=== PATIENT | male | born 1985 | race American Indian/Alaskan Native ===

== ENCOUNTER 2016-05-26 02:55 | Emergency (ER) | payer SELFPAY ==
--- NOTE | 2016-05-26 05:56 | Emergency Department Report ---
HPI - General Chief Complaint: Headache Time Seen by Provider: 05/26/16 05:50 - HPI HPI: The patient is a 30-year-old male who presents to ED complaining of 10/10 pain in the right side of his mouth x 3-4 weeks . Patient states that the pain has been intermittent for the past 3 weeks and has increased in severity over the last couple of days. The pain is exacerbated by eating and opening of the mouth. Patient complaints of associated right sided headache and right ear pain.Patient states he takes aspirin for the pain. Patient states that it radiates towards ear. Patient describes a as a throbbing, pressure-like sensation. Patient states otherwise well and has no other complaints. Patient has had no fevers and no chills. No chest pain, no shortness of breath. No abdominal pain. No shortness of breath or recent trauma to the face. ED Past Medical Hx - Past Medical History Previous Medical History?: No - Surgical History Past Surgical History?: No - Social History Smoking Status: Never Smoker Substance Use Type: None - Medications Home Medications: Home Medications Medication Instructions Recorded Confirmed Last Taken Type Acetaminophen/Codeine 1 tab PO Q6H #12 tablet 05/26/16 Unknown Rx [Acetaminophen-Codeine #3 TAB] Amoxicillin/K Clav Tab [Augmentin 1 each PO BID #20 tablet 05/26/16 Unknown Rx 875MG TAB] Ibuprofen [Motrin] 800 mg PO Q8HR PRN #24 tablet 05/26/16 Unknown Rx ED Review of Systems ROS: Stated complaint: HEAD/FACIAL/THROAT PAIN Other details as noted in HPI Constitutional: denies: chills, fever Eyes: denies: eye pain, eye discharge, vision change ENT: ear pain, dental pain. denies: throat pain, hearing loss, epistaxis Respiratory: denies: cough, shortness of breath, wheezing Cardiovascular: denies: chest pain, palpitations Endocrine: no symptoms reported Gastrointestinal: denies: abdominal pain, nausea, vomiting, diarrhea Genitourinary: denies: urgency, dysuria, frequency, hematuria Musculoskeletal: denies: back pain, joint swelling, arthralgia, myalgia Skin: denies: rash, lesions Neurological: denies: headache, weakness, numbness, paresthesias, confusion Psychiatric: denies: anxiety, depression Hematological/Lymphatic: denies: easy bleeding, easy bruising Physical Exam - Physical Exam Vital Signs: Vital Signs 05/26/16 05/26/16 03:04 04:25 Temperature 97.5 F L 98.0 F Pulse Rate 52 L 51 L Respiratory 18 18 Rate Blood Pressure 111/77 118/80 O2 Sat by Pulse 96 98 Oximetry Physical Exam: GENERAL: Alert and oriented x3, no apparent distress, Normal Gait, atraumatic. HEAD: Head is normocephalic and a-traumatic. EYES: Pupils are equal, round, and reactive to light and accommodation. EARS: symetrical, atraumatic, non tender, ear canal clear and moderate cerumen, tympanic membrance non inflamed. gross auditory nml bilaterally. NOSE: Nose symetrical, Nontender,Nares appeared normal. MOUTH:Mouth is well hydrated and without lesions. Tonsils nonerythematous or swollen, Uvula midline, Tongue not elevated. Mucous membranes are moist. Posterior pharynx clear, no exudate or lesions. Patent airways. No sores, no gingival enlargement. Right to him before tender to palpation. No TMJ tenderness NECK: Supple. Non edematous, No carotid bruits. No lymphadenopathy or thyromegaly. LUNGS: Symetrical with respiration, No wheezing, no rales or crackles, CTAB. HEART: S1, S2 present, regular rate and rhythm without murmur, no rubs, no gallops. ABDOMEN: No organomegaly was noted,Positive bowel sounds, soft, and non- distended. . Nontender to palpation on all Quadrants, NO CVA tenderness. EXTREMITIES/MUSCULOSKELETAL: No cyanosis, clubbing, rash, lesions or edema. Full ROM bilaterally. UE/LE Pulses 2+ bilaterally NEUROLOGIC: No focal Deficit, Cranial nerves II through XII are grossly intact. No loss of sensation, neurologically intact. Patient able to follow up in OB instructions and commands. SKIN: Warm and dry, No lesions, No ulceration or induration present. ED Course Vital Signs 05/26/16 05/26/16 03:04 04:25 Temperature 97.5 F L 98.0 F Pulse Rate 52 L 51 L Respiratory 18 18 Rate Blood Pressure 111/77 118/80 O2 Sat by Pulse 96 98 Oximetry ED Medical Decision Making - Radiology Data Radiology results: report reviewed, image reviewed FINAL REPORT PROCEDURE: CT HEAD/BRAIN WO CON TECHNIQUE: Computerized tomography of the head was performed without contrast material. HISTORY: headache/blurry vision COMPARISON: No prior studies are available for comparison. FINDINGS: Skull and scalp: Normal. Paranasal sinuses: Normal. Ventricles and subarachnoid spaces: Normal. Cerebrum: No evidence of hemorrhage, acute infarction or mass . Cerebellum and brainstem: No evidence of hemorrhage, acute infarction or mass. Vasculature: Normal. Comments: None. IMPRESSION: Normal Examination Transcribed By: CO Dictated By: MELVIN STONE MD Electronically Authenticated By: MELVIN STONE MD Signed Date/Time: 05/26/16 0616 - Medical Decision Making 30-year-old male presents with dental pain due to caries ED course. CT of the head ordered due to patient complaining severe headache. CT report almost see above. She received pain medication in ED. Discussed with patient and his uncle who is here with him dental pain to cause headaches and ear pain. Discussed normal findings in Ear exam neuro exam. Discussed follow-up with a dentist. Discussed primary care physician follow-up as well. he is in no acute or respiratory distress. His vital signs are stable. Discussed with the patient's uncle and the patient that CT findings. Critical care attestation.: If time is entered above; I have spent that time in minutes in the direct care of this critically ill patient, excluding procedure time. ED Disposition Clinical Impression: Pain, dental, Dental headache Disposition: DISCHARGED TO HOME OR SELFCARE Is pt being admited?: No Does the pt Need Aspirin: No Condition: Stable Instructions: Dental Caries (ED), Acute Headache (ED), Toothache (ED) Prescriptions: Acetaminophen/Codeine [Acetaminophen-Codeine #3 TAB] 1 tab PO Q6H #12 tablet Amoxicillin/K Clav Tab [Augmentin 875MG TAB] 1 each PO BID #20 tablet Ibuprofen [Motrin] 800 mg PO Q8HR PRN #24 tablet PRN Reason: Pain Referrals: PRIMARY CARE, [Primary Care Provider] - 3-5 Days [facility] [Outside] - 3-5 Days [facility] [Outside] - 3-5 Days [facility] [Outside] - 3-5 Days Forms: Accompanied Note, Work/School Release Form(ED) Time of Disposition: 06:47
[2016-05-26] MEDS ORDERED: AUGMENTIN 875 MG PO ONE (05:57)
[2016-05-26] MEDS ORDERED: TYLENOL #3 PO ONE (05:57)
--- NOTE | 2016-05-26 06:20 | Cat Scan Report ---
FINAL REPORT PROCEDURE: CT HEAD/BRAIN WO CON TECHNIQUE: Computerized tomography of the head was performed without contrast material. HISTORY: headache/blurry vision COMPARISON: No prior studies are available for comparison. FINDINGS: Skull and scalp: Normal. Paranasal sinuses: Normal. Ventricles and subarachnoid spaces: Normal. Cerebrum: No evidence of hemorrhage, acute infarction or mass . Cerebellum and brainstem: No evidence of hemorrhage, acute infarction or mass. Vasculature: Normal. Comments: None. IMPRESSION: Normal Examination
[2016-05-26] MEDS ORDERED: LIDOCAINE VISCOUS 2% PO ONE (06:48)
[2016-05-26 07:15] VITALS: BP 114/78
== END 2016-05-26 07:17 | disposition home or self-care (01) ==
LOC: ED 02:55
DX: K08.89 Other specified disorders of teeth and supporting structures (principal); R51 Headache
CPT/HCPCS: 70450

== ENCOUNTER 2016-11-18 20:27 | Emergency (ER) | payer SELFPAY ==
[2016-11-18] MEDS ORDERED: PEPCID IV ONE ×2 (21:39→21:50)
[2016-11-18] MEDS ORDERED: BENADRYL ONE (21:39)
[2016-11-18] MEDS ORDERED: BENADRYL IV ONE (21:50)
[2016-11-18 22:17] LABS: Basophils % (Auto) 0.7 % (0.0-1.8); Eosinophils % (Auto) 0.6 % (0.0-4.3); Hematocrit 46.3 % (35.5-45.6); Hemoglobin 14.8 gm/dl (11.8-15.2); Mean Corpuscular HGB Conc 32 % (32-34); Mean Corpuscular Volume 78 fl (84-94); Platelet Count 233 K/mm3 (140-440); Red Blood Count 5.94 M/mm3 (3.65-5.03); Red Cell Distribution Width 13.3 % (13.2-15.2); White Blood Count 6.7 K/mm3 (4.5-11.0)
[2016-11-18 22:19] LABS: Mean Corpuscular Hemoglobin 25 pg (28-32)
[2016-11-18 22:52] LABS: Alanine Aminotransferase 20 units/L (7-56); Albumin 3.8 g/dL (3.9-5); Albumin/Globulin Ratio 1.4 %; Alkaline Phosphatase 66 units/L (35-129); Anion Gap 14 mmol/L; BUN/Creatinine Ratio 16.66; Blood Urea Nitrogen 10 mg/dL (9-20); Calcium 8.6 mg/dL (8.4-10.2); Carbon Dioxide 28 mmol/L (22-30); Chloride 100.4 mmol/L (98-107); Glucose 87 mg/dL (75-100); Potassium 3.7 mmol/L (3.6-5.0); Sodium 139 mmol/L (137-145); Total Protein 6.5 g/dL (6.3-8.2)
[2016-11-18 22:54] LABS: Bilirubin,Direct < 0.2 mg/dL (0-0.2); Bilirubin,Indirect 0.4 mg/dL
--- NOTE | 2016-11-19 08:12 | Emergency Department Report ---
ED Allergic Reaction HPI - General Chief complaint: Allergic Reaction Stated complaint: HEADACHE & SOB Time Seen by Provider: 11/19/16 07:16 Source: patient Mode of arrival: Ambulatory Limitations: No Limitations - History of Present Illness Initial Comments: This is a 31-year-old male nontoxic, well nourished in appearance, no acute signs of distress presents to the ED complaining of headache, itching, hives, swelling of the lips 3 hours prior to arrival. Patient stated he has a chronic allergic reactions to many things but is not aware of which allergies are from. Patient stated that he does have a primary care doctor he sees on a continuous basis for allergies but denies having an allergy test and was referred to want but the patient did not have time for one yet. Patient denies any trauma. Denies loss of consciousness, denies fever, chills, shortness of breath, nausea, vomiting, chest pain, difficulty breathing, drooling, hoarseness , abdominal pain, numbness or tingling. Patient states that he has history of migraines. Patient denies any allergies. MD Complaint: allergic reaction, hives -: Gradual, days(s) (1) Exposure: unknown Symptoms: rash, itching, lip swelling. denies: facial swelling, difficulty swallowing, difficulty breathing, orolingual swelling, hoarseness, syncopy, dizziness, nausea, vomiting, abdominal pain Severity: moderate Treatment Prior to Arrival: none Previous Allergy History: prior ED visit(s) - Related Data Previous Rx's Medication Instructions Recorded Last Taken Type Acetaminophen/Codeine [Tylenol 1 tab PO Q6H #12 tablet 05/26/16 Unknown Rx /Codeine # 3 tab] Amoxicillin/K Clav Tab [Augmentin 1 each PO BID #20 tablet 05/26/16 Unknown Rx 875MG TAB] Ibuprofen [Motrin] 800 mg PO Q8HR PRN #24 tablet 05/26/16 Unknown Rx diphenhydrAMINE [Benadryl CAP] 25 mg PO Q6HR PRN #30 capsule 11/19/16 Unknown Rx predniSONE [Deltasone] 40 mg PO QDAY #5 tab 11/19/16 Unknown Rx Allergies Allergy/AdvReac Type Severity Reaction Status Date / Time No Known Allergies Allergy Verified 02/28/15 07:19 ED Review of Systems ROS: Stated complaint: HEADACHE & SOB Other details as noted in HPI Constitutional: denies: chills, fever Eyes: denies: eye pain, eye discharge, vision change ENT: denies: ear pain, throat pain Respiratory: denies: cough, shortness of breath, wheezing Cardiovascular: denies: chest pain, palpitations Endocrine: no symptoms reported Gastrointestinal: denies: abdominal pain, nausea, diarrhea Genitourinary: denies: urgency, dysuria Musculoskeletal: denies: back pain, joint swelling, arthralgia Skin: rash. denies: lesions Neurological: denies: headache, weakness, paresthesias Psychiatric: denies: anxiety, depression Hematological/Lymphatic: denies: easy bleeding, easy bruising ED Past Medical Hx - Past Medical History Previous Medical History?: Yes Additional medical history: Migraines - Surgical History Past Surgical History?: No - Social History Smoking Status: Never Smoker Substance Use Type: None - Medications Home Medications: Home Medications Medication Instructions Recorded Confirmed Last Taken Type Acetaminophen/Codeine [Tylenol 1 tab PO Q6H #12 tablet 05/26/16 Unknown Rx /Codeine # 3 tab] Amoxicillin/K Clav Tab [Augmentin 1 each PO BID #20 tablet 05/26/16 Unknown Rx 875MG TAB] Ibuprofen [Motrin] 800 mg PO Q8HR PRN #24 tablet 05/26/16 Unknown Rx diphenhydrAMINE [Benadryl CAP] 25 mg PO Q6HR PRN #30 capsule 11/19/16 Unknown Rx predniSONE [Deltasone] 40 mg PO QDAY #5 tab 11/19/16 Unknown Rx ED Physical Exam - General Limitations: No Limitations General appearance: alert, in no apparent distress - Head Head exam: Present: atraumatic, normocephalic, normal inspection - Eye Eye exam: Present: normal appearance, PERRL, EOMI. Absent: scleral icterus, conjunctival injection, nystagmus, periorbital swelling, periorbital tenderness Pupils: Present: normal accommodation - ENT ENT exam: Present: normal exam, normal orophraynx, mucous membranes moist, TM's normal bilaterally, normal external ear exam - Neck Neck exam: Present: normal inspection, full ROM. Absent: tenderness, meningismus, lymphadenopathy, thyromegaly - Respiratory Respiratory exam: Present: normal lung sounds bilaterally. Absent: respiratory distress, wheezes, rales, rhonchi, stridor, chest wall tenderness, accessory muscle use, decreased breath sounds, prolonged expiratory - Cardiovascular Cardiovascular Exam: Present: regular rate, normal rhythm, normal heart sounds. Absent: bradycardia, tachycardia, irregular rhythm, systolic murmur, diastolic murmur, rubs, gallop - GI/Abdominal GI/Abdominal exam: Present: soft, normal bowel sounds. Absent: distended, tenderness, guarding, rebound, rigid, diminished bowel sounds - Rectal Rectal exam: Present: deferred - Extremities Exam Extremities exam: Present: normal inspection, full ROM, normal capillary refill. Absent: tenderness, pedal edema, joint swelling, calf tenderness - Back Exam Back exam: Present: normal inspection, full ROM. Absent: tenderness, CVA tenderness (R), CVA tenderness (L), muscle spasm, paraspinal tenderness, vertebral tenderness, rash noted - Neurological Exam Neurological exam: Present: alert, oriented X3, CN II-XII intact, normal gait, reflexes normal - Expanded Neurological Exam Expanded Patient oriented to: Present: person, place, time Speech: Present: fluid speech Cranial nerves: EOM's Intact: Normal, Gag Reflex: Normal, Tongue Deviation: Normal, Nystagmus: Normal, Facial Sensation: Normal, Facial Palsy with Forehead Movement: Normal, Facial Palsy without Forehead Movement: Normal Cerebellar function: Finger to Nose: Normal, Heel to Zaidi: Normal, Romberg: Normal Upper motor neuron: Prakash Neglect: Normal, Pronator Drift: Normal, Babinski Sign : Normal, Sensory Extinction: Normal Sensory exam: Upper Extremity Light Touch: Normal, Upper Extremity Pin Prick: Normal, Upper Extremity Temperature: Normal, UE 2 Point Discrimination: Normal, Lower Extremity Light Touch: Normal, Lower Extremity Pin Prick: Normal, Lower Extremity Temperature: Normal, LE 2 Point Discrimination: Normal Motor strength exam: RUE: 5, LUE: 5, RLE: 5, LLE: 5 DTR: bicep (R): 2+, bicep (L): 2+, tricep (R): 2+, tricep (L): 2+, knee (R): 2+ , knee (L): 2+, ankle (R): 2+, ankle (L): 2+ Best Eye Response ([place]): (4) open spontaneously Best Motor Response (Ynes): (6) obeys commands Best Verbal Response (Ynes): (5) oriented Ynes Total: 15 - Psychiatric Psychiatric exam: Present: normal affect, normal mood - Skin Skin exam: Present: warm, dry, intact, normal color. Absent: rash, cyanosis, diaphoretic, erythema, urticaria, vesicles, petechiae, pallor, abrasion, ecchymosis ED Course Vital Signs 11/18/16 20:33 Temperature 98.4 F Respiratory 18 Rate Blood Pressure 104/65 - Reevaluation(s) Reevaluation #1: 11/19/16 08:13 Patient speaking in full sentences with no signs of distress. ED Medical Decision Making - Lab Data Result diagrams: 11/18/16 21:48 11/18/16 21:48 - Medical Decision Making This is a 31-year-old male that presents with allergic reaction. Patient is stable and speaking in full sentences with no signs of any distress. Upon my examination there is no hives, swelling of lips, itching or any rash formation. Patient received Benadryl, Pepcid and Solu-Medrol prior to my interview was stated patient symptoms have subsided. Patient currently ED denies any headache or any symptoms. Patient stated he wants to get referred for a allergy test. Patient be treated with prednisone and Benadryl at the time of discharge. Patient was also referred to personal care home administrator last allergy doctor. Patient's friend is currently at the bedside and stated he will try the patient home because I instructed patient that he may be too drowsy to drive due to Benadryl which causes drowsiness. Patient was instructed to follow-up with a primary care doctor in 3-5 days or if symptoms worsen and continue return to emergency room as soon as possible possible. At time time of discharge, the patient does not seem toxic or ill in appearance. No acute signs of distress noted. Patient agrees to discharge treatment plan of care. No further questions noted by the patient. Critical care attestation.: If time is entered above; I have spent that time in minutes in the direct care of this critically ill patient, excluding procedure time. ED Disposition Clinical Impression: Allergic reaction Qualifiers: Encounter type: initial encounter Qualified Code(s): T78.40XA - Allergy, unspecified, initial encounter Disposition: - TO HOME OR SELFCARE Is pt being admited?: No Does the pt Need Aspirin: No Condition: Stable Instructions: Urticaria (ED), Prednisone (By mouth), Diphenhydramine (By mouth) Additional Instructions: Follow-up with a primary care doctor in 3-5 days or if symptoms worsen and continue return to emergency room as soon as possible possible. Do not drive after discharge due to sedation/drowsiness of Benadryl that he received in the emergency room. Prescriptions: diphenhydrAMINE [Benadryl CAP] 25 mg PO Q6HR PRN #30 capsule PRN Reason: Itching predniSONE [Deltasone] 40 mg PO QDAY #5 tab Referrals: PRIMARY CARE, [Primary Care Provider] - 3-5 Days [facility] [Provider Group] - 3-5 Days [facility] [Outside] - 3-5 Days [facility] [Outside] - 3-5 Days YASMINE RAGLAND MD [Staff Physician] - 3-5 Days Forms: Work/School Release Form(ED)
[2016-11-19 09:06] VITALS: BP 107/66
== END 2016-11-19 09:07 | disposition home or self-care (01) ==
LOC: ED 20:27
DX: T78.40XA Allergy, unspecified, initial encounter (principal); G43.909 Migraine, unspecified, not intractable, without status migrainosus
CPT/HCPCS: 36415; 80048; 80074; 85025; 96374; 96375; 99283; J1200; J2930

== ENCOUNTER 2016-11-19 22:06 | Emergency (ER) | payer SELFPAY ==
[2016-11-19] MEDS ORDERED: MOTRIN PO ONE (22:32)
[2016-11-19] MEDS ORDERED: BENADRYL IM ONE (22:32)
[2016-11-19] MEDS ORDERED: DECADRON IM STA (22:32)
[2016-11-19] MEDS ORDERED: PEPCID PO ONE (22:32)
[2016-11-20] MEDS ORDERED: DELTASONE PO ONE (03:28)
--- NOTE | 2016-11-20 03:28 | Emergency Department Report ---
HPI - General Chief Complaint: Allergic Reaction Time Seen by Provider: 11/20/16 01:26 - HPI HPI: 31-year-old male presents with complaint of hives which occurred briefly this afternoon approximately 5 PM. Patient states he had an episodes of hives yesterday as well. Denies exposure to new cosmetics pets no recent travel no new foods has no history of allergies to foods or medications no recent new medications other than what he was prescribed yesterday. Patient states he did not fill his prescriptions because he did not have money to do so. Patient is awake alert and oriented 3 speaking full sentences. Received multiple medications for allergic reaction before my interview including Decadron IM and Benadryl. States he feels significantly better and hives have significantly reduced since then. Patient denies any shortness of breath chest pain palpitations fevers or chills. ED Past Medical Hx - Past Medical History Previous Medical History?: Yes Additional medical history: Migraines - Surgical History Past Surgical History?: No - Social History Smoking Status: Never Smoker Substance Use Type: None - Medications Home Medications: Home Medications Medication Instructions Recorded Confirmed Last Taken Type Acetaminophen/Codeine [Tylenol 1 tab PO Q6H #12 tablet 05/26/16 Unknown Rx /Codeine # 3 tab] Amoxicillin/K Clav Tab [Augmentin 1 each PO BID #20 tablet 05/26/16 Unknown Rx 875MG TAB] Ibuprofen [Motrin] 800 mg PO Q8HR PRN #24 tablet 05/26/16 Unknown Rx diphenhydrAMINE [Benadryl CAP] 25 mg PO Q6HR PRN #30 capsule 11/19/16 Unknown Rx EPINEPHrine (NF) [Epipen (Nf)] 0.3 mg IM ONCE PRN #1 syringekit 11/20/16 Unknown Rx predniSONE [Deltasone] 40 mg PO QDAY #5 tab 11/20/16 Unknown Rx ED Review of Systems ROS: Stated complaint: ADB PAIN, HEADACHE, RASH, SWELLING Other details as noted in HPI Constitutional: denies: chills, fever Eyes: denies: eye pain, eye discharge, vision change ENT: denies: ear pain, throat pain Respiratory: denies: cough, shortness of breath, wheezing Cardiovascular: denies: chest pain, palpitations Endocrine: no symptoms reported Gastrointestinal: denies: abdominal pain, nausea, diarrhea Genitourinary: denies: urgency, dysuria Musculoskeletal: denies: back pain, joint swelling, arthralgia Skin: pruritus. denies: rash, lesions Neurological: denies: headache, weakness, paresthesias Psychiatric: denies: anxiety, depression Hematological/Lymphatic: denies: easy bleeding, easy bruising Physical Exam - Physical Exam Vital Signs: Vital Signs 11/19/16 11/20/16 22:15 02:30 Temperature 97.3 F L 97.6 F Pulse Rate 76 54 L Respiratory 22 16 Rate Blood Pressure 118/71 Blood Pressure 99/64 [Right] O2 Sat by Pulse 99 100 Oximetry General: General: Well appearing, well nourished, in no distress. Oriented x 3, normal mood and affect . Ambulating without difficulty. No audible wheezing or stridor no respiratory distress and no respiratory retractions Skin: Some excoriations and small amount of hives on abdomen Head: Normocephalic, atraumatic, no visible or palpable masses, depressions, or scaring. Eyes: PERRLA, EOMI Mouth: No visible lip or tongue swelling . Mucous membranes moist, no mucosal lesions. Pharynx: No intraoral lesions, oropharynx patent Mucosa non-inflamed, no tonsillar hypertrophy or exudate Heart: S1-S2 no murmurs Lungs: Clear to auscultation laterally, no wheezing no stridor Abdomen: Bowel sounds normal, no tenderness, organomegaly, masses, or hernia Neurologic: CN 2-12 normal. ED Course Vital Signs 11/19/16 11/20/16 22:15 02:30 Temperature 97.3 F L 97.6 F Pulse Rate 76 54 L Respiratory 22 16 Rate Blood Pressure 118/71 Blood Pressure 99/64 [Right] O2 Sat by Pulse 99 100 Oximetry ED Medical Decision Making - Medical Decision Making A/P: Hives, urticaria 1-patient to follow up with primary care and dermatology 2-I advised patient to fill the prescription for prednisone that he was given yesterday by ED attending. I provided patient with discount cards and encouraged him to obtain his prescriptions 3-patient given Benadryl and IM Decadron here in ED, resolution of symptoms patient has no current hives and/or facial swelling or angioedema Critical care attestation.: If time is entered above; I have spent that time in minutes in the direct care of this critically ill patient, excluding procedure time. ED Disposition Clinical Impression: Hives Disposition: DC-01 TO HOME OR SELFCARE Is pt being admited?: No Does the pt Need Aspirin: No Condition: Stable Instructions: Urticaria (ED) Additional Instructions: Patient advised to fill prescriptions that were given to him on 11/19 and 11/20 and to follow up with primary care and dermatology. Prescription for EpiPen to be used only for emergent allergic reactions, anaphylaxis/angioedema. Prescriptions: EPINEPHrine (NF) [Epipen (Nf)] 0.3 mg IM ONCE PRN #1 syringekit PRN Reason: Anaphylaxis predniSONE [Deltasone] 40 mg PO QDAY #5 tab Referrals: [facility] [Outside] - 3-5 Days [facility] [Outside] - 3-5 Days YAS STEVENS MD [Staff Physician] - 3-5 Days [facility] [Provider Group] - 3-5 Days Forms: Work/School Release Form(ED) Time of Disposition: 03:25
[2016-11-20 03:59] VITALS: BP 100/62
== END 2016-11-20 03:40 | disposition home or self-care (01) ==
LOC: ED 22:06
DX: L50.9 Urticaria, unspecified (principal); G43.909 Migraine, unspecified, not intractable, without status migrainosus
CPT/HCPCS: 96372; 99282; J1100; J1200; J7512

== ENCOUNTER 2017-01-17 01:55 | Emergency (ER) | payer SELFPAY ==
[2017-01-17] MEDS ORDERED: NACL 0.9% 1000 ML 1,000 ML IV ONE (08:12)
[2017-01-17 08:30] LABS: Basophils % (Auto) 0.2 % (0.0-1.8); Eosinophils % (Auto) 1.5 % (0.0-4.3); Hemoglobin 12.6 gm/dl (11.8-15.2); Mean Corpuscular HGB Conc 33 % (32-34); Mean Corpuscular Volume 77 fl (84-94); Platelet Count 210 K/mm3 (140-440); Red Blood Count 4.94 M/mm3 (3.65-5.03); Red Cell Distribution Width 13.9 % (13.2-15.2); White Blood Count 6.1 K/mm3 (4.5-11.0)
[2017-01-17 08:32] LABS: Mean Corpuscular Hemoglobin 26 pg (28-32)
[2017-01-17 09:05] LABS: Alanine Aminotransferase 18 units/L (7-56); Albumin 3.3 g/dL (3.9-5); Albumin/Globulin Ratio 1.2 %; Alkaline Phosphatase 62 units/L (35-129); Anion Gap 13 mmol/L; BUN/Creatinine Ratio 16; Blood Urea Nitrogen 8 mg/dL (9-20); Calcium 8.2 mg/dL (8.4-10.2); Carbon Dioxide 29 mmol/L (22-30); Chloride 102.5 mmol/L (98-107); Glucose 82 mg/dL (75-100); Potassium 3.4 mmol/L (3.6-5.0); Sodium 141 mmol/L (137-145)
[2017-01-17] MEDS ORDERED: NACL ONE (09:20)
--- NOTE | 2017-01-17 09:22 | Emergency Department Report ---
ED General Adult HPI - General Chief complaint: Allergic Reaction Stated complaint: rash for months Time Seen by Provider: 01/17/17 07:18 Source: patient, family, old records reviewed Mode of arrival: Ambulatory Limitations: No Limitations - History of Present Illness MD Complaint: here w same recently; rash; but on exam pt has rle swelling; reports of sob -: Gradual Location: back Radiation: non-radiation Associated Symptoms: chest pain, malaise, shortness of breath. denies: confusion, cough, diaphoresis, fever/chills, headaches, loss of appetite, nausea /vomiting, rash, seizure, syncope, weakness Treatments Prior to Arrival: none, other (see med record) - Related Data Previous Rx's Medication Instructions Recorded Last Taken Type hydrOXYzine PAMOATE [Vistaril] 25 mg PO Q6HR PRN #12 capsule 01/17/17 Unknown Rx predniSONE [Deltasone] 20 mg PO DAILY #5 tablet 01/17/17 Unknown Rx Allergies Allergy/AdvReac Type Severity Reaction Status Date / Time No Known Allergies Allergy Verified 12/24/16 18:58 ED Review of Systems ROS: Stated complaint: URI SX Other details as noted in HPI Comment: All other systems reviewed and negative Constitutional: malaise. denies: fever Respiratory: shortness of breath Cardiovascular: chest pain Musculoskeletal: other (rle swelling) Skin: rash ED Past Medical Hx - Past Medical History Previous Medical History?: Yes Additional medical history: Migraines - Surgical History Past Surgical History?: No - Family History Family history: no significant, other (mom hx unknown; dad a/w) - Social History Smoking Status: Never Smoker Substance Use Type: None - Medications Home Medications: Home Medications Medication Instructions Recorded Confirmed Last Taken Type hydrOXYzine PAMOATE [Vistaril] 25 mg PO Q6HR PRN #12 capsule 01/17/17 Unknown Rx predniSONE [Deltasone] 20 mg PO DAILY #5 tablet 01/17/17 Unknown Rx ED Physical Exam - General Limitations: No Limitations General appearance: alert, obese - Head Head exam: Present: atraumatic - Eye Eye exam: Present: PERRL, EOMI. Absent: scleral icterus, conjunctival injection , nystagmus Pupils: Present: normal accommodation - ENT ENT exam: Present: mucous membranes moist, TM's normal bilaterally - Neck Neck exam: Present: normal inspection, full ROM. Absent: tenderness, meningismus, lymphadenopathy, thyromegaly - Respiratory Respiratory exam: Present: normal lung sounds bilaterally. Absent: respiratory distress, wheezes, rales, rhonchi, stridor - Cardiovascular Cardiovascular Exam: Present: regular rate, normal rhythm, normal heart sounds. Absent: systolic murmur, diastolic murmur, JVD, S3, S4 - GI/Abdominal GI/Abdominal exam: Present: soft, normal bowel sounds - Rectal Rectal exam: Present: deferred - Extremities Exam Extremities exam: Present: other (rle swelling; neg homans) - Back Exam Back exam: Present: normal inspection, rash noted (urticarial). Absent: CVA tenderness (R), CVA tenderness (L) - Neurological Exam Neurological exam: Present: alert, oriented X3, CN II-XII intact - Psychiatric Psychiatric exam: Present: normal affect, normal mood - Skin Skin exam: Present: warm, dry, rash ED Course Vital Signs 01/17/17 01/17/17 01/17/17 02:15 08:09 10:05 Temperature 98.1 F Pulse Rate 88 74 72 Respiratory 18 Rate Blood Pressure 109/71 Blood Pressure 99/56 [Right] O2 Sat by Pulse 97 Oximetry 01/17/17 01/17/17 01/17/17 10:10 10:45 11:00 Temperature Pulse Rate 72 80 75 Respiratory 18 12 12 Rate Blood Pressure 88/52 96/52 Blood Pressure 92/52 [Right] O2 Sat by Pulse 99 Oximetry 01/17/17 01/17/17 11:15 12:54 Temperature 98.0 F Pulse Rate 75 77 Respiratory 13 16 Rate Blood Pressure 96/52 Blood Pressure 112/56 [Right] O2 Sat by Pulse 100 Oximetry - Reevaluation(s) Reevaluation #1: 01/17/17 to er w rash on exam rle swollen calf firm good pulses rapid cap refill no open lesion/ulceration no trauma lle wnl upon probing states vague cp and sob at times obese here recent for rash no follow up per rn but pt states he did fu Reevaluation #2: 01/17/17 09:50 pt and family updated ct and us pending labs noted to monitored room Reevaluation #3: 01/17/17 11:[address] Pal BP 96/52, pt was asleep. he worked double yest; one shift at [id number] and one at [employer] Reevaluation #4: 01/17/17 12:19 bp manual by provider 100/60 pt and uncle updated pt ambulating in er voiding bp inc; it does dec when asleep discussed at length follow up and plan of care dc home w uncle vss. nad no pain and ambulatory/ neuro intact/ and taking po on dc no fever sat 100 on ra on dc bp 112 systolic on dc. ED Medical Decision Making - Lab Data Result diagrams: 01/17/17 08:17 01/17/17 08:17 - EKG Data -: EKG Interpreted by Me - EKG Data Interpretation: no acute changes - Radiology Data Radiology results: report reviewed, image reviewed - Medical Decision Making see note - Differential Diagnosis rash; ro pe/dvt Critical care attestation.: If time is entered above; I have spent that time in minutes in the direct care of this critically ill patient, excluding procedure time. ED Disposition Clinical Impression: Rash Disposition: DC-01 TO HOME OR SELFCARE Is pt being admited?: No Does the pt Need Aspirin: No Condition: Stable Instructions: Urticaria (ED) Additional Instructions: 1. meds as ordered today 2. hypoallergenic soap and detergent 3. follow up pcp. Dr Reynolds is one below Other possible sources of follow up below as well 4. follow up with derm Dr Ulises García [phone] 5. elevate leg 6. support stockings available at pharmacy may help with leg swelling given he works all day long 7. hydrate well with water 8. let follow up MD's know of pts ER visit and they can access our records Prescriptions: hydrOXYzine PAMOATE [Vistaril] 25 mg PO Q6HR PRN #12 capsule PRN Reason: Itching predniSONE [Deltasone] 20 mg PO DAILY #5 tablet Referrals: PRIMARY CAREMD [Primary Care Provider] - 3-5 Days DYLON REYNOLDS MD [Staff Physician] - 3-5 Days [facility] [Outside] - 3-5 Days [facility] [Outside] - 3-5 Days [facility] [Outside] - 3-5 Days [facility] [Outside] - 3-5 Days TOÑITO GARCIA MD [Referring] - 3-5 Days Forms: Work/School Release Form(ED) Time of Disposition: 12:14
[2017-01-17 09:40] LABS: INR 1.15 (0.87-1.13)
[2017-01-17] MEDS ORDERED: K-DUR PO ONE (09:59)
--- NOTE | 2017-01-17 09:59 | Cat Scan Report ---
CT CHEST WITH CONTRAST: 01/17/17 09:06:00 CLINICAL: Chest pain. TECHNIQUE: PE protocol with volumetric acquisition and 1.25 mm scan reconstructions after the uneventful intravenous injection of 100 cc Omnipaque 350. Consent was obtained prior to the administration of contrast. FINDINGS: Satisfactory opacification of the pulmonary arteries and no pulmonary artery thrombus identified. Normal heart and aorta. The lungs are normally expanded and clear. Several enlarged mediastinal lymph nodes aerated largest is a left paratracheal lymph node measuring 2.4 x 1.1 cm. Several smaller AP window lymph nodes. Numerous small bilateral axillary lymph nodes. Normal thyroid, trachea and esophagus. The upper abdomen is unremarkable. The bones and soft tissues are normal. IMPRESSION: No pulmonary embolus. Mediastinal and bilateral axillary lymphadenopathy. No pneumonia.
[2017-01-17 10:38] LABS: Urine Drugs of Abuse Note Disclamer
[2017-01-17 10:55] LABS: Bilirubin,Urine NEG (Negative); Blood,Urine NEG (Negative); Ketones,Urine TR mg/dL (Negative); Leukocyte Esterase,Urine NEG (Negative); Mucus,Urine FEW /HPF; Nitrite,Urine NEG (Negative); Protein,Urine <15 mg/dL mg/dL (Negative); Urobilinogen,Urine < 2.0 mg/dL (<2.0)
[2017-01-17 13:19] VITALS: BP 112/56
--- NOTE | 2017-01-19 07:29 | Vascular Lab Report ---
Right Lower Extremity Venous Duplex Study: Reason for Exam: Swelling of the right lower extremity. Comments on the Right: All veins visualized are freely compressible without evidence of internal echogenicity. Flow is spontaneous and phasic throughout. No evidence of acute or chronic thrombus is seen in any of the vessels visualized. Large multiple varicosities noted in the calf. Comments on the Left: A limited duplex study was done of the proximal veins of the left lower extremity. All veins visualized are freely compressible without evidence of internal echogenicity. Flow is spontaneous and phasic throughout. No evidence of acute or chronic thrombus is seen in any of the vessels visualized. Impression: No evidence of acute or chronic deep venous thrombosis in the right lower extremity. Consider workup for venous insufficiency.
== END 2017-01-17 13:16 | disposition home or self-care (01) ==
LOC: ED 01:55
DX: R21 Rash and other nonspecific skin eruption (principal); G43.909 Migraine, unspecified, not intractable, without status migrainosus
CPT/HCPCS: 36415; 71275; 80053; 80307; 81001; 83735; 84484; 85025; 85379; 85610; 85730; 93005; 93010; 93971; 96361; 96374; 99284; J2930; J7030; Q9967

== ENCOUNTER 2017-10-31 05:19 | Emergency (ER) | payer SELFPAY ==
[2017-10-31] MEDS ORDERED: BENADRYL PO ONE ×2 (05:59→06:00)
[2017-10-31] MEDS ORDERED: DECADRON ONE (05:59)
[2017-10-31] MEDS ORDERED: DECADRON IM ONE (06:00)
[2017-10-31] MEDS ORDERED: PEPCID ONE (06:00)
[2017-10-31] MEDS ORDERED: NACL 0.9% 1000 ML 1,000 ML ONE (06:31)
[2017-10-31] MEDS ORDERED: BENADRYL ONE ×2 (06:31→06:37)
[2017-10-31] MEDS ORDERED: PEPCID PO ONE (06:49)
[2017-10-31] MEDS ORDERED: NACL 0.9% 1000 ML 1,000 ML IV ONE (07:02)
--- NOTE | 2017-10-31 07:59 | Emergency Department Report ---
HPI - General Chief Complaint: Allergic Reaction Time Seen by Provider: 10/31/17 07:54 - HPI HPI: Room 30 The patient is a 32-year-old male presenting with a chief complaint of allergic reaction. The patient states yesterday at approximately 20:00 he developed hives extremities and in his face with intense pruritus. The patient states over the past 6-8 months he's had intermittent episodes of same. Patient is not aware of any new exposures. Patient was administered dexamethasone, Benadryl and famotidine prior to my evaluation and now states he feels improved Location: [See above] Duration: [See above] Quality: Pruritic Severity: Moderate Modifying factors: [see above] Context: [see above] Mode of transportation: [not driving] ED Past Medical Hx - Past Medical History Hx Headaches / Migraines: Yes Additional medical history: Migraines - Surgical History Past Surgical History?: No - Family History Family history: no significant - Social History Smoking Status: Never Smoker Substance Use Type: None - Medications Home Medications: Home Medications Medication Instructions Recorded Confirmed Last Taken Type hydrOXYzine PAMOATE [Vistaril] 25 mg PO Q6HR PRN #12 capsule 01/17/17 Unknown Rx predniSONE [Deltasone] 20 mg PO DAILY #5 tablet 01/17/17 Unknown Rx EPINEPHrine [Epipen] 0.3 mg IJ ONCE PRN #1 auto.injct 10/30/17 Unknown Rx Famotidine [Pepcid] 20 mg PO BID 6 Days #12 tablet 10/30/17 Unknown Rx hydrOXYzine HCL [Atarax] 25 mg PO Q6HR PRN #24 tablet 10/30/17 Unknown Rx predniSONE [Prednisone] 10 mg PO QAM 6 Days #1 tab.ds.pk 10/30/17 Unknown Rx EPINEPHrine [Epipen 2-Luther] 0.3 mg IM ONCE PRN #0.6 ml 10/31/17 Unknown Rx Famotidine [Pepcid] 20 mg PO BID #6 tablet 10/31/17 Unknown Rx Prednisone [predniSONE 10 mg 10 mg PO .TAPER #1 tab.ds.pk 10/31/17 Unknown Rx (6-Day Pack, 21 Tabs)] diphenhydrAMINE [Benadryl CAP] 50 mg PO Q6HR #24 capsule 10/31/17 Unknown Rx ED Review of Systems ROS: Stated complaint: RASH Other details as noted in HPI Constitutional: no symptoms reported Eyes: denies: eye pain ENT: denies: throat pain Respiratory: no symptoms reported Cardiovascular: denies: chest pain Endocrine: no symptoms reported Gastrointestinal: denies: abdominal pain Genitourinary: denies: dysuria Musculoskeletal: denies: back pain Skin: rash, pruritus Neurological: denies: headache Physical Exam - Physical Exam Vital Signs: Vital Signs 10/31/17 06:06 Temperature 97.5 F L Pulse Rate 74 Respiratory 18 Rate Blood Pressure 106/64 O2 Sat by Pulse 10 L Oximetry Physical Exam: GENERAL: The patient is well-developed well-nourished male lying on stretcher not appearing to be in acute distress. [] HEENT: Normocephalic. Atraumatic. Extraocular motions are intact. Patient has moist mucous membranes. NECK: Supple. Trachea midline. No stridor CHEST/LUNGS: Clear to auscultation. There is no respiratory distress noted. HEART/CARDIOVASCULAR: Regular. There is no tachycardia. There is no gallop rub or murmur. ABDOMEN: Abdomen is soft, nontender. Patient has normal bowel sounds. There is no abdominal distention. SKIN: There is an urticarial rash present on the face and upper extremities which the patient states is improving. There is no edema. There is no diaphoresis. NEURO: The patient is awake, alert, and oriented. The patient is cooperative. The patient has normal speech MUSCULOSKELETAL: There is no evidence of acute injury. ED Course Vital Signs 10/31/17 06:06 Temperature 97.5 F L Pulse Rate 74 Respiratory 18 Rate Blood Pressure 106/64 O2 Sat by Pulse 10 L Oximetry ED Medical Decision Making - Differential Diagnosis allergic reaction Critical care attestation.: If time is entered above; I have spent that time in minutes in the direct care of this critically ill patient, excluding procedure time. ED Disposition Clinical Impression: Acute allergic reaction Disposition: DC-01 TO HOME OR SELFCARE Is pt being admited?: No Does the pt Need Aspirin: No Condition: Stable Instructions: Urticaria (ED), Food Allergy (ED), Anaphylaxis (ED) Additional Instructions: Return to the emergency department immediately should you develop worsening symptoms, fever, inability to tolerate food or liquid or any other concerns. Prescriptions: diphenhydrAMINE [Benadryl CAP] 50 mg PO Q6HR #24 capsule EPINEPHrine [Epipen 2-Luther] 0.3 mg IM ONCE PRN #0.6 ml PRN Reason: Anaphylaxis Famotidine [Pepcid] 20 mg PO BID #6 tablet Prednisone [predniSONE 10 mg (6-Day Pack, 21 Tabs)] 10 mg PO .TAPER #1 tab.ds.pk Referrals: DOREEN LONGORIA MD [Staff Physician] - [facility] (Dr. Longoria is an aids social worker. Please follow with her for further evaluation) Time of Disposition: 08:00
[2017-10-31 08:18] VITALS: BP 99/59
== END 2017-10-31 08:16 | disposition home or self-care (01) ==
LOC: ED 05:19
DX: T78.40XA Allergy, unspecified, initial encounter (principal); X58.XXXA Exposure to other specified factors, initial encounter; G43.909 Migraine, unspecified, not intractable, without status migrainosus
CPT/HCPCS: 96372; 99282; J1100; J7030; 96361; J1200

== ENCOUNTER 2017-11-21 00:42 | Emergency (ER) | payer SELFPAY ==
[2017-11-21] MEDS ORDERED: DECADRON IV ONE (04:03)
[2017-11-21] MEDS ORDERED: BENADRYL IM ONE (04:05)
--- NOTE | 2017-11-21 04:05 | Emergency Department Report ---
ED Rash HPI - HPI Chief Complaint: Skin Rash Stated Complaint: ALLERGIC REACTION Time Seen by Provider: 11/21/17 04:00 Duration: 3 months Rash Symptoms: Yes Itching, No Facial Swelling, No Tongue/Oral Swelling, No Breathing Difficulties, No Choking Sensation, No Wheezing/Dyspnea, No Peeling, No Blistering, No Fever Other History: 32-year-old -[place] male that has been here 3 times this month comes in for hives 3 months and right foot swelling 7 months. Patient was last seen here on 10/31, 10/30-01/17/17. Patient was referred to an plaster tender as well as [facility] which he has not followed up. Patient reportedly been taking Benadryl and Atarax still has allergic reaction. ED Review of Systems ROS: Stated complaint: ALLERGIC REACTION Other details as noted in HPI Comment: All other systems reviewed and negative Skin: rash ED Past Medical Hx - Past Medical History Previous Medical History?: Yes Hx Headaches / Migraines: Yes Additional medical history: Migraines - Surgical History Past Surgical History?: No - Social History Smoking Status: Never Smoker Substance Use Type: None - Medications Home Medications: Home Medications Medication Instructions Recorded Confirmed Last Taken Type hydrOXYzine PAMOATE [Vistaril] 25 mg PO Q6HR PRN #12 capsule 01/17/17 Unknown Rx predniSONE [Deltasone] 20 mg PO DAILY #5 tablet 01/17/17 Unknown Rx EPINEPHrine [Epipen] 0.3 mg IJ ONCE PRN #1 auto.injct 10/30/17 Unknown Rx hydrOXYzine HCL [Atarax] 25 mg PO Q6HR PRN #24 tablet 10/30/17 Unknown Rx predniSONE [Prednisone] 10 mg PO QAM 6 Days #1 tab.ds.pk 10/30/17 Unknown Rx EPINEPHrine [Epipen 2-Luther] 0.3 mg IM ONCE PRN #0.6 ml 10/31/17 Unknown Rx Famotidine [Pepcid] 20 mg PO BID #6 tablet 10/31/17 Unknown Rx diphenhydrAMINE [Benadryl CAP] 50 mg PO Q6HR #24 capsule 10/31/17 Unknown Rx Famotidine [Pepcid] 20 mg PO BID 6 Days #12 tablet 11/21/17 Unknown Rx Prednisone [predniSONE 10 mg 10 mg PO .TAPER #1 tab.ds.pk 11/21/17 Unknown Rx (6-Day Pack, 21 Tabs)] diphenhydrAMINE [Benadryl CAP] 25 mg PO Q6HR PRN #20 capsule 11/21/17 Unknown Rx Rash Exam - Exam General: Vital signs noted. No distress. Alert and acting appropriately. HEENT: No Periorbital Edema, No Conjuctival Injection, No Chemosis, No Perioral Edema, No Tongue Edema, No Uvular Edema, No Compromised Airway, No Drooling Lungs: Yes Good Air Exchange (Normal Breath Sounds), No Wheezes, No Ronchi, No Stridor, No Cough, No Labored Respirations, No Retractions, No Use of Accessory Muscles, No Other Abnormal Lung Sounds Heart: Yes Regular, No Murmur Skin: Yes Urticarial Rash Other: Positive: Musculoskeletal Normal (bilateral lower leg edema nonpitting no hair on the legs skin is shiny) ED Course Vital Signs 11/21/17 02:23 Temperature 97.9 F Pulse Rate 75 Respiratory 16 Rate Blood Pressure 115/64 O2 Sat by Pulse 96 Oximetry ED Medical Decision Making - Medical Decision Making Patient has been evaluated by this provider fast track. Dexamethasone 10 mg IM, Benadryl 25 mg IM and Pepcid 20 mg by mouth. Discussed the patient that he must follow up with an plaster tender or primary care provider to see why he keeps having these hives. This is patient's fourth time in the last year that he's been seen here for the same complaint. Patient has not been following up as instructed by prior providers and per his discharge summary. Critical care attestation.: If time is entered above; I have spent that time in minutes in the direct care of this critically ill patient, excluding procedure time. ED Disposition Clinical Impression: Urticaria Disposition: DC-01 TO HOME OR SELFCARE Is pt being admited?: No Does the pt Need Aspirin: No Condition: Stable Instructions: Urticaria (ED) Additional Instructions: Take medication as prescribed please do not drive or operate heavy machinery while taking Benadryl as this medication can cause drowsiness. It is imperative that she follow-up with her primary care provider in plaster tender. Use her EpiPen for recurrent hives that involves symptoms of difficulty swallowing, swollen tongue, face and neck swelling, wheezing cough or stridor. Otherwise use Benadryl. Prescriptions: diphenhydrAMINE [Benadryl CAP] 25 mg PO Q6HR PRN #20 capsule PRN Reason: Itching Famotidine [Pepcid] 20 mg PO BID 6 Days #12 tablet Prednisone [predniSONE 10 mg (6-Day Pack, 21 Tabs)] 10 mg PO .TAPER #1 tab.ds.pk Referrals: PRIMARY CARE, [Primary Care Provider] - 3-5 Days [facility] [Provider Group] - 3-5 Days DOREEN POWELL MD [Staff Physician] - 3-5 Days JAKE VALENZUELA MD [Staff Physician] - 3-5 Days Forms: Work/School Release Form(ED)
[2017-11-21] MEDS ORDERED: PEPCID PO ONE (04:06)
[2017-11-21] MEDS ORDERED: DECADRON IM ONE (04:29)
[2017-11-21 04:46] VITALS: BP 116/60
== END 2017-11-21 04:46 | disposition home or self-care (01) ==
LOC: ED 00:42
DX: L50.9 Urticaria, unspecified (principal); G43.909 Migraine, unspecified, not intractable, without status migrainosus; Z79.899 Other long term (current) drug therapy
CPT/HCPCS: 96372; 99282; J1100; J1200

== ENCOUNTER 2018-05-28 17:33 | Emergency (ER) | payer BC ==
[2018-05-28 17:38] VITALS: BP 110/67
[2018-05-28] MEDS ORDERED: DELTASONE PO ONE (17:45)
[2018-05-28] MEDS ORDERED: PEPCID PO ONE (17:45)
[2018-05-28] MEDS ORDERED: BENADRYL PO ONE (17:46)
--- NOTE | 2018-05-28 17:49 | Emergency Department Report ---
ED Rash HPI - HPI Chief Complaint: Skin/Abscess/Foreign Body Stated Complaint: RASH/ITCHING Time Seen by Provider: 05/28/18 17:44 Location: Other (GEN) Suspected Cause: Unknown Rash Symptoms: Yes Itching, No Facial Swelling, No Tongue/Oral Swelling, No Breathing Difficulties, No Choking Sensation, No Wheezing/Dyspnea, No Peeling, No Blistering, No Fever, No Lightheaded, No Malaise, No Myalgias Severity: mild Other History: GEN MACULAR RASH FOR YEARS. NO OTHER S/S. DOES NOT FOLLOW UP. AMBULATORY AND NONTOXIC. ED Review of Systems ROS: Stated complaint: RASH/ITCHING Other details as noted in HPI Comment: All other systems reviewed and negative Constitutional: denies: chills Eyes: denies: as per HPI ENT: denies: ear pain Respiratory: denies: see HPI, orthopnea Cardiovascular: denies: dyspnea on exertion Endocrine: denies: excessive sweating, intolerance to heat Gastrointestinal: denies: vomiting Genitourinary: denies: urgency Skin: as per HPI, rash Neurological: denies: headache Psychiatric: denies: depression Hematological/Lymphatic: denies: easy bleeding ED Past Medical Hx - Past Medical History Previous Medical History?: Yes Hx Headaches / Migraines: Yes Additional medical history: Migraines - Surgical History Past Surgical History?: No - Family History Family history: no significant - Social History Smoking Status: Never Smoker Substance Use Type: None - Medications Home Medications: Home Medications Medication Instructions Recorded Confirmed Last Taken Type Cetirizine HCl [ZyrTEC] 10 mg PO DAILY #30 capsule 05/28/18 Unknown Rx Famotidine [Pepcid] 40 mg PO DAILY #30 tablet 05/28/18 Unknown Rx Fluticasone [Flonase] 1 spray NS QDAY #1 bottle 05/28/18 Unknown Rx diphenhydrAMINE [Benadryl CAP] 25 mg PO Q8HR PRN #30 capsule 05/28/18 Unknown Rx predniSONE [Deltasone] 20 mg PO DAILY #5 tablet 05/28/18 Unknown Rx Rash Exam - Exam General: Vital signs noted. No distress. Alert and acting appropriately. HEENT: No Periorbital Edema, No Conjuctival Injection, No Chemosis, No Perioral Edema, No Tongue Edema, No Uvular Edema, No Compromised Airway, No Drooling Lungs: Yes Good Air Exchange, No Wheezes, No Ronchi, No Stridor, No Cough, No Labored Respirations, No Retractions, No Use of Accessory Muscles, No Other Abnormal Lung Sounds Heart: Yes Regular, No Murmur Skin: Yes Other, No Urticarial Rash, No Maculopapular Rash, No Morbilliform rash, No Bulla(e), No Excoriations, No Weeping, No Tenderness, No Erythema, No Edema, No Encrustations Other: Positive: Abdomen Normal, Neurologic Normal, Musculoskeletal Normal ED Course Vital Signs 05/28/18 05/28/18 17:37 17:43 Temperature 98.5 F 98.5 F Pulse Rate 67 67 Respiratory 16 16 Rate Blood Pressure 110/67 Blood Pressure 110/67 [Left] O2 Sat by Pulse 100 100 Oximetry ED Medical Decision Making - Medical Decision Making SIMPLE RASH FOR 2 YEARS VSS NO FEVER NO KNOWN ALLERGEN TAKES OTC MEDS WITHOUT RELIEF ABC INTACT MEDICATED IN ER AND DC HOME WITH FOLLOW UP WITH DERM. Critical care attestation.: If time is entered above; I have spent that time in minutes in the direct care of this critically ill patient, excluding procedure time. ED Disposition Clinical Impression: Rash Disposition: DC-01 TO HOME OR SELFCARE Is pt being admited?: No Does the pt Need Aspirin: No Condition: Stable Instructions: Acute Rash (ED) Additional Instructions: DIET TOLERATED HYDRATE WELL WITH WATER ACTIVITY TOLERATED FOLLOW UP PCP IF PERSISTS MOTRIN OR TYLENOL FOR PAIN OR FEVER MED GIVEN TODAY Prescriptions: diphenhydrAMINE [Benadryl CAP] 25 mg PO Q8HR PRN #30 capsule PRN Reason: Itching predniSONE [Deltasone] 20 mg PO DAILY #5 tablet Fluticasone [Flonase] 1 spray NS QDAY #1 bottle Famotidine [Pepcid] 40 mg PO DAILY #30 tablet Cetirizine HCl [ZyrTEC] 10 mg PO DAILY #30 capsule Referrals: TOÑITO GARCIA MD [Referring] - 3-5 Days Time of Disposition: 17:46
== END 2018-05-28 18:00 | disposition home or self-care (01) ==
LOC: ED 17:33
DX: R21 Rash and other nonspecific skin eruption (principal); G43.909 Migraine, unspecified, not intractable, without status migrainosus
CPT/HCPCS: 99282; J7512

== ENCOUNTER 2018-06-17 00:47 | Emergency (ER) | payer BC ==
[2018-06-17] MEDS ORDERED: DECADRON IM ONE (07:44)
--- NOTE | 2018-06-17 08:02 | Emergency Department Report ---
ED Rash HPI - HPI Chief Complaint: Skin Rash Stated Complaint: HIVES RT HEEL PAIN Time Seen by Provider: 06/17/18 07:21 Duration: 5 Days Location: Chest, Abdomen Suspected Cause: Unknown Rash Symptoms: Yes Itching, No Facial Swelling, No Tongue/Oral Swelling, No Breathing Difficulties, No Choking Sensation, No Wheezing/Dyspnea, No Peeling, No Blistering, No Fever, No Lightheaded, No Malaise, No Myalgias Severity: mild Other History: 32-year-old male presents to ED complaining of generalized rash of unknown contact. Patient is complains of right heel pain has been intermittent for about a year now. Patient's distress is nondistended and walk- in. 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 ED Review of Systems ROS: Stated complaint: HIVES RT HEEL PAIN Other details as noted in HPI Comment: All other systems reviewed and negative ED Past Medical Hx - Past Medical History Previous Medical History?: Yes Hx Headaches / Migraines: Yes Additional medical history: Migraines - Surgical History Past Surgical History?: No - Social History Smoking Status: Never Smoker Substance Use Type: None - Medications Home Medications: Home Medications Medication Instructions Recorded Confirmed Last Taken Type Cetirizine HCl [ZyrTEC] 10 mg PO DAILY #30 capsule 05/28/18 Unknown Rx Famotidine [Pepcid] 40 mg PO DAILY #30 tablet 05/28/18 Unknown Rx Fluticasone [Flonase] 1 spray NS QDAY #1 bottle 05/28/18 Unknown Rx predniSONE [Deltasone] 20 mg PO DAILY #5 tablet 05/28/18 Unknown Rx Ibuprofen [Motrin] 600 mg PO Q8H #12 tablet 06/17/18 Unknown Rx Triamcinolone Acetonide 1 applic TP BID #1 lotion 06/17/18 Unknown Rx [Triamcinolone 0.1% LOTION] diphenhydrAMINE [Benadryl CAP] 25 mg PO Q8HR PRN #20 capsule 06/17/18 Unknown Rx Rash Exam - Exam General: Vital signs noted. No distress. Alert and acting appropriately. Extremities: No swelling, no laceration or any injuries or deformity noted to bilateral foot and ankle HEENT: No Periorbital Edema, No Conjuctival Injection, No Chemosis, No Perioral Edema, No Tongue Edema, No Uvular Edema, No Compromised Airway, No Drooling Lungs: Yes Good Air Exchange (Normal Breath Sounds), No Wheezes, No Ronchi, No Stridor, No Cough, No Labored Respirations, No Retractions, No Use of Accessory Muscles, No Other Abnormal Lung Sounds Heart: Yes Regular, No Murmur Skin: Yes Urticarial Rash, Yes Maculopapular Rash, No Morbilliform rash, No Bulla(e), No Excoriations, No Weeping, No Tenderness, No Erythema, No Edema, No Encrustations, No Other Other: Positive: Abdomen Normal, Neurologic Normal, Musculoskeletal Normal ED Course Vital Signs 06/17/18 01:14 Temperature 97.7 F Pulse Rate 61 Respiratory 16 Rate Blood Pressure 94/63 O2 Sat by Pulse 99 Oximetry ED Medical Decision Making - Medical Decision Making 32-year-old male presents with rash/urticaria Patient received Decadron IM and ED. Patient central months of topical corticosteroids corticosteroid and Motrin for his heel pain. Vital signs are normal patient is in no acute distress He ambulates without any problem. Patient had no neurological deficit. He was discharged with instructions to follow up. Critical care attestation.: If time is entered above; I have spent that time in minutes in the direct care of this critically ill patient, excluding procedure time. ED Disposition Clinical Impression: Rash and nonspecific skin eruption, Urticaria Disposition: - TO HOME OR SELFCARE Is pt being admited?: No Does the pt Need Aspirin: No Condition: Stable Instructions: Urticaria (ED), Acute Rash (ED) Additional Instructions: Make sure to follow up with the primary care physician as discussed. Take all your medications as you've been prescribed. If you have any worsening symptoms or develop new symptoms please return to ED immediately. Prescriptions: diphenhydrAMINE [Benadryl CAP] 25 mg PO Q8HR PRN #20 capsule PRN Reason: Itching Ibuprofen [Motrin] 600 mg PO Q8H #12 tablet Triamcinolone Acetonide [Triamcinolone 0.1% LOTION] 1 applic TP BID #1 lotion [facility] - 3-5 Days Forms: Work/School Release Form(ED) Time of Disposition: 08:04
[2018-06-17 08:13] VITALS: BP 108/62
== END 2018-06-17 08:11 | disposition home or self-care (01) ==
LOC: ED 00:47
DX: L50.9 Urticaria, unspecified (principal); G43.909 Migraine, unspecified, not intractable, without status migrainosus
CPT/HCPCS: 96372; 99282; J1100

== ENCOUNTER 2018-07-13 11:14 | Emergency (ER) | payer BC ==
[2018-07-13 11:30] VITALS: BP 104/71
--- NOTE | 2018-07-13 11:32 | Emergency Department Report ---
Blank Doc - Documentation Documentation: 32 y o male presents with no hx of allergies cc of 6 am this morning with swell ing to hands, feet and face sx initially started 1 year ago No rash no throat swelling ACC eval
--- NOTE | 2018-07-13 12:35 | Emergency Department Report ---
ED General Adult HPI - General Chief complaint: Medical Clearance Stated complaint: HIVES/SWELLING IN FACE/LEGS/HANDS/ARMS Time Seen by Provider: 07/13/18 11:29 Source: patient Mode of arrival: Ambulatory Limitations: No Limitations - History of Present Illness Initial comments: intermittent hives/edema x years, started again this AM no difficulty breathing or swallowing has not followed up but has been seen here numerous times for same -: Gradual, hour(s) (8) Location: face, upper extremity, lower extremity Radiation: non-radiation Severity scale (0 -10): 10 Consistency: constant Improves with: none Worsens with: none Associated Symptoms: denies other symptoms Treatments Prior to Arrival: none - Related Data Previous Rx's Medication Instructions Recorded Last Taken Type Cetirizine HCl [ZyrTEC] 10 mg PO DAILY #30 capsule 05/28/18 Unknown Rx Famotidine [Pepcid] 40 mg PO DAILY #30 tablet 05/28/18 Unknown Rx Fluticasone [Flonase] 1 spray NS QDAY #1 bottle 05/28/18 Unknown Rx predniSONE [Deltasone] 20 mg PO DAILY #5 tablet 05/28/18 Unknown Rx Ibuprofen [Motrin] 600 mg PO Q8H #12 tablet 06/17/18 Unknown Rx Triamcinolone Acetonide 1 applic TP BID #1 lotion 06/17/18 Unknown Rx [Triamcinolone 0.1% LOTION] diphenhydrAMINE [Benadryl CAP] 25 mg PO Q8HR PRN #20 capsule 06/17/18 Unknown Rx Famotidine [Pepcid] 20 mg PO BID #20 tablet 06/28/18 Unknown Rx diphenhydrAMINE [Benadryl CAP] 25 mg PO Q6HR PRN #10 capsule 06/28/18 Unknown Rx predniSONE [Deltasone] 10 mg PO .TAPER #21 tab 06/28/18 Unknown Rx Prednisone [predniSONE 10 mg 10 mg PO .TAPER #1 tab.ds.pk 06/30/18 Unknown Rx (6-Day Pack, 21 Tabs)] diphenhydrAMINE [Benadryl CAP] 25 mg PO Q6HR PRN #20 capsule 06/30/18 Unknown Rx hydrOXYzine HCL [Atarax] 25 mg PO Q6HR PRN #20 tablet 07/13/18 Unknown Rx predniSONE [Deltasone] 50 mg PO QDAY #5 tab 07/13/18 Unknown Rx Allergies Allergy/AdvReac Type Severity Reaction Status Date / Time No Known Allergies Allergy Verified 07/13/18 11:15 ED Review of Systems ROS: Stated complaint: HIVES/SWELLING IN FACE/LEGS/HANDS/ARMS Other details as noted in HPI Comment: All other systems reviewed and negative Musculoskeletal: as per HPI Skin: as per HPI ED Past Medical Hx - Past Medical History Hx Headaches / Migraines: Yes Additional medical history: Migraines - Surgical History Past Surgical History?: No - Social History Smoking Status: Never Smoker Substance Use Type: None - Medications Home Medications: Home Medications Medication Instructions Recorded Confirmed Last Taken Type Cetirizine HCl [ZyrTEC] 10 mg PO DAILY #30 capsule 05/28/18 Unknown Rx Famotidine [Pepcid] 40 mg PO DAILY #30 tablet 05/28/18 Unknown Rx Fluticasone [Flonase] 1 spray NS QDAY #1 bottle 05/28/18 Unknown Rx predniSONE [Deltasone] 20 mg PO DAILY #5 tablet 05/28/18 Unknown Rx Ibuprofen [Motrin] 600 mg PO Q8H #12 tablet 06/17/18 Unknown Rx Triamcinolone Acetonide 1 applic TP BID #1 lotion 06/17/18 Unknown Rx [Triamcinolone 0.1% LOTION] diphenhydrAMINE [Benadryl CAP] 25 mg PO Q8HR PRN #20 capsule 06/17/18 Unknown Rx Famotidine [Pepcid] 20 mg PO BID #20 tablet 06/28/18 Unknown Rx diphenhydrAMINE [Benadryl CAP] 25 mg PO Q6HR PRN #10 capsule 06/28/18 Unknown Rx predniSONE [Deltasone] 10 mg PO .TAPER #21 tab 06/28/18 Unknown Rx Prednisone [predniSONE 10 mg 10 mg PO .TAPER #1 tab.ds.pk 06/30/18 Unknown Rx (6-Day Pack, 21 Tabs)] diphenhydrAMINE [Benadryl CAP] 25 mg PO Q6HR PRN #20 capsule 06/30/18 Unknown Rx hydrOXYzine HCL [Atarax] 25 mg PO Q6HR PRN #20 tablet 07/13/18 Unknown Rx predniSONE [Deltasone] 50 mg PO QDAY #5 tab 07/13/18 Unknown Rx ED Physical Exam - General Limitations: No Limitations General appearance: alert, in no apparent distress - Head Head exam: Present: atraumatic, normocephalic - Eye Eye exam: Present: normal appearance, PERRL Pupils: Present: normal accommodation - ENT ENT exam: Present: normal exam, normal orophraynx, mucous membranes moist, other ( very mild nonspecific facial edema ) - Neck Neck exam: Present: normal inspection - Respiratory Respiratory exam: Present: normal lung sounds bilaterally. Absent: respiratory distress, wheezes - Cardiovascular Cardiovascular Exam: Present: regular rate, normal rhythm. Absent: systolic murmur, diastolic murmur, rubs, gallop - GI/Abdominal GI/Abdominal exam: Present: soft, normal bowel sounds - Rectal Rectal exam: Present: deferred - Extremities Exam Extremities exam: Present: normal inspection - Back Exam Back exam: Present: normal inspection - Neurological Exam Neurological exam: Present: alert, oriented X3 - Psychiatric Psychiatric exam: Present: normal affect, normal mood - Skin Skin exam: Present: warm, dry, intact, normal color. Absent: rash ED Course Vital Signs 07/13/18 11:29 Temperature 97.8 F Pulse Rate 68 Respiratory 18 Rate Blood Pressure 104/71 [Right] O2 Sat by Pulse 100 Oximetry ED Medical Decision Making - Medical Decision Making idiopathic urticaria/allergic rxn needs to see dry cleaning supervisor or at least pcp for further workup steroids given no airway compromise - Differential Diagnosis idiopathic urticaria, angioedema Critical care attestation.: If time is entered above; I have spent that time in minutes in the direct care of this critically ill patient, excluding procedure time. ED Disposition Clinical Impression: Allergic reaction Qualifiers: Encounter type: initial encounter Qualified Code(s): T78.40XA - Allergy, unspecified, initial encounter Disposition: DC-01 TO HOME OR SELFCARE Is pt being admited?: No Condition: Good Instructions: Urticaria (ED) Prescriptions: hydrOXYzine HCL [Atarax] 25 mg PO Q6HR PRN #20 tablet PRN Reason: Itching predniSONE [Deltasone] 50 mg PO QDAY #5 tab Referrals: RORY NOVA MD [Staff Physician] - 3-5 Days Time of Disposition: 12:32
== END 2018-07-13 13:03 | disposition home or self-care (01) ==
LOC: ED 11:14
DX: T78.40XA Allergy, unspecified, initial encounter (principal); G43.909 Migraine, unspecified, not intractable, without status migrainosus; Y92.89 Other specified places as the place of occurrence of the external cause
CPT/HCPCS: 99282

== ENCOUNTER 2018-08-10 00:17 | Emergency (ER) | payer BC ==
[2018-08-10 00:24] VITALS: BP 107/67
[2018-08-10] MEDS ORDERED: IBUPROFEN PO ONE (07:10)
--- NOTE | 2018-08-10 07:10 | Emergency Department Report ---
HPI - General Chief Complaint: Allergic Reaction Time Seen by Provider: 08/10/18 07:08 - HPI HPI: Pt is a 33-year-old male and he comes to the ER today with acute on chronic hives. He states that he gets often. He took Benadryl at home and provided only partial relief. Patient has had numerous visits for the same. He does not have a primary care that he follows with. Patient does not know why he gets the hives. Patient denies any medical history and is on no routine medications. ABCs intact and vital signs are stable. ED Past Medical Hx - Past Medical History Previous Medical History?: Yes Hx Headaches / Migraines: Yes Additional medical history: Migraines - Surgical History Past Surgical History?: No - Social History Smoking Status: Never Smoker Substance Use Type: None - Medications Home Medications: Home Medications Medication Instructions Recorded Confirmed Last Taken Type Fluticasone [Flonase] 1 spray NS QDAY #1 bottle 05/28/18 Unknown Rx Cetirizine HCl [ZyrTEC] 10 mg PO DAILY #30 capsule 08/10/18 Unknown Rx Famotidine [Pepcid] 40 mg PO DAILY #30 tablet 08/10/18 Unknown Rx diphenhydrAMINE [Benadryl CAP] 25 mg PO Q6HR PRN #10 capsule 08/10/18 Unknown Rx predniSONE [Deltasone] 20 mg PO DAILY #5 tablet 08/10/18 Unknown Rx ED Review of Systems ROS: Stated complaint: HIVES AND MIGRAINE Other details as noted in HPI Comment: All other systems reviewed and negative Physical Exam - Physical Exam Vital Signs: Vital Signs 08/10/18 08/10/18 00:20 00:21 Temperature 95.0 F L 98 F Pulse Rate 85 84 Respiratory 18 18 Rate Blood Pressure 107/67 107/67 O2 Sat by Pulse 97 98 Oximetry Physical Exam: WDWN patient in NAD VS per RN flow sheet Alert and oriented to person, place and time. S1-S2. No S3 or S4. No systolic or diastolic murmur. No JVD. No pitting edema. Lungs clear to auscultation bilaterally anteriorly and posteriorly. Abdomen soft nontender bowel sounds x4 Moves all extremities well. Mood and affect appropriate. generalized urticarial rash- no open lesions. no oral lesions. ED Course Vital Signs 08/10/18 08/10/18 00:20 00:21 Temperature 95.0 F L 98 F Pulse Rate 85 84 Respiratory 18 18 Rate Blood Pressure 107/67 107/67 O2 Sat by Pulse 97 98 Oximetry ED Medical Decision Making - Medical Decision Making a/c hives benadryl otc not working pt does not know trigger rash consistent with hives. abc intact vss requesting shot decadron IM dc home with follow up with derm/pcp Vital Signs 08/10/18 08/10/18 00:20 00:21 Temperature 95.0 F L 98 F Pulse Rate 85 84 Respiratory 18 18 Rate Blood Pressure 107/67 107/67 O2 Sat by Pulse 97 98 Oximetry - Differential Diagnosis a/c hives Critical care attestation.: If time is entered above; I have spent that time in minutes in the direct care of this critically ill patient, excluding procedure time. ED Disposition Clinical Impression: Rash, Urticaria Disposition: DC-01 TO HOME OR SELFCARE Is pt being admited?: No Does the pt Need Aspirin: No Condition: Stable Instructions: Urticaria (ED) Additional Instructions: DIET TOLERATED MEDS ORDERED TODAY IN ER FOLLOW INSTRUCTIONS ON THE BOTTLE FOLLOW UP PCP WITHIN 48 HOURS TO ENSURE YOU ARE GETTING BETTER ACTIVITY TOLERATED MOTRIN OR TYLENOL FOR PAIN OR FEVER RETURN TO THE ER FOR WORSENING SYMPTOMS NOT RELIEVED BY YOUR MEDICATIONS. FOLLOW UP WITH DERM REFERRAL BELOW Referrals: ROYER ARAUJO MD [Primary Care Provider] - 3-5 Days [facility] [Outside] - 3-5 Days TOÑITO GARCIA MD [Referring] - 3-5 Days Time of Disposition: 07:49
[2018-08-10] MEDS ORDERED: DECADRON IM ONE (07:43)
[2018-08-10] MEDS ORDERED: CLARITIN PO ONE (07:44)
== END 2018-08-10 08:11 | disposition home or self-care (01) ==
LOC: ED 00:17
DX: L50.9 Urticaria, unspecified (principal); G43.909 Migraine, unspecified, not intractable, without status migrainosus; Z79.899 Other long term (current) drug therapy
CPT/HCPCS: 96372; 99282; J1100

== ENCOUNTER 2018-08-23 00:17 | Emergency (ER) | payer BC ==
[2018-08-23] MEDS ORDERED: PEPCID PO ONE (02:16)
[2018-08-23] MEDS ORDERED: BENADRYL PO ONE (02:16)
[2018-08-23] MEDS ORDERED: DECADRON IM ONE (02:16)
--- NOTE | 2018-08-23 03:04 | Emergency Department Report ---
HPI - General Chief Complaint: Allergic Reaction Time Seen by Provider: 08/23/18 02:16 - HPI HPI: pt is a 33 y/o aam who presents for allergic reaction with hives yesterday states symptoms resolved at this time. similar symptoms last week thre is no fever no chills no n/v no sob no wheezing or stridor , no denies know irritant, is able to complete work duties, is ambulatory in ed without sob no dizziness no cp ED Past Medical Hx - Past Medical History Previous Medical History?: Yes Hx Headaches / Migraines: Yes Additional medical history: Migraines - Surgical History Past Surgical History?: No - Social History Smoking Status: Never Smoker Substance Use Type: None - Medications Home Medications: Home Medications Medication Instructions Recorded Confirmed Last Taken Type Fluticasone [Flonase] 1 spray NS QDAY #1 bottle 05/28/18 Unknown Rx Cetirizine HCl [ZyrTEC] 10 mg PO DAILY #30 capsule 08/10/18 Unknown Rx Famotidine [Pepcid] 40 mg PO DAILY #30 tablet 08/10/18 Unknown Rx diphenhydrAMINE [Benadryl CAP] 25 mg PO Q6HR PRN #10 capsule 08/10/18 Unknown Rx predniSONE [Deltasone] 20 mg PO DAILY #5 tablet 08/10/18 Unknown Rx EPINEPHrine [Epipen 2-Luther] 0.3 mg IJ PRN PRN #1 each 08/23/18 Unknown Rx Famotidine [Pepcid] 20 mg PO BID 7 Days #30 tablet 08/23/18 Unknown Rx Triamcinolone Aceton 0.1% (Nf) 1 applic TP BID 14 Days #1 tube 08/23/18 Unknown Rx [Kenalog (NF)] diphenhydrAMINE [Benadryl CAP] 25 mg PO Q6HR PRN 7 Days #30 08/23/18 Unknown Rx capsule predniSONE [Deltasone] 40 mg PO QDAY 5 Days #10 tab 08/23/18 Unknown Rx ED Review of Systems ROS: Stated complaint: ITCHY/HIVES ON ARM,BACK AND LEGS Other details as noted in HPI Constitutional: denies: chills, fever Eyes: denies: eye pain, eye discharge, vision change ENT: denies: ear pain, throat pain Respiratory: denies: cough, shortness of breath, wheezing Cardiovascular: denies: chest pain, palpitations Endocrine: no symptoms reported Gastrointestinal: denies: abdominal pain, nausea, vomiting, diarrhea Genitourinary: denies: urgency, dysuria Musculoskeletal: denies: back pain, joint swelling, arthralgia Skin: rash (hives bilat arms legs trunk ) Neurological: denies: headache, weakness, paresthesias Psychiatric: denies: anxiety, depression Hematological/Lymphatic: denies: easy bleeding, easy bruising Physical Exam - Physical Exam Vital Signs: Vital Signs 08/23/18 00:50 Temperature 97.9 F Pulse Rate 72 Respiratory 18 Rate Blood Pressure 102/57 O2 Sat by Pulse 98 Oximetry General: Patient is alert and oriented 3 in no respiratory distress Physical Exam: There is no has no shortness of breath no wheezing no rash is mild bilateral lower extremity swelling distal pulses intact range of motion intact there is no calf pain patient is ambulatory with steady gait. ED Course Vital Signs 08/23/18 00:50 Temperature 97.9 F Pulse Rate 72 Respiratory 18 Rate Blood Pressure 102/57 O2 Sat by Pulse 98 Oximetry ED Medical Decision Making - Medical Decision Making symptoms relieved by prednisone , benadryl pepcid , plan dc to home with same, pt given epipen teaching will followup with pcp in 2-3 days return to ed symptoms worsen. Critical care attestation.: If time is entered above; I have spent that time in minutes in the direct care of this critically ill patient, excluding procedure time. ED Disposition Clinical Impression: Allergic reaction Qualifiers: Encounter type: initial encounter Qualified Code(s): T78.40XA - Allergy, unspecified, initial encounter Contact dermatitis Qualifiers: Contact dermatitis type: allergic Contact dermatitis trigger: unspecified trigger Qualified Code(s): L23.9 - Allergic contact dermatitis, unspecified cause Disposition: DC-01 TO HOME OR SELFCARE Is pt being admited?: No Does the pt Need Aspirin: No Condition: Stable Instructions: Contact Dermatitis (ED), Allergies (ED), Urticaria (ED) Prescriptions: diphenhydrAMINE [Benadryl CAP] 25 mg PO Q6HR PRN 7 Days #30 capsule PRN Reason: allergies predniSONE [Deltasone] 40 mg PO QDAY 5 Days #10 tab EPINEPHrine [Epipen 2-Luther] 0.3 mg IJ PRN PRN #1 each PRN Reason: severe allergic reaction Triamcinolone Aceton 0.1% (Nf) [Kenalog (NF)] 1 applic TP BID 14 Days #1 tube Famotidine [Pepcid] 20 mg PO BID 7 Days #30 tablet Referrals: PRIMARY CARE, [Primary Care Provider] - 3-5 Days Forms: Work/School Release Form(ED) Time of Disposition: 03:10
[2018-08-23 03:26] VITALS: BP 111/64
== END 2018-08-23 03:25 | disposition home or self-care (01) ==
LOC: ED 00:17
DX: L23.9 Allergic contact dermatitis, unspecified cause (principal); G43.909 Migraine, unspecified, not intractable, without status migrainosus; Z79.899 Other long term (current) drug therapy; X58.XXXA Exposure to other specified factors, initial encounter; Y93.89 Activity, other specified; Y92.89 Other specified places as the place of occurrence of the external cause; Y99.8 Other external cause status
CPT/HCPCS: 96372; 99282; J1100

== ENCOUNTER 2018-10-14 03:00 | Emergency (ER) | payer BC ==
[2018-10-14 03:16] VITALS: BP 101/60
[2018-10-14] MEDS ORDERED: DECADRON IV ONE (03:38)
[2018-10-14] MEDS ORDERED: BENADRYL IV ONE (03:38)
[2018-10-14] MEDS ORDERED: NACL 0.9% 1000 ML 1,000 ML IV ONE (03:38)
[2018-10-14] MEDS ORDERED: PEPCID IV ONE (03:38)
--- NOTE | 2018-10-14 04:01 | Emergency Department Report ---
ED Allergic Reaction HPI - General Chief complaint: Allergic Reaction Stated complaint: BREAKING OUT Time Seen by Provider: 10/14/18 03:35 Source: patient Mode of arrival: Ambulatory Limitations: No Limitations - History of Present Illness Initial Comments: This is a 33-year-old male nontoxic, well nourished in appearance, no acute signs of distress presents to the ED with c/o of rash and itching to unknown source that started this morning. Patient states it is itching and redness. Patient denies any drooling, hoarseness or facial swelling. he denies any fever, chills, nausea, vomiting, chest pain, shortness of breath, headache, stiff neck, numbness or tingling. Patient denies any drug allergies significant past medical history. MD Complaint: allergic reaction, hives -: This morning Exposure: unknown Symptoms: rash, itching. denies: facial swelling, lip swelling, difficulty swallowing, difficulty breathing, orolingual swelling, hoarseness, syncopy, dizziness, nausea, vomiting, abdominal pain Severity: mild Treatment Prior to Arrival: none Previous Allergy History: none - Related Data Previous Rx's Medication Instructions Recorded Last Taken Type Fluticasone [Flonase] 1 spray NS QDAY #1 bottle 05/28/18 Unknown Rx Cetirizine HCl [ZyrTEC] 10 mg PO DAILY #30 capsule 08/10/18 Unknown Rx Famotidine [Pepcid] 40 mg PO DAILY #30 tablet 08/10/18 Unknown Rx predniSONE [Deltasone] 20 mg PO DAILY #5 tablet 08/10/18 Unknown Rx Triamcinolone Aceton 0.1% (Nf) 1 applic TP BID 14 Days #1 tube 08/23/18 Unknown Rx [Kenalog (NF)] diphenhydrAMINE [Benadryl CAP] 25 mg PO Q6HR PRN 7 Days #30 08/23/18 Unknown Rx capsule EPINEPHrine [Epipen 2-Luther] 0.3 mg IJ PRN PRN #1 each 09/22/18 Unknown Rx Famotidine [Pepcid] 20 mg PO BID #6 tablet 09/22/18 Unknown Rx diphenhydrAMINE [Benadryl CAP] 25 mg PO Q8H PRN #9 capsule 09/22/18 Unknown Rx predniSONE [Deltasone] 40 mg PO QDAY 3 Days #10 tab 09/22/18 Unknown Rx Prednisone [predniSONE 10 mg 10 mg PO .TAPER #1 tab.ds.pk 10/14/18 Unknown Rx (6-Day Pack, 21 Tabs)] diphenhydrAMINE [Benadryl CAP] 25 mg PO QHS PRN #12 capsule 10/14/18 Unknown Rx Allergies Allergy/AdvReac Type Severity Reaction Status Date / Time No Known Allergies Allergy Verified 09/22/18 12:32 ED Review of Systems ROS: Stated complaint: BREAKING OUT Other details as noted in HPI Constitutional: denies: chills, fever Eyes: denies: eye pain, eye discharge, vision change ENT: denies: ear pain, throat pain Respiratory: denies: cough, shortness of breath, wheezing Cardiovascular: denies: chest pain, palpitations Endocrine: no symptoms reported Gastrointestinal: denies: abdominal pain, nausea, diarrhea Genitourinary: denies: urgency, dysuria Musculoskeletal: denies: back pain, joint swelling, arthralgia Skin: rash. denies: lesions Neurological: denies: headache, weakness, paresthesias Psychiatric: denies: anxiety, depression Hematological/Lymphatic: denies: easy bleeding, easy bruising ED Past Medical Hx - Past Medical History Previous Medical History?: Yes Hx Headaches / Migraines: Yes Additional medical history: Migraines - Surgical History Past Surgical History?: No - Social History Smoking Status: Never Smoker Substance Use Type: None - Medications Home Medications: Home Medications Medication Instructions Recorded Confirmed Last Taken Type Fluticasone [Flonase] 1 spray NS QDAY #1 bottle 05/28/18 Unknown Rx Cetirizine HCl [ZyrTEC] 10 mg PO DAILY #30 capsule 08/10/18 Unknown Rx Famotidine [Pepcid] 40 mg PO DAILY #30 tablet 08/10/18 Unknown Rx predniSONE [Deltasone] 20 mg PO DAILY #5 tablet 08/10/18 Unknown Rx Triamcinolone Aceton 0.1% (Nf) 1 applic TP BID 14 Days #1 tube 08/23/18 Unknown Rx [Kenalog (NF)] diphenhydrAMINE [Benadryl CAP] 25 mg PO Q6HR PRN 7 Days #30 08/23/18 Unknown Rx capsule EPINEPHrine [Epipen 2-Luther] 0.3 mg IJ PRN PRN #1 each 09/22/18 Unknown Rx Famotidine [Pepcid] 20 mg PO BID #6 tablet 09/22/18 Unknown Rx diphenhydrAMINE [Benadryl CAP] 25 mg PO Q8H PRN #9 capsule 09/22/18 Unknown Rx predniSONE [Deltasone] 40 mg PO QDAY 3 Days #10 tab 09/22/18 Unknown Rx Prednisone [predniSONE 10 mg 10 mg PO .TAPER #1 tab.ds.pk 10/14/18 Unknown Rx (6-Day Pack, 21 Tabs)] diphenhydrAMINE [Benadryl CAP] 25 mg PO QHS PRN #12 capsule 10/14/18 Unknown Rx ED Physical Exam - General Limitations: No Limitations General appearance: alert, in no apparent distress - Head Head exam: Present: atraumatic, normocephalic - Expanded ENT Exam Expanded Ear exam: Present: normal external inspection Mouth exam: Present: normal external inspection. Absent: drooling, trismus, muffled voice Teeth exam: Present: normal inspection Throat exam: Positive: normal inspection, other (uvula midline. No angioedema.). Negative: tonsillar erythema, tonsillomegaly, tonsillar exudate, R peritonsillar mass, L peritonsillar mass - Neck Neck exam: Present: normal inspection, full ROM. Absent: tenderness, meningismus, lymphadenopathy - Respiratory Respiratory exam: Present: normal lung sounds bilaterally. Absent: respiratory distress, wheezes, rales, rhonchi, stridor, chest wall tenderness, accessory muscle use, decreased breath sounds, prolonged expiratory - Cardiovascular Cardiovascular Exam: Present: regular rate, normal rhythm, normal heart sounds. Absent: bradycardia, tachycardia, irregular rhythm, systolic murmur, diastolic murmur, rubs, gallop - Extremities Exam Extremities exam: Present: normal inspection, full ROM - Back Exam Back exam: Present: normal inspection, full ROM - Neurological Exam Neurological exam: Present: alert, oriented X3, normal gait - Psychiatric Psychiatric exam: Present: normal affect, normal mood - Skin Skin exam: Present: warm, dry, intact, normal color. Absent: rash ED Course Vital Signs 10/14/18 03:11 Temperature 97.7 F Pulse Rate 67 Respiratory 18 Rate Blood Pressure 101/60 O2 Sat by Pulse 99 Oximetry - Reevaluation(s) Reevaluation #1: 10/14/18 04:06 Patient is speaking in full sentences with no signs of distress noted. ED Medical Decision Making - Medical Decision Making This is a 33-year-old male that presents with allergic reaction. Patient is stable was examined by me. There is no facial swelling. No angioedema. There is no cellulitis. No hoarseness. Patient received 1 L normal saline, Benadryl, Decadron, and Pepcid in the ED IV. Patient was instructed not to operate any machinery after discharge due to possible drowsiness of Benadryl. Patient stated that a family member will drive patient home after discharge. Patient is discharged with prednisone and Benadryl. Patient was referred to Follow-up with a primary care doctor in 3-5 days or if symptoms worsen and continue return to emergency room as soon as possible. At time of discharge, the patient does not seem toxic or ill in appearance. No acute signs of distress noted. Patient agrees to discharge treatment plan of care. No further questions noted by the patient. Critical care attestation.: If time is entered above; I have spent that time in minutes in the direct care of this critically ill patient, excluding procedure time. ED Disposition Clinical Impression: Allergic reaction Qualifiers: Encounter type: initial encounter Qualified Code(s): T78.40XA - Allergy, unspecified, initial encounter Disposition: - TO HOME OR SELFCARE Is pt being admited?: No Does the pt Need Aspirin: No Condition: Stable Instructions: Allergies (ED) Additional Instructions: Follow-up with a primary care doctor in 3-5 days or if symptoms worsen and continue return to emergency room as soon as possible. Prescriptions: diphenhydrAMINE [Benadryl CAP] 25 mg PO QHS PRN #12 capsule PRN Reason: Itching Prednisone [predniSONE 10 mg (6-Day Pack, 21 Tabs)] 10 mg PO .TAPER #1 tab.ds.pk Referrals: FRANDY BEGUM MD [Primary Care Provider] - 3-5 Days PRIMARY CAREMD [Referring] - 3-5 Days YAS LIMA MD [Staff Physician] - 3-5 Days [facility] [Outside] - 3-5 Days [facility] [Outside] - 3-5 Days Forms: Work/School Release Form(ED)
== END 2018-10-14 05:30 | disposition home or self-care (01) ==
LOC: ED 03:00
DX: T78.40XA Allergy, unspecified, initial encounter (principal); G43.909 Migraine, unspecified, not intractable, without status migrainosus; Y92.89 Other specified places as the place of occurrence of the external cause
CPT/HCPCS: 96374; 96375; 99282; J1100; J1200; J7030

== ENCOUNTER 2018-11-03 01:42 | Emergency (ER) | payer BC ==
[2018-11-03] MEDS ORDERED: BENADRYL PO ONE (04:08)
[2018-11-03] MEDS ORDERED: PEPCID PO ONE (04:08)
[2018-11-03] MEDS ORDERED: SOLU-Medrol IM ONE (04:08)
--- NOTE | 2018-11-03 05:23 | Emergency Department Report ---
ED General Adult HPI - General Chief complaint: Skin Rash Stated complaint: BODY RASH Source: patient Mode of arrival: Ambulatory Limitations: No Limitations - History of Present Illness Initial comments: Patient is a 33-year-old -[place] male with no past medical history presents to the ED with complaint of acute onset persistent itchy erythematous maculopapular urticarial rashes for the last 12 hours. The patient denies fever, chills, nausea, vomiting, headache, chest pain, shortness of breath, swollen lips or tongue, swollen throat, dysphagia, dysphonia, wheezing, cough, dizziness, abdominal pain or diarrhea. The patient states that he is unsure of etiology of the rashes but suspect that he may have been bitten by an unknown insect or maybe a food allergy. MD Complaint: Itching; Diffuse itchy erythematous rash -: Sudden, hour(s) (12) Location: head, chest, back, abdomen Radiation: non-radiation Severity scale (0 -10): 5 Quality: burning, aching, crushing Consistency: constant Improves with: none Worsens with: none Associated Symptoms: denies other symptoms, rash. denies: confusion, chest pain, cough, diaphoresis, fever/chills, headaches, loss of appetite, malaise, seizure, shortness of breath, syncope, weakness (diffuse erythematous macular papular urticarial rash) - Related Data Previous Rx's Medication Instructions Recorded Last Taken Type Fluticasone [Flonase] 1 spray NS QDAY #1 bottle 05/28/18 Unknown Rx Cetirizine HCl [ZyrTEC] 10 mg PO DAILY #30 capsule 08/10/18 Unknown Rx Famotidine [Pepcid] 40 mg PO DAILY #30 tablet 08/10/18 Unknown Rx predniSONE [Deltasone] 20 mg PO DAILY #5 tablet 08/10/18 Unknown Rx Triamcinolone Aceton 0.1% (Nf) 1 applic TP BID 14 Days #1 tube 08/23/18 Unknown Rx [Kenalog (NF)] diphenhydrAMINE [Benadryl CAP] 25 mg PO Q6HR PRN 7 Days #30 08/23/18 Unknown Rx capsule EPINEPHrine [Epipen 2-Luther] 0.3 mg IJ PRN PRN #1 each 09/22/18 Unknown Rx Famotidine [Pepcid] 20 mg PO BID #6 tablet 09/22/18 Unknown Rx diphenhydrAMINE [Benadryl CAP] 25 mg PO Q8H PRN #9 capsule 09/22/18 Unknown Rx predniSONE [Deltasone] 40 mg PO QDAY 3 Days #10 tab 09/22/18 Unknown Rx Prednisone [predniSONE 10 mg 10 mg PO .TAPER #1 tab.ds.pk 10/14/18 Unknown Rx (6-Day Pack, 21 Tabs)] diphenhydrAMINE [Benadryl CAP] 25 mg PO QHS PRN #12 capsule 10/14/18 Unknown Rx Prednisone [predniSONE 10 mg 10 mg PO .TAPER #21 tab.ds.pk 11/03/18 Unknown Rx (6-Day Pack, 21 Tabs)] diphenhydrAMINE [Benadryl CAP] 25 mg PO Q6HR PRN #30 capsule 11/03/18 Unknown Rx raNITIdine HCl [Zantac] 150 mg PO Q12H #30 tablet 11/03/18 Unknown Rx Allergies Allergy/AdvReac Type Severity Reaction Status Date / Time No Known Allergies Allergy Verified 09/22/18 12:32 ED Review of Systems ROS: Stated complaint: BODY RASH Other details as noted in HPI Constitutional: denies: chills, fever Eyes: denies: eye pain, eye discharge, vision change ENT: denies: ear pain, throat pain Respiratory: denies: cough, shortness of breath, wheezing Cardiovascular: denies: chest pain, palpitations Endocrine: no symptoms reported Gastrointestinal: denies: abdominal pain, nausea, diarrhea Genitourinary: denies: urgency, dysuria Musculoskeletal: denies: back pain, joint swelling, arthralgia Skin: rash (diffuse erythematous itchy maculopapular urticarial rashes), change in color, pruritus. denies: lesions Neurological: denies: headache, weakness, paresthesias Psychiatric: denies: anxiety, depression Hematological/Lymphatic: denies: easy bleeding, easy bruising ED Past Medical Hx - Past Medical History Previous Medical History?: Yes Hx Headaches / Migraines: Yes Additional medical history: Migraines - Surgical History Past Surgical History?: No - Social History Smoking Status: Never Smoker Substance Use Type: None - Medications Home Medications: Home Medications Medication Instructions Recorded Confirmed Last Taken Type Fluticasone [Flonase] 1 spray NS QDAY #1 bottle 05/28/18 Unknown Rx Cetirizine HCl [ZyrTEC] 10 mg PO DAILY #30 capsule 08/10/18 Unknown Rx Famotidine [Pepcid] 40 mg PO DAILY #30 tablet 08/10/18 Unknown Rx predniSONE [Deltasone] 20 mg PO DAILY #5 tablet 08/10/18 Unknown Rx Triamcinolone Aceton 0.1% (Nf) 1 applic TP BID 14 Days #1 tube 08/23/18 Unknown Rx [Kenalog (NF)] diphenhydrAMINE [Benadryl CAP] 25 mg PO Q6HR PRN 7 Days #30 08/23/18 Unknown Rx capsule EPINEPHrine [Epipen 2-Luther] 0.3 mg IJ PRN PRN #1 each 09/22/18 Unknown Rx Famotidine [Pepcid] 20 mg PO BID #6 tablet 09/22/18 Unknown Rx diphenhydrAMINE [Benadryl CAP] 25 mg PO Q8H PRN #9 capsule 09/22/18 Unknown Rx predniSONE [Deltasone] 40 mg PO QDAY 3 Days #10 tab 09/22/18 Unknown Rx Prednisone [predniSONE 10 mg 10 mg PO .TAPER #1 tab.ds.pk 10/14/18 Unknown Rx (6-Day Pack, 21 Tabs)] diphenhydrAMINE [Benadryl CAP] 25 mg PO QHS PRN #12 capsule 10/14/18 Unknown Rx Prednisone [predniSONE 10 mg 10 mg PO .TAPER #21 tab.ds.pk 11/03/18 Unknown Rx (6-Day Pack, 21 Tabs)] diphenhydrAMINE [Benadryl CAP] 25 mg PO Q6HR PRN #30 capsule 11/03/18 Unknown Rx raNITIdine HCl [Zantac] 150 mg PO Q12H #30 tablet 11/03/18 Unknown Rx ED Physical Exam - General Limitations: No Limitations General appearance: alert, in no apparent distress - Head Head exam: Present: atraumatic, normocephalic, normal inspection - Eye Eye exam: Present: normal appearance, PERRL, EOMI Pupils: Present: normal accommodation - ENT ENT exam: Present: normal exam, normal orophraynx, mucous membranes moist, TM's normal bilaterally, normal external ear exam - Neck Neck exam: Present: normal inspection, full ROM - Respiratory Respiratory exam: Present: normal lung sounds bilaterally. Absent: respiratory distress, wheezes, rales, rhonchi - Cardiovascular Cardiovascular Exam: Present: regular rate, normal rhythm, normal heart sounds. Absent: systolic murmur, diastolic murmur, rubs, gallop - GI/Abdominal GI/Abdominal exam: Present: soft, normal bowel sounds. Absent: tenderness, guarding, rebound, hyperactive bowel sounds, hypoactive bowel sounds - Rectal Rectal exam: Present: deferred - Extremities Exam Extremities exam: Present: normal inspection, full ROM, normal capillary refill - Back Exam Back exam: Present: normal inspection, full ROM. Absent: CVA tenderness (L), muscle spasm, paraspinal tenderness - Neurological Exam Neurological exam: Present: alert, oriented X3, CN II-XII intact, normal gait, reflexes normal - Psychiatric Psychiatric exam: Present: normal affect, normal mood - Skin Skin exam: Present: warm, dry, intact, rash (diffuse erythematous maculopapular urticarial rashes), erythema, urticaria ED Course Vital Signs 11/03/18 01:49 Temperature 97.9 F Pulse Rate 77 Respiratory 18 Rate Blood Pressure 106/71 O2 Sat by Pulse 97 Oximetry - Reevaluation(s) Reevaluation #1: 11/03/18 05:24 This is a 33-year-old male who presented to the ED with acute onset persistent itchy erythematous rashes diffusely. In the ED, patient is alert and oriented 3 and is not in distress but appears to be uncomfortable. Patient was treated in the ED for acute allergic reaction with steroids, Benadryl and Pepcid, and patient was discharged home on most steroids and Benadryl prescriptions. On reevaluation, patient itching resolved with medication and patient was discha rged home on medications, and advised to follow-up with his primary care physician in 7-10 days for reevaluation. Patient is advised to return to the ED immediately if symptoms get worse. ED Medical Decision Making - Medical Decision Making This is a 33-year-old male who presented to the ED with acute onset persistent itchy erythematous rashes diffusely. In the ED, patient is alert and oriented 3 and is not in distress but appears to be uncomfortable. Patient was treated in the ED for acute allergic reaction with steroids, Benadryl and Pepcid, and patient was discharged home on most steroids and Benadryl prescriptions. On reevaluation, patient itching resolved with medication and patient was discharged home on medications, and advised to follow-up with his primary care physician in 7-10 days for reevaluation. Patient is advised to return to the ED immediately if symptoms get worse. - Differential Diagnosis Acute allergic reaction; Itching with irritation; Urticaria Critical care attestation.: If time is entered above; I have spent that time in minutes in the direct care o f this critically ill patient, excluding procedure time. ED Disposition Clinical Impression: Itching with irritation, Acute urticaria Acute allergic reaction Qualifiers: Encounter type: initial encounter Qualified Code(s): T78.40XA - Allergy, unspecified, initial encounter Disposition: TO HOME OR SELFCARE Is pt being admited?: No Does the pt Need Aspirin: No Condition: Stable Instructions: Urticaria (ED), Itchy Skin (ED), Allergies (ED) Additional Instructions: Take medications with food, drink plenty of fluids and follow-up with your primary care physician in 7-10 days for reevaluation. Return to the ED immediately if symptoms get worse. Prescriptions: diphenhydrAMINE [Benadryl CAP] 25 mg PO Q6HR PRN #30 capsule PRN Reason: Itching Prednisone [predniSONE 10 mg (6-Day Pack, 21 Tabs)] 10 mg PO .TAPER #21 tab.ds.pk raNITIdine HCl [Zantac] 150 mg PO Q12H #30 tablet Referrals: [facility] [Outside] - 3-5 Days Time of Disposition: 05:27 Print Language: SLOVENIAN
[2018-11-03 06:04] VITALS: BP 110/75
== END 2018-11-03 06:02 | disposition home or self-care (01) ==
LOC: ED 01:42
DX: T78.40XA Allergy, unspecified, initial encounter (principal); G43.909 Migraine, unspecified, not intractable, without status migrainosus; Z79.899 Other long term (current) drug therapy; X58.XXXA Exposure to other specified factors, initial encounter
CPT/HCPCS: 96372; 99282; J2930

== ENCOUNTER 2018-11-18 04:40 | Emergency (ER) | payer BC ==
[2018-11-18 05:02] VITALS: BP 103/62
[2018-11-18] MEDS ORDERED: dexAMETHasone 20 MG/5 ML VIAL IM ONE (06:03)
[2018-11-18] MEDS ORDERED: diphenhydrAMINE 25 MG CAP PO ONE (06:03)
[2018-11-18] MEDS ORDERED: FAMOTIDINE 20 MG TAB PO ONE (06:03)
--- NOTE | 2018-11-18 06:09 | Emergency Department Report ---
ED Allergic Reaction HPI - General Chief complaint: Allergic Reaction Stated complaint: HIVES ON LEGS/BACK Time Seen by Provider: 11/18/18 05:57 Source: patient Mode of arrival: Ambulatory Limitations: No Limitations - History of Present Illness Initial Comments: Patient is a 33-year-old male who presents to the emergency room with complaints of hives to his legs, lower back, arms, began couple days ago. He states that it was worse yesterday but improved today because he took Benadryl around 12 AM. He states that it is itching. he has been evaluated in the emergency department on multiple occasions for the urticaria. Patient has not seen an parking manager. He does not have a primary care doctor. He denies any throat swelling, difficulty breathing, facial swelling, any other symptoms. He denies any new soaps, detergents, lotions, medicines, fluids. He denies any past medical history. Denies any known allergies at all. - Related Data Previous Rx's Medication Instructions Recorded Last Taken Type Fluticasone [Flonase] 1 spray NS QDAY #1 bottle 05/28/18 Unknown Rx Cetirizine HCl [ZyrTEC] 10 mg PO DAILY #30 capsule 08/10/18 Unknown Rx predniSONE [Deltasone] 20 mg PO DAILY #5 tablet 08/10/18 Unknown Rx Triamcinolone Aceton 0.1% (Nf) 1 applic TP BID 14 Days #1 tube 08/23/18 Unknown Rx [Kenalog (NF)] diphenhydrAMINE [Benadryl CAP] 25 mg PO Q6HR PRN 7 Days #30 08/23/18 Unknown Rx capsule EPINEPHrine [Epipen 2-Luther] 0.3 mg IJ PRN PRN #1 each 09/22/18 Unknown Rx Famotidine [Pepcid] 20 mg PO BID #6 tablet 09/22/18 Unknown Rx diphenhydrAMINE [Benadryl CAP] 25 mg PO Q8H PRN #9 capsule 09/22/18 Unknown Rx predniSONE [Deltasone] 40 mg PO QDAY 3 Days #10 tab 09/22/18 Unknown Rx Prednisone [predniSONE 10 mg 10 mg PO .TAPER #1 tab.ds.pk 10/14/18 Unknown Rx (6-Day Pack, 21 Tabs)] diphenhydrAMINE [Benadryl CAP] 25 mg PO QHS PRN #12 capsule 10/14/18 Unknown Rx Prednisone [predniSONE 10 mg 10 mg PO .TAPER #21 tab.ds.pk 11/03/18 Unknown Rx (6-Day Pack, 21 Tabs)] diphenhydrAMINE [Benadryl CAP] 25 mg PO Q6HR PRN #30 capsule 11/03/18 Unknown Rx raNITIdine HCl [Zantac] 150 mg PO Q12H #30 tablet 11/03/18 Unknown Rx Famotidine [Pepcid] 40 mg PO DAILY #14 tablet 11/18/18 Unknown Rx diphenhydrAMINE [Benadryl CAP] 25 mg PO Q6HR PRN #14 capsule 11/18/18 Unknown Rx Allergies Allergy/AdvReac Type Severity Reaction Status Date / Time No Known Allergies Allergy Verified 09/22/18 12:32 ED Review of Systems ROS: Stated complaint: HIVES ON LEGS/BACK Other details as noted in HPI Comment: All other systems reviewed and negative ED Past Medical Hx - Past Medical History Previous Medical History?: Yes Hx Headaches / Migraines: Yes Additional medical history: Migraines - Surgical History Past Surgical History?: No - Social History Smoking Status: Never Smoker Substance Use Type: None - Medications Home Medications: Home Medications Medication Instructions Recorded Confirmed Last Taken Type Fluticasone [Flonase] 1 spray NS QDAY #1 bottle 05/28/18 Unknown Rx Cetirizine HCl [ZyrTEC] 10 mg PO DAILY #30 capsule 08/10/18 Unknown Rx predniSONE [Deltasone] 20 mg PO DAILY #5 tablet 08/10/18 Unknown Rx Triamcinolone Aceton 0.1% (Nf) 1 applic TP BID 14 Days #1 tube 08/23/18 Unknown Rx [Kenalog (NF)] diphenhydrAMINE [Benadryl CAP] 25 mg PO Q6HR PRN 7 Days #30 08/23/18 Unknown Rx capsule EPINEPHrine [Epipen 2-Luther] 0.3 mg IJ PRN PRN #1 each 09/22/18 Unknown Rx Famotidine [Pepcid] 20 mg PO BID #6 tablet 09/22/18 Unknown Rx diphenhydrAMINE [Benadryl CAP] 25 mg PO Q8H PRN #9 capsule 09/22/18 Unknown Rx predniSONE [Deltasone] 40 mg PO QDAY 3 Days #10 tab 09/22/18 Unknown Rx Prednisone [predniSONE 10 mg 10 mg PO .TAPER #1 tab.ds.pk 10/14/18 Unknown Rx (6-Day Pack, 21 Tabs)] diphenhydrAMINE [Benadryl CAP] 25 mg PO QHS PRN #12 capsule 10/14/18 Unknown Rx Prednisone [predniSONE 10 mg 10 mg PO .TAPER #21 tab.ds.pk 11/03/18 Unknown Rx (6-Day Pack, 21 Tabs)] diphenhydrAMINE [Benadryl CAP] 25 mg PO Q6HR PRN #30 capsule 11/03/18 Unknown Rx raNITIdine HCl [Zantac] 150 mg PO Q12H #30 tablet 11/03/18 Unknown Rx Famotidine [Pepcid] 40 mg PO DAILY #14 tablet 11/18/18 Unknown Rx diphenhydrAMINE [Benadryl CAP] 25 mg PO Q6HR PRN #14 capsule 11/18/18 Unknown Rx ED Physical Exam - General Limitations: No Limitations General appearance: alert, in no apparent distress - Head Head exam: Present: atraumatic, normocephalic - Eye Eye exam: Present: normal appearance - ENT ENT exam: Present: normal orophraynx, mucous membranes moist - Respiratory Respiratory exam: Present: normal lung sounds bilaterally. Absent: respiratory distress, wheezes, rales, rhonchi, stridor, chest wall tenderness, accessory muscle use, decreased breath sounds, prolonged expiratory - Cardiovascular Cardiovascular Exam: Present: regular rate, normal rhythm, normal heart sounds. Absent: systolic murmur, diastolic murmur, rubs, gallop - Neurological Exam Neurological exam: Present: alert, oriented X3 - Psychiatric Psychiatric exam: Present: normal affect, normal mood - Skin Skin exam: Present: warm, dry, urticaria (only one area of urticaria on the lower back, a couple urticaria on the legs, and one urticaria on the right arm, no blistering, no scaling, no skin denuding, no drainage) ED Course Vital Signs 11/18/18 04:57 Temperature 98 F Pulse Rate 77 Respiratory 16 Rate Blood Pressure 103/62 O2 Sat by Pulse 98 Oximetry ED Medical Decision Making - Medical Decision Making Patient is a 33-year-old male who presents to the emergency room with complaints of hives to his legs, lower back, arms, began couple days ago. He states that it was worse yesterday but improved today because he took Benadryl around 12 AM. He states that it is itching. he has been evaluated in the emergency department on multiple occasions for the urticaria. Patient has not seen an parking manager. He does not have a primary care doctor. He denies any throat swelling, difficulty breathing, facial swelling, any other symptoms. He denies any new soaps, detergents, lotions, medicines, fluids. He denies any past medical history. Denies any known allergies at all. vitals are normal. on exam: only one area of urticaria on the lower back, a couple urticaria on the legs, and one urticaria on the right arm, no blistering, no scaling, no skin denuding, no drainage. pt given benadryl, pepcid, and dexamethasone. pt states his symptoms improved, urticaria improved. pt given prescription for benadryl and pepcid. advised pt to please take medication as prescribed. follow up with a primary care doctor in the next 2-3 days. return to the emergency room for any new or worsening symptoms. advised pt to discuss with a PCP about referral to an parking manager to see what is causing his urticaria. Critical care attestation.: If time is entered above; I have spent that time in minutes in the direct care of this critically ill patient, excluding procedure time. ED Disposition Clinical Impression: Urticaria Disposition: DC-01 TO HOME OR SELFCARE Is pt being admited?: No Does the pt Need Aspirin: No Condition: Stable Instructions: Urticaria (ED) Additional Instructions: please take medication as prescribed. follow up with a primary care doctor in the next 2-3 days. return to the emergency room for any new or worsening symptoms. Prescriptions: diphenhydrAMINE [Benadryl CAP] 25 mg PO Q6HR PRN #14 capsule PRN Reason: itching Famotidine [Pepcid] 40 mg PO DAILY #14 tablet Referrals: ALANA PERRY MD [Primary Care Provider] - 3-5 Days Forms: Work/School Release Form(ED) Time of Disposition: 07:06 Print Language: INDONESIAN
== END 2018-11-18 07:19 | disposition home or self-care (01) ==
LOC: ED 04:40
DX: L50.9 Urticaria, unspecified (principal); G43.909 Migraine, unspecified, not intractable, without status migrainosus; Z79.899 Other long term (current) drug therapy
CPT/HCPCS: 96372; 99282; J1100

== ENCOUNTER 2018-11-25 03:52 | Emergency (ER) | payer BC ==
[2018-11-25 04:02] VITALS: BP 119/75
[2018-11-25] MEDS ORDERED: diphenhydrAMINE 25 MG CAP PO ONE (04:41)
[2018-11-25] MEDS ORDERED: FAMOTIDINE 20 MG TAB PO ONE (04:41)
[2018-11-25] MEDS ORDERED: methylPREDNISolone Sod Succinate 125 MG/2 ML INJ IM ONE (04:41)
--- NOTE | 2018-11-25 05:14 | Emergency Department Report ---
ED Allergic Reaction HPI - General Chief complaint: Allergic Reaction Stated complaint: ITCHING, SWELLING, HIVES ON LEGS AND ARMS Source: patient Mode of arrival: Ambulatory Limitations: No Limitations - History of Present Illness Initial Comments: Patient is a 33-year-old Afro-[place] male who presents to the ED with complaint of acute onset persistent itchy erythematous maculopapular urticarial rashes for the last 8 hours with no known etiology. Patient denies chest pain, shortness of breath, cough, nausea, vomiting, diarrhea or abdominal pain, fever, chills, sore throat, dysphagia, dysphonia, swollen lips or tongue, swollen face or dizziness. Patient states that he last took Benadryl over 8 hours ago with no relief. MD Complaint: allergic reaction, hives, other (diffuse itchy erythematous maculopapular urticarial rashes) -: Sudden, hour(s) (8) Exposure: unknown Symptoms: rash, itching. denies: facial swelling, lip swelling, difficulty swallowing, orolingual swelling, hoarseness, syncopy, dizziness, nausea, vomiting, other, abdominal pain Severity: moderate Treatment Prior to Arrival: benadryl Previous Allergy History: prior ED visit(s) - Related Data Previous Rx's Medication Instructions Recorded Last Taken Type Fluticasone [Flonase] 1 spray NS QDAY #1 bottle 05/28/18 Unknown Rx Cetirizine HCl [ZyrTEC] 10 mg PO DAILY #30 capsule 08/10/18 Unknown Rx predniSONE [Deltasone] 20 mg PO DAILY #5 tablet 08/10/18 Unknown Rx Triamcinolone Aceton 0.1% (Nf) 1 applic TP BID 14 Days #1 tube 08/23/18 Unknown Rx [Kenalog (NF)] diphenhydrAMINE [Benadryl CAP] 25 mg PO Q6HR PRN 7 Days #30 08/23/18 Unknown Rx capsule EPINEPHrine [Epipen 2-Luther] 0.3 mg IJ PRN PRN #1 each 09/22/18 Unknown Rx Famotidine [Pepcid] 20 mg PO BID #6 tablet 09/22/18 Unknown Rx diphenhydrAMINE [Benadryl CAP] 25 mg PO Q8H PRN #9 capsule 09/22/18 Unknown Rx predniSONE [Deltasone] 40 mg PO QDAY 3 Days #10 tab 09/22/18 Unknown Rx Prednisone [predniSONE 10 mg 10 mg PO .TAPER #1 tab.ds.pk 10/14/18 Unknown Rx (6-Day Pack, 21 Tabs)] diphenhydrAMINE [Benadryl CAP] 25 mg PO QHS PRN #12 capsule 10/14/18 Unknown Rx Prednisone [predniSONE 10 mg 10 mg PO .TAPER #21 tab.ds.pk 11/03/18 Unknown Rx (6-Day Pack, 21 Tabs)] diphenhydrAMINE [Benadryl CAP] 25 mg PO Q6HR PRN #30 capsule 11/03/18 Unknown Rx Famotidine [Pepcid] 40 mg PO DAILY #14 tablet 11/18/18 Unknown Rx Prednisone [predniSONE 10 mg 10 mg PO .TAPER #21 tab.ds.pk 11/25/18 Unknown Rx (6-Day Pack, 21 Tabs)] diphenhydrAMINE [Benadryl CAP] 25 mg PO Q6HR PRN #30 capsule 11/25/18 Unknown Rx raNITIdine HCl [Zantac] 150 mg PO Q12H #30 tablet 11/25/18 Unknown Rx Allergies Allergy/AdvReac Type Severity Reaction Status Date / Time No Known Allergies Allergy Verified 09/22/18 12:32 ED Review of Systems ROS: Stated complaint: ITCHING, SWELLING, HIVES ON LEGS AND ARMS Other details as noted in HPI Constitutional: denies: chills, fever Eyes: denies: eye pain, eye discharge, vision change ENT: denies: ear pain, throat pain Respiratory: denies: cough, shortness of breath, wheezing Cardiovascular: denies: chest pain, palpitations Endocrine: no symptoms reported Gastrointestinal: denies: abdominal pain, nausea, diarrhea Genitourinary: denies: urgency, dysuria Musculoskeletal: denies: back pain, joint swelling, arthralgia Skin: rash, change in color, pruritus, other (diffuse erythematous itchy maculopapular urticarial rashes). denies: lesions Neurological: denies: headache, weakness, paresthesias Psychiatric: denies: anxiety, depression Hematological/Lymphatic: denies: easy bleeding, easy bruising ED Past Medical Hx - Past Medical History Previous Medical History?: Yes Hx Headaches / Migraines: Yes Additional medical history: Migraines, Chronic itching - Surgical History Past Surgical History?: No - Social History Smoking Status: Never Smoker Substance Use Type: None - Medications Home Medications: Home Medications Medication Instructions Recorded Confirmed Last Taken Type Fluticasone [Flonase] 1 spray NS QDAY #1 bottle 05/28/18 Unknown Rx Cetirizine HCl [ZyrTEC] 10 mg PO DAILY #30 capsule 08/10/18 Unknown Rx predniSONE [Deltasone] 20 mg PO DAILY #5 tablet 08/10/18 Unknown Rx Triamcinolone Aceton 0.1% (Nf) 1 applic TP BID 14 Days #1 tube 08/23/18 Unknown Rx [Kenalog (NF)] diphenhydrAMINE [Benadryl CAP] 25 mg PO Q6HR PRN 7 Days #30 08/23/18 Unknown Rx capsule EPINEPHrine [Epipen 2-Luther] 0.3 mg IJ PRN PRN #1 each 09/22/18 Unknown Rx Famotidine [Pepcid] 20 mg PO BID #6 tablet 09/22/18 Unknown Rx diphenhydrAMINE [Benadryl CAP] 25 mg PO Q8H PRN #9 capsule 09/22/18 Unknown Rx predniSONE [Deltasone] 40 mg PO QDAY 3 Days #10 tab 09/22/18 Unknown Rx Prednisone [predniSONE 10 mg 10 mg PO .TAPER #1 tab.ds.pk 10/14/18 Unknown Rx (6-Day Pack, 21 Tabs)] diphenhydrAMINE [Benadryl CAP] 25 mg PO QHS PRN #12 capsule 10/14/18 Unknown Rx Prednisone [predniSONE 10 mg 10 mg PO .TAPER #21 tab.ds.pk 11/03/18 Unknown Rx (6-Day Pack, 21 Tabs)] diphenhydrAMINE [Benadryl CAP] 25 mg PO Q6HR PRN #30 capsule 11/03/18 Unknown Rx Famotidine [Pepcid] 40 mg PO DAILY #14 tablet 11/18/18 Unknown Rx Prednisone [predniSONE 10 mg 10 mg PO .TAPER #21 tab.ds.pk 11/25/18 Unknown Rx (6-Day Pack, 21 Tabs)] diphenhydrAMINE [Benadryl CAP] 25 mg PO Q6HR PRN #30 capsule 11/25/18 Unknown Rx raNITIdine HCl [Zantac] 150 mg PO Q12H #30 tablet 11/25/18 Unknown Rx ED Physical Exam - General Limitations: No Limitations General appearance: alert, in no apparent distress - Head Head exam: Present: atraumatic, normocephalic, normal inspection - Eye Eye exam: Present: normal appearance, PERRL, EOMI Pupils: Present: normal accommodation - ENT ENT exam: Present: normal exam, normal orophraynx, mucous membranes moist, TM's normal bilaterally, normal external ear exam - Neck Neck exam: Present: normal inspection, full ROM - Respiratory Respiratory exam: Present: normal lung sounds bilaterally. Absent: respiratory distress, wheezes, rales, rhonchi, chest wall tenderness, accessory muscle use - Cardiovascular Cardiovascular Exam: Present: regular rate, normal rhythm. Absent: systolic murmur, diastolic murmur, rubs, gallop - GI/Abdominal GI/Abdominal exam: Present: soft, normal bowel sounds - Rectal Rectal exam: Present: deferred - Extremities Exam Extremities exam: Present: normal inspection - Back Exam Back exam: Present: normal inspection - Neurological Exam Neurological exam: Present: alert, oriented X3 - Psychiatric Psychiatric exam: Present: normal affect, normal mood - Skin Skin exam: Present: warm, dry, intact, normal color. Absent: rash ED Course Vital Signs 11/25/18 03:57 Temperature 98.3 F Pulse Rate 91 H Respiratory 16 Rate Blood Pressure 119/75 O2 Sat by Pulse 99 Oximetry - Reevaluation(s) Reevaluation #1: 11/25/18 05:16 This is a 33-year-old male who presented to the ED with acute onset persistent itchy erythematous maculopapular urticarial rashes for the last 8 hours. In the ED, patient is alert and oriented 3 and is not in distress. Patient was treated for acute allergic reaction with Solu-Medrol 125 mg intramuscular injection, Benadryl and Pepcid. On reevaluation, patient's itching has been well controlled with medications, patient was discharged home on antihistamine prescriptions, prednisone Dosepak and Zantac prescription. Patient is advised to follow-up with his primary care physician in 7-10 days for reevaluation or return to the ED immediately if symptoms get worse. ED Medical Decision Making - Medical Decision Making This is a 33-year-old male who presented to the ED with acute onset persistent itchy erythematous maculopapular urticarial rashes for the last 8 hours. In the ED, patient is alert and oriented 3 and is not in distress. Patient was treated for acute allergic reaction with Solu-Medrol 125 mg intramuscular injection, Benadryl and Pepcid. On reevaluation, patient's itching has been well controlled with medications, patient was discharged home on antihistamine prescriptions, prednisone Dosepak and Zantac prescription. Patient is advised to follow-up with his primary care physician in 7-10 days for reevaluation or return to the ED immediately if symptoms get worse. - Differential Diagnosis acute allergic reaction; acute urticaria; itching with irritation Critical care attestation.: If time is entered above; I have spent that time in minutes in the direct care of this critically ill patient, excluding procedure time. ED Disposition Clinical Impression: Acute urticaria, Itching with irritation Acute allergic reaction Qualifiers: Encounter type: initial encounter Qualified Code(s): T78.40XA - Allergy, unspecified, initial encounter Disposition: TO HOME OR SELFCARE Is pt being admited?: No Does the pt Need Aspirin: No Condition: Stable Instructions: Urticaria (ED), Allergies (ED), Itchy Skin (ED) Additional Instructions: Take medications with food, drink plenty fluids and follow-up with your primary care physician in 7-10 days for reevaluation. Return to the ED immediately if symptoms get worse. Prescriptions: diphenhydrAMINE [Benadryl CAP] 25 mg PO Q6HR PRN #30 capsule PRN Reason: itching Prednisone [predniSONE 10 mg (6-Day Pack, 21 Tabs)] 10 mg PO .TAPER #21 tab.ds.pk raNITIdine HCl [Zantac] 150 mg PO Q12H #30 tablet Referrals: PRIMARY CARE, [Primary Care Provider] - 3-5 Days Time of Disposition: 05:10 Print Language: ROMANIAN
== END 2018-11-25 05:18 | disposition home or self-care (01) ==
LOC: ED 03:52
DX: T78.40XA Allergy, unspecified, initial encounter (principal); L50.9 Urticaria, unspecified; X58.XXXA Exposure to other specified factors, initial encounter
CPT/HCPCS: 96372; 99282; J2930

== ENCOUNTER 2018-12-23 01:32 | Emergency (ER) | payer BC ==
[2018-12-23 01:39] VITALS: BP 116/72
[2018-12-23] MEDS ORDERED: diphenhydrAMINE 25 MG CAP PO ONE (02:42)
[2018-12-23] MEDS ORDERED: predniSONE 20 MG TAB PO ONE (02:42)
--- NOTE | 2018-12-23 02:42 | Emergency Department Report ---
ED Rash HPI - HPI Chief Complaint: Skin Rash Stated Complaint: HIVES ON BACK,LEGS,ARMS AND FEET Time Seen by Provider: 12/23/18 02:31 Duration: 2 Days Location: Back Suspected Cause: Unknown Rash Symptoms: Yes Itching, No Facial Swelling, No Tongue/Oral Swelling, No Breathing Difficulties, No Choking Sensation, No Wheezing/Dyspnea, No Peeling, No Blistering, No Fever, No Lightheaded, No Malaise, No Myalgias Severity: mild Other History: This is a 33-year-old male who presents to ED complaining of generalized hives to is lower back, arms and left foot. Patient states that he is unaware of any allergens he came into contact with. He denies throat HTN, redness or swelling or difficulty swallowing. ED Review of Systems ROS: Stated complaint: HIVES ON BACK,LEGS,ARMS AND FEET Other details as noted in HPI Comment: All other systems reviewed and negative ED Past Medical Hx - Past Medical History Previous Medical History?: Yes Hx Headaches / Migraines: Yes Additional medical history: Migraines, Chronic itching - Surgical History Past Surgical History?: No - Social History Smoking Status: Never Smoker Substance Use Type: None - Medications Home Medications: Home Medications Medication Instructions Recorded Confirmed Last Taken Type Fluticasone [Flonase] 1 spray NS QDAY #1 bottle 05/28/18 Unknown Rx diphenhydrAMINE [Benadryl CAP] 25 mg PO Q6HR PRN 7 Days #30 08/23/18 Unknown Rx capsule EPINEPHrine [Epipen 2-Luther] 0.3 mg IJ PRN PRN #1 each 09/22/18 Unknown Rx Famotidine [Pepcid] 20 mg PO BID #6 tablet 09/22/18 Unknown Rx diphenhydrAMINE [Benadryl CAP] 25 mg PO Q8H PRN #9 capsule 09/22/18 Unknown Rx predniSONE [Deltasone] 40 mg PO QDAY 3 Days #10 tab 09/22/18 Unknown Rx Prednisone [predniSONE 10 mg 10 mg PO .TAPER #1 tab.ds.pk 10/14/18 Unknown Rx (6-Day Pack, 21 Tabs)] diphenhydrAMINE [Benadryl CAP] 25 mg PO QHS PRN #12 capsule 10/14/18 Unknown Rx Prednisone [predniSONE 10 mg 10 mg PO .TAPER #21 tab.ds.pk 11/03/18 Unknown Rx (6-Day Pack, 21 Tabs)] diphenhydrAMINE [Benadryl CAP] 25 mg PO Q6HR PRN #30 capsule 11/03/18 Unknown Rx Famotidine [Pepcid] 40 mg PO DAILY #14 tablet 11/18/18 Unknown Rx Prednisone [predniSONE 10 mg 10 mg PO .TAPER #21 tab.ds.pk 11/25/18 Unknown Rx (6-Day Pack, 21 Tabs)] diphenhydrAMINE [Benadryl CAP] 25 mg PO Q6HR PRN #30 capsule 11/25/18 Unknown Rx raNITIdine HCl [Zantac] 150 mg PO Q12H #30 tablet 11/25/18 Unknown Rx Cetirizine HCl [ZyrTEC 10mg cap] 10 mg PO DAILY #30 capsule 12/23/18 Unknown Rx Triamcinolone Aceton 0.1% (Nf) 1 applic TP BID 14 Days #1 tube 12/23/18 Unknown Rx [Kenalog (NF)] predniSONE [Deltasone] 20 mg PO DAILY #5 tablet 12/23/18 Unknown Rx Rash Exam - Exam General: Vital signs noted. No distress. Alert and acting appropriately. HEENT: No Periorbital Edema, No Conjuctival Injection, No Chemosis, No Perioral Edema, No Tongue Edema, No Uvular Edema, No Compromised Airway, No Drooling Lungs: Yes Good Air Exchange (Normal Breath Sounds), No Wheezes, No Ronchi, No Stridor, No Cough, No Labored Respirations, No Retractions, No Use of Accessory Muscles, No Other Abnormal Lung Sounds Heart: Yes Regular, No Murmur Skin: Yes Maculopapular Rash, Yes Erythema, No Urticarial Rash, No Morbilliform rash, No Bulla(e), No Excoriations, No Weeping, No Tenderness, No Edema, No Encrustations, No Other Other: Positive: Abdomen Normal, Neurologic Normal, Musculoskeletal Normal ED Course Vital Signs 12/23/18 01:38 Temperature 98.3 F Pulse Rate 82 Respiratory 18 Rate Blood Pressure 116/72 O2 Sat by Pulse 93 Oximetry ED Medical Decision Making - Medical Decision Making This 33-year-old male presents with hives from a contact or irritant dermatitis of unknown allergen. She received Benadryl and steroid in the ED. Discussed follow-up with primary care physician, [facility] given to patient. Patient is in no acute or respiratory distress. Critical care attestation.: If time is entered above; I have spent that time in minutes in the direct care of this critically ill patient, excluding procedure time. ED Disposition Clinical Impression: Hives of unknown origin Disposition: DC-01 TO HOME OR SELFCARE Is pt being admited?: No Does the pt Need Aspirin: No Condition: Stable Instructions: Urticaria (ED) Additional Instructions: Make sure to follow up with the primary care physician as discussed. Take all your medications as you've been prescribed. If you have any worsening symptoms or develop new symptoms please return to ED immediately. Prescriptions: predniSONE [Deltasone] 20 mg PO DAILY #5 tablet Triamcinolone Aceton 0.1% (Nf) [Kenalog (NF)] 1 applic TP BID 14 Days #1 tube Cetirizine HCl [ZyrTEC 10mg cap] 10 mg PO DAILY #30 capsule Referrals: [facility] [Outside] - 3-5 Days [facility] [Outside] - 3-5 Days [facility] [Outside] - 3-5 Days Forms: Work/School Release Form(ED) Time of Disposition: 03:23
== END 2018-12-23 03:35 | disposition home or self-care (01) ==
LOC: ED 01:32
DX: L50.9 Urticaria, unspecified (principal); G43.909 Migraine, unspecified, not intractable, without status migrainosus
CPT/HCPCS: 99282; J7512

== ENCOUNTER 2019-01-11 21:15 | Emergency (ER) | payer BC ==
--- NOTE | 2019-01-11 22:50 | Event Note ---
ED Screening Note Date of service: 01/11/19 Time: 22:48 ED Screening Note: 33 male comes in for rash that itches. Has had this for several months that intermittent. Denies any SOB. This initial assessment/diagnostic orders/clinical plan/treatment(s) is/are subject to change based on patients health status, clinical progression and re- assessment by fellow clinical providers in the ED. Further treatment and workup at subsequent clinical providers discretion. Patient/guardian urged not to elope from the ED as their condition may be serious if not clinically assessed and managed. Initial orders include:
[2019-01-11 22:51] VITALS: BP 109/64
--- NOTE | 2019-01-11 22:59 | Emergency Department Report ---
Chief Complaint: Skin Rash Stated Complaint: ITCHING ALL OVER Time Seen by Provider: 01/11/19 22:48 - HPI History of Present Illness: 33 male comes in for rash that itches. Has had this for several months that intermittent. Denies any SOB. He reports that Benadryl helps but did not take because it will make him sleepy. Patient requesting a Benadryl injection. - Exam Vital Signs: Vital Signs 01/11/19 22:50 Temperature 98.2 F Pulse Rate 85 Respiratory 19 Rate Blood Pressure 109/64 O2 Sat by Pulse 100 Oximetry Physical Exam: rash and itching in the exam room. MSE screening note: Focused history and physical exam performed. Due to findings the following was ordered: 33 male comes in for rash that itches. Has had this for several months that intermittent. Denies any SOB. Recommend to take OTC Benadryl and follow up with a PCP to have allergy testing. ED Disposition for MSE Clinical Impression: Rash Disposition: DC-01 TO HOME OR SELFCARE Is pt being admited?: No Does the pt Need Aspirin: No Condition: Stable Instructions: Acute Rash (ED) Referrals: [facility] [Outside] - 3-5 Days [facility] [Provider Group] - 3-5 Days Forms: Work/School Release Form(ED)
== END 2019-01-11 23:21 | disposition home or self-care (01) ==
LOC: ED 21:15
DX: R21 Rash and other nonspecific skin eruption (principal); L29.9 Pruritus, unspecified

== ENCOUNTER 2019-03-27 23:56 | Emergency (ER) | payer BC ==
[2019-03-28 06:08] VITALS: BP 107/65
[2019-03-28] MEDS ORDERED: diphenhydrAMINE 25 MG CAP PO ONE (07:37)
[2019-03-28] MEDS ORDERED: predniSONE 20 MG TAB PO ONE (07:37)
[2019-03-28] MEDS ORDERED: FAMOTIDINE 20 MG TAB PO ONE (07:37)
--- NOTE | 2019-03-28 08:58 | Emergency Department Report ---
ED Rash HPI - HPI Chief Complaint: Skin Rash Stated Complaint: BODY RASH Time Seen by Provider: 03/28/19 07:24 Duration: 1 Day Location: Upper Extremities, Lower Extremities Suspected Cause: Unknown Rash Symptoms: Yes Itching, No Facial Swelling, No Tongue/Oral Swelling, No Breathing Difficulties, No Choking Sensation, No Wheezing/Dyspnea, No Peeling, No Blistering, No Fever, No Lightheaded, No Malaise, No Myalgias Severity: mild Other History: This is a 33-year-old male nontoxic, well nourished in appearance, no acute signs of distress presents to the ED with c/o of generalized itching and rash times one day. Patient stated he has history of this. Patient denies any difficulty breathing, facial swelling, angioedema, shortness of breath, fever, chills, nausea, vomiting, headache or stiff neck. Denies any respiratory syndromes. Patient denies any other complaints. Denies any allergies or significant past medical history. ED Review of Systems ROS: Stated complaint: BODY RASH Other details as noted in HPI Constitutional: denies: chills, fever Eyes: denies: eye pain, eye discharge, vision change ENT: denies: ear pain, throat pain Respiratory: denies: cough, shortness of breath, wheezing Cardiovascular: denies: chest pain, palpitations Endocrine: no symptoms reported Gastrointestinal: denies: abdominal pain, nausea, diarrhea Genitourinary: denies: urgency, dysuria Musculoskeletal: denies: back pain, joint swelling, arthralgia Skin: rash. denies: lesions Neurological: denies: headache, weakness, paresthesias Psychiatric: denies: anxiety, depression Hematological/Lymphatic: denies: easy bleeding, easy bruising ED Past Medical Hx - Past Medical History Previous Medical History?: Yes Hx Headaches / Migraines: Yes Additional medical history: Migraines, Chronic itching - Surgical History Past Surgical History?: No - Social History Smoking Status: Never Smoker Substance Use Type: None - Medications Home Medications: Home Medications Medication Instructions Recorded Confirmed Last Taken Type Fluticasone [Flonase] 1 spray NS QDAY #1 bottle 05/28/18 Unknown Rx diphenhydrAMINE [Benadryl CAP] 25 mg PO Q6HR PRN 7 Days #30 08/23/18 Unknown Rx capsule EPINEPHrine [Epipen 2-Luther] 0.3 mg IJ PRN PRN #1 each 09/22/18 Unknown Rx Famotidine [Pepcid] 20 mg PO BID #6 tablet 09/22/18 Unknown Rx diphenhydrAMINE [Benadryl CAP] 25 mg PO Q8H PRN #9 capsule 09/22/18 Unknown Rx predniSONE [Deltasone] 40 mg PO QDAY 3 Days #10 tab 09/22/18 Unknown Rx Prednisone [predniSONE 10 mg 10 mg PO .TAPER #1 tab.ds.pk 10/14/18 Unknown Rx (6-Day Pack, 21 Tabs)] diphenhydrAMINE [Benadryl CAP] 25 mg PO QHS PRN #12 capsule 10/14/18 Unknown Rx Prednisone [predniSONE 10 mg 10 mg PO .TAPER #21 tab.ds.pk 11/03/18 Unknown Rx (6-Day Pack, 21 Tabs)] diphenhydrAMINE [Benadryl CAP] 25 mg PO Q6HR PRN #30 capsule 11/03/18 Unknown Rx Famotidine [Pepcid] 40 mg PO DAILY #14 tablet 11/18/18 Unknown Rx Prednisone [predniSONE 10 mg 10 mg PO .TAPER #21 tab.ds.pk 11/25/18 Unknown Rx (6-Day Pack, 21 Tabs)] diphenhydrAMINE [Benadryl CAP] 25 mg PO Q6HR PRN #30 capsule 11/25/18 Unknown Rx raNITIdine HCl [Zantac] 150 mg PO Q12H #30 tablet 11/25/18 Unknown Rx Cetirizine HCl [ZyrTEC 10mg cap] 10 mg PO DAILY #30 capsule 12/23/18 Unknown Rx Triamcinolone Aceton 0.1% (Nf) 1 applic TP BID 14 Days #1 tube 12/23/18 Unknown Rx [Kenalog (NF)] predniSONE [Deltasone] 20 mg PO DAILY #5 tablet 12/23/18 Unknown Rx Prednisone [predniSONE 10 mg 10 mg PO .TAPER #1 tab.ds.pk 03/28/19 Unknown Rx (6-Day Pack, 21 Tabs)] diphenhydrAMINE [Benadryl CAP] 25 mg PO QHS PRN #20 capsule 03/28/19 Unknown Rx Rash Exam - Exam General: Vital signs noted. No distress. Alert and acting appropriately. Uvula midline. No angioedema. No facial swelling. No drooling or hoarseness noted. HEENT: No Periorbital Edema, No Conjuctival Injection, No Chemosis, No Perioral Edema, No Tongue Edema, No Uvular Edema, No Compromised Airway, No Drooling Lungs: Yes Good Air Exchange (Normal Breath Sounds), No Wheezes, No Ronchi, No Stridor, No Cough, No Labored Respirations, No Retractions, No Use of Accessory Muscles, No Other Abnormal Lung Sounds Heart: Yes Regular, No Murmur Skin: Yes Maculopapular Rash (diffuse), No Urticarial Rash, No Morbilliform rash, No Bulla(e), No Excoriations, No Weeping, No Tenderness, No Erythema, No Edema, No Encrustations, No Other Other: Positive: Abdomen Normal, Neurologic Normal, Musculoskeletal Normal ED Course Vital Signs 03/28/19 03/28/19 00:55 06:04 Temperature 98.0 F 97.4 F L Pulse Rate 84 63 Respiratory 18 16 Rate Blood Pressure 114/70 107/65 O2 Sat by Pulse 97 98 Oximetry - Reevaluation(s) Reevaluation #1: 03/28/19 08:55 Patient is speaking in full sentences with no signs of distress noted. ED Medical Decision Making - Medical Decision Making This is a 33-year-old male that presents with allergic reaction. Patient is stable was examined by me. There is no facial swelling. No angioedema. There is no cellulitis. No hoarseness. Patient received Benadryl, Decadron, and Pepcid in the ED. Patient was instructed not to operate any machinery after discharge due to possible drowsiness of Benadryl. Patient stated that a family member will drive patient home after discharge. Patient is discharged with prednisone and Benadryl. Patient was referred to Follow-up with a primary care doctor in 3-5 days or if symptoms worsen and continue return to emergency room as soon as possible. At time of discharge, the patient does not seem toxic or ill in appearance. No acute signs of distress noted. Patient agrees to discharge treatment plan of care. No further questions noted by the patient. Critical care attestation.: If time is entered above; I have spent that time in minutes in the direct care of this critically ill patient, excluding procedure time. ED Disposition Clinical Impression: Allergic reaction Qualifiers: Encounter type: initial encounter Qualified Code(s): T78.40XA - Allergy, unspec ified, initial encounter Disposition: TO HOME OR SELFCARE Is pt being admited?: No Does the pt Need Aspirin: No Condition: Stable Additional Instructions: Follow-up with a primary care doctor in 3-5 days or if symptoms worsen and continue return to emergency room as soon as possible. Prescriptions: diphenhydrAMINE [Benadryl CAP] 25 mg PO QHS PRN #20 capsule PRN Reason: Itching Prednisone [predniSONE 10 mg (6-Day Pack, 21 Tabs)] 10 mg PO .TAPER #1 tab.ds.pk Referrals: PRIMARY CAREMD [Primary Care Provider] - 3-5 Days FRANDY BEGUM MD [Staff Physician] - 3-5 Days [facility] [Outside] - 3-5 Days Forms: Work/School Release Form(ED)
== END 2019-03-28 09:08 | disposition home or self-care (01) ==
LOC: ED 23:56
DX: T78.40XA Allergy, unspecified, initial encounter (principal); G43.909 Migraine, unspecified, not intractable, without status migrainosus; Z79.899 Other long term (current) drug therapy; X58.XXXA Exposure to other specified factors, initial encounter
CPT/HCPCS: 99282; J7512

== ENCOUNTER 2019-04-15 17:27 | Emergency (ER) | payer BC ==
[2019-04-15 17:33] VITALS: BP 114/64
--- NOTE | 2019-04-15 19:24 | Emergency Department Report ---
Chief Complaint: Upper Respiratory Infection Stated Complaint: FLU SYM/LEGS WEAK Time Seen by Provider: 04/15/19 19:18 - HPI History of Present Illness: This is a 33 y.o. M. that presents to the ER with chills, myalgia, weakness, and cough since last night. Patient states he is taking cough drops. Nonsmoker Denies chest pain, shortness of breath, wheezing, nausea, vomiting, or diarrhea. - Exam Vital Signs: Vital Signs 04/15/19 17:32 Temperature 99.7 F H Pulse Rate 90 Respiratory 18 Rate Blood Pressure 114/64 O2 Sat by Pulse 100 Oximetry MSE screening note: Focused history and physical exam performed. Due to findings the following was ordered: ED Disposition for MSE Condition: Stable
--- NOTE | 2019-04-15 20:56 | XRay Report ---
CHEST 2 VIEWS 2016 INDICATION / CLINICAL INFORMATION: cough COMPARISON: 02/28/2015 FINDINGS: SUPPORT DEVICES: None. HEART / MEDIASTINUM: No significant abnormality. LUNGS / PLEURA: No significant pulmonary or pleural abnormality. No pneumothorax. ADDITIONAL FINDINGS: No significant additional findings. IMPRESSION: No significant acute abnormality Signer Name: Miguelito Adhikari MD Signed: 04/15/2019 8:52 PM Workstation Name: [id number]
--- NOTE | 2019-04-15 22:18 | Emergency Department Report ---
- General Chief Complaint: Upper Respiratory Infection Stated Complaint: FLU SYM/LEGS WEAK Time Seen by Provider: 04/15/19 19:18 Source: patient Mode of arrival: Ambulatory Limitations: No Limitations - Related Data Previous Rx's Medication Instructions Recorded Last Taken Type Fluticasone [Flonase] 1 spray NS QDAY #1 bottle 05/28/18 Unknown Rx diphenhydrAMINE [Benadryl CAP] 25 mg PO Q6HR PRN 7 Days #30 08/23/18 Unknown Rx capsule EPINEPHrine [Epipen 2-Luther] 0.3 mg IJ PRN PRN #1 each 09/22/18 Unknown Rx Famotidine [Pepcid] 20 mg PO BID #6 tablet 09/22/18 Unknown Rx diphenhydrAMINE [Benadryl CAP] 25 mg PO Q8H PRN #9 capsule 09/22/18 Unknown Rx predniSONE [Deltasone] 40 mg PO QDAY 3 Days #10 tab 09/22/18 Unknown Rx Prednisone [predniSONE 10 mg 10 mg PO .TAPER #1 tab.ds.pk 10/14/18 Unknown Rx (6-Day Pack, 21 Tabs)] diphenhydrAMINE [Benadryl CAP] 25 mg PO QHS PRN #12 capsule 10/14/18 Unknown Rx Prednisone [predniSONE 10 mg 10 mg PO .TAPER #21 tab.ds.pk 11/03/18 Unknown Rx (6-Day Pack, 21 Tabs)] diphenhydrAMINE [Benadryl CAP] 25 mg PO Q6HR PRN #30 capsule 11/03/18 Unknown Rx Famotidine [Pepcid] 40 mg PO DAILY #14 tablet 11/18/18 Unknown Rx Prednisone [predniSONE 10 mg 10 mg PO .TAPER #21 tab.ds.pk 11/25/18 Unknown Rx (6-Day Pack, 21 Tabs)] diphenhydrAMINE [Benadryl CAP] 25 mg PO Q6HR PRN #30 capsule 11/25/18 Unknown Rx raNITIdine HCl [Zantac] 150 mg PO Q12H #30 tablet 11/25/18 Unknown Rx Cetirizine HCl [ZyrTEC 10mg cap] 10 mg PO DAILY #30 capsule 12/23/18 Unknown Rx Triamcinolone Aceton 0.1% (Nf) 1 applic TP BID 14 Days #1 tube 12/23/18 Unknown Rx [Kenalog (NF)] predniSONE [Deltasone] 20 mg PO DAILY #5 tablet 12/23/18 Unknown Rx Prednisone [predniSONE 10 mg 10 mg PO .TAPER #1 tab.ds.pk 03/28/19 Unknown Rx (6-Day Pack, 21 Tabs)] diphenhydrAMINE [Benadryl CAP] 25 mg PO QHS PRN #20 capsule 03/28/19 Unknown Rx Ibuprofen [Motrin 800 MG tab] 800 mg PO Q8HR PRN #15 tablet 04/15/19 Unknown Rx Allergies Allergy/AdvReac Type Severity Reaction Status Date / Time No Known Allergies Allergy Verified 04/15/19 17:28 ED Review of Systems ROS: Stated complaint: FLU SYM/LEGS WEAK Other details as noted in HPI ED Past Medical Hx - Past Medical History Hx Headaches / Migraines: Yes Additional medical history: Migraines, Chronic itching - Social History Smoking Status: Never Smoker Substance Use Type: None - Medications Home Medications: Home Medications Medication Instructions Recorded Confirmed Last Taken Type Fluticasone [Flonase] 1 spray NS QDAY #1 bottle 05/28/18 Unknown Rx diphenhydrAMINE [Benadryl CAP] 25 mg PO Q6HR PRN 7 Days #30 08/23/18 Unknown Rx capsule EPINEPHrine [Epipen 2-Luther] 0.3 mg IJ PRN PRN #1 each 09/22/18 Unknown Rx Famotidine [Pepcid] 20 mg PO BID #6 tablet 09/22/18 Unknown Rx diphenhydrAMINE [Benadryl CAP] 25 mg PO Q8H PRN #9 capsule 09/22/18 Unknown Rx predniSONE [Deltasone] 40 mg PO QDAY 3 Days #10 tab 09/22/18 Unknown Rx Prednisone [predniSONE 10 mg 10 mg PO .TAPER #1 tab.ds.pk 10/14/18 Unknown Rx (6-Day Pack, 21 Tabs)] diphenhydrAMINE [Benadryl CAP] 25 mg PO QHS PRN #12 capsule 10/14/18 Unknown Rx Prednisone [predniSONE 10 mg 10 mg PO .TAPER #21 tab.ds.pk 11/03/18 Unknown Rx (6-Day Pack, 21 Tabs)] diphenhydrAMINE [Benadryl CAP] 25 mg PO Q6HR PRN #30 capsule 11/03/18 Unknown Rx Famotidine [Pepcid] 40 mg PO DAILY #14 tablet 11/18/18 Unknown Rx Prednisone [predniSONE 10 mg 10 mg PO .TAPER #21 tab.ds.pk 11/25/18 Unknown Rx (6-Day Pack, 21 Tabs)] diphenhydrAMINE [Benadryl CAP] 25 mg PO Q6HR PRN #30 capsule 11/25/18 Unknown Rx raNITIdine HCl [Zantac] 150 mg PO Q12H #30 tablet 11/25/18 Unknown Rx Cetirizine HCl [ZyrTEC 10mg cap] 10 mg PO DAILY #30 capsule 12/23/18 Unknown Rx Triamcinolone Aceton 0.1% (Nf) 1 applic TP BID 14 Days #1 tube 12/23/18 Unknown Rx [Kenalog (NF)] predniSONE [Deltasone] 20 mg PO DAILY #5 tablet 12/23/18 Unknown Rx Prednisone [predniSONE 10 mg 10 mg PO .TAPER #1 tab.ds.pk 03/28/19 Unknown Rx (6-Day Pack, 21 Tabs)] diphenhydrAMINE [Benadryl CAP] 25 mg PO QHS PRN #20 capsule 03/28/19 Unknown Rx Ibuprofen [Motrin 800 MG tab] 800 mg PO Q8HR PRN #15 tablet 04/15/19 Unknown Rx ED Physical Exam - General Limitations: No Limitations ED Course Vital Signs 04/15/19 17:32 Temperature 99.7 F H Pulse Rate 90 Respiratory 18 Rate Blood Pressure 114/64 O2 Sat by Pulse 100 Oximetry Critical care attestation.: If time is entered above; I have spent that time in minutes in the direct care of this critically ill patient, excluding procedure time. ED Disposition Clinical Impression: Upper respiratory infection Qualifiers: URI type: unspecified viral URI Qualified Code(s): J06.9 - Acute upper respiratory infection, unspecified Is pt being admited?: No Does the pt Need Aspirin: No Condition: Stable Prescriptions: Ibuprofen [Motrin 800 MG tab] 800 mg PO Q8HR PRN #15 tablet PRN Reason: Pain , Severe (7-10) Referrals: PRIMARY CARE,MD [Primary Care Provider] - 3-5 Days
== END 2019-04-15 22:34 | disposition home health service (06) ==
LOC: ED 17:27
DX: J06.9 Acute upper respiratory infection, unspecified (principal); G43.909 Migraine, unspecified, not intractable, without status migrainosus; Z79.899 Other long term (current) drug therapy; Z79.1 Long term (current) use of non-steroidal anti-inflammatories (NSAID)
CPT/HCPCS: 71046; 87116; 87400; 87430

== ENCOUNTER 2019-06-01 14:13 | Emergency (ER) | payer BC ==
[2019-06-01 14:21] VITALS: BP 102/59
--- NOTE | 2019-06-01 15:37 | Emergency Department Report ---
ED General Adult HPI - General Chief complaint: Headache Stated complaint: HEADACHE/HIVES/(L) ARM PAIN Time Seen by Provider: 06/01/19 14:47 Source: patient Mode of arrival: Ambulatory Limitations: No Limitations - History of Present Illness Initial comments: 29-year-old -[place] male presents emergency department complaining 2- week history pruritus and likely hives off and on for an unknown etiology states has had this a few times in the past which usually is resolved with exam Zyrtec and Benadryl which he has not yet attempted. Reports no wheezing no shortness of breath no odynophagia or dysphagia. He also has been having a mild headache to the frontal region for about the last 2 days off and on but not yet tried any analgesic medication reports no photo photophobia or phonophobia. No ear pain no presyncope Radiation: non-radiation Improves with: none Worsens with: none Associated Symptoms: denies: confusion, chest pain, diaphoresis, loss of appetite, malaise, syncope, weakness - Related Data Previous Rx's Medication Instructions Recorded Last Taken Type Fluticasone [Flonase] 1 spray NS QDAY #1 bottle 05/28/18 Unknown Rx diphenhydrAMINE [Benadryl CAP] 25 mg PO Q6HR PRN 7 Days #30 08/23/18 Unknown Rx capsule EPINEPHrine [Epipen 2-Luther] 0.3 mg IJ PRN PRN #1 each 09/22/18 Unknown Rx Famotidine [Pepcid] 20 mg PO BID #6 tablet 09/22/18 Unknown Rx diphenhydrAMINE [Benadryl CAP] 25 mg PO Q8H PRN #9 capsule 09/22/18 Unknown Rx predniSONE [Deltasone] 40 mg PO QDAY 3 Days #10 tab 09/22/18 Unknown Rx Prednisone [predniSONE 10 mg 10 mg PO .TAPER #1 tab.ds.pk 10/14/18 Unknown Rx (6-Day Pack, 21 Tabs)] diphenhydrAMINE [Benadryl CAP] 25 mg PO QHS PRN #12 capsule 10/14/18 Unknown Rx Prednisone [predniSONE 10 mg 10 mg PO .TAPER #21 tab.ds.pk 11/03/18 Unknown Rx (6-Day Pack, 21 Tabs)] diphenhydrAMINE [Benadryl CAP] 25 mg PO Q6HR PRN #30 capsule 11/03/18 Unknown Rx Famotidine [Pepcid] 40 mg PO DAILY #14 tablet 11/18/18 Unknown Rx Prednisone [predniSONE 10 mg 10 mg PO .TAPER #21 tab.ds.pk 11/25/18 Unknown Rx (6-Day Pack, 21 Tabs)] diphenhydrAMINE [Benadryl CAP] 25 mg PO Q6HR PRN #30 capsule 11/25/18 Unknown Rx raNITIdine HCl [Zantac] 150 mg PO Q12H #30 tablet 11/25/18 Unknown Rx Cetirizine HCl [ZyrTEC 10mg cap] 10 mg PO DAILY #30 capsule 12/23/18 Unknown Rx Triamcinolone Aceton 0.1% (Nf) 1 applic TP BID 14 Days #1 tube 12/23/18 Unknown Rx [Kenalog (NF)] predniSONE [Deltasone] 20 mg PO DAILY #5 tablet 12/23/18 Unknown Rx Prednisone [predniSONE 10 mg 10 mg PO .TAPER #1 tab.ds.pk 03/28/19 Unknown Rx (6-Day Pack, 21 Tabs)] diphenhydrAMINE [Benadryl CAP] 25 mg PO QHS PRN #20 capsule 03/28/19 Unknown Rx Ibuprofen [Motrin 800 MG tab] 800 mg PO Q8HR PRN #15 tablet 04/15/19 Unknown Rx Allergies Allergy/AdvReac Type Severity Reaction Status Date / Time No Known Allergies Allergy Verified 04/15/19 17:28 ED Review of Systems ROS: Stated complaint: HEADACHE/HIVES/(L) ARM PAIN Other details as noted in HPI Comment: All other systems reviewed and negative ED Past Medical Hx - Past Medical History Previous Medical History?: Yes Hx Headaches / Migraines: Yes Additional medical history: Migraines, Chronic itching - Surgical History Past Surgical History?: No - Social History Smoking Status: Never Smoker Substance Use Type: None - Medications Home Medications: Home Medications Medication Instructions Recorded Confirmed Last Taken Type Fluticasone [Flonase] 1 spray NS QDAY #1 bottle 05/28/18 Unknown Rx diphenhydrAMINE [Benadryl CAP] 25 mg PO Q6HR PRN 7 Days #30 08/23/18 Unknown Rx capsule EPINEPHrine [Epipen 2-Luther] 0.3 mg IJ PRN PRN #1 each 09/22/18 Unknown Rx Famotidine [Pepcid] 20 mg PO BID #6 tablet 09/22/18 Unknown Rx diphenhydrAMINE [Benadryl CAP] 25 mg PO Q8H PRN #9 capsule 09/22/18 Unknown Rx predniSONE [Deltasone] 40 mg PO QDAY 3 Days #10 tab 09/22/18 Unknown Rx Prednisone [predniSONE 10 mg 10 mg PO .TAPER #1 tab.ds.pk 10/14/18 Unknown Rx (6-Day Pack, 21 Tabs)] diphenhydrAMINE [Benadryl CAP] 25 mg PO QHS PRN #12 capsule 10/14/18 Unknown Rx Prednisone [predniSONE 10 mg 10 mg PO .TAPER #21 tab.ds.pk 11/03/18 Unknown Rx (6-Day Pack, 21 Tabs)] diphenhydrAMINE [Benadryl CAP] 25 mg PO Q6HR PRN #30 capsule 11/03/18 Unknown Rx Famotidine [Pepcid] 40 mg PO DAILY #14 tablet 11/18/18 Unknown Rx Prednisone [predniSONE 10 mg 10 mg PO .TAPER #21 tab.ds.pk 11/25/18 Unknown Rx (6-Day Pack, 21 Tabs)] diphenhydrAMINE [Benadryl CAP] 25 mg PO Q6HR PRN #30 capsule 11/25/18 Unknown Rx raNITIdine HCl [Zantac] 150 mg PO Q12H #30 tablet 11/25/18 Unknown Rx Cetirizine HCl [ZyrTEC 10mg cap] 10 mg PO DAILY #30 capsule 12/23/18 Unknown Rx Triamcinolone Aceton 0.1% (Nf) 1 applic TP BID 14 Days #1 tube 12/23/18 Unknown Rx [Kenalog (NF)] predniSONE [Deltasone] 20 mg PO DAILY #5 tablet 12/23/18 Unknown Rx Prednisone [predniSONE 10 mg 10 mg PO .TAPER #1 tab.ds.pk 03/28/19 Unknown Rx (6-Day Pack, 21 Tabs)] diphenhydrAMINE [Benadryl CAP] 25 mg PO QHS PRN #20 capsule 03/28/19 Unknown Rx Ibuprofen [Motrin 800 MG tab] 800 mg PO Q8HR PRN #15 tablet 04/15/19 Unknown Rx ED Physical Exam - General Limitations: No Limitations General appearance: alert, in no apparent distress - Head Head exam: Present: atraumatic, normocephalic - Eye Eye exam: Present: normal appearance, PERRL, EOMI. Absent: nystagmus (Negative funduscopic examination) Pupils: Present: normal accommodation - ENT ENT exam: Present: normal exam, normal orophraynx, mucous membranes moist - Neck Neck exam: Present: normal inspection, full ROM. Absent: tenderness, lymphadenopathy - Respiratory Respiratory exam: Present: normal lung sounds bilaterally. Absent: respiratory distress, wheezes, rhonchi, chest wall tenderness, accessory muscle use - Cardiovascular Cardiovascular Exam: Present: regular rate, normal rhythm. Absent: systolic murmur, diastolic murmur, rubs, gallop - GI/Abdominal GI/Abdominal exam: Present: soft, normal bowel sounds. Absent: guarding, rebo und, hyperactive bowel sounds, hypoactive bowel sounds - Rectal Rectal exam: Present: deferred - Extremities Exam Extremities exam: Present: normal inspection, normal capillary refill - Back Exam Back exam: Present: normal inspection, full ROM. Absent: CVA tenderness (R), CVA tenderness (L) - Neurological Exam Neurological exam: Present: alert, oriented X3, CN II-XII intact - Psychiatric Psychiatric exam: Present: normal affect, normal mood. Absent: anxious, flat affect, manic - Skin Skin exam: Present: warm, dry, intact, normal color. Absent: rash ED Course Vital Signs 06/01/19 14:19 Temperature 98.7 F Pulse Rate 87 Respiratory 16 Rate Blood Pressure 102/59 O2 Sat by Pulse 98 Oximetry Critical care attestation.: If time is entered above; I have spent that time in minutes in the direct care of this critically ill patient, excluding procedure time. ED Disposition Clinical Impression: Cephalgia, Allergies Disposition: MED SCREENING EXAM-LEFT Is pt being admited?: No Does the pt Need Aspirin: No Condition: Stable Instructions: Acute Headache (ED), Allergies (ED) Referrals: PRIMARY CARE,MD [Primary Care Provider] - 3-5 Days
== END 2019-06-01 16:19 | disposition left against medical advice (07) ==
LOC: ED 14:13
DX: G43.909 Migraine, unspecified, not intractable, without status migrainosus (principal); T78.40XA Allergy, unspecified, initial encounter; X58.XXXA Exposure to other specified factors, initial encounter
CPT/HCPCS: 99281

== ENCOUNTER 2019-08-21 19:50 | Emergency (ER) | payer BC ==
[2019-08-21 20:01] VITALS: BP 103/69
--- NOTE | 2019-08-21 20:16 | Emergency Department Report ---
ED General Adult HPI - General Chief complaint: Neuro Symptoms/Deficit Stated complaint: NUMBNESS BELOW KNEES, RASH Time Seen by Provider: 08/21/19 20:09 Source: patient Mode of arrival: Ambulatory Limitations: No Limitations - History of Present Illness Initial comments: This is a 34-year-old male nontoxic well in appearance with no signs of distress presents to the ED with complaint of 2 complaints: 1) intermittent eczema flare-up a. Stated has been going on for several years and denies any flare up now. Denies any rash or itching. Patient denies any swelling, pus, or drainage. 2) acute on chronic intermittent tinglking sensation to bilateral lower legs x6 months. Denies any symptoms nows. Stated he wants to get check up and see why he gets this intermittent. Denies any facial drooping or one sided weakness. Denies any fever, chills, headache, nausea, vomiting, chest pain or SOB. Denies any back pains. Denies any urinary symptoms. Denies any complaints. -: month(s) Consistency: now resolved Improves with: none Worsens with: none Associated Symptoms: denies other symptoms. denies: confusion, chest pain, cough, diaphoresis, fever/chills, headaches, loss of appetite, malaise, nausea/vomiting, rash, seizure, shortness of breath, syncope, weakness Treatments Prior to Arrival: none - Related Data Previous Rx's Medication Instructions Recorded Last Taken Type Fluticasone [Flonase] 1 spray NS QDAY #1 bottle 05/28/18 Unknown Rx diphenhydrAMINE [Benadryl CAP] 25 mg PO Q6HR PRN 7 Days #30 08/23/18 Unknown Rx capsule EPINEPHrine [Epipen 2-Luther] 0.3 mg IJ PRN PRN #1 each 09/22/18 Unknown Rx Famotidine [Pepcid] 20 mg PO BID #6 tablet 09/22/18 Unknown Rx diphenhydrAMINE [Benadryl CAP] 25 mg PO Q8H PRN #9 capsule 09/22/18 Unknown Rx predniSONE [Deltasone] 40 mg PO QDAY 3 Days #10 tab 09/22/18 Unknown Rx Prednisone [predniSONE 10 mg 10 mg PO .TAPER #1 tab.ds.pk 10/14/18 Unknown Rx (6-Day Pack, 21 Tabs)] diphenhydrAMINE [Benadryl CAP] 25 mg PO QHS PRN #12 capsule 10/14/18 Unknown Rx Prednisone [predniSONE 10 mg 10 mg PO .TAPER #21 tab.ds.pk 11/03/18 Unknown Rx (6-Day Pack, 21 Tabs)] diphenhydrAMINE [Benadryl CAP] 25 mg PO Q6HR PRN #30 capsule 11/03/18 Unknown Rx Famotidine [Pepcid] 40 mg PO DAILY #14 tablet 11/18/18 Unknown Rx Prednisone [predniSONE 10 mg 10 mg PO .TAPER #21 tab.ds.pk 11/25/18 Unknown Rx (6-Day Pack, 21 Tabs)] diphenhydrAMINE [Benadryl CAP] 25 mg PO Q6HR PRN #30 capsule 11/25/18 Unknown Rx raNITIdine HCL [Zantac] 150 mg PO Q12H #30 tablet 11/25/18 Unknown Rx Cetirizine HCl [ZyrTEC 10mg cap] 10 mg PO DAILY #30 capsule 12/23/18 Unknown Rx Triamcinolone Aceton 0.1% (Nf) 1 applic TP BID 14 Days #1 tube 12/23/18 Unknown Rx [Kenalog (NF)] predniSONE [Deltasone] 20 mg PO DAILY #5 tablet 12/23/18 Unknown Rx Prednisone [predniSONE 10 mg 10 mg PO .TAPER #1 tab.ds.pk 03/28/19 Unknown Rx (6-Day Pack, 21 Tabs)] diphenhydrAMINE [Benadryl CAP] 25 mg PO QHS PRN #20 capsule 03/28/19 Unknown Rx Ibuprofen [Motrin 800 MG tab] 800 mg PO Q8HR PRN #15 tablet 04/15/19 Unknown Rx Allergies Allergy/AdvReac Type Severity Reaction Status Date / Time No Known Allergies Allergy Verified 04/15/19 17:28 ED Review of Systems ROS: Stated complaint: NUMBNESS BELOW KNEES, RASH Other details as noted in HPI Constitutional: denies: chills, fever Eyes: denies: eye pain, eye discharge, vision change ENT: denies: ear pain, throat pain Respiratory: denies: cough, shortness of breath, wheezing Cardiovascular: denies: chest pain, palpitations Endocrine: no symptoms reported Gastrointestinal: denies: abdominal pain, nausea, diarrhea Genitourinary: denies: urgency, dysuria Musculoskeletal: denies: back pain, joint swelling, arthralgia Skin: denies: rash, lesions Neurological: denies: headache, weakness, paresthesias Psychiatric: denies: anxiety, depression Hematological/Lymphatic: denies: easy bleeding, easy bruising ED Past Medical Hx - Past Medical History Previous Medical History?: Yes Hx Headaches / Migraines: Yes Additional medical history: Migraines, Chronic itching - Surgical History Past Surgical History?: No - Social History Smoking Status: Unknown if ever smoked Substance Use Type: None - Medications Home Medications: Home Medications Medication Instructions Recorded Confirmed Last Taken Type Fluticasone [Flonase] 1 spray NS QDAY #1 bottle 05/28/18 Unknown Rx diphenhydrAMINE [Benadryl CAP] 25 mg PO Q6HR PRN 7 Days #30 08/23/18 Unknown Rx capsule EPINEPHrine [Epipen 2-Luther] 0.3 mg IJ PRN PRN #1 each 09/22/18 Unknown Rx Famotidine [Pepcid] 20 mg PO BID #6 tablet 09/22/18 Unknown Rx diphenhydrAMINE [Benadryl CAP] 25 mg PO Q8H PRN #9 capsule 09/22/18 Unknown Rx predniSONE [Deltasone] 40 mg PO QDAY 3 Days #10 tab 09/22/18 Unknown Rx Prednisone [predniSONE 10 mg 10 mg PO .TAPER #1 tab.ds.pk 10/14/18 Unknown Rx (6-Day Pack, 21 Tabs)] diphenhydrAMINE [Benadryl CAP] 25 mg PO QHS PRN #12 capsule 10/14/18 Unknown Rx Prednisone [predniSONE 10 mg 10 mg PO .TAPER #21 tab.ds.pk 11/03/18 Unknown Rx (6-Day Pack, 21 Tabs)] diphenhydrAMINE [Benadryl CAP] 25 mg PO Q6HR PRN #30 capsule 11/03/18 Unknown Rx Famotidine [Pepcid] 40 mg PO DAILY #14 tablet 11/18/18 Unknown Rx Prednisone [predniSONE 10 mg 10 mg PO .TAPER #21 tab.ds.pk 11/25/18 Unknown Rx (6-Day Pack, 21 Tabs)] diphenhydrAMINE [Benadryl CAP] 25 mg PO Q6HR PRN #30 capsule 11/25/18 Unknown Rx raNITIdine HCL [Zantac] 150 mg PO Q12H #30 tablet 11/25/18 Unknown Rx Cetirizine HCl [ZyrTEC 10mg cap] 10 mg PO DAILY #30 capsule 12/23/18 Unknown Rx Triamcinolone Aceton 0.1% (Nf) 1 applic TP BID 14 Days #1 tube 12/23/18 Unknown Rx [Kenalog (NF)] predniSONE [Deltasone] 20 mg PO DAILY #5 tablet 12/23/18 Unknown Rx Prednisone [predniSONE 10 mg 10 mg PO .TAPER #1 tab.ds.pk 03/28/19 Unknown Rx (6-Day Pack, 21 Tabs)] diphenhydrAMINE [Benadryl CAP] 25 mg PO QHS PRN #20 capsule 03/28/19 Unknown Rx Ibuprofen [Motrin 800 MG tab] 800 mg PO Q8HR PRN #15 tablet 04/15/19 Unknown Rx ED Physical Exam - General Limitations: No Limitations General appearance: alert, in no apparent distress - Head Head exam: Present: atraumatic, normocephalic - Eye Eye exam: Present: normal appearance, PERRL, EOMI - Neck Neck exam: Present: normal inspection, full ROM. Absent: tenderness, meningismus, lymphadenopathy - Respiratory Respiratory exam: Present: normal lung sounds bilaterally. Absent: respiratory distress, wheezes, rales, rhonchi, stridor, chest wall tenderness, accessory muscle use, decreased breath sounds, prolonged expiratory - Cardiovascular Cardiovascular Exam: Present: regular rate, normal rhythm, normal heart sounds. Absent: tachycardia, irregular rhythm, systolic murmur, diastolic murmur, rubs, gallop - GI/Abdominal GI/Abdominal exam: Present: soft, normal bowel sounds. Absent: distended, tenderness, guarding, rebound, rigid, diminished bowel sounds - Extremities Exam Extremities exam: Present: normal inspection, full ROM, normal capillary refill. Absent: tenderness, joint swelling - Back Exam Back exam: Present: normal inspection, full ROM. Absent: tenderness, CVA tenderness (R), CVA tenderness (L), muscle spasm, paraspinal tenderness, vertebral tenderness, rash noted - Neurological Exam Neurological exam: Present: alert, oriented X3, normal gait - Psychiatric Psychiatric exam: Present: normal affect, normal mood - Skin Skin exam: Present: warm, dry, intact, normal color. Absent: rash ED Course Vital Signs 08/21/19 19:58 Temperature 98.0 F Pulse Rate 65 Respiratory 18 Rate Blood Pressure 103/69 O2 Sat by Pulse 97 Oximetry - Reevaluation(s) Reevaluation #1: 08/21/19 20:16 Patient is speaking in full sentences with no signs of distress noted. ED Medical Decision Making - Medical Decision Making Patient was instructed to Follow-up with a primary care doctor in 3-5 days or if symptoms worsen and continue return to emergency room as soon as possible. At time of discharge, the patient does not seem toxic or ill in appearance. No acute signs of distress noted. Patient agrees to discharge treatment plan of care. No further questions noted by the patient. Critical care attestation.: If time is entered above; I have spent that time in minutes in the direct care of this critically ill patient, excluding procedure time. ED Disposition Clinical Impression: Arthralgia Qualifiers: Joint pain location: unspecified Qualified Code(s): M25.50 - Pain in unspecifie d joint Disposition: MED SCREENING EXAM-LEFT Is pt being admited?: No Does the pt Need Aspirin: No Condition: Stable Additional Instructions: Follow-up with a primary care doctor in 3-5 days or if symptoms worsen and continue return to emergency room as soon as possible. Referrals: PRIMARY MD GAYLE [Referring] - 3-5 Days FRANDY BEGUM MD [Staff Physician] - 3-5 Days
== END 2019-08-21 20:32 | disposition left against medical advice (07) ==
LOC: ED 19:50
DX: M25.50 Pain in unspecified joint (principal); L30.9 Dermatitis, unspecified; R20.2 Paresthesia of skin; Z53.21 Procedure and treatment not carried out due to patient leaving prior to being seen by health care provider

== ENCOUNTER 2019-09-30 19:30 | Emergency (ER) | payer BC ==
[2019-09-30 19:41] VITALS: BP 111/70
[2019-09-30] MEDS ORDERED: predniSONE 20 MG TAB PO ONE (20:13)
[2019-09-30] MEDS ORDERED: diphenhydrAMINE 25 MG CAP PO ONE (20:13)
[2019-09-30] MEDS ORDERED: FAMOTIDINE 20 MG TAB PO ONE (20:13)
--- NOTE | 2019-09-30 20:29 | Emergency Department Report ---
ED General Adult HPI - General Chief complaint: Skin Rash Stated complaint: ITCHING Source: patient Mode of arrival: Ambulatory Limitations: No Limitations - History of Present Illness Initial comments: Patient is a 34-year-old -[place] male with a history of migraine headaches who presents to the ED with complaint of acute onset persistent severe diffuse erythematous maculopapular itchy rashes for the last 1 week, worse in the last 2 days. Patient states that he has been taking [id number] Benadryl with no relief. Patient denies being exposed to new detergents, new lotions, new foods or medications. Patient denies swollen lips or tongue, dysphagia, dysphonia, facial swelling, dizziness, syncope, nasal and sinus congestion, chest pain, cough, wheezing, shortness of breath, nausea, vomiting, diarrhea, abdominal pain, fever or chills. MD Complaint: diffuse itchy erythematous rashes -: Gradual, week(s) (1) Location: upper extremity (bilaterally), lower extremity (bilaterally) Radiation: back, extremity (bilateral upper and lower extremities), proximal Quality: burning, aching, sharp Consistency: constant Improves with: none (1) Worsens with: none Associated Symptoms: denies other symptoms, malaise, rash (Diffuse itchy erythematous maculopapular rashes). denies: confusion, chest pain, cough, diaphoresis, fever/chills, headaches, loss of appetite Treatments Prior to Arrival: none - Related Data Previous Rx's Medication Instructions Recorded Last Taken Type Fluticasone [Flonase] 1 spray NS QDAY #1 bottle 05/28/18 Unknown Rx diphenhydrAMINE [Benadryl CAP] 25 mg PO Q6HR PRN 7 Days #30 08/23/18 Unknown Rx capsule EPINEPHrine [Epipen 2-Luther] 0.3 mg IJ PRN PRN #1 each 09/22/18 Unknown Rx Famotidine [Pepcid] 20 mg PO BID #6 tablet 09/22/18 Unknown Rx diphenhydrAMINE [Benadryl CAP] 25 mg PO Q8H PRN #9 capsule 09/22/18 Unknown Rx predniSONE [Deltasone] 40 mg PO QDAY 3 Days #10 tab 09/22/18 Unknown Rx Prednisone [predniSONE 10 mg 10 mg PO .TAPER #1 tab.ds.pk 10/14/18 Unknown Rx (6-Day Pack, 21 Tabs)] diphenhydrAMINE [Benadryl CAP] 25 mg PO QHS PRN #12 capsule 10/14/18 Unknown Rx Prednisone [predniSONE 10 mg 10 mg PO .TAPER #21 tab.ds.pk 11/03/18 Unknown Rx (6-Day Pack, 21 Tabs)] diphenhydrAMINE [Benadryl CAP] 25 mg PO Q6HR PRN #30 capsule 11/03/18 Unknown Rx Prednisone [predniSONE 10 mg 10 mg PO .TAPER #21 tab.ds.pk 11/25/18 Unknown Rx (6-Day Pack, 21 Tabs)] raNITIdine HCL [Zantac] 150 mg PO Q12H #30 tablet 11/25/18 Unknown Rx Triamcinolone Aceton 0.1% (Nf) 1 applic TP BID 14 Days #1 tube 12/23/18 Unknown Rx [Kenalog (NF)] predniSONE [Deltasone] 20 mg PO DAILY #5 tablet 12/23/18 Unknown Rx Prednisone [predniSONE 10 mg 10 mg PO .TAPER #1 tab.ds.pk 03/28/19 Unknown Rx (6-Day Pack, 21 Tabs)] diphenhydrAMINE [Benadryl CAP] 25 mg PO QHS PRN #20 capsule 03/28/19 Unknown Rx Ibuprofen [Motrin 800 MG tab] 800 mg PO Q8HR PRN #15 tablet 04/15/19 Unknown Rx Cetirizine HCl [ZyrTEC 10mg cap] 10 mg PO DAILY #30 capsule 09/30/19 Unknown Rx Famotidine [Pepcid] 40 mg PO DAILY #30 tablet 09/30/19 Unknown Rx Prednisone [predniSONE 10 mg 10 mg PO .TAPER #21 tab.ds.pk 09/30/19 Unknown Rx (6-Day Pack, 21 Tabs)] diphenhydrAMINE [Benadryl CAP] 25 mg PO Q6HR PRN #30 capsule 09/30/19 Unknown Rx Allergies Allergy/AdvReac Type Severity Reaction Status Date / Time No Known Allergies Allergy Verified 04/15/19 17:28 ED Review of Systems ROS: Stated complaint: ITCHING Other details as noted in HPI Constitutional: denies: chills, fever Eyes: denies: eye pain, eye discharge, vision change ENT: denies: ear pain, throat pain Respiratory: denies: cough, shortness of breath, wheezing Cardiovascular: denies: chest pain, palpitations Endocrine: no symptoms reported Gastrointestinal: denies: abdominal pain, nausea, diarrhea Genitourinary: denies: urgency, dysuria Musculoskeletal: denies: back pain, joint swelling, arthralgia Skin: rash (Diffuse erythematous maculopapular urticarial rashes on upper and lower extremities bilaterally), change in color, pruritus. denies: lesions Neurological: denies: headache, weakness, paresthesias Psychiatric: denies: anxiety, depression Hematological/Lymphatic: denies: easy bleeding, easy bruising ED Past Medical Hx - Past Medical History Previous Medical History?: Yes Hx Headaches / Migraines: Yes Additional medical history: Migraines, Chronic itching - Surgical History Past Surgical History?: Yes - Social History Smoking Status: Never Smoker Substance Use Type: None - Medications Home Medications: Home Medications Medication Instructions Recorded Confirmed Last Taken Type Fluticasone [Flonase] 1 spray NS QDAY #1 bottle 05/28/18 Unknown Rx diphenhydrAMINE [Benadryl CAP] 25 mg PO Q6HR PRN 7 Days #30 08/23/18 Unknown Rx capsule EPINEPHrine [Epipen 2-Luther] 0.3 mg IJ PRN PRN #1 each 09/22/18 Unknown Rx Famotidine [Pepcid] 20 mg PO BID #6 tablet 09/22/18 Unknown Rx diphenhydrAMINE [Benadryl CAP] 25 mg PO Q8H PRN #9 capsule 09/22/18 Unknown Rx predniSONE [Deltasone] 40 mg PO QDAY 3 Days #10 tab 09/22/18 Unknown Rx Prednisone [predniSONE 10 mg 10 mg PO .TAPER #1 tab.ds.pk 10/14/18 Unknown Rx (6-Day Pack, 21 Tabs)] diphenhydrAMINE [Benadryl CAP] 25 mg PO QHS PRN #12 capsule 10/14/18 Unknown Rx Prednisone [predniSONE 10 mg 10 mg PO .TAPER #21 tab.ds.pk 11/03/18 Unknown Rx (6-Day Pack, 21 Tabs)] diphenhydrAMINE [Benadryl CAP] 25 mg PO Q6HR PRN #30 capsule 11/03/18 Unknown Rx Prednisone [predniSONE 10 mg 10 mg PO .TAPER #21 tab.ds.pk 11/25/18 Unknown Rx (6-Day Pack, 21 Tabs)] raNITIdine HCL [Zantac] 150 mg PO Q12H #30 tablet 11/25/18 Unknown Rx Triamcinolone Aceton 0.1% (Nf) 1 applic TP BID 14 Days #1 tube 12/23/18 Unknown Rx [Kenalog (NF)] predniSONE [Deltasone] 20 mg PO DAILY #5 tablet 12/23/18 Unknown Rx Prednisone [predniSONE 10 mg 10 mg PO .TAPER #1 tab.ds.pk 03/28/19 Unknown Rx (6-Day Pack, 21 Tabs)] diphenhydrAMINE [Benadryl CAP] 25 mg PO QHS PRN #20 capsule 03/28/19 Unknown Rx Ibuprofen [Motrin 800 MG tab] 800 mg PO Q8HR PRN #15 tablet 04/15/19 Unknown Rx Cetirizine HCl [ZyrTEC 10mg cap] 10 mg PO DAILY #30 capsule 09/30/19 Unknown Rx Famotidine [Pepcid] 40 mg PO DAILY #30 tablet 09/30/19 Unknown Rx Prednisone [predniSONE 10 mg 10 mg PO .TAPER #21 tab.ds.pk 09/30/19 Unknown Rx (6-Day Pack, 21 Tabs)] diphenhydrAMINE [Benadryl CAP] 25 mg PO Q6HR PRN #30 capsule 09/30/19 Unknown Rx ED Physical Exam - General Limitations: No Limitations General appearance: alert, in no apparent distress - Head Head exam: Present: atraumatic, normocephalic, normal inspection - Eye Eye exam: Present: normal appearance, PERRL, EOMI Pupils: Present: normal accommodation - ENT ENT exam: Present: normal exam, normal orophraynx, mucous membranes moist, TM's normal bilaterally, normal external ear exam - Neck Neck exam: Present: normal inspection, full ROM - Respiratory Respiratory exam: Present: normal lung sounds bilaterally. Absent: respiratory distress, wheezes, rales, chest wall tenderness, decreased breath sounds, prolonged expiratory - Cardiovascular Cardiovascular Exam: Present: regular rate, normal rhythm, normal heart sounds. Absent: bradycardia, tachycardia, systolic murmur, diastolic murmur, rubs, gallop - GI/Abdominal GI/Abdominal exam: Present: soft, normal bowel sounds. Absent: tenderness, guarding, rebound, hyperactive bowel sounds, hypoactive bowel sounds, organomegaly, mass - Extremities Exam Extremities exam: Present: normal inspection, full ROM, normal capillary refill - Back Exam Back exam: Present: normal inspection, full ROM. Absent: tenderness, CVA tenderness (R), CVA tenderness (L), muscle spasm, vertebral tenderness - Neurological Exam Neurological exam: Present: alert, oriented X3, CN II-XII intact, normal gait, reflexes normal - Psychiatric Psychiatric exam: Present: normal affect, normal mood - Skin Skin exam: Present: warm, dry, intact, normal color, rash (Diffuse erythematous maculopapular urticarial rashes worse in the upper and lower extremities bilaterally), erythema, urticaria ED Course Vital Signs 09/30/19 19:35 Temperature 98.1 F Pulse Rate 77 Respiratory 18 Rate Blood Pressure 111/70 O2 Sat by Pulse 100 Oximetry ED Medical Decision Making - Medical Decision Making This is a 34-year-old -[place] male with a history of migraine headaches who presents to the ED with complaint of acute onset persistent severe diffuse erythematous maculopapular itchy rashes for the last 1 week, worse in the last 2 days. Patient states that he has been taking [id number] Benadryl with no relief. Patient denies being exposed to new detergents, new lotions, new foods or medications. In the ED, patient is alert and oriented x3 and is not in distress. Patient was treated for acute allergic reaction with steroids, Benadryl as well as Pepcid. On reevaluation, patient's itching resolved on medications. Patient was discharged home on medications and advised to follow- up with his primary care physician in 5 to 7 days for reevaluation or return to the ED immediately if symptoms get worse. - Differential Diagnosis Urticaria; Allergic reaction; Irritant dermatitis Critical care attestation.: If time is entered above; I have spent that time in minutes in the direct care of this critically ill patient, excluding procedure time. ED Disposition Clinical Impression: Itching with irritation, Acute urticaria Acute allergic reaction Qualifiers: Encounter type: initial encounter Qualified Code(s): T78.40XA - Allergy, unspecified, initial encounter Disposition: - TO HOME OR SELFCARE Is pt being admited?: No Does the pt Need Aspirin: No Condition: Stable Instructions: Urticaria (ED), Allergies (ED), Itchy Skin (ED) Additional Instructions: Take medication with food, drink plenty of fluids and follow-up with your primary care physician in 5 to 7 days for reevaluation. Return to the ED immediately if symptoms get worse. Prescriptions: diphenhydrAMINE [Benadryl CAP] 25 mg PO Q6HR PRN #30 capsule PRN Reason: itching Famotidine [Pepcid] 40 mg PO DAILY #30 tablet Prednisone [predniSONE 10 mg (6-Day Pack, 21 Tabs)] 10 mg PO .TAPER #21 tab.ds.pk Cetirizine HCl [ZyrTEC 10mg cap] 10 mg PO DAILY #30 capsule Referrals: [facility] [Provider Group] - 3-5 Days Time of Disposition: 20:26 Print Language: RUSSIAN
== END 2019-09-30 20:55 | disposition home or self-care (01) ==
LOC: ED 19:30
DX: T78.40XA Allergy, unspecified, initial encounter (principal); L50.9 Urticaria, unspecified; G43.909 Migraine, unspecified, not intractable, without status migrainosus; Z79.1 Long term (current) use of non-steroidal anti-inflammatories (NSAID); Z79.899 Other long term (current) drug therapy
CPT/HCPCS: 99282; J7512

== ENCOUNTER 2019-10-03 16:51 | Emergency (ER) | payer BC ==
[2019-10-03 17:50] VITALS: BP 104/66
--- NOTE | 2019-10-03 21:49 | Vascular Lab Report ---
DUPLEX DOPPLER LOWER EXTREMITY VEINS, BILATERAL INDICATION / CLINICAL INFORMATION: Bilateral calf pain. TECHNIQUE: Duplex doppler imaging was performed through the veins of both lower extremities using venous valeriy trae and other maneuvers. COMPARISON: None available. FINDINGS: RIGHT COMMON FEMORAL VEIN: Negative. RIGHT FEMORAL VEIN: Negative. RIGHT POPLITEAL VEIN: Negative. RIGHT CALF VEINS: Negative. LEFT COMMON FEMORAL VEIN: Negative. LEFT FEMORAL VEIN: Negative. LEFT POPLITEAL VEIN: Negative. LEFT CALF VEINS: Negative. ADDITIONAL FINDINGS: None. IMPRESSION: 1. No sonographic evidence for DVT in either lower extremity. Signer Name: Niall Pérez MD Signed: 10/03/2019 9:44 PM Workstation Name: [id number]
--- NOTE | 2019-10-03 21:55 | Emergency Department Report ---
ED Extremity Problem HPI - General Chief complaint: Extremity Problem,Nontraumatic Stated complaint: LEFT LEG PAIN Source: patient Mode of arrival: Ambulatory Limitations: No Limitations - History of Present Illness Initial comments: Patient is a 34-year-old -Citizen Of [place] male with a history of chronic migraine headaches who presents to the ED with complaint of acute onset p ersistent nontraumatic bilateral lower extremity pain worse on the left calf for the last 12 hours. Patient states that the pain intensity has since decreased to minimal on the left lower leg but the swelling is still persistent. Patient denies dizziness, syncope, traumatic injury, nausea, vomiting, chest pain, shortness of breath, fever, chills, heavy lifting or low back pain, numbness and tingling or weakness of lower extremities bilaterally. MD Complaint: extremity pain (left lower leg pain), joint paint (bilateral knee pain) -: Sudden, hour(s) (12) Location: bilateral lower extremity History of Same: Yes -: Yes arthralgia, No fever, No associated dyspnea, No associated chest pain Radiation: distal Severity scale (0 -10): 6 Quality: aching, sharp Consistency: constant Improves with: nothing Worsens with: weight bearing, walking, palpation Associated Symptoms: denies other symptoms, arthralgias. denies: chest pain, shortness of breath, fever, myalgias, rash - Related Data Previous Rx's Medication Instructions Recorded Last Taken Type Fluticasone [Flonase] 1 spray NS QDAY #1 bottle 05/28/18 Unknown Rx diphenhydrAMINE [Benadryl CAP] 25 mg PO Q6HR PRN 7 Days #30 08/23/18 Unknown Rx capsule EPINEPHrine [Epipen 2-Luther] 0.3 mg IJ PRN PRN #1 each 09/22/18 Unknown Rx Famotidine [Pepcid] 20 mg PO BID #6 tablet 09/22/18 Unknown Rx diphenhydrAMINE [Benadryl CAP] 25 mg PO Q8H PRN #9 capsule 09/22/18 Unknown Rx predniSONE [Deltasone] 40 mg PO QDAY 3 Days #10 tab 09/22/18 Unknown Rx Prednisone [predniSONE 10 mg 10 mg PO .TAPER #1 tab.ds.pk 10/14/18 Unknown Rx (6-Day Pack, 21 Tabs)] diphenhydrAMINE [Benadryl CAP] 25 mg PO QHS PRN #12 capsule 10/14/18 Unknown Rx Prednisone [predniSONE 10 mg 10 mg PO .TAPER #21 tab.ds.pk 11/03/18 Unknown Rx (6-Day Pack, 21 Tabs)] diphenhydrAMINE [Benadryl CAP] 25 mg PO Q6HR PRN #30 capsule 11/03/18 Unknown Rx Prednisone [predniSONE 10 mg 10 mg PO .TAPER #21 tab.ds.pk 11/25/18 Unknown Rx (6-Day Pack, 21 Tabs)] raNITIdine HCL [Zantac] 150 mg PO Q12H #30 tablet 11/25/18 Unknown Rx Triamcinolone Aceton 0.1% (Nf) 1 applic TP BID 14 Days #1 tube 12/23/18 Unknown Rx [Kenalog (NF)] predniSONE [Deltasone] 20 mg PO DAILY #5 tablet 12/23/18 Unknown Rx Prednisone [predniSONE 10 mg 10 mg PO .TAPER #1 tab.ds.pk 03/28/19 Unknown Rx (6-Day Pack, 21 Tabs)] diphenhydrAMINE [Benadryl CAP] 25 mg PO QHS PRN #20 capsule 03/28/19 Unknown Rx Cetirizine HCl [ZyrTEC 10mg cap] 10 mg PO DAILY #30 capsule 09/30/19 Unknown Rx Famotidine [Pepcid] 40 mg PO DAILY #30 tablet 09/30/19 Unknown Rx Prednisone [predniSONE 10 mg 10 mg PO .TAPER #21 tab.ds.pk 09/30/19 Unknown Rx (6-Day Pack, 21 Tabs)] diphenhydrAMINE [Benadryl CAP] 25 mg PO Q6HR PRN #30 capsule 09/30/19 Unknown Rx Ibuprofen [Motrin 800 MG tab] 800 mg PO Q8HR PRN #30 tablet 10/03/19 Unknown Rx Allergies Allergy/AdvReac Type Severity Reaction Status Date / Time No Known Allergies Allergy Verified 04/15/19 17:28 ED Review of Systems ROS: Stated complaint: LEFT LEG PAIN Other details as noted in HPI Constitutional: denies: chills, fever Eyes: denies: eye pain, eye discharge, vision change ENT: denies: ear pain, throat pain Respiratory: denies: cough, shortness of breath, wheezing Cardiovascular: denies: chest pain, palpitations Endocrine: no symptoms reported Gastrointestinal: denies: abdominal pain, nausea, diarrhea Genitourinary: denies: urgency, dysuria Musculoskeletal: arthralgia (Bilateral lower extremity pain), myalgia. denies: back pain, joint swelling Skin: denies: rash, lesions Neurological: denies: headache, weakness, paresthesias Psychiatric: denies: anxiety, depression Hematological/Lymphatic: denies: easy bleeding, easy bruising ED Past Medical Hx - Past Medical History Previous Medical History?: Yes Hx Headaches / Migraines: Yes Additional medical history: Migraines, Chronic itching - Social History Smoking Status: Never Smoker Substance Use Type: None - Medications Home Medications: Home Medications Medication Instructions Recorded Confirmed Last Taken Type Fluticasone [Flonase] 1 spray NS QDAY #1 bottle 05/28/18 Unknown Rx diphenhydrAMINE [Benadryl CAP] 25 mg PO Q6HR PRN 7 Days #30 08/23/18 Unknown Rx capsule EPINEPHrine [Epipen 2-Luther] 0.3 mg IJ PRN PRN #1 each 09/22/18 Unknown Rx Famotidine [Pepcid] 20 mg PO BID #6 tablet 09/22/18 Unknown Rx diphenhydrAMINE [Benadryl CAP] 25 mg PO Q8H PRN #9 capsule 09/22/18 Unknown Rx predniSONE [Deltasone] 40 mg PO QDAY 3 Days #10 tab 09/22/18 Unknown Rx Prednisone [predniSONE 10 mg 10 mg PO .TAPER #1 tab.ds.pk 10/14/18 Unknown Rx (6-Day Pack, 21 Tabs)] diphenhydrAMINE [Benadryl CAP] 25 mg PO QHS PRN #12 capsule 10/14/18 Unknown Rx Prednisone [predniSONE 10 mg 10 mg PO .TAPER #21 tab.ds.pk 11/03/18 Unknown Rx (6-Day Pack, 21 Tabs)] diphenhydrAMINE [Benadryl CAP] 25 mg PO Q6HR PRN #30 capsule 11/03/18 Unknown Rx Prednisone [predniSONE 10 mg 10 mg PO .TAPER #21 tab.ds.pk 11/25/18 Unknown Rx (6-Day Pack, 21 Tabs)] raNITIdine HCL [Zantac] 150 mg PO Q12H #30 tablet 11/25/18 Unknown Rx Triamcinolone Aceton 0.1% (Nf) 1 applic TP BID 14 Days #1 tube 12/23/18 Unknown Rx [Kenalog (NF)] predniSONE [Deltasone] 20 mg PO DAILY #5 tablet 12/23/18 Unknown Rx Prednisone [predniSONE 10 mg 10 mg PO .TAPER #1 tab.ds.pk 03/28/19 Unknown Rx (6-Day Pack, 21 Tabs)] diphenhydrAMINE [Benadryl CAP] 25 mg PO QHS PRN #20 capsule 03/28/19 Unknown Rx Cetirizine HCl [ZyrTEC 10mg cap] 10 mg PO DAILY #30 capsule 09/30/19 Unknown Rx Famotidine [Pepcid] 40 mg PO DAILY #30 tablet 09/30/19 Unknown Rx Prednisone [predniSONE 10 mg 10 mg PO .TAPER #21 tab.ds.pk 09/30/19 Unknown Rx (6-Day Pack, 21 Tabs)] diphenhydrAMINE [Benadryl CAP] 25 mg PO Q6HR PRN #30 capsule 09/30/19 Unknown Rx Ibuprofen [Motrin 800 MG tab] 800 mg PO Q8HR PRN #30 tablet 10/03/19 Unknown Rx ED Physical Exam - General Limitations: No Limitations General appearance: alert, in no apparent distress - Head Head exam: Present: atraumatic, normocephalic, normal inspection - Eye Eye exam: Present: normal appearance, PERRL, EOMI Pupils: Present: normal accommodation - ENT ENT exam: Present: normal exam, normal orophraynx, mucous membranes moist, TM's normal bilaterally, normal external ear exam - Neck Neck exam: Present: normal inspection, full ROM - Respiratory Respiratory exam: Present: normal lung sounds bilaterally. Absent: respiratory distress, wheezes, rhonchi, stridor, chest wall tenderness, accessory muscle use, prolonged expiratory - Cardiovascular Cardiovascular Exam: Present: regular rate, normal rhythm, normal heart sounds. Absent: systolic murmur, diastolic murmur, rubs, gallop - GI/Abdominal GI/Abdominal exam: Present: soft, normal bowel sounds. Absent: tenderness, guarding, rebound, hyperactive bowel sounds - Extremities Exam Extremities exam: Present: normal inspection, full ROM, tenderness (Bilateral knee tenderness; mild palpable bilateral calf tenderness), normal capillary refill. Absent: pedal edema, joint swelling, calf tenderness - Back Exam Back exam: Present: normal inspection, full ROM. Absent: tenderness, CVA tenderness (R), CVA tenderness (L), muscle spasm, paraspinal tenderness, vertebral tenderness - Neurological Exam Neurological exam: Present: alert, oriented X3, CN II-XII intact, normal gait, reflexes normal - Psychiatric Psychiatric exam: Present: normal affect, normal mood - Skin Skin exam: Present: warm, dry, intact, normal color. Absent: rash ED Course Vital Signs 10/03/19 17:44 Temperature 98.6 F Pulse Rate 61 Respiratory 18 Rate Blood Pressure 104/66 O2 Sat by Pulse 98 Oximetry ED Medical Decision Making - Radiology Data Radiology results: report reviewed, image reviewed Findings [facility] [address] [id number] Vascular Lab Report Signed Patient: RIYA VALLADARES III MR #: [id number] : 1985 Acct:[id number] Age/Sex: 34 / M ADM Date: 10/03/19 Loc: ED Attending Dr: Ordering Physician: JLUIS CERON Date of Service: 10/03/19 Procedure(s): VL venous duplex LE BILAT Accession Number(s): [id number] cc: JLUIS CERON DUPLEX DOPPLER LOWER EXTREMITY VEINS, BILATERAL INDICATION / CLINICAL INFORMATION: Bilateral calf pain. TECHNIQUE: Duplex doppler imaging was performed through the veins of both lower extremities using venous compression and other maneuvers. COMPARISON: None available. FINDINGS: RIGHT COMMON FEMORAL VEIN: Negative. RIGHT FEMORAL VEIN: Negative. RIGHT POPLITEAL VEIN: Negative. RIGHT CALF VEINS: Negative. LEFT COMMON FEMORAL VEIN: Negative. LEFT FEMORAL VEIN: Negative. LEFT POPLITEAL VEIN: Negative. LEFT CALF VEINS: Negative. ADDITIONAL FINDINGS: None. IMPRESSION: 1. No sonographic evidence for DVT in either lower extremity. Signer Name: Niall Pérez MD Signed: 10/03/2019 9:44 PM Workstation Name: [id number] Transcribed By: TL Dictated By: Niall Pérez MD Electronically Authenticated By: Niall Pérez MD Signed Date/Time: 10/03/192143 DD/ 43 TD/TT: - Medical Decision Making This is a 34-year-old -Citizen Of [place] male with a history of chronic migraine headaches who presents to the ED with complaint of acute onset persistent nontraumatic bilateral lower extremity pain worse on the left calf for the last 12 hours. Patient states that the pain intensity has since decreased to minimal on the left lower leg but the swelling is still persistent. In the ED, patient is alert and oriented x3 and is not in distress. Bilateral lower extremity Doppler ultrasound showed no evidence of DVT. Patient was discharged home on pain medication and advised to follow-up with his primary care physician in 5 to 7 days for reevaluation or return to the ED immediately if symptoms get worse. - Differential Diagnosis DVT; Muscle strain; Muscle spasm; Osteoarthritis; Varicose veins Critical care attestation.: If time is entered above; I have spent that time in minutes in the direct care of this critically ill patient, excluding procedure time. ED Disposition Clinical Impression: Muscle spasm of both lower legs, Strain of muscle of posterior lower leg Disposition: DC-01 TO HOME OR SELFCARE Is pt being admited?: No Does the pt Need Aspirin: No Condition: Stable Instructions: Muscle Strain (ED), Muscle Spasm (ED) Additional Instructions: Take medication with food, drink plenty of fluids and follow-up with your primary care physician in 5 to 7 days for reevaluation. Return to the ED immediately if symptoms get worse. Prescriptions: Ibuprofen [Motrin 800 MG tab] 800 mg PO Q8HR PRN #30 tablet PRN Reason: Pain , Severe (7-10) Referrals: [facility] [Provider Group] - 3-5 Days Time of Disposition: 21:56 Print Language: LIBYAN
== END 2019-10-03 22:08 | disposition home or self-care (01) ==
LOC: ED 16:51
DX: S86.912A Strain of unspecified muscle(s) and tendon(s) at lower leg level, left leg, initial encounter (principal); S86.911A Strain of unspecified muscle(s) and tendon(s) at lower leg level, right leg, initial encounter; M62.838 Other muscle spasm; G43.909 Migraine, unspecified, not intractable, without status migrainosus; Z79.1 Long term (current) use of non-steroidal anti-inflammatories (NSAID); Z79.899 Other long term (current) drug therapy; X58.XXXA Exposure to other specified factors, initial encounter; Y93.89 Activity, other specified; Y92.89 Other specified places as the place of occurrence of the external cause; Y99.8 Other external cause status
CPT/HCPCS: 93970

== ENCOUNTER 2019-11-22 01:14 | Emergency (ER) | payer BC ==
[2019-11-22 01:21] VITALS: BP 108/60
--- NOTE | 2019-11-22 06:45 | Emergency Department Report ---
ED General Adult HPI - General Chief complaint: Skin Rash Stated complaint: BREAKING OUT IN HIVES, ITCHING Time Seen by Provider: 11/22/19 06:44 Source: patient Mode of arrival: Ambulatory Limitations: No Limitations - History of Present Illness Initial comments: 34-year-old -[place] male patient presents with complaints of diffuse itchy rash x3 days. Patient has been seen here in the ED with this complaint multiple times in the past. He denies following up with a facialist or primary care provider. He denies any new foods, change in his products, throat pain/difficulty swallowing, shortness of breath, or chest pain. He states Benadryl is not helping with his symptoms. -: Sudden - Related Data Previous Rx's Medication Instructions Recorded Last Taken Type Fluticasone [Flonase] 1 spray NS QDAY #1 bottle 05/28/18 Unknown Rx diphenhydrAMINE [Benadryl CAP] 25 mg PO Q6HR PRN 7 Days #30 08/23/18 Unknown Rx capsule EPINEPHrine [Epipen 2-Luther] 0.3 mg IJ PRN PRN #1 each 09/22/18 Unknown Rx Famotidine [Pepcid] 20 mg PO BID #6 tablet 09/22/18 Unknown Rx diphenhydrAMINE [Benadryl CAP] 25 mg PO Q8H PRN #9 capsule 09/22/18 Unknown Rx predniSONE [Deltasone] 40 mg PO QDAY 3 Days #10 tab 09/22/18 Unknown Rx diphenhydrAMINE [Benadryl CAP] 25 mg PO QHS PRN #12 capsule 10/14/18 Unknown Rx Prednisone [predniSONE 10 mg 10 mg PO .TAPER #21 tab.ds.pk 11/03/18 Unknown Rx (6-Day Pack, 21 Tabs)] diphenhydrAMINE [Benadryl CAP] 25 mg PO Q6HR PRN #30 capsule 11/03/18 Unknown Rx Prednisone [predniSONE 10 mg 10 mg PO .TAPER #21 tab.ds.pk 11/25/18 Unknown Rx (6-Day Pack, 21 Tabs)] raNITIdine HCL [Zantac] 150 mg PO Q12H #30 tablet 11/25/18 Unknown Rx Triamcinolone Aceton 0.1% (Nf) 1 applic TP BID 14 Days #1 tube 12/23/18 Unknown Rx [Kenalog (NF)] predniSONE [Deltasone] 20 mg PO DAILY #5 tablet 12/23/18 Unknown Rx Prednisone [predniSONE 10 mg 10 mg PO .TAPER #1 tab.ds.pk 03/28/19 Unknown Rx (6-Day Pack, 21 Tabs)] diphenhydrAMINE [Benadryl CAP] 25 mg PO QHS PRN #20 capsule 03/28/19 Unknown Rx Cetirizine HCl [ZyrTEC 10mg cap] 10 mg PO DAILY #30 capsule 09/30/19 Unknown Rx Famotidine [Pepcid] 40 mg PO DAILY #30 tablet 09/30/19 Unknown Rx Prednisone [predniSONE 10 mg 10 mg PO .TAPER #21 tab.ds.pk 09/30/19 Unknown Rx (6-Day Pack, 21 Tabs)] diphenhydrAMINE [Benadryl CAP] 25 mg PO Q6HR PRN #30 capsule 09/30/19 Unknown Rx Ibuprofen [Motrin 800 MG tab] 800 mg PO Q8HR PRN #30 tablet 10/03/19 Unknown Rx Butalb/Acetamin/Caff 50-325-40 1 - 2 tab PO Q6HR PRN #12 tab 10/05/19 Unknown Rx [Fioricet 50-325-40] Ondansetron [Zofran Odt] 4 mg PO Q6HR PRN #15 tab.rapdis 10/05/19 Unknown Rx Famotidine [Pepcid] 20 mg PO BID 10 Days #20 tablet 11/22/19 Unknown Rx Prednisone [predniSONE 10 mg 10 mg PO .TAPER #1 tab.ds.pk 11/22/19 Unknown Rx (6-Day Pack, 21 Tabs)] hydrOXYzine PAMOATE [Vistaril] 25 mg PO Q6HR PRN #40 capsule 11/22/19 Unknown Rx Allergies Allergy/AdvReac Type Severity Reaction Status Date / Time No Known Allergies Allergy Verified 04/15/19 17:28 ED Review of Systems ROS: Stated complaint: BREAKING OUT IN HIVES, ITCHING Other details as noted in HPI Constitutional: denies: chills, diaphoresis, fever, malaise ENT: denies: throat pain Respiratory: denies: cough, shortness of breath Cardiovascular: denies: chest pain Gastrointestinal: denies: abdominal pain, nausea, vomiting Skin: rash Neurological: denies: headache Hematological/Lymphatic: denies: swollen glands ED Past Medical Hx - Past Medical History Previous Medical History?: Yes Hx Headaches / Migraines: Yes Additional medical history: Migraines, Chronic itching - Surgical History Past Surgical History?: No - Social History Smoking Status: Never Smoker Substance Use Type: None - Medications Home Medications: Home Medications Medication Instructions Recorded Confirmed Last Taken Type Fluticasone [Flonase] 1 spray NS QDAY #1 bottle 05/28/18 Unknown Rx diphenhydrAMINE [Benadryl CAP] 25 mg PO Q6HR PRN 7 Days #30 08/23/18 Unknown Rx capsule EPINEPHrine [Epipen 2-Luther] 0.3 mg IJ PRN PRN #1 each 09/22/18 Unknown Rx Famotidine [Pepcid] 20 mg PO BID #6 tablet 09/22/18 Unknown Rx diphenhydrAMINE [Benadryl CAP] 25 mg PO Q8H PRN #9 capsule 09/22/18 Unknown Rx predniSONE [Deltasone] 40 mg PO QDAY 3 Days #10 tab 09/22/18 Unknown Rx diphenhydrAMINE [Benadryl CAP] 25 mg PO QHS PRN #12 capsule 10/14/18 Unknown Rx Prednisone [predniSONE 10 mg 10 mg PO .TAPER #21 tab.ds.pk 11/03/18 Unknown Rx (6-Day Pack, 21 Tabs)] diphenhydrAMINE [Benadryl CAP] 25 mg PO Q6HR PRN #30 capsule 11/03/18 Unknown Rx Prednisone [predniSONE 10 mg 10 mg PO .TAPER #21 tab.ds.pk 11/25/18 Unknown Rx (6-Day Pack, 21 Tabs)] raNITIdine HCL [Zantac] 150 mg PO Q12H #30 tablet 11/25/18 Unknown Rx Triamcinolone Aceton 0.1% (Nf) 1 applic TP BID 14 Days #1 tube 12/23/18 Unknown Rx [Kenalog (NF)] predniSONE [Deltasone] 20 mg PO DAILY #5 tablet 12/23/18 Unknown Rx Prednisone [predniSONE 10 mg 10 mg PO .TAPER #1 tab.ds.pk 03/28/19 Unknown Rx (6-Day Pack, 21 Tabs)] diphenhydrAMINE [Benadryl CAP] 25 mg PO QHS PRN #20 capsule 03/28/19 Unknown Rx Cetirizine HCl [ZyrTEC 10mg cap] 10 mg PO DAILY #30 capsule 09/30/19 Unknown Rx Famotidine [Pepcid] 40 mg PO DAILY #30 tablet 09/30/19 Unknown Rx Prednisone [predniSONE 10 mg 10 mg PO .TAPER #21 tab.ds.pk 09/30/19 Unknown Rx (6-Day Pack, 21 Tabs)] diphenhydrAMINE [Benadryl CAP] 25 mg PO Q6HR PRN #30 capsule 09/30/19 Unknown Rx Ibuprofen [Motrin 800 MG tab] 800 mg PO Q8HR PRN #30 tablet 10/03/19 Unknown Rx Butalb/Acetamin/Caff 50-325-40 1 - 2 tab PO Q6HR PRN #12 tab 10/05/19 Unknown Rx [Fioricet 50-325-40] Ondansetron [Zofran Odt] 4 mg PO Q6HR PRN #15 tab.rapdis 10/05/19 Unknown Rx Famotidine [Pepcid] 20 mg PO BID 10 Days #20 tablet 11/22/19 Unknown Rx Prednisone [predniSONE 10 mg 10 mg PO .TAPER #1 tab.ds.pk 11/22/19 Unknown Rx (6-Day Pack, 21 Tabs)] hydrOXYzine PAMOATE [Vistaril] 25 mg PO Q6HR PRN #40 capsule 11/22/19 Unknown Rx ED Physical Exam - General Limitations: No Limitations General appearance: alert, in no apparent distress - Head Head exam: Present: atraumatic, normocephalic - Eye Eye exam: Present: normal appearance - ENT ENT exam: Present: normal orophraynx, mucous membranes moist - Expanded ENT Exam Expanded Mouth exam: Present: tongue normal. Absent: drooling, trismus, muffled voice - Neck Neck exam: Present: normal inspection - Respiratory Respiratory exam: Present: normal lung sounds bilaterally. Absent: respiratory distress - Cardiovascular Cardiovascular Exam: Present: regular rate, normal rhythm. Absent: systolic murmur, diastolic murmur, rubs, gallop - GI/Abdominal GI/Abdominal exam: Present: soft. Absent: tenderness - Extremities Exam Extremities exam: Present: normal inspection, full ROM - Back Exam Back exam: Present: normal inspection - Neurological Exam Neurological exam: Present: alert, oriented X3, normal gait - Psychiatric Psychiatric exam: Present: normal affect, normal mood - Skin Skin exam: Present: warm, dry, intact, normal color, rash (Diffuse urticarial rash noted to torso, bilateral arms, and legs. There are some excoriation paulino noted without any cellulitic changes or purulent drainage. Rash is nontender) ED Course Vital Signs 11/22/19 01:18 Temperature 98.9 F Pulse Rate 91 H Respiratory 16 Rate Blood Pressure 108/60 O2 Sat by Pulse 98 Oximetry ED Medical Decision Making - Radiology Data 34-year-old -[place] male patient presents with complaints of diffuse itchy rash x3 days. Patient has been seen here in the ED with this complaint multiple times in the past. He denies following up with a facialist or primary care provider. He denies any new foods, change in his products, throat pain/difficulty swallowing, shortness of breath, or chest pain. He states Benadryl is not helping with his symptoms. Diffuse urticarial rash noted on exam with excoriation paulino. Lungs are clear to auscultation bilaterally. Patient denies any dysphasia. Patient received Decadron, Benadryl, and Pepcid here in ED. Rash and itching has improved. Prednisone, Pepcid, and Vistaril given for home. Patient informed to follow-up with a facialist and primary care provider for further evaluation of recurrent urticaria. Vitals are normal. He is well-appearing. Patient is stable for discharge home. Strict return precautions were discussed in detail with patient who verbalized understanding. Critical care attestation.: If time is entered above; I have spent that time in minutes in the direct care of this critically ill patient, excluding procedure time. ED Disposition Clinical Impression: Hives of unknown origin Disposition: DC-01 TO HOME OR SELFCARE Is pt being admited?: No Condition: Stable Instructions: Urticaria (ED) Prescriptions: Famotidine [Pepcid] 20 mg PO BID 10 Days #20 tablet Prednisone [predniSONE 10 mg (6-Day Pack, 21 Tabs)] 10 mg PO .TAPER #1 tab.ds.pk hydrOXYzine PAMOATE [Vistaril] 25 mg PO Q6HR PRN #40 capsule PRN Reason: itching Referrals: ALVA LEWIS MD [Staff Physician] - 3-5 Days Forms: Work/School Release Form(ED)
[2019-11-22] MEDS ORDERED: dexAMETHasone 20 MG/5 ML VIAL IV ONE (06:48)
[2019-11-22] MEDS ORDERED: FAMOTIDINE 20 MG/2 ML INJ IV ONE (06:48)
[2019-11-22] MEDS ORDERED: diphenhydrAMINE 50 MG/ML VIAL IV ONE (06:48)
== END 2019-11-22 07:21 | disposition home or self-care (01) ==
LOC: ED 01:14
DX: L50.9 Urticaria, unspecified (principal); G43.909 Migraine, unspecified, not intractable, without status migrainosus; Z79.899 Other long term (current) drug therapy
CPT/HCPCS: 96374; 96375; 99282; J1100; J1200

== ENCOUNTER 2019-11-23 15:34 | Emergency (ER) | payer BC ==
[2019-11-23] MEDS ORDERED: methylPREDNISolone Sod Succinate 125 MG/2 ML INJ IV ONE (16:58)
[2019-11-23] MEDS ORDERED: diphenhydrAMINE 50 MG/ML VIAL IV ONE (16:58)
[2019-11-23] MEDS ORDERED: FAMOTIDINE 20 MG/2 ML INJ IV ONE (16:58)
--- NOTE | 2019-11-23 17:02 | Emergency Department Report ---
HPI - General Chief Complaint: Allergic Reaction Time Seen by Provider: 11/23/19 16:50 - HPI HPI: Room 24 The patient is a 34-year-old male present with a chief complaint of hives and itching. The patient states that 02: 00 this morning he developed hives diffusely and itching. The patient states he took a Benadryl at that time but has not helped. Patient states he also noticed swelling of his lower lip. Patient states he has had similar episodes in the past and has never been given a diagnosis. Patient denies any new exposures including foods or detergents. Patient denies shortness of breath ED Past Medical Hx - Past Medical History Previous Medical History?: Yes Hx Headaches / Migraines: Yes Additional medical history: Migraines, Chronic itching - Surgical History Past Surgical History?: No - Family History Family history: no significant - Social History Smoking Status: Never Smoker Substance Use Type: None (Denies illicit drug use) - Medications Home Medications: Home Medications Medication Instructions Recorded Confirmed Last Taken Type Fluticasone [Flonase] 1 spray NS QDAY #1 bottle 05/28/18 Unknown Rx diphenhydrAMINE [Benadryl CAP] 25 mg PO Q6HR PRN 7 Days #30 08/23/18 Unknown Rx capsule EPINEPHrine [Epipen 2-Luther] 0.3 mg IJ PRN PRN #1 each 09/22/18 Unknown Rx Famotidine [Pepcid] 20 mg PO BID #6 tablet 09/22/18 Unknown Rx diphenhydrAMINE [Benadryl CAP] 25 mg PO Q8H PRN #9 capsule 09/22/18 Unknown Rx predniSONE [Deltasone] 40 mg PO QDAY 3 Days #10 tab 09/22/18 Unknown Rx diphenhydrAMINE [Benadryl CAP] 25 mg PO QHS PRN #12 capsule 10/14/18 Unknown Rx Prednisone [predniSONE 10 mg 10 mg PO .TAPER #21 tab.ds.pk 11/03/18 Unknown Rx (6-Day Pack, 21 Tabs)] diphenhydrAMINE [Benadryl CAP] 25 mg PO Q6HR PRN #30 capsule 11/03/18 Unknown Rx Prednisone [predniSONE 10 mg 10 mg PO .TAPER #21 tab.ds.pk 11/25/18 Unknown Rx (6-Day Pack, 21 Tabs)] raNITIdine HCL [Zantac] 150 mg PO Q12H #30 tablet 11/25/18 Unknown Rx Triamcinolone Aceton 0.1% (Nf) 1 applic TP BID 14 Days #1 tube 12/23/18 Unknown Rx [Kenalog (NF)] predniSONE [Deltasone] 20 mg PO DAILY #5 tablet 12/23/18 Unknown Rx Prednisone [predniSONE 10 mg 10 mg PO .TAPER #1 tab.ds.pk 03/28/19 Unknown Rx (6-Day Pack, 21 Tabs)] diphenhydrAMINE [Benadryl CAP] 25 mg PO QHS PRN #20 capsule 03/28/19 Unknown Rx Cetirizine HCl [ZyrTEC 10mg cap] 10 mg PO DAILY #30 capsule 09/30/19 Unknown Rx Famotidine [Pepcid] 40 mg PO DAILY #30 tablet 09/30/19 Unknown Rx Prednisone [predniSONE 10 mg 10 mg PO .TAPER #21 tab.ds.pk 09/30/19 Unknown Rx (6-Day Pack, 21 Tabs)] diphenhydrAMINE [Benadryl CAP] 25 mg PO Q6HR PRN #30 capsule 09/30/19 Unknown Rx Ibuprofen [Motrin 800 MG tab] 800 mg PO Q8HR PRN #30 tablet 10/03/19 Unknown Rx Butalb/Acetamin/Caff 50-325-40 1 - 2 tab PO Q6HR PRN #12 tab 10/05/19 Unknown Rx [Fioricet 50-325-40] Ondansetron [Zofran Odt] 4 mg PO Q6HR PRN #15 tab.rapdis 10/05/19 Unknown Rx Famotidine [Pepcid] 20 mg PO BID 10 Days #20 tablet 11/22/19 Unknown Rx Prednisone [predniSONE 10 mg 10 mg PO .TAPER #1 tab.ds.pk 11/22/19 Unknown Rx (6-Day Pack, 21 Tabs)] hydrOXYzine PAMOATE [Vistaril] 25 mg PO Q6HR PRN #40 capsule 11/22/19 Unknown Rx EPINEPHrine [Epipen 2-Luther] 0.3 mg IM ONCE #0.6 ml 11/23/19 Unknown Rx Famotidine [Pepcid] 20 mg PO BID #6 tablet 11/23/19 Unknown Rx Prednisone [predniSONE 10 mg 10 mg PO .TAPER #1 tab.ds.pk 11/23/19 Unknown Rx (6-Day Pack, 21 Tabs)] diphenhydrAMINE [Benadryl] 50 mg IV Q6HR #24 vial 11/23/19 Unknown Rx ED Review of Systems ROS: Stated complaint: ALLERGIC REACTION Other details as noted in HPI Constitutional: no symptoms reported Respiratory: denies: shortness of breath Endocrine: no symptoms reported Skin: rash, pruritus Physical Exam - Physical Exam Vital Signs: Vital Signs 11/23/19 15:36 Temperature 98.2 F Pulse Rate 73 Respiratory 16 Rate Blood Pressure 101/60 [Right] O2 Sat by Pulse 98 Oximetry Physical Exam: GENERAL: The patient is well-developed well-nourished male lying on stretcher not appearing to be in acute distress. [] HEENT: Normocephalic. Atraumatic. Extraocular motions are intact. Swelling to the lower lip. Oropharynx clear. NECK: Supple. There is no stridor CHEST/LUNGS: Clear to auscultation. There is no respiratory distress noted. HEART/CARDIOVASCULAR: Regular. There is no tachycardia. There is no gallop rub or murmur. ABDOMEN: Abdomen is soft, nontender. Patient has normal bowel sounds. There is no abdominal distention. SKIN: There is no rash. There is no edema. There is no diaphoresis. NEURO: The patient is awake, alert, and oriented. The patient is cooperative. The patient has normal speech MUSCULOSKELETAL: There is no evidence of acute injury. ED Course Vital Signs 11/23/19 15:36 Temperature 98.2 F Pulse Rate 73 Respiratory 16 Rate Blood Pressure 101/60 [Right] O2 Sat by Pulse 98 Oximetry - Reevaluation(s) Reevaluation #1: 11/23/19 18:25 Patient states he feels improved ED Medical Decision Making - Differential Diagnosis Allergic reaction Critical care attestation.: If time is entered above; I have spent that time in minutes in the direct care of this critically ill patient, excluding procedure time. ED Disposition Clinical Impression: Allergic reaction Disposition: DC-01 TO HOME OR SELFCARE Is pt being admited?: No Does the pt Need Aspirin: No Condition: Stable Instructions: Urticaria (ED) Additional Instructions: Return to the emergency department should you develop worsening symptoms, inability to tolerate food or liquids, high fever or any other concerns Prescriptions: diphenhydrAMINE [Benadryl] 50 mg IV Q6HR #24 vial EPINEPHrine [Epipen 2-Luther] 0.3 mg IM ONCE #0.6 ml Famotidine [Pepcid] 20 mg PO BID #6 tablet Prednisone [predniSONE 10 mg (6-Day Pack, 21 Tabs)] 10 mg PO .TAPER #1 tab.ds.pk Referrals: DOREEN LONGORIA MD [Staff Physician] - 3-5 Days (Dr. Longoria is an rendering equipment tender. Please follow-up with her for further evaluation) Time of Disposition: 18:27
[2019-11-23 18:32] VITALS: BP 107/70
== END 2019-11-23 18:55 | disposition home or self-care (01) ==
LOC: ED 15:34
DX: T78.40XA Allergy, unspecified, initial encounter (principal); G43.909 Migraine, unspecified, not intractable, without status migrainosus; Z79.899 Other long term (current) drug therapy; X58.XXXA Exposure to other specified factors, initial encounter
CPT/HCPCS: 96374; 96375; 99283; J1200; J2930

== ENCOUNTER 2019-11-25 12:57 | Emergency (ER) | payer BC ==
[2019-11-25] MEDS ORDERED: dexAMETHasone 20 MG/5 ML VIAL IM ONE (13:24)
[2019-11-25] MEDS ORDERED: diphenhydrAMINE 25 MG CAP PO ONE (13:24)
[2019-11-25] MEDS ORDERED: FAMOTIDINE 20 MG TAB PO ONE (13:24)
--- NOTE | 2019-11-25 13:33 | Emergency Department Report ---
ED Rash HPI - HPI Stated Complaint: EXTREMELY ITCHY/HIVES Time Seen by Provider: 11/25/19 13:24 Duration: 1 week Location: Neck, Back, Abdomen, Upper Extremities, Lower Extremities Rash Symptoms: Yes Itching, No Facial Swelling, No Tongue/Oral Swelling, No Breathing Difficulties, No Choking Sensation, No Wheezing/Dyspnea, No Peeling, No Blistering, No Fever, No Lightheaded, No Malaise, No Myalgias Severity: moderate Other History: 34 y/o male comes in for rash that is everywhere and that itches. Not aware of any offending agents. No trouble swallow , no tongue swelling or SOB. Denies any fever or chills and no nasuea or vomiting. ED Review of Systems ROS: Stated complaint: EXTREMELY ITCHY/HIVES Other details as noted in HPI Comment: All other systems reviewed and negative ED Past Medical Hx - Past Medical History Previous Medical History?: Yes Hx Headaches / Migraines: Yes Additional medical history: Migraines, Chronic itching - Surgical History Past Surgical History?: No - Social History Smoking Status: Never Smoker Substance Use Type: None (Denies illicit drug use) - Medications Home Medications: Home Medications Medication Instructions Recorded Confirmed Last Taken Type Fluticasone [Flonase] 1 spray NS QDAY #1 bottle 05/28/18 Unknown Rx diphenhydrAMINE [Benadryl CAP] 25 mg PO Q6HR PRN 7 Days #30 08/23/18 Unknown Rx capsule EPINEPHrine [Epipen 2-Luther] 0.3 mg IJ PRN PRN #1 each 09/22/18 Unknown Rx Famotidine [Pepcid] 20 mg PO BID #6 tablet 09/22/18 Unknown Rx diphenhydrAMINE [Benadryl CAP] 25 mg PO Q8H PRN #9 capsule 09/22/18 Unknown Rx predniSONE [Deltasone] 40 mg PO QDAY 3 Days #10 tab 09/22/18 Unknown Rx diphenhydrAMINE [Benadryl CAP] 25 mg PO QHS PRN #12 capsule 10/14/18 Unknown Rx Prednisone [predniSONE 10 mg 10 mg PO .TAPER #21 tab.ds.pk 11/03/18 Unknown Rx (6-Day Pack, 21 Tabs)] diphenhydrAMINE [Benadryl CAP] 25 mg PO Q6HR PRN #30 capsule 11/03/18 Unknown Rx Prednisone [predniSONE 10 mg 10 mg PO .TAPER #21 tab.ds.pk 11/25/18 Unknown Rx (6-Day Pack, 21 Tabs)] raNITIdine HCL [Zantac] 150 mg PO Q12H #30 tablet 11/25/18 Unknown Rx Triamcinolone Aceton 0.1% (Nf) 1 applic TP BID 14 Days #1 tube 12/23/18 Unknown Rx [Kenalog (NF)] predniSONE [Deltasone] 20 mg PO DAILY #5 tablet 12/23/18 Unknown Rx Prednisone [predniSONE 10 mg 10 mg PO .TAPER #1 tab.ds.pk 03/28/19 Unknown Rx (6-Day Pack, 21 Tabs)] diphenhydrAMINE [Benadryl CAP] 25 mg PO QHS PRN #20 capsule 03/28/19 Unknown Rx Cetirizine HCl [ZyrTEC 10mg cap] 10 mg PO DAILY #30 capsule 09/30/19 Unknown Rx Famotidine [Pepcid] 40 mg PO DAILY #30 tablet 09/30/19 Unknown Rx Prednisone [predniSONE 10 mg 10 mg PO .TAPER #21 tab.ds.pk 09/30/19 Unknown Rx (6-Day Pack, 21 Tabs)] diphenhydrAMINE [Benadryl CAP] 25 mg PO Q6HR PRN #30 capsule 09/30/19 Unknown Rx Ibuprofen [Motrin 800 MG tab] 800 mg PO Q8HR PRN #30 tablet 10/03/19 Unknown Rx Butalb/Acetamin/Caff 50-325-40 1 - 2 tab PO Q6HR PRN #12 tab 10/05/19 Unknown Rx [Fioricet 50-325-40] Ondansetron [Zofran Odt] 4 mg PO Q6HR PRN #15 tab.rapdis 10/05/19 Unknown Rx Famotidine [Pepcid] 20 mg PO BID 10 Days #20 tablet 11/22/19 Unknown Rx Prednisone [predniSONE 10 mg 10 mg PO .TAPER #1 tab.ds.pk 11/22/19 Unknown Rx (6-Day Pack, 21 Tabs)] hydrOXYzine PAMOATE [Vistaril] 25 mg PO Q6HR PRN #40 capsule 11/22/19 Unknown Rx EPINEPHrine [Epipen 2-Luther] 0.3 mg IM ONCE #0.6 ml 11/23/19 Unknown Rx Famotidine [Pepcid] 20 mg PO BID #6 tablet 11/23/19 Unknown Rx Prednisone [predniSONE 10 mg 10 mg PO .TAPER #1 tab.ds.pk 11/23/19 Unknown Rx (6-Day Pack, 21 Tabs)] diphenhydrAMINE [Benadryl] 50 mg IV Q6HR #24 vial 11/23/19 Unknown Rx Cetirizine HCl [ZyrTEC 10mg cap] 10 mg PO QDAY #30 capsule 11/25/19 Unknown Rx EPINEPHrine [Epipen 2-Luther] 0.3 mg IM ONCE PRN #6 ml 11/25/19 Unknown Rx Famotidine [Pepcid] 20 mg PO BID 5 Days #10 tablet 11/25/19 Unknown Rx predniSONE [Deltasone] 40 mg PO QDAY #10 tablet 11/25/19 Unknown Rx Rash Exam - Exam General: Vital signs noted. No distress. Alert and acting appropriately. ED Medical Decision Making - Medical Decision Making 34 y/o male comes in for rash that is everywhere and that itches. Not aware of any offending agents. No trouble swallow , no tongue swelling or SOB. Denies a [place] fever or chills and no nasuea or vomiting. Patient order dexamethazone, benedryl and pepcid. Patient will be discharged or a predisone , pepcid and instructed to take OTC zyrtec. Follow up with any biometric fingerprinting technician. Critical care attestation.: If time is entered above; I have spent that time in minutes in the direct care of this critically ill patient, excluding procedure time. ED Disposition Clinical Impression: Urticaria, Allergic reaction, Hives of unknown origin Disposition: DC-01 TO HOME OR SELFCARE Is pt being admited?: No Does the pt Need Aspirin: No Condition: Stable Instructions: Urticaria (ED) Additional Instructions: Take medications as prescribed. Follow up with an Earth Moving Machine Operator. Prescriptions: predniSONE [Deltasone] 40 mg PO QDAY #10 tablet EPINEPHrine [Epipen 2-Luther] 0.3 mg IM ONCE PRN #6 ml PRN Reason: Anaphylaxis Famotidine [Pepcid] 20 mg PO BID 5 Days #10 tablet Cetirizine HCl [ZyrTEC 10mg cap] 10 mg PO QDAY #30 capsule Referrals: [facility] [Provider Group] - 3-5 Days Forms: Work/School Release Form(ED)
== END 2019-11-25 15:34 | disposition home or self-care (01) ==
LOC: ED 12:57
DX: L50.0 Allergic urticaria (principal); G43.909 Migraine, unspecified, not intractable, without status migrainosus; Z79.1 Long term (current) use of non-steroidal anti-inflammatories (NSAID); Z79.899 Other long term (current) drug therapy
CPT/HCPCS: 96372; 99282; J1100

== ENCOUNTER 2019-12-05 10:50 | Emergency (ER) | payer BC ==
[2019-12-05] MEDS ORDERED: diphenhydrAMINE 50 MG/ML VIAL IV ONE (14:10)
[2019-12-05] MEDS ORDERED: dexAMETHasone 20 MG/5 ML VIAL IV ONE (14:10)
[2019-12-05] MEDS ORDERED: FAMOTIDINE 20 MG/2 ML INJ IV ONE (14:10)
[2019-12-05 14:39] VITALS: BP 106/64
--- NOTE | 2019-12-05 14:45 | Emergency Department Report ---
ED Allergic Reaction HPI - General Chief complaint: Skin Rash Stated complaint: POSS HIVES/ITCHING Time Seen by Provider: 12/05/19 13:53 Source: patient Mode of arrival: Ambulatory Limitations: No Limitations - History of Present Illness Initial Comments: Patient is a 34-year-old male presents emergency room complaints of allergic reaction that began this morning. He has associated diffuse hives. He states that he did notice some swelling around his eyes and to his upper lip but he reports it has significantly improved. He denies any tongue swelling. He denies any shortness of breath, sensation of throat closing, difficulty swallowing. He denies any known allergies. He states that he has had this multiple times in the past. No past medical history. No allergies to medications. He did not take any medications for his symptoms. - Related Data Previous Rx's Medication Instructions Recorded Last Taken Type Fluticasone [Flonase] 1 spray NS QDAY #1 bottle 05/28/18 Unknown Rx diphenhydrAMINE [Benadryl CAP] 25 mg PO Q6HR PRN 7 Days #30 08/23/18 Unknown Rx capsule EPINEPHrine [Epipen 2-Luther] 0.3 mg IJ PRN PRN #1 each 09/22/18 Unknown Rx Famotidine [Pepcid] 20 mg PO BID #6 tablet 09/22/18 Unknown Rx predniSONE [Deltasone] 40 mg PO QDAY 3 Days #10 tab 09/22/18 Unknown Rx diphenhydrAMINE [Benadryl CAP] 25 mg PO QHS PRN #12 capsule 10/14/18 Unknown Rx diphenhydrAMINE [Benadryl CAP] 25 mg PO Q6HR PRN #30 capsule 11/03/18 Unknown Rx Prednisone [predniSONE 10 mg 10 mg PO .TAPER #21 tab.ds.pk 11/25/18 Unknown Rx (6-Day Pack, 21 Tabs)] raNITIdine HCL [Zantac] 150 mg PO Q12H #30 tablet 11/25/18 Unknown Rx Triamcinolone Aceton 0.1% (Nf) 1 applic TP BID 14 Days #1 tube 12/23/18 Unknown Rx [Kenalog (NF)] predniSONE [Deltasone] 20 mg PO DAILY #5 tablet 12/23/18 Unknown Rx Prednisone [predniSONE 10 mg 10 mg PO .TAPER #1 tab.ds.pk 03/28/19 Unknown Rx (6-Day Pack, 21 Tabs)] diphenhydrAMINE [Benadryl CAP] 25 mg PO QHS PRN #20 capsule 03/28/19 Unknown Rx Cetirizine HCl [ZyrTEC 10mg cap] 10 mg PO DAILY #30 capsule 09/30/19 Unknown Rx Prednisone [predniSONE 10 mg 10 mg PO .TAPER #21 tab.ds.pk 09/30/19 Unknown Rx (6-Day Pack, 21 Tabs)] diphenhydrAMINE [Benadryl CAP] 25 mg PO Q6HR PRN #30 capsule 09/30/19 Unknown Rx Ibuprofen [Motrin 800 MG tab] 800 mg PO Q8HR PRN #30 tablet 10/03/19 Unknown Rx Butalb/Acetamin/Caff 50-325-40 1 - 2 tab PO Q6HR PRN #12 tab 10/05/19 Unknown Rx [Fioricet 50-325-40] Ondansetron [Zofran Odt] 4 mg PO Q6HR PRN #15 tab.rapdis 10/05/19 Unknown Rx Famotidine [Pepcid] 20 mg PO BID 10 Days #20 tablet 11/22/19 Unknown Rx Prednisone [predniSONE 10 mg 10 mg PO .TAPER #1 tab.ds.pk 11/22/19 Unknown Rx (6-Day Pack, 21 Tabs)] hydrOXYzine PAMOATE [Vistaril] 25 mg PO Q6HR PRN #40 capsule 11/22/19 Unknown Rx EPINEPHrine [Epipen 2-Luther] 0.3 mg IM ONCE #0.6 ml 11/23/19 Unknown Rx Famotidine [Pepcid] 20 mg PO BID #6 tablet 11/23/19 Unknown Rx Prednisone [predniSONE 10 mg 10 mg PO .TAPER #1 tab.ds.pk 11/23/19 Unknown Rx (6-Day Pack, 21 Tabs)] diphenhydrAMINE [Benadryl] 50 mg IV Q6HR #24 vial 11/23/19 Unknown Rx Cetirizine HCl [ZyrTEC 10mg cap] 10 mg PO QDAY #30 capsule 11/25/19 Unknown Rx EPINEPHrine [Epipen 2-Luther] 0.3 mg IM ONCE PRN #6 ml 11/25/19 Unknown Rx Famotidine [Pepcid] 20 mg PO BID 5 Days #10 tablet 11/25/19 Unknown Rx predniSONE [Deltasone] 40 mg PO QDAY #10 tablet 11/25/19 Unknown Rx Famotidine [Pepcid] 40 mg PO DAILY #30 tablet 12/05/19 Unknown Rx Prednisone [predniSONE 10 mg 10 mg PO .TAPER #21 tab.ds.pk 12/05/19 Unknown Rx (6-Day Pack, 21 Tabs)] diphenhydrAMINE [Benadryl CAP] 25 mg PO Q8H PRN #9 capsule 12/05/19 Unknown Rx Allergies Allergy/AdvReac Type Severity Reaction Status Date / Time No Known Allergies Allergy Verified 04/15/19 17:28 ED Review of Systems ROS: Stated complaint: POSS HIVES/ITCHING Other details as noted in HPI Comment: All other systems reviewed and negative ED Past Medical Hx - Past Medical History Previous Medical History?: Yes Hx Headaches / Migraines: Yes Additional medical history: Migraines, Chronic itching - Surgical History Past Surgical History?: No - Social History Smoking Status: Never Smoker Substance Use Type: Alcohol - Medications Home Medications: Home Medications Medication Instructions Recorded Confirmed Last Taken Type Fluticasone [Flonase] 1 spray NS QDAY #1 bottle 05/28/18 Unknown Rx diphenhydrAMINE [Benadryl CAP] 25 mg PO Q6HR PRN 7 Days #30 08/23/18 Unknown Rx capsule EPINEPHrine [Epipen 2-Luther] 0.3 mg IJ PRN PRN #1 each 09/22/18 Unknown Rx Famotidine [Pepcid] 20 mg PO BID #6 tablet 09/22/18 Unknown Rx predniSONE [Deltasone] 40 mg PO QDAY 3 Days #10 tab 09/22/18 Unknown Rx diphenhydrAMINE [Benadryl CAP] 25 mg PO QHS PRN #12 capsule 10/14/18 Unknown Rx diphenhydrAMINE [Benadryl CAP] 25 mg PO Q6HR PRN #30 capsule 11/03/18 Unknown Rx Prednisone [predniSONE 10 mg 10 mg PO .TAPER #21 tab.ds.pk 11/25/18 Unknown Rx (6-Day Pack, 21 Tabs)] raNITIdine HCL [Zantac] 150 mg PO Q12H #30 tablet 11/25/18 Unknown Rx Triamcinolone Aceton 0.1% (Nf) 1 applic TP BID 14 Days #1 tube 12/23/18 Unknown Rx [Kenalog (NF)] predniSONE [Deltasone] 20 mg PO DAILY #5 tablet 12/23/18 Unknown Rx Prednisone [predniSONE 10 mg 10 mg PO .TAPER #1 tab.ds.pk 03/28/19 Unknown Rx (6-Day Pack, 21 Tabs)] diphenhydrAMINE [Benadryl CAP] 25 mg PO QHS PRN #20 capsule 03/28/19 Unknown Rx Cetirizine HCl [ZyrTEC 10mg cap] 10 mg PO DAILY #30 capsule 09/30/19 Unknown Rx Prednisone [predniSONE 10 mg 10 mg PO .TAPER #21 tab.ds.pk 09/30/19 Unknown Rx (6-Day Pack, 21 Tabs)] diphenhydrAMINE [Benadryl CAP] 25 mg PO Q6HR PRN #30 capsule 09/30/19 Unknown Rx Ibuprofen [Motrin 800 MG tab] 800 mg PO Q8HR PRN #30 tablet 10/03/19 Unknown Rx Butalb/Acetamin/Caff 50-325-40 1 - 2 tab PO Q6HR PRN #12 tab 10/05/19 Unknown Rx [Fioricet 50-325-40] Ondansetron [Zofran Odt] 4 mg PO Q6HR PRN #15 tab.rapdis 10/05/19 Unknown Rx Famotidine [Pepcid] 20 mg PO BID 10 Days #20 tablet 11/22/19 Unknown Rx Prednisone [predniSONE 10 mg 10 mg PO .TAPER #1 tab.ds.pk 11/22/19 Unknown Rx (6-Day Pack, 21 Tabs)] hydrOXYzine PAMOATE [Vistaril] 25 mg PO Q6HR PRN #40 capsule 11/22/19 Unknown Rx EPINEPHrine [Epipen 2-Luther] 0.3 mg IM ONCE #0.6 ml 11/23/19 Unknown Rx Famotidine [Pepcid] 20 mg PO BID #6 tablet 11/23/19 Unknown Rx Prednisone [predniSONE 10 mg 10 mg PO .TAPER #1 tab.ds.pk 11/23/19 Unknown Rx (6-Day Pack, 21 Tabs)] diphenhydrAMINE [Benadryl] 50 mg IV Q6HR #24 vial 11/23/19 Unknown Rx Cetirizine HCl [ZyrTEC 10mg cap] 10 mg PO QDAY #30 capsule 11/25/19 Unknown Rx EPINEPHrine [Epipen 2-Luther] 0.3 mg IM ONCE PRN #6 ml 11/25/19 Unknown Rx Famotidine [Pepcid] 20 mg PO BID 5 Days #10 tablet 11/25/19 Unknown Rx predniSONE [Deltasone] 40 mg PO QDAY #10 tablet 11/25/19 Unknown Rx Famotidine [Pepcid] 40 mg PO DAILY #30 tablet 12/05/19 Unknown Rx Prednisone [predniSONE 10 mg 10 mg PO .TAPER #21 tab.ds.pk 12/05/19 Unknown Rx (6-Day Pack, 21 Tabs)] diphenhydrAMINE [Benadryl CAP] 25 mg PO Q8H PRN #9 capsule 12/05/19 Unknown Rx ED Physical Exam - General Limitations: No Limitations General appearance: alert, in no apparent distress - Head Head exam: Present: atraumatic, normocephalic - Eye Eye exam: Present: normal appearance. Absent: periorbital swelling, periorbital tenderness - ENT ENT exam: Present: normal orophraynx, mucous membranes moist, other (uvula is midline, no uvular edema or deviation, trace amount of edema to the upper lip, no tongue edema, no other facial edema) - Respiratory Respiratory exam: Present: normal lung sounds bilaterally. Absent: respiratory distress, wheezes, rales, rhonchi, stridor, chest wall tenderness, accessory muscle use, decreased breath sounds, prolonged expiratory - Cardiovascular Cardiovascular Exam: Present: regular rate, normal rhythm, normal heart sounds. Absent: systolic murmur, diastolic murmur, rubs, gallop - Neurological Exam Neurological exam: Present: alert, oriented X3 - Psychiatric Psychiatric exam: Present: normal affect, normal mood - Skin Skin exam: Present: warm, dry, urticaria (mild amount diffusely) ED Course Vital Signs 12/05/19 12/05/19 12/05/19 11:08 14:33 14:39 Temperature 99.6 F 98.0 F 98 F Pulse Rate 90 75 83 Respiratory 20 14 16 Rate Blood Pressure 106/64 Blood Pressure 111/60 106/64 [Right] O2 Sat by Pulse 99 100 100 Oximetry ED Medical Decision Making - Medical Decision Making Patient is a 34-year-old male presents emergency room complaints of allergic reaction that began this morning. He has associated diffuse hives. He states that he did notice some swelling around his eyes and to his upper lip but he reports it has significantly improved. He denies any tongue swelling. He denies any shortness of breath, sensation of throat closing, difficulty swallowing. He denies any known allergies. He states that he has had this multiple times in the past. No past medical history. No allergies to medications. He did not take any medications for his symptoms. vitals are normal. on exam: uvula is midline, no uvular edema or deviation, trace amount of edema to the upper lip, no tongue edema, no other facial edema, urticaria mild amount diffusely. Examination appears consistent with allergic reaction, he has urticaria and very mild angioedema which he reports is improving spontaneously. Patient given IV Benadryl, dexamethasone, Pepcid. His symptoms have significantly improved. He is feeling much better and ready to go home. Patient was observed in the emergency department had no further worsening of his symptoms. Patient given prescription for Benadryl, Pepcid, prednisone taper. Advised patient please take medication as prescribed. follow up with a primary care doctor. please discuss allergy testing with your primary care doctor. return to the emergency room for any new or worsening symptoms. Critical care attestation.: If time is entered above; I have spent that time in minutes in the direct care of this critically ill patient, excluding procedure time. ED Disposition Clinical Impression: Urticaria Allergic reaction Qualifiers: Encounter type: initial encounter Qualified Code(s): T78.40XA - Allergy, unspecified, initial encounter Disposition: DC- TO HOME OR SELFCARE Is pt being admited?: No Does the pt Need Aspirin: No Condition: Stable Instructions: Urticaria (ED), Angioedema (ED) Additional Instructions: please take medication as prescribed. follow up with a primary care doctor. please discuss allergy testing with your primary care doctor. return to the emergency room for any new or worsening symptoms. Prescriptions: diphenhydrAMINE [Benadryl CAP] 25 mg PO Q8H PRN #9 capsule PRN Reason: Itching Famotidine [Pepcid] 40 mg PO DAILY #30 tablet Prednisone [predniSONE 10 mg (6-Day Pack, 21 Tabs)] 10 mg PO .TAPER #21 tab.ds.pk Referrals: PRIMARY CAREMD [Primary Care Provider] - 2-3 Days FRANDY BEGUM MD [Staff Physician] - 2-3 Days [facility] [Provider Group] - 2-3 Days Forms: Work/School Release Form(ED) Time of Disposition: 15:15 Print Language: LIBERIAN
== END 2019-12-05 16:31 | disposition home or self-care (01) ==
LOC: ED 10:50
DX: T78.40XA Allergy, unspecified, initial encounter (principal); L50.9 Urticaria, unspecified; G43.909 Migraine, unspecified, not intractable, without status migrainosus; Z79.899 Other long term (current) drug therapy; Y93.89 Activity, other specified
CPT/HCPCS: 96374; 96375; 99282; J1100; J1200

== ENCOUNTER 2019-12-10 21:09 | Emergency (ER) | payer BC ==
[2019-12-10] MEDS ORDERED: FAMOTIDINE 20 MG TAB PO ONE (21:16)
[2019-12-10] MEDS ORDERED: predniSONE 50 MG TAB PO ONE (21:16)
[2019-12-10] MEDS ORDERED: diphenhydrAMINE 25 MG CAP PO ONE (21:16)
--- NOTE | 2019-12-11 02:30 | Emergency Department Report ---
ED Rash HPI - HPI Chief Complaint: Allergic Reaction Stated Complaint: BREAKING OUT IN HIVES Time Seen by Provider: 12/11/19 02:25 Duration: Today Suspected Cause: Unknown Rash Symptoms: Yes Itching, No Facial Swelling, No Tongue/Oral Swelling, No Breathing Difficulties, No Choking Sensation, No Wheezing/Dyspnea, No Peeling, No Blistering, No Fever, No Lightheaded, No Malaise, No Myalgias Severity: moderate Other History: The patient was evaluated in the emergency department for symptoms described in the history of present illness. He/she was evaluated in the context of the global COVID-19 pandemic, which necessitated consideration that the patient might be at risk for infection with the virus that causes COVID-19. Institutional protocols and algorithms that pertain to the evaluation of patients at risk for COVID-19 are in a state of rapid change based on information released by regulatory bodies including the CDC and federal and state organizations. These policies and algorithms were followed during the patient's care in the emergency department. Please note that these policies, procedures and recommendations changed on a rapid basis. 34-year-old - Guyanese male presents to the emergency room complaining of allergic reaction with generalized hives approximate 45 minutes prior to arrival. Patient has been having these episodes of hives for over a year. Patient states that we have referred him to several natural science manager but he has not followed up for various reasons. Patient states that he feels much better since he was given medication in triage. Patient denies any shortness of breath no wheezing no difficulty swallowing no swelling of this tongue no chest pain. Patient states that he was recently here on the and was prescribed a prednisone taper Benadryl and famotidine. Patient states he is completed his medications. Patient reports no known drug allergies. ED Review of Systems ROS: Stated complaint: BREAKING OUT IN HIVES Other details as noted in HPI Comment: All other systems reviewed and negative ED Past Medical Hx - Past Medical History Previous Medical History?: Yes Hx Headaches / Migraines: Yes Additional medical history: Migraines, Chronic itching - Surgical History Past Surgical History?: No - Social History Smoking Status: Never Smoker Substance Use Type: None - Medications Home Medications: Home Medications Medication Instructions Recorded Confirmed Last Taken Type Fluticasone [Flonase] 1 spray NS QDAY #1 bottle 05/28/18 Unknown Rx diphenhydrAMINE [Benadryl CAP] 25 mg PO Q6HR PRN 7 Days #30 08/23/18 Unknown Rx capsule EPINEPHrine [Epipen 2-Luther] 0.3 mg IJ PRN PRN #1 each 09/22/18 Unknown Rx Famotidine [Pepcid] 20 mg PO BID #6 tablet 09/22/18 Unknown Rx diphenhydrAMINE [Benadryl CAP] 25 mg PO QHS PRN #12 capsule 10/14/18 Unknown Rx diphenhydrAMINE [Benadryl CAP] 25 mg PO Q6HR PRN #30 capsule 11/03/18 Unknown Rx Prednisone [predniSONE 10 mg 10 mg PO .TAPER #21 tab.ds.pk 11/25/18 Unknown Rx (6-Day Pack, 21 Tabs)] raNITIdine HCL [Zantac] 150 mg PO Q12H #30 tablet 11/25/18 Unknown Rx Triamcinolone Aceton 0.1% (Nf) 1 applic TP BID 14 Days #1 tube 12/23/18 Unknown Rx [Kenalog (NF)] predniSONE [Deltasone] 20 mg PO DAILY #5 tablet 12/23/18 Unknown Rx Prednisone [predniSONE 10 mg 10 mg PO .TAPER #1 tab.ds.pk 03/28/19 Unknown Rx (6-Day Pack, 21 Tabs)] diphenhydrAMINE [Benadryl CAP] 25 mg PO QHS PRN #20 capsule 03/28/19 Unknown Rx Cetirizine HCl [ZyrTEC 10mg cap] 10 mg PO DAILY #30 capsule 09/30/19 Unknown Rx Prednisone [predniSONE 10 mg 10 mg PO .TAPER #21 tab.ds.pk 09/30/19 Unknown Rx (6-Day Pack, 21 Tabs)] diphenhydrAMINE [Benadryl CAP] 25 mg PO Q6HR PRN #30 capsule 09/30/19 Unknown Rx Ibuprofen [Motrin 800 MG tab] 800 mg PO Q8HR PRN #30 tablet 10/03/19 Unknown Rx Butalb/Acetamin/Caff 50-325-40 1 - 2 tab PO Q6HR PRN #12 tab 10/05/19 Unknown Rx [Fioricet 50-325-40] Ondansetron [Zofran Odt] 4 mg PO Q6HR PRN #15 tab.rapdis 10/05/19 Unknown Rx Prednisone [predniSONE 10 mg 10 mg PO .TAPER #1 tab.ds.pk 11/22/19 Unknown Rx (6-Day Pack, 21 Tabs)] EPINEPHrine [Epipen 2-Luther] 0.3 mg IM ONCE #0.6 ml 11/23/19 Unknown Rx Famotidine [Pepcid] 20 mg PO BID #6 tablet 11/23/19 Unknown Rx Prednisone [predniSONE 10 mg 10 mg PO .TAPER #1 tab.ds.pk 11/23/19 Unknown Rx (6-Day Pack, 21 Tabs)] diphenhydrAMINE [Benadryl] 50 mg IV Q6HR #24 vial 11/23/19 Unknown Rx EPINEPHrine [Epipen 2-Luther] 0.3 mg IM ONCE PRN #6 ml 11/25/19 Unknown Rx Famotidine [Pepcid] 20 mg PO BID 5 Days #10 tablet 11/25/19 Unknown Rx predniSONE [Deltasone] 40 mg PO QDAY #10 tablet 11/25/19 Unknown Rx Famotidine [Pepcid] 40 mg PO DAILY #30 tablet 12/05/19 Unknown Rx Prednisone [predniSONE 10 mg 10 mg PO .TAPER #21 tab.ds.pk 12/05/19 Unknown Rx (6-Day Pack, 21 Tabs)] diphenhydrAMINE [Benadryl CAP] 25 mg PO Q8H PRN #9 capsule 12/05/19 Unknown Rx Cetirizine HCl [ZyrTEC 10mg cap] 10 mg PO QDAY #30 capsule 12/11/19 Unknown Rx Famotidine [Pepcid] 20 mg PO BID 10 Days #20 tablet 12/11/19 Unknown Rx hydrOXYzine PAMOATE [Vistaril] 25 mg PO Q6HR PRN #40 capsule 12/11/19 Unknown Rx predniSONE [Deltasone] 40 mg PO QDAY 5 Days #10 tab 12/11/19 Unknown Rx Rash Exam - Exam General: Vital signs noted. No distress. Alert and acting appropriately. HEENT: No Periorbital Edema, No Conjuctival Injection, No Chemosis, No Perioral Edema, No Tongue Edema, No Uvular Edema, No Compromised Airway, No Drooling Lungs: Yes Good Air Exchange (Normal Breath Sounds), No Wheezes, No Ronchi, No Stridor, No Cough, No Labored Respirations, No Retractions, No Use of Accessory Muscles, No Other Abnormal Lung Sounds Skin: No Urticarial Rash, No Maculopapular Rash, No Morbilliform rash, No Bulla(e), No Excoriations, No Weeping, No Tenderness, No Erythema, No Edema, No Encrustations, No Other Other: Positive: Abdomen Normal, Neurologic Normal, Musculoskeletal Normal ED Medical Decision Making - Medical Decision Making 34-year-old -Guyanese male presents to the emergency room complaining of allergic reaction with generalized hives approximate 45 minutes prior to arrival. Patient has been having these episodes of hives for over a year. Patient states that we have referred him to several natural science manager but he has not followed up for various reasons. Patient states that he feels much better since he was given medication in triage. Patient denies any shortness of breath no wheezing no difficulty swallowing no swelling of this tongue no chest pain. Patient states that he was recently here on the and was prescribed a prednisone taper Benadryl and famotidine. Patient states he is completed his medications. Patient reports no known drug allergies. Patient was given Pepcid 20, prednisone 50 mg and Benadryl 50 mg in triage. On physical examination I am not able to appreciate any hives at this time. Patient has clear lungs and no acute distress. Patient be discharged home on Pepcid Benadryl and prednisone and a referral to the natural science manager again. Critical care attestation.: If time is entered above; I have spent that time in minutes in the direct care of this critically ill patient, excluding procedure time. ED Disposition Clinical Impression: Allergic reaction Disposition: DC-01 TO HOME OR SELFCARE Is pt being admited?: No Does the pt Need Aspirin: No Condition: Stable Instructions: Urticaria (ED) Additional Instructions: Please take medications as prescribed. Is very important for you to follow-up with an natural science manager. I have listed several below for your convenience. Prescriptions: predniSONE [Deltasone] 40 mg PO QDAY 5 Days #10 tab Famotidine [Pepcid] 20 mg PO BID 10 Days #20 tablet hydrOXYzine PAMOATE [Vistaril] 25 mg PO Q6HR PRN #40 capsule PRN Reason: itching Cetirizine HCl [ZyrTEC 10mg cap] 10 mg PO QDAY #30 capsule Referrals: PRIMARY CARE, [Primary Care Provider] - 3-5 Days [facility] [Provider Group] - 3-5 Days [facility] [Provider Group] - 3-5 Days Forms: Work/School Release Form(ED)
[2019-12-11 02:43] VITALS: BP 110/78
== END 2019-12-11 02:46 | disposition home or self-care (01) ==
LOC: ED 21:09
DX: T78.40XA Allergy, unspecified, initial encounter (principal); L50.9 Urticaria, unspecified; G43.909 Migraine, unspecified, not intractable, without status migrainosus; Z79.1 Long term (current) use of non-steroidal anti-inflammatories (NSAID); Z79.899 Other long term (current) drug therapy; X58.XXXA Exposure to other specified factors, initial encounter
CPT/HCPCS: 99282; J7512

== ENCOUNTER 2019-12-22 01:02 | Emergency (ER) | payer BC ==
[2019-12-22 01:32] VITALS: BP 109/68
--- NOTE | 2019-12-22 05:27 | Emergency Department Report ---
ED Allergic Reaction HPI - General Chief complaint: Allergic Reaction Stated complaint: ITCHY HIVES ON BODY/HEAD/GROIN PAIN Time Seen by Provider: 12/22/19 04:42 Source: patient Mode of arrival: Ambulatory Limitations: No Limitations - History of Present Illness Complaint: allergic reaction, hives -: Gradual, days(s) (3) Symptoms: itching Severity: mild, moderate Treatment Prior to Arrival: none Previous Allergy History: none - Related Data Previous Rx's Medication Instructions Recorded Last Taken Type Fluticasone [Flonase] 1 spray NS QDAY #1 bottle 05/28/18 Unknown Rx diphenhydrAMINE [Benadryl CAP] 25 mg PO Q6HR PRN 7 Days #30 08/23/18 Unknown Rx capsule EPINEPHrine [Epipen 2-Luther] 0.3 mg IJ PRN PRN #1 each 09/22/18 Unknown Rx Famotidine [Pepcid] 20 mg PO BID #6 tablet 09/22/18 Unknown Rx diphenhydrAMINE [Benadryl CAP] 25 mg PO QHS PRN #12 capsule 10/14/18 Unknown Rx diphenhydrAMINE [Benadryl CAP] 25 mg PO Q6HR PRN #30 capsule 11/03/18 Unknown Rx Prednisone [predniSONE 10 mg 10 mg PO .TAPER #21 tab.ds.pk 11/25/18 Unknown Rx (6-Day Pack, 21 Tabs)] raNITIdine HCL [Zantac] 150 mg PO Q12H #30 tablet 11/25/18 Unknown Rx Triamcinolone Aceton 0.1% (Nf) 1 applic TP BID 14 Days #1 tube 12/23/18 Unknown Rx [Kenalog (NF)] predniSONE [Deltasone] 20 mg PO DAILY #5 tablet 12/23/18 Unknown Rx Prednisone [predniSONE 10 mg 10 mg PO .TAPER #1 tab.ds.pk 03/28/19 Unknown Rx (6-Day Pack, 21 Tabs)] diphenhydrAMINE [Benadryl CAP] 25 mg PO QHS PRN #20 capsule 03/28/19 Unknown Rx Cetirizine HCl [ZyrTEC 10mg cap] 10 mg PO DAILY #30 capsule 09/30/19 Unknown Rx Prednisone [predniSONE 10 mg 10 mg PO .TAPER #21 tab.ds.pk 09/30/19 Unknown Rx (6-Day Pack, 21 Tabs)] diphenhydrAMINE [Benadryl CAP] 25 mg PO Q6HR PRN #30 capsule 09/30/19 Unknown Rx Ibuprofen [Motrin 800 MG tab] 800 mg PO Q8HR PRN #30 tablet 10/03/19 Unknown Rx Butalb/Acetamin/Caff 50-325-40 1 - 2 tab PO Q6HR PRN #12 tab 10/05/19 Unknown Rx [Fioricet 50-325-40] Ondansetron [Zofran Odt] 4 mg PO Q6HR PRN #15 tab.rapdis 10/05/19 Unknown Rx Prednisone [predniSONE 10 mg 10 mg PO .TAPER #1 tab.ds.pk 11/22/19 Unknown Rx (6-Day Pack, 21 Tabs)] EPINEPHrine [Epipen 2-Luther] 0.3 mg IM ONCE #0.6 ml 11/23/19 Unknown Rx Famotidine [Pepcid] 20 mg PO BID #6 tablet 11/23/19 Unknown Rx Prednisone [predniSONE 10 mg 10 mg PO .TAPER #1 tab.ds.pk 11/23/19 Unknown Rx (6-Day Pack, 21 Tabs)] diphenhydrAMINE [Benadryl] 50 mg IV Q6HR #24 vial 11/23/19 Unknown Rx EPINEPHrine [Epipen 2-Luther] 0.3 mg IM ONCE PRN #6 ml 11/25/19 Unknown Rx Famotidine [Pepcid] 20 mg PO BID 5 Days #10 tablet 11/25/19 Unknown Rx predniSONE [Deltasone] 40 mg PO QDAY #10 tablet 11/25/19 Unknown Rx Famotidine [Pepcid] 40 mg PO DAILY #30 tablet 12/05/19 Unknown Rx Prednisone [predniSONE 10 mg 10 mg PO .TAPER #21 tab.ds.pk 12/05/19 Unknown Rx (6-Day Pack, 21 Tabs)] diphenhydrAMINE [Benadryl CAP] 25 mg PO Q8H PRN #9 capsule 12/05/19 Unknown Rx Cetirizine HCl [ZyrTEC 10mg cap] 10 mg PO QDAY #30 capsule 12/11/19 Unknown Rx Famotidine [Pepcid] 20 mg PO BID 10 Days #20 tablet 10/18/20 Unknown Rx hydrOXYzine PAMOATE [Vistaril] 25 mg PO Q6HR PRN #40 capsule 12/11/19 Unknown Rx predniSONE [Deltasone] 40 mg PO QDAY 5 Days #10 tab 12/11/19 Unknown Rx hydrOXYzine HCL [Atarax] 25 mg PO Q6HR PRN #20 tablet 12/22/19 Unknown Rx predniSONE [Deltasone] 50 mg PO QDAY #5 tab 12/22/19 Unknown Rx Allergies Allergy/AdvReac Type Severity Reaction Status Date / Time No Known Allergies Allergy Verified 04/15/19 17:28 ED Review of Systems ROS: Stated complaint: ITCHY HIVES ON BODY/HEAD/GROIN PAIN Other details as noted in HPI Comment: All other systems reviewed and negative ED Past Medical Hx - Past Medical History Previous Medical History?: Yes Hx Headaches / Migraines: Yes Additional medical history: Migraines, Chronic itching - Surgical History Past Surgical History?: No - Social History Smoking Status: Current Some Day Smoker - Medications Home Medications: Home Medications Medication Instructions Recorded Confirmed Last Taken Type Fluticasone [Flonase] 1 spray NS QDAY #1 bottle 05/28/18 Unknown Rx diphenhydrAMINE [Benadryl CAP] 25 mg PO Q6HR PRN 7 Days #30 08/23/18 Unknown Rx capsule EPINEPHrine [Epipen 2-Luther] 0.3 mg IJ PRN PRN #1 each 09/22/18 Unknown Rx Famotidine [Pepcid] 20 mg PO BID #6 tablet 09/22/18 Unknown Rx diphenhydrAMINE [Benadryl CAP] 25 mg PO QHS PRN #12 capsule 10/14/18 Unknown Rx diphenhydrAMINE [Benadryl CAP] 25 mg PO Q6HR PRN #30 capsule 11/03/18 Unknown Rx Prednisone [predniSONE 10 mg 10 mg PO .TAPER #21 tab.ds.pk 11/25/18 Unknown Rx (6-Day Pack, 21 Tabs)] raNITIdine HCL [Zantac] 150 mg PO Q12H #30 tablet 11/25/18 Unknown Rx Triamcinolone Aceton 0.1% (Nf) 1 applic TP BID 14 Days #1 tube 12/23/18 Unknown Rx [Kenalog (NF)] predniSONE [Deltasone] 20 mg PO DAILY #5 tablet 12/23/18 Unknown Rx Prednisone [predniSONE 10 mg 10 mg PO .TAPER #1 tab.ds.pk 03/28/19 Unknown Rx (6-Day Pack, 21 Tabs)] diphenhydrAMINE [Benadryl CAP] 25 mg PO QHS PRN #20 capsule 03/28/19 Unknown Rx Cetirizine HCl [ZyrTEC 10mg cap] 10 mg PO DAILY #30 capsule 09/30/19 Unknown Rx Prednisone [predniSONE 10 mg 10 mg PO .TAPER #21 tab.ds.pk 09/30/19 Unknown Rx (6-Day Pack, 21 Tabs)] diphenhydrAMINE [Benadryl CAP] 25 mg PO Q6HR PRN #30 capsule 09/30/19 Unknown Rx Ibuprofen [Motrin 800 MG tab] 800 mg PO Q8HR PRN #30 tablet 10/03/19 Unknown Rx Butalb/Acetamin/Caff 50-325-40 1 - 2 tab PO Q6HR PRN #12 tab 10/05/19 Unknown Rx [Fioricet 50-325-40] Ondansetron [Zofran Odt] 4 mg PO Q6HR PRN #15 tab.rapdis 10/05/19 Unknown Rx Prednisone [predniSONE 10 mg 10 mg PO .TAPER #1 tab.ds.pk 11/22/19 Unknown Rx (6-Day Pack, 21 Tabs)] EPINEPHrine [Epipen 2-Luther] 0.3 mg IM ONCE #0.6 ml 11/23/19 Unknown Rx Famotidine [Pepcid] 20 mg PO BID #6 tablet 11/23/19 Unknown Rx Prednisone [predniSONE 10 mg 10 mg PO .TAPER #1 tab.ds.pk 11/23/19 Unknown Rx (6-Day Pack, 21 Tabs)] diphenhydrAMINE [Benadryl] 50 mg IV Q6HR #24 vial 11/23/19 Unknown Rx EPINEPHrine [Epipen 2-Luther] 0.3 mg IM ONCE PRN #6 ml 11/25/19 Unknown Rx Famotidine [Pepcid] 20 mg PO BID 5 Days #10 tablet 11/25/19 Unknown Rx predniSONE [Deltasone] 40 mg PO QDAY #10 tablet 11/25/19 Unknown Rx Famotidine [Pepcid] 40 mg PO DAILY #30 tablet 12/05/19 Unknown Rx Prednisone [predniSONE 10 mg 10 mg PO .TAPER #21 tab.ds.pk 12/05/19 Unknown Rx (6-Day Pack, 21 Tabs)] diphenhydrAMINE [Benadryl CAP] 25 mg PO Q8H PRN #9 capsule 12/05/19 Unknown Rx Cetirizine HCl [ZyrTEC 10mg cap] 10 mg PO QDAY #30 capsule 12/11/19 Unknown Rx Famotidine [Pepcid] 20 mg PO BID 10 Days #20 tablet 12/11/19 Unknown Rx hydrOXYzine PAMOATE [Vistaril] 25 mg PO Q6HR PRN #40 capsule 12/11/19 Unknown Rx predniSONE [Deltasone] 40 mg PO QDAY 5 Days #10 tab 12/11/19 Unknown Rx hydrOXYzine HCL [Atarax] 25 mg PO Q6HR PRN #20 tablet 12/22/19 Unknown Rx predniSONE [Deltasone] 50 mg PO QDAY #5 tab 12/22/19 Unknown Rx ED Physical Exam - General Limitations: No Limitations General appearance: alert, in no apparent distress - Head Head exam: Present: atraumatic, normocephalic - Eye Eye exam: Present: normal appearance - ENT ENT exam: Present: mucous membranes moist - Neck Neck exam: Present: normal inspection - Respiratory Respiratory exam: Present: normal lung sounds bilaterally. Absent: respiratory distress - Cardiovascular Cardiovascular Exam: Present: regular rate, normal rhythm. Absent: systolic murmur, diastolic murmur, rubs, gallop - GI/Abdominal GI/Abdominal exam: Present: soft, normal bowel sounds - Rectal Rectal exam: Present: deferred - Extremities Exam Extremities exam: Present: normal inspection - Back Exam Back exam: Present: normal inspection - Neurological Exam Neurological exam: Present: alert, oriented X3 - Psychiatric Psychiatric exam: Present: normal affect, normal mood - Skin Skin exam: Present: warm, dry, urticaria. Absent: rash ED Course Vital Signs 12/22/19 01:31 Temperature 97.7 F Pulse Rate 82 Respiratory 17 Rate Blood Pressure 109/68 O2 Sat by Pulse 97 Oximetry ED Medical Decision Making - Medical Decision Making Has diffuse no wheezing no signs of any anaphylaxis on examination. Discharge was delayed due to repetitive power going out Critical care attestation.: If time is entered above; I have spent that time in minutes in the direct care of this critically ill patient, excluding procedure time. ED Disposition Clinical Impression: Urticaria Disposition: TO HOME OR SELFCARE Is pt being admited?: No Does the pt Need Aspirin: No Condition: Stable Instructions: Urticaria (ED), Allergies (ED) Prescriptions: hydrOXYzine HCL [Atarax] 25 mg PO Q6HR PRN #20 tablet PRN Reason: Itching predniSONE [Deltasone] 50 mg PO QDAY #5 tab Referrals: PRIMARY CARE, [Primary Care Provider] - 3-5 Days [facility] [Provider Group] - 3-5 Days
== END 2019-12-22 05:55 | disposition home or self-care (01) ==
LOC: ED 01:02
DX: L50.9 Urticaria, unspecified (principal); G43.909 Migraine, unspecified, not intractable, without status migrainosus; F17.200 Nicotine dependence, unspecified, uncomplicated; Z79.1 Long term (current) use of non-steroidal anti-inflammatories (NSAID); Z79.2 Long term (current) use of antibiotics; Z79.899 Other long term (current) drug therapy
CPT/HCPCS: 99282

== ENCOUNTER 2020-01-08 21:19 | Emergency (ER) | payer BC ==
[2020-01-09 02:12] VITALS: BP 112/68
[2020-01-09] MEDS ORDERED: diphenhydrAMINE 25 MG CAP PO ONE (02:55)
[2020-01-09] MEDS ORDERED: predniSONE 20 MG TAB PO ONE (02:55)
[2020-01-09] MEDS ORDERED: FAMOTIDINE 20 MG TAB PO ONE (02:55)
--- NOTE | 2020-01-09 03:54 | Emergency Department Report ---
ED Allergic Reaction HPI - General Chief complaint: Skin Rash Stated complaint: RASH Source: patient Mode of arrival: Ambulatory Limitations: No Limitations - History of Present Illness Initial Comments: Patient is a 34-year-old -[place] male with a history of migraine headaches who presents to the ED with complaint of acute onset persistent diffuse itchy erythematous maculopapular urticarial rashes for the last 2 days. Patient states that he is unsure as to the etiology of the rashes. Patient states that he has not taken any medication for the itching but states in the last 12 hours the itching is worsened such that he is unable to sleep. Patient denies swollen lips or tongue, dysphagia, dysphonia, swollen throat, cough, shortness of breath, chest pain, wheezing, nausea, vomiting, diarrhea, abdominal pain, fever, chills, headache, change in vision or nasal and sinus congestion. MD Complaint: allergic reaction, hives, other (diffuse itching) -: Sudden, days(s) (2) Exposure: unknown Symptoms: rash, itching. denies: facial swelling, lip swelling, difficulty swallowing, difficulty breathing, orolingual swelling, hoarseness, syncopy, dizziness, nausea, vomiting, other, abdominal pain Severity: moderate Treatment Prior to Arrival: none Previous Allergy History: none - Related Data Previous Rx's Medication Instructions Recorded Last Taken Type Fluticasone [Flonase] 1 spray NS QDAY #1 bottle 05/28/18 Unknown Rx diphenhydrAMINE [Benadryl CAP] 25 mg PO Q6HR PRN 7 Days #30 08/23/18 Unknown Rx capsule EPINEPHrine [Epipen 2-Luther] 0.3 mg IJ PRN PRN #1 each 09/22/18 Unknown Rx Famotidine [Pepcid] 20 mg PO BID #6 tablet 09/22/18 Unknown Rx diphenhydrAMINE [Benadryl CAP] 25 mg PO QHS PRN #12 capsule 10/14/18 Unknown Rx diphenhydrAMINE [Benadryl CAP] 25 mg PO Q6HR PRN #30 capsule 11/03/18 Unknown Rx Prednisone [predniSONE 10 mg 10 mg PO .TAPER #21 tab.ds.pk 11/25/18 Unknown Rx (6-Day Pack, 21 Tabs)] raNITIdine HCL [Zantac] 150 mg PO Q12H #30 tablet 11/25/18 Unknown Rx Triamcinolone Aceton 0.1% (Nf) 1 applic TP BID 14 Days #1 tube 12/23/18 Unknown Rx [Kenalog (NF)] predniSONE [Deltasone] 20 mg PO DAILY #5 tablet 12/23/18 Unknown Rx Prednisone [predniSONE 10 mg 10 mg PO .TAPER #1 tab.ds.pk 03/28/19 Unknown Rx (6-Day Pack, 21 Tabs)] diphenhydrAMINE [Benadryl CAP] 25 mg PO QHS PRN #20 capsule 03/28/19 Unknown Rx Prednisone [predniSONE 10 mg 10 mg PO .TAPER #21 tab.ds.pk 09/30/19 Unknown Rx (6-Day Pack, 21 Tabs)] diphenhydrAMINE [Benadryl CAP] 25 mg PO Q6HR PRN #30 capsule 09/30/19 Unknown Rx Ibuprofen [Motrin 800 MG tab] 800 mg PO Q8HR PRN #30 tablet 10/03/19 Unknown Rx Butalb/Acetamin/Caff 50-325-40 1 - 2 tab PO Q6HR PRN #12 tab 10/05/19 Unknown Rx [Fioricet 50-325-40] Ondansetron [Zofran Odt] 4 mg PO Q6HR PRN #15 tab.rapdis 10/05/19 Unknown Rx Prednisone [predniSONE 10 mg 10 mg PO .TAPER #1 tab.ds.pk 11/22/19 Unknown Rx (6-Day Pack, 21 Tabs)] EPINEPHrine [Epipen 2-Luther] 0.3 mg IM ONCE #0.6 ml 11/23/19 Unknown Rx Prednisone [predniSONE 10 mg 10 mg PO .TAPER #1 tab.ds.pk 11/23/19 Unknown Rx (6-Day Pack, 21 Tabs)] diphenhydrAMINE [Benadryl] 50 mg IV Q6HR #24 vial 11/23/19 Unknown Rx EPINEPHrine [Epipen 2-Luther] 0.3 mg IM ONCE PRN #6 ml 11/25/19 Unknown Rx Famotidine [Pepcid] 20 mg PO BID 5 Days #10 tablet 11/25/19 Unknown Rx Famotidine [Pepcid] 40 mg PO DAILY #30 tablet 12/05/19 Unknown Rx Prednisone [predniSONE 10 mg 10 mg PO .TAPER #21 tab.ds.pk 12/05/19 Unknown Rx (6-Day Pack, 21 Tabs)] Cetirizine HCl [ZyrTEC 10mg cap] 10 mg PO QDAY #30 capsule 12/11/19 Unknown Rx Famotidine [Pepcid] 20 mg PO BID 10 Days #20 tablet 12/11/19 Unknown Rx hydrOXYzine PAMOATE [Vistaril] 25 mg PO Q6HR PRN #40 capsule 12/11/19 Unknown Rx predniSONE [Deltasone] 40 mg PO QDAY 5 Days #10 tab 12/11/19 Unknown Rx hydrOXYzine HCL [Atarax] 25 mg PO Q6HR PRN #20 tablet 12/22/19 Unknown Rx predniSONE [Deltasone] 50 mg PO QDAY #5 tab 12/22/19 Unknown Rx Cetirizine HCl [ZyrTEC 10mg cap] 10 mg PO DAILY #30 capsule 01/09/20 Unknown Rx Famotidine [Pepcid] 20 mg PO BID #30 tablet 01/09/20 Unknown Rx diphenhydrAMINE [Benadryl CAP] 25 mg PO Q8H PRN #30 capsule 01/09/20 Unknown Rx predniSONE [Deltasone] 40 mg PO QDAY #12 tablet 01/09/20 Unknown Rx Allergies Allergy/AdvReac Type Severity Reaction Status Date / Time No Known Allergies Allergy Verified 04/15/19 17:28 ED Review of Systems ROS: Stated complaint: RASH Other details as noted in HPI Constitutional: denies: chills, fever Eyes: denies: eye pain, eye discharge, vision change ENT: denies: ear pain, throat pain Respiratory: denies: cough, shortness of breath, wheezing Cardiovascular: denies: chest pain, palpitations Endocrine: no symptoms reported Gastrointestinal: denies: abdominal pain, nausea, diarrhea Genitourinary: denies: urgency, dysuria Musculoskeletal: denies: back pain, joint swelling, arthralgia Skin: rash (diffuse itchy erythematous urticarial rashes), change in color, pruritus. denies: lesions Neurological: denies: headache, weakness, paresthesias Psychiatric: denies: anxiety, depression Hematological/Lymphatic: denies: easy bleeding, easy bruising ED Past Medical Hx - Past Medical History Previous Medical History?: Yes Hx Headaches / Migraines: Yes Additional medical history: Migraines, Chronic itching - Surgical History Past Surgical History?: No - Social History Smoking Status: Never Smoker Substance Use Type: None - Medications Home Medications: Home Medications Medication Instructions Recorded Confirmed Last Taken Type Fluticasone [Flonase] 1 spray NS QDAY #1 bottle 05/28/18 Unknown Rx diphenhydrAMINE [Benadryl CAP] 25 mg PO Q6HR PRN 7 Days #30 08/23/18 Unknown Rx capsule EPINEPHrine [Epipen 2-Luther] 0.3 mg IJ PRN PRN #1 each 09/22/18 Unknown Rx Famotidine [Pepcid] 20 mg PO BID #6 tablet 09/22/18 Unknown Rx diphenhydrAMINE [Benadryl CAP] 25 mg PO QHS PRN #12 capsule 10/14/18 Unknown Rx diphenhydrAMINE [Benadryl CAP] 25 mg PO Q6HR PRN #30 capsule 11/03/18 Unknown Rx Prednisone [predniSONE 10 mg 10 mg PO .TAPER #21 tab.ds.pk 11/25/18 Unknown Rx (6-Day Pack, 21 Tabs)] raNITIdine HCL [Zantac] 150 mg PO Q12H #30 tablet 11/25/18 Unknown Rx Triamcinolone Aceton 0.1% (Nf) 1 applic TP BID 14 Days #1 tube 12/23/18 Unknown Rx [Kenalog (NF)] predniSONE [Deltasone] 20 mg PO DAILY #5 tablet 12/23/18 Unknown Rx Prednisone [predniSONE 10 mg 10 mg PO .TAPER #1 tab.ds.pk 03/28/19 Unknown Rx (6-Day Pack, 21 Tabs)] diphenhydrAMINE [Benadryl CAP] 25 mg PO QHS PRN #20 capsule 03/28/19 Unknown Rx Prednisone [predniSONE 10 mg 10 mg PO .TAPER #21 tab.ds.pk 09/30/19 Unknown Rx (6-Day Pack, 21 Tabs)] diphenhydrAMINE [Benadryl CAP] 25 mg PO Q6HR PRN #30 capsule 09/30/19 Unknown Rx Ibuprofen [Motrin 800 MG tab] 800 mg PO Q8HR PRN #30 tablet 10/03/19 Unknown Rx Butalb/Acetamin/Caff 50-325-40 1 - 2 tab PO Q6HR PRN #12 tab 10/05/19 Unknown Rx [Fioricet 50-325-40] Ondansetron [Zofran Odt] 4 mg PO Q6HR PRN #15 tab.rapdis 10/05/19 Unknown Rx Prednisone [predniSONE 10 mg 10 mg PO .TAPER #1 tab.ds.pk 11/22/19 Unknown Rx (6-Day Pack, 21 Tabs)] EPINEPHrine [Epipen 2-Luther] 0.3 mg IM ONCE #0.6 ml 11/23/19 Unknown Rx Prednisone [predniSONE 10 mg 10 mg PO .TAPER #1 tab.ds.pk 11/23/19 Unknown Rx (6-Day Pack, 21 Tabs)] diphenhydrAMINE [Benadryl] 50 mg IV Q6HR #24 vial 11/23/19 Unknown Rx EPINEPHrine [Epipen 2-Luther] 0.3 mg IM ONCE PRN #6 ml 11/25/19 Unknown Rx Famotidine [Pepcid] 20 mg PO BID 5 Days #10 tablet 11/25/19 Unknown Rx Famotidine [Pepcid] 40 mg PO DAILY #30 tablet 12/05/19 Unknown Rx Prednisone [predniSONE 10 mg 10 mg PO .TAPER #21 tab.ds.pk 12/05/19 Unknown Rx (6-Day Pack, 21 Tabs)] Cetirizine HCl [ZyrTEC 10mg cap] 10 mg PO QDAY #30 capsule 12/11/19 Unknown Rx Famotidine [Pepcid] 20 mg PO BID 10 Days #20 tablet 12/11/19 Unknown Rx hydrOXYzine PAMOATE [Vistaril] 25 mg PO Q6HR PRN #40 capsule 12/11/19 Unknown Rx predniSONE [Deltasone] 40 mg PO QDAY 5 Days #10 tab 12/11/19 Unknown Rx hydrOXYzine HCL [Atarax] 25 mg PO Q6HR PRN #20 tablet 12/22/19 Unknown Rx predniSONE [Deltasone] 50 mg PO QDAY #5 tab 12/22/19 Unknown Rx Cetirizine HCl [ZyrTEC 10mg cap] 10 mg PO DAILY #30 capsule 01/09/20 Unknown Rx Famotidine [Pepcid] 20 mg PO BID #30 tablet 01/09/20 Unknown Rx diphenhydrAMINE [Benadryl CAP] 25 mg PO Q8H PRN #30 capsule 01/09/20 Unknown Rx predniSONE [Deltasone] 40 mg PO QDAY #12 tablet 01/09/20 Unknown Rx ED Physical Exam - General Limitations: No Limitations General appearance: alert, in no apparent distress - Head Head exam: Present: atraumatic, normocephalic, normal inspection - Eye Eye exam: Present: normal appearance, PERRL, EOMI Pupils: Present: normal accommodation - ENT ENT exam: Present: normal exam, normal orophraynx, mucous membranes moist, TM's normal bilaterally, normal external ear exam - Neck Neck exam: Present: normal inspection, full ROM. Absent: tenderness, meningismus, lymphadenopathy, thyromegaly - Respiratory Respiratory exam: Present: normal lung sounds bilaterally. Absent: respiratory distress, wheezes, rales, rhonchi, stridor, chest wall tenderness, accessory muscle use, decreased breath sounds, prolonged expiratory - Cardiovascular Cardiovascular Exam: Present: regular rate, normal rhythm, normal heart sounds. Absent: systolic murmur, diastolic murmur, rubs, gallop - GI/Abdominal GI/Abdominal exam: Present: soft, normal bowel sounds. Absent: tenderness, guarding, rebound, hyperactive bowel sounds, hypoactive bowel sounds, organomegaly - Extremities Exam Extremities exam: Present: normal inspection, full ROM, normal capillary refill. Absent: tenderness, pedal edema, joint swelling - Back Exam Back exam: Present: normal inspection, full ROM. Absent: tenderness, CVA tenderness (R), CVA tenderness (L), muscle spasm, paraspinal tenderness, vertebral tenderness - Neurological Exam Neurological exam: Present: alert, oriented X3, CN II-XII intact, normal gait, reflexes normal - Psychiatric Psychiatric exam: Present: normal affect, normal mood - Skin Skin exam: Present: warm, dry, intact, rash (Diffuse erythematous maculopapular urticarial rashes), erythema, urticaria ED Course Vital Signs 01/09/20 02:10 Temperature 97.9 F Pulse Rate 69 Respiratory 18 Rate Blood Pressure 112/68 O2 Sat by Pulse 97 Oximetry ED Medical Decision Making - Medical Decision Making This is a 34-year-old -[place] male with a history of migraine headaches who presents to the ED with complaint of acute onset persistent diffuse itchy erythematous maculopapular urticarial rashes for the last 2 days. Patient states that he is unsure as to the etiology of the rashes. Patient states that he has not taken any medication for the itching but states in the last 12 hours the itching is worsened such that he is unable to sleep. In the ED, patient is alert and oriented x3 and is not in distress. Patient was treated for acute allergic reaction with oral steroids, Benadryl and Pepcid. On reevaluation, patient's itching resolved with medications. Patient was discharged home on steroids and Benadryl and was advised to follow-up with his primary care physician in 5 to 7 days for reevaluation or return to the ED immediately if symptoms get worse. - Differential Diagnosis Urticaria; Allergic reaction; Itching with irritation; irritant dermatitis Critical care attestation.: If time is entered above; I have spent that time in minutes in the direct care of this critically ill patient, excluding procedure time. ED Disposition Clinical Impression: Itching with irritation, Acute urticaria Acute allergic reaction Qualifiers: Encounter type: initial encounter Qualified Code(s): T78.40XA - Allergy, unspecified, initial encounter Disposition: DC-01 TO HOME OR SELFCARE Is pt being admited?: No Does the pt Need Aspirin: No Condition: Stable Instructions: Allergies, Adult, [id number], Rash, Adult, [id number], Hives, [id number] Additional Instructions: Take medications with food, drink plenty of fluids and follow-up with your primary care physician in 5 to 7 days for reevaluation. Return to the ED immediately if symptoms get worse. Prescriptions: diphenhydrAMINE [Benadryl CAP] 25 mg PO Q8H PRN #30 capsule PRN Reason: Itching predniSONE [Deltasone] 40 mg PO QDAY #12 tablet Famotidine [Pepcid] 20 mg PO BID #30 tablet Cetirizine HCl [ZyrTEC 10mg cap] 10 mg PO DAILY #30 capsule Referrals: [facility] [Provider Group] - 3-5 Days Time of Disposition: 03:53 Print Language: TAJIK
== END 2020-01-09 04:16 | disposition home or self-care (01) ==
LOC: ED 21:19
DX: T78.40XA Allergy, unspecified, initial encounter (principal); L29.9 Pruritus, unspecified; L50.9 Urticaria, unspecified; G43.909 Migraine, unspecified, not intractable, without status migrainosus; Z79.899 Other long term (current) drug therapy; X58.XXXA Exposure to other specified factors, initial encounter
CPT/HCPCS: 99282; J7512

== ENCOUNTER 2020-02-23 20:45 | Emergency (ER) | payer BC ==
[2020-02-23 21:02] VITALS: BP 118/70
--- NOTE | 2020-02-23 21:06 | Emergency Department Report ---
Stated Complaint: RASH/GROIN PAIN Time Seen by Provider: 02/23/20 20:58 - HPI History of Present Illness: Patient has a rash on his groin which he thinks is jock itch. It is itching on the shaft of his penis. He denies any penile discharge. He denies any hematuria. Patient seen numerous times in the ER for the same. States that he lives with his uncle. Vital signs stable. - ROS Review of Systems: rash only vss abc intact - Exam Vital Signs: noted Physical Exam: a/o s1s2 abd snt no cva tenderness tinea on groin MSE screening note: Focused history and physical exam performed. Due to findings the following was ordered: no life threat Patient discussed with doctor:: TRACEE COTE ED Disposition for MSE Clinical Impression: Rash Disposition: Z-07 MED SCREENING EXAM-LEFT Is pt being admited?: No Does the pt Need Aspirin: No Condition: Stable Instructions: Jock Itch Additional Instructions: follow up with pcp referral below continue benadryl med as ordered tonight Prescriptions: Tolnaftate [Tinactin] 108 gm TP BID #1 powder Referrals: FRANDY BEGUM MD [Staff Physician] - 3-5 Days Time of Disposition: 21:00
== END 2020-02-23 21:10 | disposition left against medical advice (07) ==
LOC: ED 20:45
DX: R21 Rash and other nonspecific skin eruption (principal); Z53.21 Procedure and treatment not carried out due to patient leaving prior to being seen by health care provider

== ENCOUNTER 2020-06-14 01:27 | Emergency (ER) | payer BC ==
[2020-06-14 02:42] VITALS: BP 119/78
[2020-06-14] MEDS ORDERED: diphenhydrAMINE 25 MG/10 ML ORAL LIQUID PO ONE (03:28)
[2020-06-14] MEDS ORDERED: LIDOCAINE VISCOUS 2% 15 ML ORAL LIQD PO ONE (03:28)
[2020-06-14] MEDS ORDERED: ALUM-MAG HYDROXIDE-SIMETHICONE 200-200-20MG/5ML ORAL LIQD 30 ML PO STA (03:28)
--- NOTE | 2020-06-14 04:59 | Emergency Department Report ---
ED General Adult HPI - General Chief complaint: Sore Throat Stated complaint: HEADACHE/THROAT PAIN/CHEST PAIN Time Seen by Provider: 06/14/20 03:18 Source: patient Mode of arrival: Ambulatory Limitations: No Limitations - History of Present Illness Initial comments: 34-year-old F [place] male [facility] is having suspicious of a esophageal tear due to him eating fried rice which she thinks may have gotten stuck in his throat when was cleared by drinking liquids to help with past. Reports no hemoptysis, hematemesis hematochezia no voice change, no excessive coughing and tolerates oral liquids and food with no complications. -: Gradual Radiation: non-radiation Consistency: constant Improves with: none Worsens with: eating Associated Symptoms: denies: diaphoresis Treatments Prior to Arrival: none - Related Data Previous Rx's Medication Instructions Recorded Last Taken Type diphenhydrAMINE [Benadryl CAP] 25 mg PO QHS PRN #20 capsule 03/28/19 Unknown Rx Tolnaftate [Tinactin] 108 gm TP BID #1 powder 02/23/20 Unknown Rx Omeprazole 40 mg PO DAILY #30 capsule. 06/14/20 Unknown Rx Allergies Allergy/AdvReac Type Severity Reaction Status Date / Time No Known Allergies Allergy Verified 04/15/19 17:28 ED Review of Systems ROS: Stated complaint: HEADACHE/THROAT PAIN/CHEST PAIN Other details as noted in HPI Comment: All other systems reviewed and negative ED Past Medical Hx - Past Medical History Previous Medical History?: Yes Hx Headaches / Migraines: Yes Additional medical history: Migraines, Chronic itching. Torn esophagus - Surgical History Past Surgical History?: No - Social History Smoking Status: Never Smoker Substance Use Type: None - Medications Home Medications: Home Medications Medication Instructions Recorded Confirmed Last Taken Type diphenhydrAMINE [Benadryl CAP] 25 mg PO QHS PRN #20 capsule 03/28/19 Unknown Rx Tolnaftate [Tinactin] 108 gm TP BID #1 powder 02/23/20 Unknown Rx Omeprazole 40 mg PO DAILY #30 capsule. 06/14/20 Unknown Rx ED Physical Exam - General Limitations: No Limitations General appearance: alert, in no apparent distress - Head Head exam: Present: atraumatic, normocephalic - Eye Eye exam: Present: normal appearance, PERRL, EOMI Pupils: Present: normal accommodation - ENT ENT exam: Present: normal exam, normal orophraynx, mucous membranes moist, TM's normal bilaterally, other (Airway patent tongue uvula midline. No exudate. No drooling. Normal voice. No lymphadenopathy. No bleeding) - Neck Neck exam: Present: normal inspection, full ROM, other (No subcutaneous emphysema to the neck or chest). Absent: tenderness, lymphadenopathy - Respiratory Respiratory exam: Present: normal lung sounds bilaterally. Absent: respiratory distress, rales, rhonchi - Cardiovascular Cardiovascular Exam: Present: regular rate, normal rhythm. Absent: systolic murmur, diastolic murmur, rubs, gallop - GI/Abdominal GI/Abdominal exam: Present: soft, normal bowel sounds - Rectal Rectal exam: Present: deferred - Extremities Exam Extremities exam: Present: normal inspection, normal capillary refill, other - Back Exam Back exam: Present: normal inspection. Absent: CVA tenderness (R), CVA tenderness (L) - Neurological Exam Neurological exam: Present: alert, oriented X3, CN II-XII intact, normal gait - Psychiatric Psychiatric exam: Present: normal affect, normal mood - Skin Skin exam: Present: warm, dry, intact, normal color. Absent: rash ED Course Vital Signs 06/14/20 02:33 Temperature 98.1 F Pulse Rate 75 Respiratory 18 Rate Blood Pressure 119/78 O2 Sat by Pulse 99 Oximetry - Consultations Consultation #1: 06/14/20 05:02 Case discussed with attending Dr. Flowers stable follow-up with GI imaging not necessary at this present time as the patient does tolerate oral with no complication and resting comfortably no limitations Critical care attestation.: If time is entered above; I have spent that time in minutes in the direct care of this critically ill patient, excluding procedure time. ED Disposition Clinical Impression: Dyspepsia Disposition: DC-01 TO HOME OR SELFCARE Is pt being admited?: No Does the pt Need Aspirin: No Condition: Stable Instructions: Abdominal Pain, Adult, [id number], Preventing Gastrointestinal Problems During Exercise Prescriptions: Omeprazole 40 mg PO DAILY #30 capsule. Referrals: [facility] [Provider Group] - 3-5 Days
== END 2020-06-14 05:12 | disposition home or self-care (01) ==
LOC: ED 01:27
DX: R10.13 Epigastric pain (principal); G43.909 Migraine, unspecified, not intractable, without status migrainosus; Z79.899 Other long term (current) drug therapy
CPT/HCPCS: 99282; Q0163

== ENCOUNTER 2020-07-29 23:47 | Emergency (ER) | payer BC ==
[2020-07-30 01:42] LABS: Bilirubin,Urine NEG (Negative); Blood,Urine NEG (Negative); Color,Urine Yellow (Yellow); Protein,Urine <15 mg/dL mg/dL (Negative); Urobilinogen,Urine < 2.0 mg/dL (<2.0)
[2020-07-30 01:51] LABS: Amphetamine Screen,Urine PRESUMPTIVE NEGATIVE; Benzodiazepines Screen,Urine PRESUMPTIVE NEGATIVE; Cannabinoid Screen,Urine PRESUMPTIVE NEGATIVE; Cocaine Screen,Urine PRESUMPTIVE NEGATIVE; Methadone Screen,Urine PRESUMPTIVE NEGATIVE; Opiate Screen,Urine PRESUMPTIVE NEGATIVE
[2020-07-30 01:53] LABS: Basophils % (Auto) 0.4 % (0.0-1.8); Eosinophils # (Auto) 0.5 K/mm3 (0.0-0.4); Hematocrit 42.3 % (35.5-45.6); Hemoglobin 14.3 gm/dl (11.8-15.2); Mean Corpuscular HGB Conc 34 % (32-34); Mean Corpuscular Volume 80 fl (84-94); Monocytes # (Auto) 0.5 K/mm3 (0.0-0.8); Monocytes % (Auto) 7.1 % (0.0-7.3); Platelet Count 140 K/mm3 (140-440); Red Cell Distribution Width 13.7 % (13.2-15.2)
--- NOTE | 2020-07-30 02:10 | Cat Scan Report ---
CT head/brain wo con INDICATION / CLINICAL INFORMATION: acute headache/dizziness. TECHNIQUE: Axial CT imaging of the brain was obtained without contrast. Coronal and sagittal reformatted imaging obtained and reviewed. All CT scans at this location are performed using CT dose reduction for ALAR A by means of automated exposure control. COMPARISON: Prior head CT 12/24/2016 FINDINGS: No intracranial hemorrhage, mass, or midline shift. No extra-axial fluid collection or suggestion of acute territorial infarction. Ventricular system and basilar cisterns are unremarkable. There is a small mucous retention cyst in the right maxillary sinus. The remainder of the paranasal s inuses, as well as the mastoid air cells, are well aerated and clear. I see no calvarial osseous abno rmality. IMPRESSION: 1. No acute intracranial abnormality. 2. Incidental finding of small right maxillary mucous retention cyst, unchanged from 2017. Signer Name: Radha Buenrostro MD Signed: 07/30/2020 2:05 AM Workstation Name: [id number]
[2020-07-30 02:17] LABS: Alanine Aminotransferase 28 units/L (7-56); Albumin 4.3 g/dL (3.9-5); Blood Urea Nitrogen 8 mg/dL (9-20); Calcium 8.9 mg/dL (8.4-10.2); Hemolysis Index 10
[2020-07-30 02:26] LABS: BUN/Creatinine Ratio 11
[2020-07-30] MEDS ORDERED: SODIUM CHLORIDE 0.9% 1000 ML 1,000 ML IV ONE (03:02)
--- NOTE | 2020-07-30 03:08 | Emergency Department Report ---
ED General Adult HPI - General Chief complaint: Headache Stated complaint: BOTH LEGS NUMB,HEAD PRESSURE,BLURRED VISION Time Seen by Provider: 07/30/20 01:03 Source: patient Mode of arrival: Ambulatory Limitations: No Limitations - History of Present Illness Initial comments: This is a 35-year-old male nontoxic, well nourished in appearance, no acute sig ns of distress presents to the ED with c/o of acute headache, dizziness and generalized numbness/tingling sensation that occurred today. Patient stated he was at work and after that he bent down and stood up he became sudden onset of dizziness with headache and bilateral upper lower extremities numbness and tingling sensation with left blurry vision in the eye. Patient did have symptoms all of them has resolved and subsided but was instructed to come to the ED for further evaluation. Currently patient denies any symptoms or concerns. Patient denies thunderclap headache. Patient denies any radiation of pain. Patient denies any head trauma. Patient denies any visual changes. Patient de nies worse headache. Patient denies any numbness, tingling, fever, chills, nausea, vomiting, chest pain, shortness of breath, stiff neck. Patient denies facial drooping or one sided weakness. Patient denies any radiation of pain. Patient denies any allergies or significant past medical history. -: This evening Severity scale (0 -10): 0 Consistency: now resolved Improves with: none Worsens with: none Associated Symptoms: headaches. denies: confusion, chest pain, cough, diaphoresis, fever/chills, loss of appetite, malaise, nausea/vomiting, rash, seizure, shortness of breath, syncope, weakness Treatments Prior to Arrival: none - Related Data Previous Rx's Medication Instructions Recorded Last Taken Type diphenhydrAMINE [Benadryl CAP] 25 mg PO QHS PRN #20 capsule 03/28/19 Unknown Rx Tolnaftate [Tinactin] 108 gm TP BID #1 powder 02/23/20 Unknown Rx Omeprazole 40 mg PO DAILY #30 capsule. 06/14/20 Unknown Rx Allergies Allergy/AdvReac Type Severity Reaction Status Date / Time No Known Allergies Allergy Verified 04/15/19 17:28 ED Review of Systems ROS: Stated complaint: BOTH LEGS NUMB,HEAD PRESSURE,BLURRED VISION Other details as noted in HPI Comment: All other systems reviewed and negative Constitutional: denies: chills, fever Eyes: denies: eye pain, eye discharge, vision change ENT: denies: ear pain, throat pain Respiratory: denies: cough, shortness of breath, wheezing Cardiovascular: denies: chest pain, palpitations Endocrine: no symptoms reported Gastrointestinal: denies: abdominal pain, nausea, vomiting, diarrhea Genitourinary: denies: urgency, dysuria Musculoskeletal: denies: back pain, joint swelling, arthralgia Skin: denies: rash, lesions Neurological: headache, numbness, vertigo. denies: weakness, paresthesias, confusion, abnormal gait Psychiatric: denies: anxiety, depression Hematological/Lymphatic: denies: easy bleeding, easy bruising ED Past Medical Hx - Past Medical History Previous Medical History?: Yes Hx Headaches / Migraines: Yes Additional medical history: Migraines, Chronic itching. Torn esophagus - Surgical History Past Surgical History?: No - Social History Smoking Status: Never Smoker Substance Use Type: None - Medications Home Medications: Home Medications Medication Instructions Recorded Confirmed Last Taken Type diphenhydrAMINE [Benadryl CAP] 25 mg PO QHS PRN #20 capsule 03/28/19 Unknown Rx Tolnaftate [Tinactin] 108 gm TP BID #1 powder 02/23/20 Unknown Rx Omeprazole 40 mg PO DAILY #30 capsule. 06/14/20 Unknown Rx ED Physical Exam - General Limitations: No Limitations General appearance: alert, in no apparent distress - Head Head exam: Present: atraumatic, normocephalic - Eye Eye exam: Present: normal appearance, PERRL, EOMI - ENT ENT exam: Present: normal exam, normal orophraynx - Neck Neck exam: Present: normal inspection, full ROM. Absent: tenderness, meningismus, lymphadenopathy - Respiratory Respiratory exam: Present: normal lung sounds bilaterally. Absent: respiratory distress, wheezes, rales, rhonchi, stridor, chest wall tenderness, accessory muscle use, decreased breath sounds, prolonged expiratory - Cardiovascular Cardiovascular Exam: Present: regular rate, normal rhythm, normal heart sounds. Absent: bradycardia, tachycardia, irregular rhythm, systolic murmur, diastolic murmur, rubs, gallop - GI/Abdominal GI/Abdominal exam: Present: soft, normal bowel sounds. Absent: distended, tenderness, guarding, rebound, rigid, diminished bowel sounds - Extremities Exam Extremities exam: Present: normal inspection - Back Exam Back exam: Present: normal inspection, full ROM. Absent: tenderness, CVA tenderness (R), CVA tenderness (L), muscle spasm, paraspinal tenderness, vertebral tenderness, rash noted - Neurological Exam Neurological exam: Present: alert, oriented X3, normal gait - Expanded Neurological Exam Expanded Patient oriented to: Present: person, place, time Cranial nerves: EOM's Intact: Normal, Facial Sensation: Normal Cerebellar function: Finger to Nose: Normal Upper motor neuron: Pronator Drift: Normal, Sensory Extinction: Normal Motor strength exam: RUE: 5, LUE: 5, RLE: 5, LLE: 5 Best Eye Response ([place]): (4) open spontaneously Best Motor Response ([place]): (6) obeys commands Best Verbal Response ([place]): (5) oriented Ynes Total: 15 - Psychiatric Psychiatric exam: Present: normal affect, normal mood - Skin Skin exam: Present: warm, dry, intact, normal color. Absent: rash ED Course Vital Signs 07/30/20 00:25 Temperature 97.8 F Pulse Rate 66 Respiratory 16 Rate Blood Pressure 110/67 O2 Sat by Pulse 98 Oximetry - Reevaluation(s) Reevaluation #1: 07/30/20 03:07 Patient is speaking in full sentences with no signs of distress noted. ED Medical Decision Making - Lab Data Result diagrams: 07/30/20 01:15 07/30/20 01:15 Lab Results 07/30/20 07/30/20 07/30/20 Range/Units 01:15 01:15 01:15 WBC 6.9 (4.5-11.0) K/mm3 RBC 5.30 H (3.65-5.03) M/mm3 Hgb 14.3 (11.8-15.2) gm/dl Hct 42.3 (35.5-45.6) % MCV 80 L (84-94) fl MCH 27 L (28-32) pg MCHC 34 (32-34) % RDW 13.7 (13.2-15.2) % Plt Count 140 (140-440) K/mm3 Lymph % (Auto) 29.0 (13.4-35.0) % [place] % (Auto) 7.1 (0.0-7.3) % Eos % (Auto) 7.0 H (0.0-4.3) % Baso % (Auto) 0.4 (0.0-1.8) % Lymph # (Auto) 2.0 (1.2-5.4) K/mm3 [place] # (Auto) 0.5 (0.0-0.8) K/mm3 Eos # (Auto) 0.5 H (0.0-0.4) K/mm3 Baso # (Auto) 0.0 (0.0-0.1) K/mm3 Seg Neutrophils % 56.5 (40.0-70.0) % Seg Neutrophils # 3.9 (1.8-7.7) K/mm3 Sodium (137-145) mmol/L Potassium (3.6-5.0) mmol/L Chloride (98-107) mmol/L Carbon Dioxide (22-30) mmol/L Anion Gap mmol/L BUN (9-20) mg/dL Creatinine (0.8-1.3) mg/dL Estimated GFR ml/min BUN/Creatinine Ratio % Glucose (75-100) mg/dL Calcium (8.4-10.2) mg/dL Total Bilirubin (0.1-1.2) mg/dL AST (5-40) units/L ALT (7-56) units/L Alkaline Phosphatase (35-129) units/L Total Protein (6.3-8.2) g/dL Albumin (3.9-5) g/dL Albumin/Globulin Ratio % Urine Color Yellow (Yellow) Urine Turbidity Clear (Clear) Urine pH 8.0 H (5.0-7.0) Ur Specific [place] 1.015 (1.003-1.030) Urine Protein <15 mg/dl (Negative) mg/dL Urine Glucose (UA) Neg (Negative) mg/dL Urine Ketones Neg (Negative) mg/dL Urine Blood Neg (Negative) Urine Nitrite Neg (Negative) Urine Bilirubin Neg (Negative) Urine Urobilinogen < 2.0 (<2.0) mg/dL Ur Leukocyte Esterase Neg (Negative) Urine WBC (Auto) 0.0 (0.0-6.0) /HPF Urine RBC (Auto) 0.0 (0.0-6.0) /HPF Salicylates (2.8-20.0) mg/dL Urine Opiates Screen Presumptive negative Urine Methadone Screen Presumptive negative Acetaminophen (10.0-30.0) ug/mL Ur Barbiturates Screen Presumptive negative Ur Phencyclidine Scrn Presumptive negative Ur Amphetamines Screen Presumptive negative U Benzodiazepines Scrn Presumptive negative Urine Cocaine Screen Presumptive negative U Marijuana (THC) Screen Presumptive negative Drugs of Abuse Note Disclamer Plasma/Serum Alcohol (0-0.07) % 07/30/20 07/30/20 07/30/20 Range/Units 01:15 01:15 01:15 WBC (4.5-11.0) K/mm3 RBC (3.65-5.03) M/mm3 Hgb (11.8-15.2) gm/dl Hct (35.5-45.6) % MCV (84-94) fl MCH (28-32) pg MCHC (32-34) % RDW (13.2-15.2) % Plt Count (140-440) K/mm3 Lymph % (Auto) (13.4-35.0) % [place] % (Auto) (0.0-7.3) % Eos % (Auto) (0.0-4.3) % Baso % (Auto) (0.0-1.8) % Lymph # (Auto) (1.2-5.4) K/mm3 [place] # (Auto) (0.0-0.8) K/mm3 Eos # (Auto) (0.0-0.4) K/mm3 Baso # (Auto) (0.0-0.1) K/mm3 Seg Neutrophils % (40.0-70.0) % Seg Neutrophils # (1.8-7.7) K/mm3 Sodium 139 (137-145) mmol/L Potassium 4.1 (3.6-5.0) mmol/L Chloride 100.9 (98-107) mmol/L Carbon Dioxide 33 H (22-30) mmol/L Anion Gap 9 mmol/L BUN 8 L (9-20) mg/dL Creatinine 0.7 L (0.8-1.3) mg/dL Estimated GFR > 60 ml/min BUN/Creatinine Ratio 11 % Glucose 68 L (75-100) mg/dL Calcium 8.9 (8.4-10.2) mg/dL Total Bilirubin 0.50 (0.1-1.2) mg/dL AST 23 (5-40) units/L ALT 28 (7-56) units/L Alkaline Phosphatase 72 (35-129) units/L Total Protein 6.1 L (6.3-8.2) g/dL Albumin 4.3 (3.9-5) g/dL Albumin/Globulin Ratio 2.4 % Urine Color (Yellow) Urine Turbidity (Clear) Urine pH (5.0-7.0) Ur Specific [place] (1.003-1.030) Urine Protein (Negative) mg/dL Urine Glucose (UA) (Negative) mg/dL Urine Ketones (Negative) mg/dL Urine Blood (Negative) Urine Nitrite (Negative) Urine Bilirubin (Negative) Urine Urobilinogen (<2.0) mg/dL Ur Leukocyte Esterase (Negative) Urine WBC (Auto) (0.0-6.0) /HPF Urine RBC (Auto) (0.0-6.0) /HPF Salicylates 0.9 L (2.8-20.0) mg/dL Urine Opiates Screen Urine Methadone Screen Acetaminophen 5.0 L (10.0-30.0) ug/mL Ur Barbiturates Screen Ur Phencyclidine Scrn Ur Amphetamines Screen U Benzodiazepines Scrn Urine Cocaine Screen U Marijuana (THC) Screen Drugs of Abuse Note Plasma/Serum Alcohol (0-0.07) % 07/30/20 Range/Units 01:15 WBC (4.5-11.0) K/mm3 RBC (3.65-5.03) M/mm3 Hgb (11.8-15.2) gm/dl Hct (35.5-45.6) % MCV (84-94) fl MCH (28-32) pg MCHC (32-34) % RDW (13.2-15.2) % Plt Count (140-440) K/mm3 Lymph % (Auto) (13.4-35.0) % [place] % (Auto) (0.0-7.3) % Eos % (Auto) (0.0-4.3) % Baso % (Auto) (0.0-1.8) % Lymph # (Auto) (1.2-5.4) K/mm3 [place] # (Auto) (0.0-0.8) K/mm3 Eos # (Auto) (0.0-0.4) K/mm3 Baso # (Auto) (0.0-0.1) K/mm3 Seg Neutrophils % (40.0-70.0) % Seg Neutrophils # (1.8-7.7) K/mm3 Sodium (137-145) mmol/L Potassium (3.6-5.0) mmol/L Chloride (98-107) mmol/L Carbon Dioxide (22-30) mmol/L Anion Gap mmol/L BUN (9-20) mg/dL Creatinine (0.8-1.3) mg/dL Estimated GFR ml/min BUN/Creatinine Ratio % Glucose (75-100) mg/dL Calcium (8.4-10.2) mg/dL Total Bilirubin (0.1-1.2) mg/dL AST (5-40) units/L ALT (7-56) units/L Alkaline Phosphatase (35-129) units/L Total Protein (6.3-8.2) g/dL Albumin (3.9-5) g/dL Albumin/Globulin Ratio % Urine Color (Yellow) Urine Turbidity (Clear) Urine pH (5.0-7.0) Ur Specific [place] (1.003-1.030) Urine Protein (Negative) mg/dL Urine Glucose (UA) (Negative) mg/dL Urine Ketones (Negative) mg/dL Urine Blood (Negative) Urine Nitrite (Negative) Urine Bilirubin (Negative) Urine Urobilinogen (<2.0) mg/dL Ur Leukocyte Esterase (Negative) Urine WBC (Auto) (0.0-6.0) /HPF Urine RBC (Auto) (0.0-6.0) /HPF Salicylates (2.8-20.0) mg/dL Urine Opiates Screen Urine Methadone Screen Acetaminophen (10.0-30.0) ug/mL Ur Barbiturates Screen Ur Phencyclidine Scrn Ur Amphetamines Screen U Benzodiazepines Scrn Urine Cocaine Screen U Marijuana (THC) Screen Drugs of Abuse Note Plasma/Serum Alcohol < 0.01 (0-0.07) % - Radiology Data [facility] [address] [place] [address] Cat Scan Report Signed Patient: RIYA VALLADARES III MR #: [id number] : 1985 Acct:[id number] Age/Sex: 35 / M ADM Date: 07/29/20 Loc: ED Attending Dr: Ordering Physician: PREETI AGEE NP Date of Service: 07/30/20 Procedure(s): CT head/brain wo con Accession Number(s): [id number] cc: PREETI AGEE NP CT head/brain wo con INDICATION / CLINICAL INFORMATION: acute headache/dizziness. TECHNIQUE: Axial CT imaging of the brain was obtained without contrast. Coronal and sagittal reformatted imaging obtained and reviewed. All CT scans at this location are performed using CT dose reduction for [place] by means of automated exposure control. COMPARISON: Prior head CT 12/24/2016 FINDINGS: No intracranial hemorrhage, mass, or midline shift. No extra-axial fluid collection or suggestion of acute territorial infarction. Ventricular system and basilar cisterns are unremarkable. There is a small mucous retention cyst in the right maxillary sinus. The remainder of the paranasal sinuses, as well as the mastoid air cells, are well aerated and clear. I see no calvarial osseous abnormality. IMPRESSION: 1. No acute intracranial abnormality. 2. Incidental finding of small right maxillary mucous retention cyst, unchanged from 2017. Signer Name: Radha Buenrostro MD Signed: 07/30/2020 2:05 AM Workstation Name: [id number] Transcribed By: JR Dictated By: Radha Buenrostro MD Electronically Authenticated By: Radha Buenrostro MD Signed Date/Time: 07/30/20204 DD/ 1 TD/TT: - Medical Decision Making 35-year-old male that presents with dizziness, vertigo and numbness and tingling sensation. Physical exam is unremarkable. Patient stable and was examined by me. Patient is notified of the labs and CT results with no questions noted by the patient. I believe patient glucose has decreased which caused patient symptoms. Patient did receive 2 apple juices and normal saline IV and blood glucose increased prior to discharge. Patient was instructed to increase hydration. Patient was instructed to follow-up with a primary care doctor in 3- 5 days or if symptoms worsen and continue return to emergency room as soon as possible. At time of discharge, the patient does not seem toxic or ill in appearance. No acute signs of distress noted. Patient agrees to discharge treatment plan of care. No further questions noted by the patient. Critical care attestation.: If time is entered above; I have spent that time in minutes in the direct care of this critically ill patient, excluding procedure time. ED Disposition Clinical Impression: Dehydration, Hypoglycemia, Dizziness, Numbness and tingling of both lower extremities, Numbness and tingling in both hands Headache Qualifiers: Headache type: unspecified Headache chronicity pattern: acute headache Intractability: not intractable Qualified Code(s): R51.9 - Headache, unspecified Disposition: DC- TO HOME OR SELFCARE Is pt being admited?: No Does the pt Need Aspirin: No Condition: Stable Instructions: Hypoglycemia, [id number] Additional Instructions: Follow-up with a primary care doctor in 3-5 days or if symptoms worsen and continue return to emergency room as soon as possible. Referrals: PRIMARY CARE, [Primary Care Provider] - 3-5 Days FRANDY BEGUM MD [Staff Physician] - 3-5 Days Forms: Work/School Release Form(ED) Time of Disposition: 03:10
[2020-07-30 04:52] VITALS: BP 122/72
== END 2020-07-30 04:53 | disposition home or self-care (01) ==
LOC: ED 23:47
DX: E86.0 Dehydration (principal); R51.9 Headache, unspecified; R42 Dizziness and giddiness; R20.0 Anesthesia of skin; Z79.899 Other long term (current) drug therapy
CPT/HCPCS: 36415; 70450; 80053; 80307; 81001; 82962; 85025; 96360; 99284; J7030; 80320; G0480

== ENCOUNTER 2020-09-06 01:39 | Emergency (ER) | payer BC ==
[2020-09-06 02:16] VITALS: BP 104/63
--- NOTE | 2020-09-06 03:27 | Emergency Department Report ---
- General Chief Complaint: Fever Stated Complaint: COLD SX/HEADACHE/BODY NUMBNESS Time Seen by Provider: 09/06/20 02:34 Source: patient Mode of arrival: Ambulatory Limitations: No Limitations - History of Present Illness Initial Comments: 35-year-old -[place] male presents to the emergency room complaining of cold-like symptoms for the last 2 to 3 days. Patient states he has had a temperature and has been taking Goody powders which she reports does not help. Patient denies any loss of taste or smell no diarrhea. Has not got his Covid vaccine. Did not get Covid testing. Has a history of migraine headaches. MD Complaint: fever, cough, sore throat, nasal congestion Onset/Timin -: days(s) Severity: mild Severity scale (0 -10): 3 Consistency: intermittent Improves With: nothing Worsens With: nothing Associated Symptoms: fever, chills, headache, sore throat, cough. denies: rhinorrhea, nausea, vomiting, diarrhea, right sweats, weight loss, hoarseness Treatments Prior to Arrival: other (Goody powders) - Related Data Previous Rx's Medication Instructions Recorded Last Taken Type diphenhydrAMINE [Benadryl CAP] 25 mg PO QHS PRN #20 capsule 03/28/19 Unknown Rx Tolnaftate [Tinactin] 108 gm TP BID #1 powder 02/23/20 Unknown Rx Omeprazole 40 mg PO DAILY #30 capsule. 06/14/20 Unknown Rx Allergies Allergy/AdvReac Type Severity Reaction Status Date / Time No Known Allergies Allergy Verified 04/15/19 17:28 ED Review of Systems ROS: Stated complaint: COLD SX/HEADACHE/BODY NUMBNESS Other details as noted in HPI Comment: All other systems reviewed and negative ED Past Medical Hx - Past Medical History Previous Medical History?: Yes Hx Headaches / Migraines: Yes Additional medical history: Migraines, Chronic itching. Torn esophagus - Surgical History Past Surgical History?: No - Social History Smoking Status: Never Smoker Substance Use Type: None - Medications Home Medications: Home Medications Medication Instructions Recorded Confirmed Last Taken Type diphenhydrAMINE [Benadryl CAP] 25 mg PO QHS PRN #20 capsule 03/28/19 Unknown Rx Tolnaftate [Tinactin] 108 gm TP BID #1 powder 02/23/20 Unknown Rx Omeprazole 40 mg PO DAILY #30 capsule. 06/14/20 Unknown Rx ED Physical Exam - General Limitations: No Limitations General appearance: alert, in no apparent distress - Head Head exam: Present: atraumatic, normocephalic - Eye Eye exam: Present: normal appearance - ENT ENT exam: Present: mucous membranes moist - Neck Neck exam: Present: normal inspection, full ROM - Respiratory Respiratory exam: Present: normal lung sounds bilaterally. Absent: respiratory distress - Cardiovascular Cardiovascular Exam: Present: regular rate, normal rhythm. Absent: systolic murmur, diastolic murmur, rubs, gallop - GI/Abdominal GI/Abdominal exam: Present: soft, normal bowel sounds. Absent: distended, tenderness - Rectal Rectal exam: Present: deferred - Extremities Exam Extremities exam: Present: normal inspection - Back Exam Back exam: Present: normal inspection, full ROM - Neurological Exam Neurological exam: Present: alert, oriented X3 - Psychiatric Psychiatric exam: Present: normal affect, normal mood - Skin Skin exam: Present: warm, dry, intact, normal color. Absent: rash ED Course Vital Signs 09/06/20 01:51 Temperature 100.7 F H Pulse Rate 91 H Respiratory 18 Rate Blood Pressure 104/63 O2 Sat by Pulse 99 Oximetry ED Medical Decision Making - Radiology Data Radiology results: report reviewed [facility] [address] [place] [address] XRay Report Signed Patient: RIYA VALLADARES III MR #: [id number] : 1985 Acct:[id number] Age/Sex: 35 / M ADM Date: 09/06/20 Loc: ED Attending Dr: Ordering Physician: JLUIS KIM Date of Service: 09/06/20 Procedure(s): XR chest routine 2V Accession Number(s): [id number] cc: JLUIS KIM Fluoro Time In Minutes: XR chest routine 2V INDICATION / CLINICAL INFORMATION: fever and cough. COMPARISON: 04/15/2019. FINDINGS: SUPPORT DEVICES: None. HEART /PULMONARY VASCULATURE: No significant abnormality. LUNGS / PLEURA: No significant pulmonary or pleural abnormality. No pneumothorax. ADDITIONAL FINDINGS: No significant additional findings. IMPRESSION: 1. No acute findings. Signer Name: Raymon Alvarado MD Signed: 09/06/2020 3:43 AM Workstation Name: [id number] Transcribed By: ROBBIE Dictated By: RAYMON ALVAARDO MD Electronically Authenticated By: RAYMON ALVARADO MD Signed Date/Time: 09/06/20342 DD/ 1 TD/TT: Print Cancel - Medical Decision Making 35-year-old -[place] male presents to the emergency room complaining of cold-like symptoms for the last 2 to 3 days. Patient states he has had a temperature and has been taking Goody powders which she reports does not help. Patient denies any loss of taste or smell no diarrhea. Has not got his Covid vaccine. Did not get Covid testing. Has a history of migraine headaches. Chest x-ray shows no acute findings. Patient's been ordered ibuprofen for fever control Patient is to follow-up with her primary care provider. Discussed with patient to try [id number] Claritin or Zyrtec for allergies Critical care attestation.: If time is entered above; I have spent that time in minutes in the direct care of this critically ill patient, excluding procedure time. ED Disposition Clinical Impression: Acute viral syndrome Disposition: DC-01 TO HOME OR SELFCARE Is pt being admited?: No Does the pt Need Aspirin: No Condition: Stable Instructions: Viral Respiratory Infection, [id number] Additional Instructions: Chest x-ray is negative for any acute finding. Your symptoms appear most consistent with a nonspecific viral syndrome. However, given this current pandemic, COVID-19 is in the differential of possibilities. Despite your previous negative COVID-19 test, I do recommend repeat outpatient Covid 19 testing. In the meantime, isolate/quarantine yourself and stay away from anyone who is elderly, immunocompromised or chronically ill. You can use ibuprofen every 6-8 hours and Tylenol every 4-8 hours, using the dosing on the back of the bottle, as needed for any fever or body aches. Return to the emergency department with any worsening of your symptoms, development of chest pain or shortness of breath, or with any acute distress. Referrals: [facility] [Provider Group] - 3-5 Days
[2020-09-06] MEDS ORDERED: IBUPROFEN 600 MG TAB PO ONE (03:31)
--- NOTE | 2020-09-06 03:47 | XRay Report ---
XR chest routine 2V INDICATION / CLINICAL INFORMATION: fever and cough. COMPARISON: 04/15/2019. FINDINGS: SUPPORT DEVICES: None. HEART /PULMONARY VASCULATURE: No significant abnormality. LUNGS / PLEURA: No significant pulmonary or pleural abnormality. No pneumothorax. ADDITIONAL FINDINGS: No significant additional findings. IMPRESSION: 1. No acute findings. Signer Name: Reece Alvarez MD Signed: 09/06/2020 3:43 AM Workstation Name: [id number]
== END 2020-09-06 06:00 | disposition home or self-care (01) ==
LOC: ED 01:39
DX: B34.9 Viral infection, unspecified (principal); G43.909 Migraine, unspecified, not intractable, without status migrainosus; Z79.899 Other long term (current) drug therapy
CPT/HCPCS: 71046

== ENCOUNTER 2020-09-10 17:40 | Emergency (ER) | payer BC ==
[2020-09-10 19:50] LABS: Hematocrit 43.3 % (35.5-45.6); Hemoglobin 14.2 gm/dl (11.8-15.2); Mean Corpuscular HGB Conc 33 % (32-34); Mean Corpuscular Volume 80 fl (84-94); Red Blood Count 5.41 M/mm3 (3.65-5.03); Red Cell Distribution Width 13.5 % (13.2-15.2)
[2020-09-10 20:09] LABS: Platelet Count 97 K/mm3 (140-440)
[2020-09-10 20:11] LABS: BUN/Creatinine Ratio 14; Blood Urea Nitrogen 11 mg/dL (9-20); Calcium 8.6 mg/dL (8.4-10.2); Hemolysis Index 5
[2020-09-10 23:03] VITALS: BP 107/68
--- NOTE | 2020-09-10 23:21 | Emergency Department Report ---
ED General Adult HPI - General Chief complaint: Extremity Problem,Nontraumatic Stated complaint: ARM NUMBNESS/LEG/CHEST PAIN Time Seen by Provider: 09/10/20 22:57 Source: patient Mode of arrival: Ambulatory Limitations: No Limitations - History of Present Illness Initial comments: 35 yo M presents to ED with complaint of extremity numbnes x 1 month. Patient states he has been having numbness to both arms and legs, intermittenty, for 1 month. Patient states both legs go numb when he sits on the toilet, even if for only 5 minutes. Sensation returns when he stands up. He also reports he sometimes wakes up with numbness to both arms and legs. Once awake, when he begins moving his arms and legs, the sensation returns. Patient denies any weakness in his arms or legs. He denies any injury. Denies neck or back pain. Patient denies any numbness at this time. Patient also reports history of migraine headaches. States he has headaches, usually right-sided, 3 times a week. Patient states he has been having headaches this often for several years now. Usually relieved with Goody powder. He denies any change in the character or intensity of his headaches. Patient has multiple ER visits (15 ER visits in 2019), usually for headache, rash and/or numbness. Patient had CT Head last month that was only remarkable for small right maxillary mucous retention cyst. -: month(s) (1) Location: head, left, right, upper extremity, lower extremity Quality: aching Consistency: intermittent Improves with: movement Worsens with: other (position) Associated Symptoms: denies: fever/chills, nausea/vomiting, syncope, weakness - Related Data Previous Rx's Medication Instructions Recorded Last Taken Type diphenhydrAMINE [Benadryl CAP] 25 mg PO QHS PRN #20 capsule 03/28/19 Unknown Rx Tolnaftate [Tinactin] 108 gm TP BID #1 powder 02/23/20 Unknown Rx Omeprazole 40 mg PO DAILY #30 capsule. 06/14/20 Unknown Rx Butalb/Acetamin/Caff 50-325-40 1 tab PO Q6HR PRN #10 tab 09/10/20 Unknown Rx [Fioricet] Allergies Allergy/AdvReac Type Severity Reaction Status Date / Time No Known Allergies Allergy Verified 04/15/19 17:28 ED Review of Systems ROS: Stated complaint: ARM NUMBNESS/LEG/CHEST PAIN Other details as noted in HPI Comment: All other systems reviewed and negative Constitutional: denies: fever Musculoskeletal: denies: back pain Neurological: headache, paresthesias. denies: weakness ED Past Medical Hx - Past Medical History Previous Medical History?: Yes Hx Headaches / Migraines: Yes Additional medical history: Migraines, Chronic itching. Torn esophagus - Surgical History Past Surgical History?: No - Social History Smoking Status: Never Smoker Substance Use Type: None - Medications Home Medications: Home Medications Medication Instructions Recorded Confirmed Last Taken Type diphenhydrAMINE [Benadryl CAP] 25 mg PO QHS PRN #20 capsule 03/28/19 Unknown Rx Tolnaftate [Tinactin] 108 gm TP BID #1 powder 02/23/20 Unknown Rx Omeprazole 40 mg PO DAILY #30 capsule. 06/14/20 Unknown Rx Butalb/Acetamin/Caff 50-325-40 1 tab PO Q6HR PRN #10 tab 09/10/20 Unknown Rx [Fioricet] ED Physical Exam - General Limitations: No Limitations General appearance: alert, in no apparent distress, other - Head Head exam: Present: atraumatic, normocephalic - Eye Eye exam: Present: normal appearance, EOMI - ENT ENT exam: Present: mucous membranes moist - Neck Neck exam: Present: normal inspection - Respiratory Respiratory exam: Present: normal lung sounds bilaterally. Absent: respiratory distress - Cardiovascular Cardiovascular Exam: Present: regular rate, normal rhythm - GI/Abdominal GI/Abdominal exam: Absent: distended - Extremities Exam Extremities exam: Present: normal inspection - Neurological Exam Neurological exam: Present: alert, oriented X3, CN II-XII intact. Absent: motor sensory deficit - Psychiatric Psychiatric exam: Present: normal affect, normal mood - Skin Skin exam: Present: warm, dry, intact, normal color ED Course Vital Signs 09/10/20 09/10/20 09/10/20 19:18 23:00 23:15 Temperature 98.4 F 98.2 F Pulse Rate 75 77 84 Respiratory 16 18 18 Rate Blood Pressure 105/58 107/68 107/68 Blood Pressure 107/68 [Left] O2 Sat by Pulse 98 100 99 Oximetry 09/10/20 23:31 Temperature Pulse Rate 78 Respiratory 24 Rate Blood Pressure 107/68 Blood Pressure [Left] O2 Sat by Pulse 100 Oximetry ED Medical Decision Making - Lab Data Result diagrams: 09/10/20 19:21 09/10/20 19:21 - Medical Decision Making 35-year-old male presents to ED with paresthesias and chronic headache. Neuro exam is normal. Vital signs are stable. Labs are unremarkable except for a slightly low WBC and platelet count of unclear etiology. Outpatient follow-up is advised, return precautions given. - Differential Diagnosis Paresthesias, chronic headache Critical care attestation.: If time is entered above; I have spent that time in minutes in the direct care of this critically ill patient, excluding procedure time. ED Disposition Clinical Impression: Paresthesias, Chronic headache Disposition: TO HOME OR SELFCARE Is pt being admited?: No Condition: Stable Instructions: Paresthesia, [id number] Prescriptions: Butalb/Acetamin/Caff 50-325-40 [Fioricet] 1 tab PO Q6HR PRN #10 tab PRN Reason: Headache Referrals: PRIMARY CARE, [Primary Care Provider] - 3-5 Days CANDI KRUEGER MD [Referring] - 3-5 Days Forms: AMA Form, Work/School Release Form(ED) Time of Disposition: 23:27
== END 2020-09-10 23:40 | disposition home or self-care (01) ==
LOC: ED 17:40
DX: R20.2 Paresthesia of skin (principal); R51.9 Headache, unspecified; G89.29 Other chronic pain; Z79.899 Other long term (current) drug therapy
CPT/HCPCS: 36415; 80048; 85027

== ENCOUNTER 2020-10-10 01:33 | Emergency (ER) | payer BC | END 2020-10-10 02:48 | disposition left against medical advice (07) | LOC: ED 01:33 | DX: M54.5 Low back pain (principal); Z53.21 Procedure and treatment not carried out due to patient leaving prior to being seen by health care provider ==

== ENCOUNTER 2020-10-10 05:29 | Emergency (ER) | payer BC ==
[2020-10-10 05:52] VITALS: BP 107/65
[2020-10-10] MEDS ORDERED: ACETAMINOPHEN 500 MG TAB PO STA (10:45)
[2020-10-10] MEDS ORDERED: IBUPROFEN 800 MG TAB PO STA (10:45)
--- NOTE | 2020-10-10 10:49 | Emergency Department Report ---
ED General Adult HPI - General Chief complaint: Pain General Stated complaint: EXTREME PAIN IN BOTH LEGS Time Seen by Provider: 10/10/20 10:13 Source: patient Mode of arrival: Ambulatory Limitations: No Limitations - History of Present Illness Initial comments: 35-year-old -[place] male patient with history of migraines presents with complaints of bilateral leg pain x2 weeks. Patient reports he has had swelling in his right lower leg for few months, however the area of swelling recently became painful. He reports the pain in his left leg starts at his left buttocks and radiates down to his knee. He describes the pain as a burning and tightness. No prior history of sciatica per patient. Patient has been seen here in the ED many times for this pain over the past 1 to 2 years (last visit 09/10/2020). He denies any new injuries, history of DVT/PE/cancer, cough, shortness of breath, hemoptysis, chest pain, or recent long travel/surgeries. Patient states aspirin is not helping with his pain. - Related Data Previous Rx's Medication Instructions Recorded Last Taken Type diphenhydrAMINE [Benadryl CAP] 25 mg PO QHS PRN #20 capsule 03/28/19 Unknown Rx Tolnaftate [Tinactin] 108 gm TP BID #1 powder 02/23/20 Unknown Rx Omeprazole 40 mg PO DAILY #30 capsule. 06/14/20 Unknown Rx Butalb/Acetamin/Caff 50-325-40 1 tab PO Q6HR PRN #10 tab 09/10/20 Unknown Rx [Fioricet] Acetaminophen/Codeine [Tylenol 1 tab PO Q8H PRN #10 tab 10/10/20 Unknown Rx /Codeine # 3 tab] Prednisone [predniSONE 5 mg (6-Day 5 mg PO .TAPER #1 tab.ds.pk 10/10/20 Unknown Rx Pack, 21 Tabs)] Rivaroxaban [Xarelto Starter Pack] 1 each PO BID 30 Days #1 tab.ds.pk 10/10/20 Unknown Rx methocarbamoL [Methocarbamol] 750 mg PO TID PRN #20 tablet 10/10/20 Unknown Rx Allergies Allergy/AdvReac Type Severity Reaction Status Date / Time No Known Allergies Allergy Verified 10/10/20 05:53 ED Review of Systems ROS: Stated complaint: EXTREME PAIN IN BOTH LEGS Other details as noted in HPI Constitutional: denies: diaphoresis, fever, malaise Respiratory: denies: cough, shortness of breath Cardiovascular: denies: chest pain Gastrointestinal: denies: hematochezia Genitourinary: denies: hematuria Musculoskeletal: denies: joint swelling, arthralgia Skin: denies: change in color Neurological: denies: headache, weakness, numbness, paresthesias, abnormal gait ED Past Medical Hx - Past Medical History Previous Medical History?: Yes Hx Headaches / Migraines: Yes Additional medical history: Migraines, Chronic itching. Torn esophagus - Surgical History Past Surgical History?: No - Social History Smoking Status: Never Smoker Substance Use Type: None - Medications Home Medications: Home Medications Medication Instructions Recorded Confirmed Last Taken Type diphenhydrAMINE [Benadryl CAP] 25 mg PO QHS PRN #20 capsule 03/28/19 Unknown Rx Tolnaftate [Tinactin] 108 gm TP BID #1 powder 02/23/20 Unknown Rx Omeprazole 40 mg PO DAILY #30 capsule. 06/14/20 Unknown Rx Butalb/Acetamin/Caff 50-325-40 1 tab PO Q6HR PRN #10 tab 09/10/20 Unknown Rx [Fioricet] Acetaminophen/Codeine [Tylenol 1 tab PO Q8H PRN #10 tab 10/10/20 Unknown Rx /Codeine # 3 tab] Prednisone [predniSONE 5 mg (6-Day 5 mg PO .TAPER #1 tab.ds.pk 10/10/20 Unknown Rx Pack, 21 Tabs)] Rivaroxaban [Xarelto Starter Pack] 1 each PO BID 30 Days #1 tab.ds.pk 10/10/20 Unknown Rx methocarbamoL [Methocarbamol] 750 mg PO TID PRN #20 tablet 10/10/20 Unknown Rx ED Physical Exam - General Limitations: No Limitations General appearance: alert, in no apparent distress - Head Head exam: Present: atraumatic, normocephalic - Eye Eye exam: Present: normal appearance. Absent: scleral icterus - Respiratory Respiratory exam: Absent: respiratory distress - Cardiovascular Cardiovascular Exam: Present: regular rate, normal rhythm - Extremities Exam Extremities exam: Present: full ROM, calf tenderness (right; distended upper calf varicose veins noted with tenderness to palpation; no overlying skin changes noted) - Back Exam Back exam: Present: full ROM. Absent: paraspinal tenderness, vertebral tenderness - Expanded Back Exam Expanded Back exam: Absent: saddle anesthesia Back exam: Sciatic Notch Tenderness: Left, Positive Straight Leg Raise: Left - Neurological Exam Neurological exam: Present: alert, oriented X3, normal gait - Psychiatric Psychiatric exam: Present: normal affect, normal mood - Skin Skin exam: Present: warm, dry, intact, normal color. Absent: rash, cyanosis, diaphoretic, erythema, pallor, ecchymosis ED Course Vital Signs 10/10/20 10/10/20 10/10/20 05:43 10:51 16:16 Temperature 97.6 F Pulse Rate 62 72 Respiratory 18 16 16 Rate Blood Pressure 107/65 [Left] O2 Sat by Pulse 100 98 Oximetry ED Medical Decision Making - Lab Data Result diagrams: 10/10/20 13:56 10/10/20 13:56 - Radiology Data Radiology results: report reviewed DUPLEX DOPPLER LOWER EXTREMITY VEINS, BILATERAL INDICATION: pain, swelling in right leg. TECHNIQUE: Duplex doppler imaging was performed through the veins of both lower extremities using venous compression and other maneuvers. COMPARISON: No relevant prior imaging study available. FINDINGS: Right Common femoral vein: Negative. Right Superficial femoral vein: Negative. Right Popliteal vein: Positive for acute appearing occlusive thrombus.. Right Calf veins: Negative. Left Common femoral vein: Negative. Left Superficial femoral vein: Negative. Left Popliteal vein: Negative. Left Calf veins: Negative. Additional findings: Superficial venous thrombosis is identified in the right lesser saphenous vein.. IMPRESSION: Positive for acute appearing occlusive DVT in the right popliteal vein. The technologist informed Leonides/JLUIS at 1147 hours EST. Signer Name: Michael Wolff Jr, MD Signed: 10/10/2020 11:56 AM Workstation Name: [id number] - Medical Decision Making 35-year-old -[place] male patient with history of migraines presents with complaints of bilateral leg pain x2 weeks. Patient reports he has had swelling in his right lower leg for few months, however the area of swelling recently became painful. He reports the pain in his left leg starts at his left buttocks and radiates down to his knee. He describes the pain as a burning and tightness. No prior history of sciatica per patient. Patient has been seen here in the ED many times for this pain over the past 1 to 2 years (last visit 09/10/2020). He denies any new injuries, history of DVT/PE/cancer, cough, shortness of breath, hemoptysis, chest pain, or recent long travel/surgeries. Patient states aspirin is not helping with his pain. Left leg exam is consistent with sciatica. Distended varicose veins noted to the right calf. Doppler ultrasound performed and shows DVT to right popliteal vein and superficial thrombosis to the right saphenous vein. Discussed patient with Dr. Leblanc, vascular surgery-recommends giving first dose of Eliquis or Xarelto here in the ED and discharged home with starter pack of anticoagulation. Patient is to follow-up with [facility] vascular [place] within 14 days. Patient continues to deny cough, shortness of breath, or chest pain, therefore PE is not suspected at this time. Discussed diagnosis, importance of follow-up, cautions with anticoagulation therapy, and signs and symptoms that should prompt immediate return to the emergency department with patient who verbalized understanding. He is otherwise well-appearing and his vitals are within normal limits. Patient is stable for discharge home. Critical care attestation.: If time is entered above; I have spent that time in minutes in the direct care of this critically ill patient, excluding procedure time. ED Disposition Clinical Impression: Deep venous thrombosis of right popliteal vein, Left sided sciatica Disposition: 01 HOME / SELF CARE / HOMELESS Is pt being admited?: No Condition: Stable Instructions: How to Use Compression Stockings, Rivaroxaban oral tablets, Bleeding Precautions When on Anticoagulant Therapy, Pediatric, Sciatica, Deep Vein Thrombosis Additional Instructions: Is follow-up with the following clinic in 14 days: [facility] Address: [address] [place] [id number] Leblanc Prescriptions: methocarbamoL [Methocarbamol] 750 mg PO TID PRN #20 tablet PRN Reason: muscle spasm/tightness Prednisone [predniSONE 5 mg (6-Day Pack, 21 Tabs)] 5 mg PO .TAPER #1 tab.ds.pk Acetaminophen/Codeine [Tylenol /Codeine # 3 tab] 1 tab PO Q8H PRN #10 tab PRN Reason: Pain , Severe (7-10) Rivaroxaban [Xarelto Starter Pack] 1 each PO BID 30 Days #1 tab.ds.pk Referrals: PRIMARY CARE, [Primary Care Provider] - 3-5 Days Forms: Work/School Release Form(ED)
--- NOTE | 2020-10-10 12:02 | Vascular Lab Report ---
DUPLEX DOPPLER LOWER EXTREMITY VEINS, BILATERAL INDICATION: pain, swelling in right leg. TECHNIQUE: Duplex doppler imaging was performed through the veins of both lower extremities using ve nous compression and other maneuvers. COMPARISON: No relevant prior imaging study available. FINDINGS: Right Common femoral vein: Negative. Right Superficial femoral vein: Negative. Right Popliteal vein: Positive for acute appearing occlusive thrombus.. Right Calf veins: Negative. Left Common femoral vein: Negative. Left Superficial femoral vein: Negative. Left Popliteal vein: Negative. Left Calf veins: Negative. Additional findings: Superficial venous thrombosis is identified in the right lesser saphenous vein.. IMPRESSION: Positive for acute appearing occlusive DVT in the right popliteal vein. The technologist informed An gel/PA at 1147 hours EST. Signer Name: Michael Wolff Jr, MD Signed: 10/10/2020 11:56 AM Workstation Name: [id number]
--- NOTE | 2020-10-10 13:21 | Consultation ---
History of Present Illness - Reason for Consult Consult date: 10/10/20 DVT - History of Present Illness Patient with a history of right popliteal and small saphenous vein thrombus. Additionally, the patient presented complaining of some initial pain to his leg on the left which is now resolved. Patient does not have significant swelling distal to his thrombus. Medications and Allergies Allergies Allergy/AdvReac Type Severity Reaction Status Date / Time No Known Allergies Allergy Verified 10/10/20 05:53 Home Medications Medication Instructions Recorded Confirmed Last Taken Type diphenhydrAMINE [Benadryl CAP] 25 mg PO QHS PRN #20 capsule 03/28/19 Unknown Rx Tolnaftate [Tinactin] 108 gm TP BID #1 powder 02/23/20 Unknown Rx Omeprazole 40 mg PO DAILY #30 capsule. 06/14/20 Unknown Rx Butalb/Acetamin/Caff 50-325-40 1 tab PO Q6HR PRN #10 tab 09/10/20 Unknown Rx [Fioricet] Review of Systems All systems: negative Exam - Constitutional Vitals: Temp Pulse Resp BP Pulse Ox 97.6 F 62 16 107/65 100 10/10/20 05:43 10/10/20 05:43 10/10/20 10:51 10/10/20 05:43 10/10/20 05:43 General appearance: Present: no acute distress - EENT ENT: hearing intact - Respiratory Respiratory effort: normal - Extremities Extremities: abnormal (Palpable SVT in his small saphenous vein on the left) - Abdominal General gastrointestinal: Present: deferred Male genitourinary: Present: deferred - Rectal Rectal Exam: deferred - Psychiatric Psychiatric: cooperative Results - Imaging and Cardiology Venous US: report reviewed Assessment and Plan Patient with popliteal DVT and small saphenous vein SVT he will need to be initiated on at least 6 months of oral anticoagulation. Given the patient's small DVT and lack of swelling distal to this DVT, the patient will not require hospitalization for his DVT alone. He will follow-up in 2 weeks following discharge from the hospital.
--- NOTE | 2020-10-10 13:40 | Event Note ---
Date: 10/10/20
[2020-10-10] MEDS ORDERED: RIVAROXABAN 20 MG TAB PO ONE (14:00)
[2020-10-10 14:39] LABS: Alanine Aminotransferase 13 units/L (7-56); Albumin 3.8 g/dL (3.9-5); Blood Urea Nitrogen 10 mg/dL (9-20); Calcium 8.8 mg/dL (8.4-10.2); Hemolysis Index 3
[2020-10-10 14:57] LABS: BUN/Creatinine Ratio 14
[2020-10-10 15:14] LABS: Basophils % (Auto) 0.8 % (0.0-1.8); Eosinophils # (Auto) 0.5 K/mm3 (0.0-0.4); Hematocrit 42.9 % (35.5-45.6); Hemoglobin 14.1 gm/dl (11.8-15.2); Lymphocytes # (Auto) 1.8 K/mm3 (1.2-5.4); Lymphocytes % (Auto) 41.6 % (13.4-35.0); Mean Corpuscular HGB Conc 33 % (32-34); Mean Corpuscular Volume 80 fl (84-94); Monocytes # (Auto) 0.3 K/mm3 (0.0-0.8); Monocytes % (Auto) 6.8 % (0.0-7.3); Platelet Count 160 K/mm3 (140-440); Red Blood Count 5.38 M/mm3 (3.65-5.03); Red Cell Distribution Width 13.5 % (13.2-15.2)
[2020-10-10 15:27] LABS: INR 1.07 (0.87-1.13)
[2020-10-10 15:28] LABS: Partial Thromboplastin Time 32.3 Sec. (24.2-36.6)
== END 2020-10-10 16:16 | disposition home or self-care (01) ==
LOC: ED 05:29
DX: I82.431 Acute embolism and thrombosis of right popliteal vein (principal); M54.32 Sciatica, left side; G43.909 Migraine, unspecified, not intractable, without status migrainosus; L29.9 Pruritus, unspecified
CPT/HCPCS: 36415; 80053; 85025; 85610; 85730; 93970; 99284

== ENCOUNTER 2020-12-06 19:40 | Emergency (ER) | payer BC ==
--- NOTE | 2020-12-06 21:30 | Event Note ---
ED Screening Note Date of service: 12/06/20 Time: 21:29 ED Screening Note: Patient 35-year-old male with history of DVT right lower extremity who comes in for tachypnea shortness of breath states Xarelto x2 weeks. Was taking an aspirin a day and no longer has aspirin. Rates symptoms at 4/10 with shortness of breath and chest pain rated at 3/10 patient denies nausea vomiting no diaphoresis lightheadedness or dizziness. There is no wheezing or stridor. Patient does not have history of asthma. This initial assessment/diagnostic orders/clinical plan/treatment(s) is/are subject to change based on patients health status, clinical progression and re- assessment by fellow clinical providers in the ED. Further treatment and workup at subsequent clinical providers discretion. Patient/guardian urged not to elope from the ED as their condition may be serious if not clinically assessed and m anaged. Initial orders include: cmp, cbc, d-dimer, cxr, ekg, trop, pt, ptt, xray RLE
[2020-12-06 21:46] LABS: Basophils % (Auto) 0.7 % (0.0-1.8); Eosinophils # (Auto) 0.4 K/mm3 (0.0-0.4); Eosinophils % (Auto) 6.9 % (0.0-4.3); Hematocrit 45.7 % (35.5-45.6); Hemoglobin 15.4 gm/dl (11.8-15.2); Lymphocytes # (Auto) 1.9 K/mm3 (1.2-5.4); Lymphocytes % (Auto) 34.2 % (13.4-35.0); Mean Corpuscular HGB Conc 34 % (32-34); Mean Corpuscular Volume 76 fl (84-94); Monocytes # (Auto) 0.3 K/mm3 (0.0-0.8); Monocytes % (Auto) 5.8 % (0.0-7.3); Platelet Count 186 K/mm3 (140-440); Red Blood Count 5.99 M/mm3 (3.65-5.03); Red Cell Distribution Width 14.3 % (13.2-15.2)
--- NOTE | 2020-12-06 21:46 | XRay Report ---
CHEST 2 VIEWS INDICATION / CLINICAL INFORMATION: tachypnea. COMPARISON: 09/06/2020 FINDINGS: SUPPORT DEVICES: None. HEART / MEDIASTINUM: No significant abnormality. LUNGS / PLEURA: No significant pulmonary or pleural abnormality. No pneumothorax. ADDITIONAL FINDINGS: No significant additional findings. IMPRESSION: 1. No acute findings. Signer Name: Maldonado Rico MD Signed: 12/06/2020 9:42 PM Workstation Name: [id number]
[2020-12-06 21:58] LABS: INR 1.02 (0.87-1.13)
[2020-12-06 21:59] LABS: Partial Thromboplastin Time 32.6 Sec. (24.2-36.6)
[2020-12-06 22:07] LABS: Alanine Aminotransferase 20 units/L (7-56); Albumin 4.4 g/dL (3.9-5); BUN/Creatinine Ratio 18; Blood Urea Nitrogen 14 mg/dL (9-20); Calcium 9.7 mg/dL (8.4-10.2); Hemolysis Index 19
--- NOTE | 2020-12-07 00:23 | Emergency Department Report ---
ED Extremity Problem HPI - General Chief complaint: Extremity Injury, Lower Stated complaint: NUMBNESS IN RT LEG Time Seen by Provider: 12/06/20 23:58 Source: patient Mode of arrival: Ambulatory Limitations: No Limitations - History of Present Illness Initial comments: 35-year-old male with a history of right popliteal and small saphenous vein thrombus diagnosed here in September presents to the hospital complaining of a 5- minute episode of right leg numbness. Patient states he was sitting when he felt numbness from his knee down to his foot. He shook his leg to get his feeling back which took approximately 5 minutes. Patient states that symptoms h ave since resolved and he has full feeling and no pain. Patient states he has been noncompliant with Xarelto x1 week since running out of the free 30-day supply. He has been taking 1 baby aspirin a day for the past week. Patient has never followed up since hospital treatment. He reports that the right leg swelling has improved from initial diagnosis. He denies chest pain, shortness of breath, back pain, leg weakness. - Related Data Previous Rx's Medication Instructions Recorded Last Taken Type diphenhydrAMINE [Benadryl CAP] 25 mg PO QHS PRN #20 capsule 03/28/19 Unknown Rx Tolnaftate [Tinactin] 108 gm TP BID #1 powder 02/23/20 Unknown Rx Omeprazole 40 mg PO DAILY #30 capsule. 06/14/20 Unknown Rx Butalb/Acetamin/Caff 50-325-40 1 tab PO Q6HR PRN #10 tab 09/10/20 Unknown Rx [Fioricet] Acetaminophen/Codeine [Tylenol 1 tab PO Q8H PRN #10 tab 10/10/20 Unknown Rx /Codeine # 3 tab] Prednisone [predniSONE 5 mg (6-Day 5 mg PO .TAPER #1 tab.ds.pk 10/10/20 Unknown Rx Pack, 21 Tabs)] methocarbamoL [Methocarbamol] 750 mg PO TID PRN #20 tablet 10/10/20 Unknown Rx Rivaroxaban [Xarelto Starter Pack] 1 each PO BID 30 Days #1 tab.ds.pk 12/07/20 Unknown Rx Rivaroxaban [Xarelto] 20 mg PO QDAY #30 tab 12/07/20 Unknown Rx Allergies Allergy/AdvReac Type Severity Reaction Status Date / Time No Known Allergies Allergy Verified 10/10/20 05:53 ED Review of Systems ROS: Stated complaint: NUMBNESS IN RT LEG Other details as noted in HPI Comment: All other systems reviewed and negative ED Past Medical Hx - Past Medical History Previous Medical History?: Yes Hx Headaches / Migraines: Yes Additional medical history: Migraines, Chronic itching. Torn esophagus - Surgical History Past Surgical History?: No - Social History Smoking Status: Current Some Day Smoker Substance Use Type: None - Medications Home Medications: Home Medications Medication Instructions Recorded Confirmed Last Taken Type diphenhydrAMINE [Benadryl CAP] 25 mg PO QHS PRN #20 capsule 03/28/19 Unknown Rx Tolnaftate [Tinactin] 108 gm TP BID #1 powder 02/23/20 Unknown Rx Omeprazole 40 mg PO DAILY #30 capsule. 06/14/20 Unknown Rx Butalb/Acetamin/Caff 50-325-40 1 tab PO Q6HR PRN #10 tab 09/10/20 Unknown Rx [Fioricet] Acetaminophen/Codeine [Tylenol 1 tab PO Q8H PRN #10 tab 10/10/20 Unknown Rx /Codeine # 3 tab] Prednisone [predniSONE 5 mg (6-Day 5 mg PO .TAPER #1 tab.ds.pk 10/10/20 Unknown Rx Pack, 21 Tabs)] methocarbamoL [Methocarbamol] 750 mg PO TID PRN #20 tablet 10/10/20 Unknown Rx Rivaroxaban [Xarelto Starter Pack] 1 each PO BID 30 Days #1 tab.ds.pk 12/07/20 Unknown Rx Rivaroxaban [Xarelto] 20 mg PO QDAY #30 tab 12/07/20 Unknown Rx ED Physical Exam - General Limitations: No Limitations - Other Other exam information: General: No acute distress Head: Atraumatic Eyes: normal appearance ENT: Moist mucous membranes Neck: Normal appearance, no midline tenderness Chest: Clear to auscultation bilaterally CV: Regular rate and rhythm Abdomen: Soft, normal bowel sounds, nontender, nondistended, no rebound or guarding Back: Normal inspection Extremity: Normal inspection, no leg edema or calf tenderness. Mild dilated posterior leg vein, varicose vein at the popliteal and upper calf area full range of motion, 2+ DP pulse Neuro: Alert O x 3, no facial asymmetry, speech clear, no gross motor sensory de ficit Psych: Appropriate behavior Skin: No rash ED Course Vital Signs 12/06/20 12/06/20 12/06/20 20:01 22:41 22:42 Temperature 98.1 F 97.8 F 97.8 F Pulse Rate 68 68 68 Respiratory 49 H 14 14 Rate Blood Pressure 110/75 110/69 Blood Pressure 110/69 [Left] O2 Sat by Pulse 95 98 98 Oximetry ED Medical Decision Making - Lab Data Result diagrams: 12/06/20 21:28 12/06/20 21:28 Lab Results 12/06/20 12/06/20 12/06/20 Range/Units 21:28 21:28 21:28 WBC 5.7 (4.5-11.0) K/mm3 RBC 5.99 H (3.65-5.03) M/mm3 Hgb 15.4 H (11.8-15.2) gm/dl Hct 45.7 H (35.5-45.6) % MCV 76 L (84-94) fl MCH 26 L (28-32) pg MCHC 34 (32-34) % RDW 14.3 (13.2-15.2) % Plt Count 186 (140-440) K/mm3 Lymph % (Auto) 34.2 (13.4-35.0) % [place] % (Auto) 5.8 (0.0-7.3) % Eos % (Auto) 6.9 H (0.0-4.3) % Baso % (Auto) 0.7 (0.0-1.8) % Lymph # (Auto) 1.9 (1.2-5.4) K/mm3 [place] # (Auto) 0.3 (0.0-0.8) K/mm3 Eos # (Auto) 0.4 (0.0-0.4) K/mm3 Baso # (Auto) 0.0 (0.0-0.1) K/mm3 Seg Neutrophils % 52.4 (40.0-70.0) % Seg Neutrophils # 3.0 (1.8-7.7) K/mm3 PT 14.5 (12.2-14.9) Sec. INR 1.02 (0.87-1.13) APTT 32.6 (24.2-36.6) Sec. D-Dimer 319.96 H (0-234) ng/mlDDU Sodium 140 (137-145) mmol/L Potassium 4.5 (3.6-5.0) mmol/L Chloride 103.3 (98-107) mmol/L Carbon Dioxide 27 (22-30) mmol/L Anion Gap 14 mmol/L BUN 14 (9-20) mg/dL Creatinine 0.8 (0.8-1.3) mg/dL Estimated GFR > 60 ml/min BUN/Creatinine Ratio 18 % Glucose 103 H (75-100) mg/dL Calcium 9.7 (8.4-10.2) mg/dL Total Bilirubin 0.60 (0.1-1.2) mg/dL AST 21 (5-40) units/L ALT 20 (7-56) units/L Alkaline Phosphatase 83 (35-129) units/L Troponin T < 0.010 (0.00-0.029) ng/mL Total Protein 7.5 (6.3-8.2) g/dL Albumin 4.4 (3.9-5) g/dL Albumin/Globulin Ratio 1.4 % - Radiology Data Radiology results: report reviewed Chest x-ray: No acute finding - Medical Decision Making 35-year-old male presents to the hospital complaining of 5-minute episode of right lower leg numbness while sitting. Numbness corresponds to area of sciatic nerve distribution and likely the cause of numbness while sitting. Patient has 2+ DP pulse and reports improved swelling compared to initial diagnosis of DVT in September. Patient will require continued anticoagulant use given recent DVT and will be reprovided a 30-day supply of Xarelto with a prescription. Outpatient follow-up advised Critical Care Time: No Critical care attestation.: If time is entered above; I have spent that time in minutes in the direct care of this critically ill patient, excluding procedure time. ED Disposition Clinical Impression: Right leg paresthesias, History of deep venous thrombosis (DVT) of distal vein of right lower extremity Disposition: HOME / SELF CARE / HOMELESS Is pt being admited?: No Does the pt Need Aspirin: No Condition: Stable Instructions: Paresthesia, Deep Vein Thrombosis Additional Instructions: Take the medication as prescribed. Take the starter pack and then continue Xarelto 20 mg once a day. Follow-up with your doctor or doctor/clinic provided. Return if symptoms worsen as indicated by your discharge instructions. Prescriptions: Rivaroxaban [Xarelto] 20 mg PO QDAY #30 tab Rivaroxaban [Xarelto Starter Pack] 1 each PO BID 30 Days #1 tab.ds.pk Referrals: HALINA RIVAS MD [Staff Physician] - 3-5 Days [facility] [Provider Group] - 3-5 Days Time of Disposition: 01:02
[2020-12-07] MEDS: ACETAMINOPHEN 325 MG TAB PO ONE ×2 (01:28→01:56)
[2020-12-07] MEDS ORDERED: RIVAROXABAN 15 MG TAB PO ONE (02:00)
[2020-12-07 02:58] VITALS: BP 110/63
--- NOTE | 2020-12-12 14:42 | Electrocardiograph Report ---
[facility] Test Date: 2020-12-06 Test Time: 22:05:40 Pat Name: RIYA VALLADARES Department: Room: Gender: M Maxillofacial Pathology: SUE : 1985 Requested By: ILIA MARKS Order Number: [id number] Reading MD: Tony Soto Measurements Intervals [place] Rate: 54 P: 73 UT: 151 QRS: 4 QRSD: 93 T: 55 QT: 380 QTc: 361 Interpretive Statements Sinus rhythm No previous ECG available for comparison Electronically Signed On 12-12-2020 14:41:48 EDT by Tony Soto
== END 2020-12-07 03:18 | disposition home or self-care (01) ==
LOC: ED 19:40
DX: R20.2 Paresthesia of skin (principal); Z86.718 Personal history of other venous thrombosis and embolism; G43.909 Migraine, unspecified, not intractable, without status migrainosus; L29.9 Pruritus, unspecified; F17.200 Nicotine dependence, unspecified, uncomplicated
CPT/HCPCS: 36415; 71046; 80053; 84484; 85025; 85379; 85610; 85730; 93005; 99284

== ENCOUNTER 2021-01-14 18:48 | Emergency (ER) | payer BC ==
[2021-01-14 18:57] VITALS: BP 119/70
--- NOTE | 2021-01-14 21:28 | Emergency Department Report ---
ED Allergic Reaction HPI - General Chief complaint: Allergic Reaction Stated complaint: RASH Source: patient Mode of arrival: Ambulatory Limitations: No Limitations - History of Present Illness Initial Comments: Patient is a 35-year-old -[place] male with a history of chronic migraine headaches who presents to the ED with complaint of acute onset persistent diffuse itchy erythematous maculopapular urticarial rashes for the last 4 days. Patient states that he has been using calamine lotion for itching and also took Benadryl which helped with the itching but that the symptoms have not resolved with these medications. Patient states that the etiology of his rashes and suspected allergic reaction is unknown. Patient denies swollen lips or tongue, dysphagia, dysphonia, swollen face, wheezing, cough, shortness of breath, chest pain, nausea and vomiting or diarrhea and abdominal pain, fever and chills. MD Complaint: allergic reaction, hives, other (allergic reaction; icthing) -: Sudden, days(s) (4) Exposure: unknown Symptoms: rash, itching. denies: facial swelling, lip swelling, difficulty swallowing, difficulty breathing, orolingual swelling, hoarseness, nausea, vomiting, abdominal pain Severity: moderate Treatment Prior to Arrival: benadryl Previous Allergy History: none - Related Data Previous Rx's Medication Instructions Recorded Last Taken Type diphenhydrAMINE [Benadryl CAP] 25 mg PO QHS PRN #20 capsule 03/28/19 Unknown Rx Tolnaftate [Tinactin] 108 gm TP BID #1 powder 02/23/20 Unknown Rx Omeprazole 40 mg PO DAILY #30 capsule. 06/14/20 Unknown Rx Butalb/Acetamin/Caff 50-325-40 1 tab PO Q6HR PRN #10 tab 09/10/20 Unknown Rx [Fioricet] Acetaminophen/Codeine [Tylenol 1 tab PO Q8H PRN #10 tab 10/10/20 Unknown Rx /Codeine # 3 tab] Prednisone [predniSONE 5 mg (6-Day 5 mg PO .TAPER #1 tab.ds.pk 10/10/20 Unknown Rx Pack, 21 Tabs)] methocarbamoL [Methocarbamol] 750 mg PO TID PRN #20 tablet 10/10/20 Unknown Rx Rivaroxaban [Xarelto Starter Pack] 1 each PO BID 30 Days #1 tab.ds.pk 12/07/20 Unknown Rx Rivaroxaban [Xarelto] 20 mg PO QDAY #30 tab 12/07/20 Unknown Rx Famotidine [Pepcid] 20 mg PO BID #40 tablet 01/14/21 Unknown Rx Prednisone [predniSONE 10 mg 10 mg PO .TAPER #21 tab.ds.pk 01/14/21 Unknown Rx (6-Day Pack, 21 Tabs)] diphenhydrAMINE [Benadryl CAP] 25 mg PO Q6HR PRN #30 capsule 01/14/21 Unknown Rx Allergies Allergy/AdvReac Type Severity Reaction Status Date / Time No Known Allergies Allergy Verified 10/10/20 05:53 ED Review of Systems ROS: Stated complaint: RASH Other details as noted in HPI Constitutional: denies: chills, fever Eyes: denies: eye pain, eye discharge, vision change ENT: denies: ear pain, throat pain Respiratory: denies: cough, shortness of breath, wheezing Cardiovascular: denies: chest pain, palpitations Endocrine: no symptoms reported Gastrointestinal: denies: abdominal pain, nausea, diarrhea Genitourinary: denies: urgency, dysuria Musculoskeletal: denies: back pain, joint swelling, arthralgia Skin: rash, change in color, pruritus. denies: lesions (Diffuse itchy erythematous maculopapular urticarial rashes) Neurological: denies: headache, weakness, paresthesias Psychiatric: denies: anxiety, depression Hematological/Lymphatic: denies: easy bleeding, easy bruising ED Past Medical Hx - Past Medical History Hx Headaches / Migraines: Yes Additional medical history: Migraines, Chronic itching. Torn esophagus - Social History Smoking Status: Current Some Day Smoker Substance Use Type: None - Medications Home Medications: Home Medications Medication Instructions Recorded Confirmed Last Taken Type diphenhydrAMINE [Benadryl CAP] 25 mg PO QHS PRN #20 capsule 03/28/19 Unknown Rx Tolnaftate [Tinactin] 108 gm TP BID #1 powder 02/23/20 Unknown Rx Omeprazole 40 mg PO DAILY #30 capsule. 06/14/20 Unknown Rx Butalb/Acetamin/Caff 50-325-40 1 tab PO Q6HR PRN #10 tab 09/10/20 Unknown Rx [Fioricet] Acetaminophen/Codeine [Tylenol 1 tab PO Q8H PRN #10 tab 10/10/20 Unknown Rx /Codeine # 3 tab] Prednisone [predniSONE 5 mg (6-Day 5 mg PO .TAPER #1 tab.ds.pk 10/10/20 Unknown Rx Pack, 21 Tabs)] methocarbamoL [Methocarbamol] 750 mg PO TID PRN #20 tablet 10/10/20 Unknown Rx Rivaroxaban [Xarelto Starter Pack] 1 each PO BID 30 Days #1 tab.ds.pk 12/07/20 Unknown Rx Rivaroxaban [Xarelto] 20 mg PO QDAY #30 tab 12/07/20 Unknown Rx Famotidine [Pepcid] 20 mg PO BID #40 tablet 01/14/21 Unknown Rx Prednisone [predniSONE 10 mg 10 mg PO .TAPER #21 tab.ds.pk 01/14/21 Unknown Rx (6-Day Pack, 21 Tabs)] diphenhydrAMINE [Benadryl CAP] 25 mg PO Q6HR PRN #30 capsule 01/14/21 Unknown Rx ED Physical Exam - General Limitations: No Limitations General appearance: alert, in no apparent distress - Head Head exam: Present: atraumatic, normocephalic, normal inspection - Eye Eye exam: Present: normal appearance, PERRL, EOMI Pupils: Present: normal accommodation - ENT ENT exam: Present: normal exam, normal orophraynx, mucous membranes moist, TM's normal bilaterally, normal external ear exam - Neck Neck exam: Present: normal inspection, full ROM - Respiratory Respiratory exam: Present: normal lung sounds bilaterally. Absent: respiratory distress, wheezes, rales, rhonchi, chest wall tenderness, accessory muscle use, decreased breath sounds, prolonged expiratory - Cardiovascular Cardiovascular Exam: Present: regular rate, normal rhythm, normal heart sounds. Absent: systolic murmur, diastolic murmur, rubs, gallop - GI/Abdominal GI/Abdominal exam: Present: soft, normal bowel sounds. Absent: tenderness, guarding, rebound, hyperactive bowel sounds, hypoactive bowel sounds, organomegaly - Extremities Exam Extremities exam: Present: normal inspection, full ROM, normal capillary refill - Back Exam Back exam: Present: normal inspection, full ROM. Absent: tenderness, CVA tenderness (R), CVA tenderness (L), muscle spasm, paraspinal tenderness, vertebral tenderness - Neurological Exam Neurological exam: Present: alert, oriented X3, CN II-XII intact, normal gait, reflexes normal - Psychiatric Psychiatric exam: Present: normal affect, normal mood - Skin Skin exam: Present: warm, dry, intact, normal color, rash (Diffuse erythematous maculopapular urticarial rashes), erythema, urticaria ED Course Vital Signs 01/14/21 18:56 Temperature 98.4 F Pulse Rate 69 Respiratory 18 Rate Blood Pressure 119/70 O2 Sat by Pulse 100 Oximetry ED Medical Decision Making - Medical Decision Making This is a 35-year-old -[place] male with a history of chronic migraine headaches who presents to the ED with complaint of acute onset persistent diffuse itchy erythematous maculopapular urticarial rashes for the last 4 days. Patient states that he has been using calamine lotion for itching and also took Benadryl which helped with the itching but that the symptoms have not resolved with these medications. Patient states that the etiology of his rashes and suspected allergic reaction is unknown. In the ED, patient is alert and oriented x3 and is not in any distress. Patient is hemodynamically stable. Patient was treated in the ED for acute allergic reaction with oral prednisone, Benadryl and Pepcid. On reevaluation, patient's itching resolved medications. Patient will discharge home on medications and advised to follow-up with his primary care physician in 5 5 to 7 days for reevaluation or return to the ED immediately if symptoms get worse. - Differential Diagnosis Allergic reaction; urticaria; itching; irritant dermatitis Critical care attestation.: If time is entered above; I have spent that time in minutes in the direct care of this critically ill patient, excluding procedure time. ED Disposition Clinical Impression: Itching with irritation, Acute urticaria Acute allergic reaction Qualifiers: Encounter type: initial encounter Qualified Code(s): T78.40XA - Allergy, unspecified, initial encounter Disposition: HOME / SELF CARE / HOMELESS Is pt being admited?: No Does the pt Need Aspirin: No Condition: Stable Instructions: Allergies, Adult, [id number], Hives, Dzvy-cr-Icab, Rash, Adult, Ukuo-id-[id number] Additional Instructions: Your symptoms are likely due to acute allergic reaction to an object. Therefore take medications with food, drink plenty of fluids and follow-up with your primary care physician in 5 to 7 days for reevaluation. Return to the ED immediately if symptoms get worse. Prescriptions: diphenhydrAMINE [Benadryl CAP] 25 mg PO Q6HR PRN #30 capsule PRN Reason: Itching Famotidine [Pepcid] 20 mg PO BID #40 tablet Prednisone [predniSONE 10 mg (6-Day Pack, 21 Tabs)] 10 mg PO .TAPER #21 tab.ds.pk Referrals: [facility] [Provider Group] - 3-5 Days Time of Disposition: 21:29 Print Language: [place]
[2021-01-14] MEDS ORDERED: diphenhydrAMINE 25 MG CAP PO ONE (22:09)
[2021-01-14] MEDS ORDERED: FAMOTIDINE 20 MG TAB PO ONE (22:09)
[2021-01-14] MEDS ORDERED: predniSONE 20 MG TAB PO ONE (22:09)
[2021-01-14] MEDS ORDERED: methylPREDNISolone Sod Succinate 125 MG/2 ML INJ IM ONE (23:30)
== END 2021-01-14 22:33 | disposition home or self-care (01) ==
LOC: ED 18:48
DX: L50.9 Urticaria, unspecified (principal); T78.40XA Allergy, unspecified, initial encounter; X58.XXXA Exposure to other specified factors, initial encounter; G43.909 Migraine, unspecified, not intractable, without status migrainosus; F17.200 Nicotine dependence, unspecified, uncomplicated
CPT/HCPCS: 99282; J2930; J7512

== ENCOUNTER 2021-02-25 20:37 | Emergency (ER) | payer BC ==
[2021-02-25 21:11] VITALS: BP 107/71
[2021-02-25] MEDS ORDERED: FAMOTIDINE 20 MG TAB PO ONE (21:23)
[2021-02-25] MEDS ORDERED: hydrOXYzine PAMOATE 25 MG CAP PO ONE (21:23)
[2021-02-25] MEDS ORDERED: predniSONE 20 MG TAB PO ONE (21:23)
--- NOTE | 2021-02-25 22:46 | Emergency Department Report ---
ED General Adult HPI - General Chief complaint: Allergic Reaction Stated complaint: ITCHY HIVES/SWELLNG Source: patient Mode of arrival: Ambulatory Limitations: No Limitations - History of Present Illness Initial comments: Patient is a 35-year-old -Lith[place]ian male with a history of migraine headaches who presents to the ED with complaint of acute onset persistent diffuse itchy erythematous maculopapular urticarial rashes for the last 2 days, worse in the last 6 hours. Patient states that he has been taking Benadryl at home with no relief. Patient states that he is unsure of the etiology of the itching or what he may have been exposed to causing the symptoms. Patient denies shortness of breath, dysuria, urinary frequency and urgency, swollen lips or tongue, swollen throat, dysphonia, dysphagia, shortness of breath, cough, wheezing, chest pain, facial swelling, abdominal pain or diarrhea. MD Complaint: diffuse itchy rashes -: Sudden, days(s) (2) Location: upper extremity (diffuse), lower extremity (diffuse) Radiation: non-radiation Severity scale (0 -10): 7 Quality: burning, other (itchy) Consistency: constant Improves with: none Worsens with: none Associated Symptoms: denies other symptoms. denies: confusion, chest pain, cough, diaphoresis, fever/chills, headaches, loss of appetite, malaise, nausea/vomiting, shortness of breath, syncope, weakness Treatments Prior to Arrival: none - Related Data Previous Rx's Medication Instructions Recorded Last Taken Type diphenhydrAMINE [Benadryl CAP] 25 mg PO QHS PRN #20 capsule 03/28/19 Unknown Rx Tolnaftate [Tinactin] 108 gm TP BID #1 powder 02/23/20 Unknown Rx Omeprazole 40 mg PO DAILY #30 capsule. 06/14/20 Unknown Rx Butalb/Acetamin/Caff 50-325-40 1 tab PO Q6HR PRN #10 tab 09/10/20 Unknown Rx [Fioricet] Acetaminophen/Codeine [Tylenol 1 tab PO Q8H PRN #10 tab 10/10/20 Unknown Rx /Codeine # 3 tab] Prednisone [predniSONE 5 mg (6-Day 5 mg PO .TAPER #1 tab.ds.pk 10/10/20 Unknown Rx Pack, 21 Tabs)] methocarbamoL [Methocarbamol] 750 mg PO TID PRN #20 tablet 10/10/20 Unknown Rx Rivaroxaban [Xarelto Starter Pack] 1 each PO BID 30 Days #1 tab.ds.pk 12/07/20 Unknown Rx Rivaroxaban [Xarelto] 20 mg PO QDAY #30 tab 12/07/20 Unknown Rx diphenhydrAMINE [Benadryl CAP] 25 mg PO Q6HR PRN #30 capsule 01/14/21 Unknown Rx Famotidine [Pepcid] 20 mg PO BID #40 tablet 02/25/21 Unknown Rx Prednisone [predniSONE 10 mg 10 mg PO .TAPER #21 tab.ds.pk 02/25/21 Unknown Rx (6-Day Pack, 21 Tabs)] hydrOXYzine PAMOATE [Vistaril] 50 mg PO Q6HR PRN #40 capsule 02/25/21 Unknown Rx Allergies Allergy/AdvReac Type Severity Reaction Status Date / Time No Known Allergies Allergy Verified 02/25/21 20:56 ED Review of Systems ROS: Stated complaint: ITCHY HIVES/SWELLNG Other details as noted in HPI Constitutional: denies: chills, fever Eyes: denies: eye pain, eye discharge, vision change ENT: denies: ear pain, throat pain Respiratory: denies: cough, shortness of breath, wheezing Cardiovascular: denies: chest pain, palpitations Endocrine: no symptoms reported Gastrointestinal: denies: abdominal pain, nausea, vomiting, diarrhea Genitourinary: denies: urgency, dysuria Musculoskeletal: denies: back pain, joint swelling, arthralgia Skin: rash (Diffuse itchy erythematous maculopapular urticarial rashes), change in color, pruritus. denies: lesions Neurological: denies: headache, weakness, paresthesias Psychiatric: denies: anxiety, depression Hematological/Lymphatic: denies: easy bleeding, easy bruising ED Past Medical Hx - Past Medical History Hx Headaches / Migraines: Yes Additional medical history: Migraines, Chronic itching. Torn esophagus - Social History Smoking Status: Current Some Day Smoker Substance Use Type: None - Medications Home Medications: Home Medications Medication Instructions Recorded Confirmed Last Taken Type diphenhydrAMINE [Benadryl CAP] 25 mg PO QHS PRN #20 capsule 03/28/19 Unknown Rx Tolnaftate [Tinactin] 108 gm TP BID #1 powder 02/23/20 Unknown Rx Omeprazole 40 mg PO DAILY #30 capsule. 06/14/20 Unknown Rx Butalb/Acetamin/Caff 50-325-40 1 tab PO Q6HR PRN #10 tab 09/10/20 Unknown Rx [Fioricet] Acetaminophen/Codeine [Tylenol 1 tab PO Q8H PRN #10 tab 10/10/20 Unknown Rx /Codeine # 3 tab] Prednisone [predniSONE 5 mg (6-Day 5 mg PO .TAPER #1 tab.ds.pk 10/10/20 Unknown Rx Pack, 21 Tabs)] methocarbamoL [Methocarbamol] 750 mg PO TID PRN #20 tablet 10/10/20 Unknown Rx Rivaroxaban [Xarelto Starter Pack] 1 each PO BID 30 Days #1 tab.ds.pk 12/07/20 Unknown Rx Rivaroxaban [Xarelto] 20 mg PO QDAY #30 tab 12/07/20 Unknown Rx diphenhydrAMINE [Benadryl CAP] 25 mg PO Q6HR PRN #30 capsule 01/14/21 Unknown Rx Famotidine [Pepcid] 20 mg PO BID #40 tablet 02/25/21 Unknown Rx Prednisone [predniSONE 10 mg 10 mg PO .TAPER #21 tab.ds.pk 02/25/21 Unknown Rx (6-Day Pack, 21 Tabs)] hydrOXYzine PAMOATE [Vistaril] 50 mg PO Q6HR PRN #40 capsule 02/25/21 Unknown Rx ED Physical Exam - General Limitations: No Limitations General appearance: alert, in no apparent distress - Head Head exam: Present: atraumatic, normocephalic, normal inspection - Eye Eye exam: Present: normal appearance, PERRL, EOMI Pupils: Present: normal accommodation - ENT ENT exam: Present: normal exam, normal orophraynx, mucous membranes moist, TM's normal bilaterally, normal external ear exam - Neck Neck exam: Present: normal inspection, full ROM - Respiratory Respiratory exam: Present: normal lung sounds bilaterally. Absent: respiratory distress, rales, chest wall tenderness, accessory muscle use, decreased breath sounds - Cardiovascular Cardiovascular Exam: Present: regular rate, normal rhythm, normal heart sounds. Absent: systolic murmur, diastolic murmur, rubs, gallop - GI/Abdominal GI/Abdominal exam: Present: soft, normal bowel sounds. Absent: tenderness, guarding, rebound, hyperactive bowel sounds, hypoactive bowel sounds, organomegaly - Extremities Exam Extremities exam: Present: normal inspection, full ROM, normal capillary refill - Back Exam Back exam: Present: normal inspection, full ROM. Absent: tenderness, CVA tenderness (R), CVA tenderness (L), muscle spasm, paraspinal tenderness, vertebral tenderness - Neurological Exam Neurological exam: Present: alert, oriented X3, CN II-XII intact, normal gait, reflexes normal - Psychiatric Psychiatric exam: Present: normal affect, normal mood - Skin Skin exam: Present: warm, dry, intact, normal color, rash (Diffuse itchy erythematous maculopapular urticarial rashes), erythema, urticaria ED Course Vital Signs 02/25/21 21:03 Temperature 97.7 F Pulse Rate 74 Respiratory 19 Rate Blood Pressure 107/71 O2 Sat by Pulse 96 Oximetry ED Medical Decision Making - Medical Decision Making This is a 35-year-old -Lithuanian male with a history of migraine headaches who presents to the ED with complaint of acute onset persistent diffuse itchy erythematous maculopapular urticarial rashes for the last 2 days, worse in the last 6 hours. Patient states that he has been taking Benadryl at home with no relief. Patient states that he is unsure of the etiology of the itching or what he may have been exposed to causing the symptoms. In the ED, patient is alert and oriented x3 and is not in any distress. Patient was treated for acute allergic reaction in the ED. On reevaluation, patient's itching improved significantly in the ED and the rashes resolved. Patient was discharged home on medications. Patient is advised to follow-up with his primary care physician in 7 to 10 days for reevaluation. Patient advised return to the ED immediately if symptoms get worse. - Differential Diagnosis Chronic urticaria; irritant dermatitis; allergic reaction; Critical care attestation.: If time is entered above; I have spent that time in minutes in the direct care of this critically ill patient, excluding procedure time. ED Disposition Clinical Impression: Irritant dermatitis, Itching with irritation, Acute urticaria Acute allergic reaction Qualifiers: Encounter type: subsequent encounter Qualified Code(s): T78.40XD - Allergy, unspecified, subsequent encounter Disposition: 01 HOME / SELF CARE / HOMELESS Is pt being admited?: No Does the pt Need Aspirin: No Condition: Stable Instructions: Allergies, Adult, [id number], Contact Dermatitis, [id number], Hives, [id number], Rash, Adult, [id number] Additional Instructions: Take medication with food, drink plenty of fluids and follow-up with your primary care physician in 7 to 10 days for reevaluation. Return to the ED immediately if symptoms get worse. Prescriptions: Famotidine [Pepcid] 20 mg PO BID #40 tablet Prednisone [predniSONE 10 mg (6-Day Pack, 21 Tabs)] 10 mg PO .TAPER #21 tab.ds.pk hydrOXYzine PAMOATE [Vistaril] 50 mg PO Q6HR PRN #40 capsule PRN Reason: Itching Referrals: [facility] [Provider Group] - 3-5 Days Time of Disposition: 22:49 Print Language: CANADIAN
== END 2021-02-25 23:40 | disposition home or self-care (01) ==
LOC: ED 20:37
DX: L24.9 Irritant contact dermatitis, unspecified cause (principal); F17.200 Nicotine dependence, unspecified, uncomplicated
CPT/HCPCS: 99282; J7512; Q0177; J3490

== ENCOUNTER 2021-03-16 02:50 | Emergency (ER) | payer BC ==
[2021-03-16 02:56] VITALS: BP 126/72
[2021-03-16] MEDS ORDERED: predniSONE 20 MG TAB PO ONE (04:00)
[2021-03-16] MEDS ORDERED: IPRATROPIUM/ALBUTEROL SULFATE 3 ML AMPUL.NEB IH ONE (04:01)
--- NOTE | 2021-03-16 04:04 | Emergency Department Report ---
ED Chest Pain HPI - General Chief Complaint: Chest Pain Stated Complaint: CHEST PAIN Time Seen by Provider: 03/16/21 04:00 Source: EMS Mode of arrival: Stretcher Limitations: No Limitations - History of Present Illness Initial Comments: 35-year-old -Botswanan male presents to the emergency department with a complaint of some midsternal chest discomfort and some shortness of breath that started around noon today (Thursday). He describes the shortness of breath as "it feels like it is difficult to fully take a breath." The chest discomfort is a dull ache and he says that it was initially 10 out of 10 in intensity, but currently is a 2 out of 10. Patient also complains of having some itching and hives that started earlier today. In reviewing his chart it appears that he has been here multiple times with an allergic reaction. He denies any known medicinal or environmental allergies. He denies any past medical history other than occasional migraines. He denies any tobacco or illicit drug use. No recent travel or sick contacts at home. The patient is not vaccinated for COVID-19. He denies any fever, cough, lower extremity swelling, nausea, vomiting, back pain or diaphoresis. He did take some Benadryl for the itching and hives earlier today with some improvement. Severity scale (0 -10): 3 - Related Data Previous Rx's Medication Instructions Recorded Last Taken Type diphenhydrAMINE [Benadryl CAP] 25 mg PO QHS PRN #20 capsule 03/28/19 Unknown Rx Tolnaftate [Tinactin] 108 gm TP BID #1 powder 02/23/20 Unknown Rx Omeprazole 40 mg PO DAILY #30 capsule. 06/14/20 Unknown Rx Butalb/Acetamin/Caff 50-325-40 1 tab PO Q6HR PRN #10 tab 09/10/20 Unknown Rx [Fioricet] Acetaminophen/Codeine [Tylenol 1 tab PO Q8H PRN #10 tab 10/10/20 Unknown Rx /Codeine # 3 tab] Prednisone [predniSONE 5 mg (6-Day 5 mg PO .TAPER #1 tab.ds.pk 10/10/20 Unknown Rx Pack, 21 Tabs)] methocarbamoL [Methocarbamol] 750 mg PO TID PRN #20 tablet 10/10/20 Unknown Rx Rivaroxaban [Xarelto Starter Pack] 1 each PO BID 30 Days #1 tab.ds.pk 12/07/20 Unknown Rx Rivaroxaban [Xarelto] 20 mg PO QDAY #30 tab 12/07/20 Unknown Rx diphenhydrAMINE [Benadryl CAP] 25 mg PO Q6HR PRN #30 capsule 01/14/21 Unknown Rx Famotidine [Pepcid] 20 mg PO BID #40 tablet 02/25/21 Unknown Rx Prednisone [predniSONE 10 mg 10 mg PO .TAPER #21 tab.ds.pk 02/25/21 Unknown Rx (6-Day Pack, 21 Tabs)] hydrOXYzine PAMOATE [Vistaril] 50 mg PO Q6HR PRN #40 capsule 02/25/21 Unknown Rx Allergies Allergy/AdvReac Type Severity Reaction Status Date / Time No Known Allergies Allergy Verified 02/25/21 20:56 Heart Score - HEART Score History: Slightly suspicious EKG: Normal Age: < 45 Risk factors: No known risk factors Troponin: < normal limit HEART Score: 0 - EKG Read Time Time EKG Completed: 05:05 EKG Read Time: 05:06 - Critical Actions Critical Actions: 0-3 pts:0.9-1.7%risk of adverse cardiac event.Candidate for discharge ED Review of Systems ROS: Stated complaint: CHEST PAIN Other details as noted in HPI Comment: All other systems reviewed and negative Constitutional: denies: chills, fever Eyes: denies: eye pain, vision change ENT: denies: ear pain, throat pain Respiratory: shortness of breath. denies: cough Cardiovascular: chest pain. denies: edema Gastrointestinal: denies: abdominal pain, vomiting Musculoskeletal: denies: back pain, arthralgia Skin: rash (Hives), pruritus Neurological: denies: headache, weakness ED Past Medical Hx - Past Medical History Hx Headaches / Migraines: Yes Additional medical history: Migraines, Chronic itching. Torn esophagus - Social History Smoking Status: Current Some Day Smoker Substance Use Type: None - Medications Home Medications: Home Medications Medication Instructions Recorded Confirmed Last Taken Type diphenhydrAMINE [Benadryl CAP] 25 mg PO QHS PRN #20 capsule 03/28/19 Unknown Rx Tolnaftate [Tinactin] 108 gm TP BID #1 powder 02/23/20 Unknown Rx Omeprazole 40 mg PO DAILY #30 capsule.dr 06/14/20 Unknown Rx Butalb/Acetamin/Caff 50-325-40 1 tab PO Q6HR PRN #10 tab 09/10/20 Unknown Rx [Fioricet] Acetaminophen/Codeine [Tylenol 1 tab PO Q8H PRN #10 tab 10/10/20 Unknown Rx /Codeine # 3 tab] Prednisone [predniSONE 5 mg (6-Day 5 mg PO .TAPER #1 tab.ds.pk 10/10/20 Unknown Rx Pack, 21 Tabs)] methocarbamoL [Methocarbamol] 750 mg PO TID PRN #20 tablet 10/10/20 Unknown Rx Rivaroxaban [Xarelto Starter Pack] 1 each PO BID 30 Days #1 tab.ds.pk 12/07/20 Unknown Rx Rivaroxaban [Xarelto] 20 mg PO QDAY #30 tab 12/07/20 Unknown Rx diphenhydrAMINE [Benadryl CAP] 25 mg PO Q6HR PRN #30 capsule 01/14/21 Unknown Rx Famotidine [Pepcid] 20 mg PO BID #40 tablet 02/25/21 Unknown Rx Prednisone [predniSONE 10 mg 10 mg PO .TAPER #21 tab.ds.pk 02/25/21 Unknown Rx (6-Day Pack, 21 Tabs)] hydrOXYzine PAMOATE [Vistaril] 50 mg PO Q6HR PRN #40 capsule 02/25/21 Unknown Rx ED Physical Exam - General Limitations: No Limitations - Other Other exam information: GENERAL: The patient is well-developed well-nourished. HENT: Normocephalic. Atraumatic. Patient has moist mucous membranes. EYES: Extraocular motions are intact NECK: Supple. Trachea is midline. CHEST/LUNGS: Clear to auscultation. There is no respiratory distress noted. HEART/CARDIOVASCULAR: Regular. There is no tachycardia. There is no murmur. ABDOMEN: Abdomen is soft, nontender. Patient has normal bowel sounds. SKIN: Skin is warm and dry. NEURO: The patient is awake, alert, and oriented. The patient is cooperative. The patient has no focal neurologic deficits. Normal speech. MUSCULOSKELETAL: There is no tenderness or deformity. There is no limitation range of motion. ED Course Vital Signs 03/16/21 03/16/21 02:55 06:57 Temperature 98.2 F Pulse Rate 74 65 Respiratory 18 17 Rate Blood Pressure 126/72 [Left] O2 Sat by Pulse 99 100 Oximetry BRIAN score - Brian Score Age > 65: (0) No Aspirin use within the Past 7 Days: (0) No 3 or more CAD Risk Factors: (0) No 2 or more Angina events in past 24 hrs: (1) Yes Known CAD with more than 50% Stenosis: (0) No Elevated Cardiac Markers: (0) No ST Deviation Greater than 0.5mm: (0) No BRIAN Score: 1 ED Medical Decision Making - Lab Data Result diagrams: 03/16/21 04:49 03/16/21 04:49 Lab Results 03/16/21 03/16/21 03/16/21 Range/Units 04:49 04:49 04:49 WBC 6.0 (4.5-11.0) K/mm3 RBC 5.06 H (3.65-5.03) M/mm3 Hgb 12.6 (11.8-15.2) gm/dl Hct 39.8 (35.5-45.6) % MCV 79 L (84-94) fl MCH 25 L (28-32) pg MCHC 32 (32-34) % RDW 14.2 (13.2-15.2) % Plt Count 171 (140-440) K/mm3 Lymph % (Auto) 29.8 (13.4-35.0) % Morrill % (Auto) 3.3 (0.0-7.3) % Eos % (Auto) 2.2 (0.0-4.3) % Baso % (Auto) 0.9 (0.0-1.8) % Lymph # (Auto) 1.8 (1.2-5.4) K/mm3 Morrill # (Auto) 0.2 (0.0-0.8) K/mm3 Eos # (Auto) 0.1 (0.0-0.4) K/mm3 Baso # (Auto) 0.1 (0.0-0.1) K/mm3 Seg Neutrophils % 63.8 (40.0-70.0) % Seg Neutrophils # 3.8 (1.8-7.7) K/mm3 PT 21.0 H (12.2-14.9) Sec. INR 1.64 H (0.87-1.13) Sodium 142 (137-145) mmol/L Potassium 4.3 (3.6-5.0) mmol/L Chloride 104.3 (98-107) mmol/L Carbon Dioxide 27 (22-30) mmol/L Anion Gap 15 mmol/L BUN 8 L (9-20) mg/dL Creatinine 0.7 L (0.8-1.3) mg/dL Estimated GFR > 60 ml/min BUN/Creatinine Ratio 11 % Glucose 86 (75-100) mg/dL Calcium 8.9 (8.4-10.2) mg/dL Total Bilirubin 0.40 (0.1-1.2) mg/dL AST 19 (5-40) units/L ALT 19 (7-56) units/L Alkaline Phosphatase 74 (35-129) units/L Troponin T < 0.010 (0.00-0.029) ng/mL Total Protein 5.8 L (6.3-8.2) g/dL Albumin 3.9 (3.9-5) g/dL Albumin/Globulin Ratio 2.1 % - EKG Data -: EKG Interpreted by Me EKG shows normal: sinus rhythm, axis, intervals, QRS complexes, ST-T waves Rate: normal - EKG Data When compared to previous EKG there are: no significant change Interpretation: normal EKG, unchanged when compared t (12/06/20) - Radiology Data Radiology results: image reviewed interpreted by me: Chest x-ray does not show any acute process. There are no pleural effusions, obvious pneumonia and there is no pneumothorax. - Medical Decision Making This patient presents to the emergency department with a complaint of some midsternal chest pain that started at around noon. Initially he said it was 10 out of 10 pain but it is down to 2 out of 10 without any treatment. He also complains of some itching and hives. EKG does not show any morphology consistent with ST elevation myocardial infarction. Chest x-ray does not show any pneumonia, pleural effusions, pneumothorax, wide mediastinum, or any other acute process. Labs have been mostly unremarkable including CBC, metabolic panel and negative troponin. The patient does have elevation in his PT/PTT/INR, coags. He is not on any anticoagulation. He denies any abdominal pain. There is no elevation in his transaminases levels. We discussed this lab abnormality. The patient is low on the heart and BRIAN score. He is low on the Wells score criteria and negative on the pulmonary embolism rule out criteria. For all these reasons he appears safe for discharge home at this time. His contact information has been sent over to the [facility] [place], and someone from their office should be contacting him shortly for close outpatient follow-up as part of our [facility] low as chest pain protocol. Critical Care Time: No Critical care attestation.: If time is entered above; I have spent that time in minutes in the direct care of this critically ill patient, excluding procedure time. ED Disposition Clinical Impression: Elevated INR Chest pain Qualifiers: Chest pain type: unspecified Qualified Code(s): R07.9 - Chest pain, unspecified Disposition: 01 HOME / SELF CARE / HOMELESS Is pt being admited?: No Condition: Stable Instructions: Nonspecific Chest Pain, Adult Additional Instructions: Please follow-up with a primary care physician in the next few days. I have given you a referral for a local primary care physician, Dr. Gee, and a primary care clinic, [facility]. I am sending her contact information over to the [facility] and someone from their office should be contacting you shortly for close outpatient follow-up. Just in case, I am giving you a referral for one of their principal consultant, Dr. Crowe. Return to the emergency department with any worsening of your symptoms, new or c oncerning symptoms not addressed during this current emergency department visit, or with any acute distress. Referrals: FRANDY GEE MD [Staff Physician] - 2-3 Days BIRD CROWE MD [Staff Physician] - 2-3 Days [facility] [Provider Group] - 2-3 Days Forms: Work/School Release Form(ED) Time of Disposition: 06:42
--- NOTE | 2021-03-16 04:29 | XRay Report ---
CHEST 2 VIEWS INDICATION / CLINICAL INFORMATION: Chest Pain. COMPARISON: None available. FINDINGS: SUPPORT DEVICES: None. HEART / MEDIASTINUM: No significant abnormality. LUNGS / PLEURA: No significant pulmonary or pleural abnormality. No pneumothorax. ADDITIONAL FINDINGS: No significant additional findings. IMPRESSION: 1. No acute findings. Signer Name: Maldonado Rico MD Signed: 03/16/2021 4:25 AM Workstation Name: [id number]
[2021-03-16 05:01] LABS: Basophils # (Auto) 0.1 K/mm3 (0.0-0.1); Basophils % (Auto) 0.9 % (0.0-1.8); Eosinophils # (Auto) 0.1 K/mm3 (0.0-0.4); Eosinophils % (Auto) 2.2 % (0.0-4.3); Hematocrit 39.8 % (35.5-45.6); Hemoglobin 12.6 gm/dl (11.8-15.2); Lymphocytes # (Auto) 1.8 K/mm3 (1.2-5.4); Lymphocytes % (Auto) 29.8 % (13.4-35.0); Mean Corpuscular HGB Conc 32 % (32-34); Mean Corpuscular Volume 79 fl (84-94); Monocytes # (Auto) 0.2 K/mm3 (0.0-0.8); Monocytes % (Auto) 3.3 % (0.0-7.3); Platelet Count 171 K/mm3 (140-440); Red Blood Count 5.06 M/mm3 (3.65-5.03); Red Cell Distribution Width 14.2 % (13.2-15.2)
[2021-03-16 05:11] LABS: INR 1.64 (0.87-1.13)
[2021-03-16 05:27] LABS: Alanine Aminotransferase 19 units/L (7-56); Albumin 3.9 g/dL (3.9-5); Blood Urea Nitrogen 8 mg/dL (9-20); Calcium 8.9 mg/dL (8.4-10.2); Hemolysis Index 8
[2021-03-16 05:28] LABS: BUN/Creatinine Ratio 11
--- NOTE | 2021-03-21 13:17 | Electrocardiograph Report ---
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
== END 2021-03-16 06:50 | disposition home or self-care (01) ==
LOC: ED 02:50
DX: R07.9 Chest pain, unspecified (principal); R79.1 Abnormal coagulation profile; Z79.899 Other long term (current) drug therapy; G43.909 Migraine, unspecified, not intractable, without status migrainosus; F17.200 Nicotine dependence, unspecified, uncomplicated
CPT/HCPCS: 36415; 71046; 80053; 84484; 85025; 85610; 93005; 93010; 99284

== ENCOUNTER 2021-05-03 22:33 | Emergency (ER) | payer BC ==
[2021-05-03] MEDS ORDERED: diphenhydrAMINE 50 MG/ML VIAL IV ONE (23:41)
[2021-05-03] MEDS ORDERED: methylPREDNISolone Sod Succinate 125 MG/2 ML INJ IV ONE (23:41)
[2021-05-03] MEDS ORDERED: ACETAMINOPHEN 500 MG TAB PO ONE (23:41)
--- NOTE | 2021-05-04 00:19 | XRay Report ---
CHEST 1 VIEW 05/03/2021 11:56 PM INDICATION / CLINICAL INFORMATION: FEVER. COMPARISON: 03/16/2021 FINDINGS: SUPPORT DEVICES: None. HEART / MEDIASTINUM: No significant abnormality. LUNGS / PLEURA: No significant pulmonary or pleural abnormality. No pneumothorax. ADDITIONAL FINDINGS: No significant additional findings. IMPRESSION: No acute abnormality. Signer Name: Elvis Golden MD Signed: 05/04/2021 12:15 AM Workstation Name: [id number]
[2021-05-04 00:47] LABS: Alanine Aminotransferase 18 units/L (7-56); Albumin 3.5 g/dL (3.9-5); BUN/Creatinine Ratio 13; Blood Urea Nitrogen 10 mg/dL (9-20); Calcium 8.3 mg/dL (8.4-10.2); Hemolysis Index 8
[2021-05-04 01:37] LABS: Basophils % (Auto) 0.5 % (0.0-1.8); Eosinophils % (Auto) 0.9 % (0.0-4.3); Hematocrit 36.8 % (35.5-45.6); Hemoglobin 12.8 gm/dl (11.8-15.2); Lymphocytes # (Auto) 0.9 K/mm3 (1.2-5.4); Mean Corpuscular HGB Conc 35 % (32-34); Mean Corpuscular Volume 78 fl (84-94); Monocytes # (Auto) 0.1 K/mm3 (0.0-0.8); Monocytes % (Auto) 2.5 % (0.0-7.3); Platelet Count 196 K/mm3 (140-440); Red Blood Count 4.69 M/mm3 (3.65-5.03); Red Cell Distribution Width 14.5 % (13.2-15.2)
[2021-05-04 03:43] LABS: Bacteria,Urine 1+ /HPF (Negative); Bilirubin,Urine NEG (Negative); Blood,Urine NEG (Negative); Color,Urine Straw (Yellow); Protein,Urine <15 mg/dL mg/dL (Negative); Urobilinogen,Urine < 2.0 mg/dL (<2.0); WBC,Urine < 1.0 /HPF (0.0-6.0)
--- NOTE | 2021-05-04 03:51 | Emergency Department Report ---
ED Allergic Reaction HPI - General Chief complaint: Allergic Reaction Stated complaint: ALLERGIC REACTION Source: patient Mode of arrival: Ambulatory Limitations: No Limitations - History of Present Illness Initial Comments: Patient is a 35-year-old -Cub[place] male with a history of chronic itching due to chronic urticaria and migraine headaches who presents to the ED with complaint of acute onset persistent diffuse body aches and pains, nasal and sinus congestion, persistent dry cough, diffuse itchy mild erythematous maculopapular rashes and persistent fever and chills for the last 2 days, worse in the last 12 hours. Patient is homeless and stated that his symptoms are worsened in the last 6 hours. Patient denies nausea and vomiting, chest pain, shortness of breath, sore throat, diarrhea, dysuria, urinary frequency and urgency, abdominal pain, headache, dizziness, syncope or testicular pain. MD Complaint: allergic reaction, hives, other (diffuse body aches; fever and chills; cough) -: Sudden, hour(s) (12) Exposure: unknown Symptoms: rash, itching. denies: facial swelling, lip swelling, difficulty swallowing, difficulty breathing, dizziness, nausea, vomiting, other, abdominal pain Severity: moderate Treatment Prior to Arrival: none Previous Allergy History: none - Related Data Previous Rx's Medication Instructions Recorded Last Taken Type diphenhydrAMINE [Benadryl CAP] 25 mg PO QHS PRN #20 capsule 03/28/19 Unknown Rx Tolnaftate [Tinactin] 108 gm TP BID #1 powder 02/23/20 Unknown Rx Omeprazole 40 mg PO DAILY #30 capsule. 06/14/20 Unknown Rx Butalb/Acetamin/Caff 50-325-40 1 tab PO Q6HR PRN #10 tab 09/10/20 Unknown Rx [Fioricet] Acetaminophen/Codeine [Tylenol 1 tab PO Q8H PRN #10 tab 10/10/20 Unknown Rx /Codeine # 3 tab] Prednisone [predniSONE 5 mg (6-Day 5 mg PO .TAPER #1 tab.ds.pk 10/10/20 Unknown Rx Pack, 21 Tabs)] methocarbamoL [Methocarbamol] 750 mg PO TID PRN #20 tablet 10/10/20 Unknown Rx Rivaroxaban [Xarelto Starter Pack] 1 each PO BID 30 Days #1 tab.ds.pk 12/07/20 Unknown Rx Rivaroxaban [Xarelto] 20 mg PO QDAY #30 tab 12/07/20 Unknown Rx diphenhydrAMINE [Benadryl CAP] 25 mg PO Q6HR PRN #30 capsule 01/14/21 Unknown Rx Famotidine [Pepcid] 20 mg PO BID #40 tablet 02/25/21 Unknown Rx Prednisone [predniSONE 10 mg 10 mg PO .TAPER #21 tab.ds.pk 02/25/21 Unknown Rx (6-Day Pack, 21 Tabs)] Acetaminophen [Tylenol] 500 mg PO Q6HR PRN #24 tablet 05/04/21 Unknown Rx Famotidine [Pepcid] 20 mg PO BID #60 tablet 05/04/21 Unknown Rx hydrOXYzine PAMOATE [Vistaril] 50 mg PO Q6HR PRN #40 capsule 05/04/21 Unknown Rx predniSONE [Deltasone] 60 mg PO QDAY #15 tab 05/04/21 Unknown Rx Allergies Allergy/AdvReac Type Severity Reaction Status Date / Time No Known Allergies Allergy Verified 02/25/21 20:56 ED Review of Systems ROS: Stated complaint: ALLERGIC REACTION Other details as noted in HPI Constitutional: chills, fever, malaise, weakness Eyes: denies: eye pain, eye discharge, vision change ENT: congestion. denies: ear pain, throat pain, dental pain, hearing loss Respiratory: cough. denies: shortness of breath, wheezing Cardiovascular: denies: chest pain, palpitations Endocrine: no symptoms reported Gastrointestinal: denies: abdominal pain, nausea, vomiting, diarrhea Genitourinary: denies: urgency, dysuria Musculoskeletal: denies: back pain, joint swelling, arthralgia Skin: rash (Diffuse itchy erythematous maculopapular urticarial rashes), change in color, pruritus. denies: lesions Neurological: denies: headache, weakness, paresthesias Psychiatric: denies: anxiety, depression Hematological/Lymphatic: denies: easy bleeding, easy bruising ED Past Medical Hx - Past Medical History Previous Medical History?: Yes Hx Headaches / Migraines: Yes Additional medical history: Migraines, Chronic itching. Torn esophagus - Surgical History Past Surgical History?: No - Social History Smoking Status: Never Smoker Substance Use Type: None - Medications Home Medications: Home Medications Medication Instructions Recorded Confirmed Last Taken Type diphenhydrAMINE [Benadryl CAP] 25 mg PO QHS PRN #20 capsule 03/28/19 Unknown Rx Tolnaftate [Tinactin] 108 gm TP BID #1 powder 02/23/20 Unknown Rx Omeprazole 40 mg PO DAILY #30 capsule. 06/14/20 Unknown Rx Butalb/Acetamin/Caff 50-325-40 1 tab PO Q6HR PRN #10 tab 09/10/20 Unknown Rx [Fioricet] Acetaminophen/Codeine [Tylenol 1 tab PO Q8H PRN #10 tab 10/10/20 Unknown Rx /Codeine # 3 tab] Prednisone [predniSONE 5 mg (6-Day 5 mg PO .TAPER #1 tab.ds.pk 10/10/20 Unknown Rx Pack, 21 Tabs)] methocarbamoL [Methocarbamol] 750 mg PO TID PRN #20 tablet 10/10/20 Unknown Rx Rivaroxaban [Xarelto Starter Pack] 1 each PO BID 30 Days #1 tab.ds.pk 12/07/20 Unknown Rx Rivaroxaban [Xarelto] 20 mg PO QDAY #30 tab 12/07/20 Unknown Rx diphenhydrAMINE [Benadryl CAP] 25 mg PO Q6HR PRN #30 capsule 01/14/21 Unknown Rx Famotidine [Pepcid] 20 mg PO BID #40 tablet 02/25/21 Unknown Rx Prednisone [predniSONE 10 mg 10 mg PO .TAPER #21 tab.ds.pk 02/25/21 Unknown Rx (6-Day Pack, 21 Tabs)] Acetaminophen [Tylenol] 500 mg PO Q6HR PRN #24 tablet 05/04/21 Unknown Rx Famotidine [Pepcid] 20 mg PO BID #60 tablet 05/04/21 Unknown Rx hydrOXYzine PAMOATE [Vistaril] 50 mg PO Q6HR PRN #40 capsule 05/04/21 Unknown Rx predniSONE [Deltasone] 60 mg PO QDAY #15 tab 05/04/21 Unknown Rx ED Physical Exam - General Limitations: No Limitations General appearance: alert, in no apparent distress - Head Head exam: Present: atraumatic, normocephalic, normal inspection - Eye Eye exam: Present: normal appearance, PERRL, EOMI Pupils: Present: normal accommodation - ENT ENT exam: Present: normal orophraynx, mucous membranes moist, TM's normal bilaterally, normal external ear exam, other (Grossly congested nasal passages) - Neck Neck exam: Present: normal inspection, full ROM. Absent: tenderness - Respiratory Respiratory exam: Present: normal lung sounds bilaterally. Absent: respiratory distress, wheezes, rales, stridor, chest wall tenderness, accessory muscle use, decreased breath sounds, prolonged expiratory - Cardiovascular Cardiovascular Exam: Present: regular rate, normal rhythm, normal heart sounds. Absent: systolic murmur, diastolic murmur, rubs, gallop - GI/Abdominal GI/Abdominal exam: Present: soft, normal bowel sounds. Absent: tenderness, guarding, hyperactive bowel sounds, hypoactive bowel sounds, organomegaly, mass - Extremities Exam Extremities exam: Present: normal inspection, full ROM, normal capillary refill. Absent: tenderness, pedal edema, joint swelling, calf tenderness - Back Exam Back exam: Present: normal inspection, full ROM. Absent: tenderness, CVA tenderness (R), CVA tenderness (L), muscle spasm, paraspinal tenderness, vertebral tenderness - Neurological Exam Neurological exam: Present: alert, oriented X3, CN II-XII intact, normal gait, reflexes normal - Psychiatric Psychiatric exam: Present: normal affect, normal mood - Skin Skin exam: Present: warm, dry, intact, normal color, rash (Mild diffuse erythematous maculopapular urticarial rashes), erythema, urticaria ED Course Vital Signs 05/03/21 05/04/21 05/04/21 22:57 00:07 04:23 Temperature 102.8 F H 97.9 F Pulse Rate 106 H 78 Respiratory 18 16 14 Rate Blood Pressure 114/61 95/47 [Left] O2 Sat by Pulse 95 96 Oximetry ED Medical Decision Making - Lab Data Result diagrams: 05/03/21 23:57 05/03/21 23:57 - Radiology Data Radiology results: report reviewed, image reviewed [address] [address] XRay Report Signed Patient: RIYA VALLADARES III MR #: [id number] : 1985 Acct:[id number] Age/Sex: 35 / M ADM Date: 05/03/21 Loc: ED Attending Dr: Ordering Physician: JLUIS CERON Date of Service: 05/03/21 Procedure(s): XR chest 1V ap Accession Number(s): [id number] cc: JLUIS CERON Fluoro Time In Minutes: CHEST 1 VIEW 05/03/2021 11:56 PM INDICATION / CLINICAL INFORMATION: FEVER. COMPARISON: 03/16/2021 FINDINGS: SUPPORT DEVICES: None. HEART / MEDIASTINUM: No significant abnormality. LUNGS / PLEURA: No significant pulmonary or pleural abnormality. No pneumothorax. ADDITIONAL FINDINGS: No significant additional findings. IMPRESSION: No acute abnormality. Signer Name: Elvis Golden MD Signed: 05/04/2021 12:15 AM Workstation Name: [id number] Transcribed By: ES Dictated By: Elvis Golden MD Electronically Authenticated By: Elvis Golden MD Signed Date/Time: 05/04/2114 DD/ TD/TT: - Medical Decision Making This is a 35-year-old -Cuban male with a history of chronic itching due to chronic urticaria and migraine headaches who presents to the ED with complaint of acute onset persistent diffuse body aches and pains, nasal and sinus congestion, persistent dry cough, diffuse itchy mild erythematous maculopapular rashes and persistent fever and chills for the last 2 days, worse in the last 12 hours. Patient is homeless and stated that his symptoms are worsened in the last 6 hours. In the ED, patient is alert and oriented x3 and is not in distress. Patient however is febrile and tachycardic in triage. Patient was treated for acute allergic reaction in the ED with steroids and Benadryl as well as Pepcid. Patient was also treated for fever with Tylenol. Lab test results were reviewed and are all nonactionable including rapid influenza and rapid strep test results. Chest x-ray showed no acute cardiopulmonary abnormalities or pneumonitis. On reevaluation, patient's itching resolved, the rash is also resolved and fever also resolved. Patient was discharged home on medications and advised to follow-up with his primary care physician in 3 to 5 days for reevaluation. Patient advised return to the ED immediately if symptoms get worse. - Differential Diagnosis URI; Pneumonia; Influenza; Covid-19; Strep pharyngitis; UTI Critical care attestation.: If time is entered above; I have spent that time in minutes in the direct care of this critically ill patient, excluding procedure time. ED Disposition Clinical Impression: Chronic urticaria, Fever of unknown origin (FUO), Acute upper respiratory infection Acute allergic reaction Qualifiers: Encounter type: initial encounter Qualified Code(s): T78.40XA - Allergy, unspecified, initial encounter Disposition: HOME / SELF CARE / HOMELESS Is pt being admited?: No Does the pt Need Aspirin: No Condition: Stable Instructions: Allergies, Adult, [id number], Upper Respiratory Infection, Adult, [id number], Hives, [id number]-[id number], Fever, Adult, Uyie-[id number], Rash, Adult, [id number] Additional Instructions: All lab test results were reviewed and are all nonactionable. Chest x-ray showed no acute cardiopulmonary abnormalities or pneumonitis. Your symptoms are likely viral, worsen your symptoms of chronic itching and allergic reaction. Therefore take medication with food, drink plenty of fluids and follow-up with your primary care physician in 5 to 7 days for reevaluation. Return to the ED immediately if symptoms get worse. Prescriptions: Acetaminophen [Tylenol] 500 mg PO Q6HR PRN #24 tablet PRN Reason: Pain , Severe (7-10) predniSONE [Deltasone] 60 mg PO QDAY #15 tab Famotidine [Pepcid] 20 mg PO BID #60 tablet hydrOXYzine PAMOATE [Vistaril] 50 mg PO Q6HR PRN #40 capsule PRN Reason: Itching Referrals: [facility] [Provider Group] - 3-5 Days Forms: Work/School Release Form(ED) Time of Disposition: 03:53 Print Language: THAI
[2021-05-04 04:24] VITALS: BP 95/47
== END 2021-05-04 05:41 | disposition home or self-care (01) ==
LOC: ED 22:33
DX: J06.9 Acute upper respiratory infection, unspecified (principal); L50.9 Urticaria, unspecified; R50.9 Fever, unspecified; T78.40XA Allergy, unspecified, initial encounter; G43.909 Migraine, unspecified, not intractable, without status migrainosus; Z79.899 Other long term (current) drug therapy; X58.XXXA Exposure to other specified factors, initial encounter
CPT/HCPCS: 36415; 71045; 80053; 81001; 85025; 87116; 87400; 87430; 96374; 96375; 99284; J1200; J2930

== ENCOUNTER 2021-07-03 02:10 | Emergency (ER) | payer BC ==
[2021-07-03 02:24] VITALS: BP 109/54
--- NOTE | 2021-07-03 08:48 | Emergency Department Report ---
ED Rash HPI - HPI Chief Complaint: Skin Rash Stated Complaint: HIVES ON LWR BODY/ NUMBESS IN BOTH LEGS Time Seen by Provider: 07/03/21 08:09 Duration: 2 Days Location: Upper Extremities Suspected Cause: Medication Rash Symptoms: Yes Itching, No Facial Swelling, No Tongue/Oral Swelling, No Breathing Difficulties, No Choking Sensation, No Peeling, No Fever, No Lightheaded, No Myalgias Severity: mild Other History: 35-year-old male Anisa Galarza complaining of pruritus to the arms with some areas in the back due to a papular rash of an unknown etiology. He was reports having similar episodes in the past that made the doing to sleeping arrangements ED Review of Systems ROS: Stated complaint: HIVES ON LWR BODY/ NUMBESS IN BOTH LEGS Other details as noted in HPI Comment: All other systems reviewed and negative ED Past Medical Hx - Past Medical History Hx Headaches / Migraines: Yes Additional medical history: Migraines, Chronic itching. Torn esophagus - Social History Smoking Status: Never Smoker Substance Use Type: None - Medications Home Medications: Home Medications Medication Instructions Recorded Confirmed Last Taken Type diphenhydrAMINE [Benadryl CAP] 25 mg PO QHS PRN #20 capsule 03/28/19 Unknown Rx Tolnaftate [Tinactin] 108 gm TP BID #1 powder 02/23/20 Unknown Rx Omeprazole 40 mg PO DAILY #30 capsule. 06/14/20 Unknown Rx Butalb/Acetamin/Caff 50-325-40 1 tab PO Q6HR PRN #10 tab 09/10/20 Unknown Rx [Fioricet] Acetaminophen/Codeine [Tylenol 1 tab PO Q8H PRN #10 tab 10/10/20 Unknown Rx /Codeine # 3 tab] Prednisone [predniSONE 5 mg (6-Day 5 mg PO .TAPER #1 tab.ds.pk 10/10/20 Unknown Rx Pack, 21 Tabs)] methocarbamoL [Methocarbamol] 750 mg PO TID PRN #20 tablet 10/10/20 Unknown Rx Rivaroxaban [Xarelto Starter Pack] 1 each PO BID 30 Days #1 tab.ds.pk 12/07/20 Unknown Rx Rivaroxaban [Xarelto] 20 mg PO QDAY #30 tab 12/07/20 Unknown Rx diphenhydrAMINE [Benadryl CAP] 25 mg PO Q6HR PRN #30 capsule 01/14/21 Unknown Rx Famotidine [Pepcid] 20 mg PO BID #40 tablet 02/25/21 Unknown Rx Prednisone [predniSONE 10 mg 10 mg PO .TAPER #21 tab.ds.pk 02/25/21 Unknown Rx (6-Day Pack, 21 Tabs)] Acetaminophen [Tylenol] 500 mg PO Q6HR PRN #24 tablet 05/04/21 Unknown Rx Famotidine [Pepcid] 20 mg PO BID #60 tablet 05/04/21 Unknown Rx hydrOXYzine PAMOATE [Vistaril] 50 mg PO Q6HR PRN #40 capsule 05/04/21 Unknown Rx predniSONE [Deltasone] 60 mg PO QDAY #15 tab 05/04/21 Unknown Rx Famotidine [Pepcid] 40 mg PO DAILY #14 tablet 07/03/21 Unknown Rx hydrOXYzine HCL [Atarax] 25 mg PO Q6HR PRN #20 tablet 07/03/21 Unknown Rx predniSONE [Deltasone] 20 mg PO QDAY #5 tab 07/03/21 Unknown Rx Rash Exam - Exam General: Vital signs noted. No distress. Alert and acting appropriately. HEENT: No Periorbital Edema, No Conjuctival Injection, No Chemosis, No Perioral Edema, No Tongue Edema, No Uvular Edema, No Compromised Airway, No Drooling Lungs: Yes Good Air Exchange (Normal Breath Sounds), No Wheezes, No Ronchi, No Stridor, No Cough, No Labored Respirations, No Retractions, No Use of Accessory Muscles, No Other Abnormal Lung Sounds Heart: Yes Regular, No Murmur Skin: Yes Maculopapular Rash, Yes Excoriations, No Urticarial Rash, No Morbilliform rash, No Edema, No Encrustations Other: Positive: Abdomen Normal, Neurologic Normal, Musculoskeletal Normal ED Course Vital Signs 07/03/21 02:11 Temperature 97.4 F L Pulse Rate 73 Respiratory 16 Rate Blood Pressure 109/54 [Right] O2 Sat by Pulse 97 Oximetry Critical care attestation.: If time is entered above; I have spent that time in minutes in the direct care of this critically ill patient, excluding procedure time. ED Disposition Clinical Impression: Rash and nonspecific skin eruption Disposition: 01 HOME / SELF CARE / HOMELESS Is pt being admited?: No Does the pt Need Aspirin: No Condition: Stable Instructions: Rash, Adult Prescriptions: hydrOXYzine HCL [Atarax] 25 mg PO Q6HR PRN #20 tablet PRN Reason: Itching predniSONE [Deltasone] 20 mg PO QDAY #5 tab Famotidine [Pepcid] 40 mg PO DAILY #14 tablet Referrals: PRIMARY CARE, [Primary Care Provider] - 3-5 Days [facility], [LAB/CONTRACT] - 3-5 Days
== END 2021-07-03 09:11 | disposition home or self-care (01) ==
LOC: ED 02:10
DX: R21 Rash and other nonspecific skin eruption (principal); G43.909 Migraine, unspecified, not intractable, without status migrainosus; L29.9 Pruritus, unspecified
CPT/HCPCS: 99282

== ENCOUNTER 2021-08-02 01:26 | Emergency (ER) | payer BC ==
--- NOTE | 2021-08-02 09:54 | Emergency Department Report ---
ED General Adult HPI - General Chief complaint: Chest Pain Stated complaint: PAIN LT EYE/HEADACHES/CHEST PAINS Source: patient Mode of arrival: Ambulatory Limitations: No Limitations - History of Present Illness Initial comments: 36-year-old male presents to the ED complaining chest pain x1 day, headache with nausea, heel pain x1 week. Patient has been seen prior for chest pain. States that he was at work yesterday when he started to have some chest pain. States chest pain has resolved at present time. Patient at present time is complaining of a headache with nausea. States that headache is a current 5 out of 10. Patient states that he has a history of migraine headache. Patient states that he works for [employer] and is constant lifting and do not know if this was contr ibuting to some of his pain. Patient denies any fever chills or shortness of breath at present time. Patient is alert and oriented x3. No acute distress noted. No ill appearance noted . Associated Symptoms: denies other symptoms - Related Data Previous Rx's Medication Instructions Recorded Last Taken Type diphenhydrAMINE [Benadryl CAP] 25 mg PO QHS PRN #20 capsule 03/28/19 Unknown Rx Tolnaftate [Tinactin] 108 gm TP BID #1 powder 02/23/20 Unknown Rx Omeprazole 40 mg PO DAILY #30 capsule. 06/14/20 Unknown Rx Butalb/Acetamin/Caff 50-325-40 1 tab PO Q6HR PRN #10 tab 09/10/20 Unknown Rx [Fioricet] Acetaminophen/Codeine [Tylenol 1 tab PO Q8H PRN #10 tab 10/10/20 Unknown Rx /Codeine # 3 tab] Prednisone [predniSONE 5 mg (6-Day 5 mg PO .TAPER #1 tab.ds.pk 10/10/20 Unknown Rx Pack, 21 Tabs)] methocarbamoL [Methocarbamol] 750 mg PO TID PRN #20 tablet 10/10/20 Unknown Rx Rivaroxaban [Xarelto Starter Pack] 1 each PO BID 30 Days #1 tab.ds.pk 12/07/20 Unknown Rx Rivaroxaban [Xarelto] 20 mg PO QDAY #30 tab 12/07/20 Unknown Rx diphenhydrAMINE [Benadryl CAP] 25 mg PO Q6HR PRN #30 capsule 01/14/21 Unknown Rx Famotidine [Pepcid] 20 mg PO BID #40 tablet 02/25/21 Unknown Rx Prednisone [predniSONE 10 mg 10 mg PO .TAPER #21 tab.ds.pk 02/25/21 Unknown Rx (6-Day Pack, 21 Tabs)] Acetaminophen [Tylenol] 500 mg PO Q6HR PRN #24 tablet 05/04/21 Unknown Rx Famotidine [Pepcid] 20 mg PO BID #60 tablet 05/04/21 Unknown Rx hydrOXYzine PAMOATE [Vistaril] 50 mg PO Q6HR PRN #40 capsule 05/04/21 Unknown Rx predniSONE [Deltasone] 60 mg PO QDAY #15 tab 05/04/21 Unknown Rx Famotidine [Pepcid] 40 mg PO DAILY #14 tablet 07/03/21 Unknown Rx hydrOXYzine HCL [Atarax] 25 mg PO Q6HR PRN #20 tablet 07/03/21 Unknown Rx predniSONE [Deltasone] 20 mg PO QDAY #5 tab 07/03/21 Unknown Rx Naproxen [Naprosyn] 500 mg PO BID 15 Days #30 tablet 08/02/21 Unknown Rx Ondansetron (Nf) [Zofran TAB] 8 mg PO Q8HR PRN 3 Days #12 tablet 08/02/21 Unknown Rx Allergies Allergy/AdvReac Type Severity Reaction Status Date / Time No Known Allergies Allergy Verified 02/25/21 20:56 ED Review of Systems ROS: Stated complaint: PAIN LT EYE/HEADACHES/CHEST PAINS Other details as noted in HPI Constitutional: denies: chills, fever Eyes: denies: eye pain, eye discharge, vision change ENT: denies: ear pain, throat pain Respiratory: denies: cough, shortness of breath, wheezing Cardiovascular: denies: chest pain, palpitations Endocrine: no symptoms reported Gastrointestinal: denies: abdominal pain, nausea, diarrhea Genitourinary: denies: urgency, dysuria Musculoskeletal: denies: back pain, joint swelling, arthralgia Skin: denies: rash, lesions Neurological: denies: headache, weakness, paresthesias Psychiatric: denies: anxiety, depression Hematological/Lymphatic: denies: easy bleeding, easy bruising ED Past Medical Hx - Past Medical History Hx Headaches / Migraines: Yes Additional medical history: Migraines, Chronic itching. Torn esophagus - Social History Smoking Status: Never Smoker Substance Use Type: None - Medications Home Medications: Home Medications Medication Instructions Recorded Confirmed Last Taken Type diphenhydrAMINE [Benadryl CAP] 25 mg PO QHS PRN #20 capsule 03/28/19 Unknown Rx Tolnaftate [Tinactin] 108 gm TP BID #1 powder 02/23/20 Unknown Rx Omeprazole 40 mg PO DAILY #30 capsule. 06/14/20 Unknown Rx Butalb/Acetamin/Caff 50-325-40 1 tab PO Q6HR PRN #10 tab 09/10/20 Unknown Rx [Fioricet] Acetaminophen/Codeine [Tylenol 1 tab PO Q8H PRN #10 tab 10/10/20 Unknown Rx /Codeine # 3 tab] Prednisone [predniSONE 5 mg (6-Day 5 mg PO .TAPER #1 tab.ds.pk 10/10/20 Unknown Rx Pack, 21 Tabs)] methocarbamoL [Methocarbamol] 750 mg PO TID PRN #20 tablet 10/10/20 Unknown Rx Rivaroxaban [Xarelto Starter Pack] 1 each PO BID 30 Days #1 tab.ds.pk 12/07/20 Unknown Rx Rivaroxaban [Xarelto] 20 mg PO QDAY #30 tab 12/07/20 Unknown Rx diphenhydrAMINE [Benadryl CAP] 25 mg PO Q6HR PRN #30 capsule 01/14/21 Unknown Rx Famotidine [Pepcid] 20 mg PO BID #40 tablet 02/25/21 Unknown Rx Prednisone [predniSONE 10 mg 10 mg PO .TAPER #21 tab.ds.pk 02/25/21 Unknown Rx (6-Day Pack, 21 Tabs)] Acetaminophen [Tylenol] 500 mg PO Q6HR PRN #24 tablet 05/04/21 Unknown Rx Famotidine [Pepcid] 20 mg PO BID #60 tablet 05/04/21 Unknown Rx hydrOXYzine PAMOATE [Vistaril] 50 mg PO Q6HR PRN #40 capsule 05/04/21 Unknown Rx predniSONE [Deltasone] 60 mg PO QDAY #15 tab 05/04/21 Unknown Rx Famotidine [Pepcid] 40 mg PO DAILY #14 tablet 07/03/21 Unknown Rx hydrOXYzine HCL [Atarax] 25 mg PO Q6HR PRN #20 tablet 07/03/21 Unknown Rx predniSONE [Deltasone] 20 mg PO QDAY #5 tab 07/03/21 Unknown Rx Naproxen [Naprosyn] 500 mg PO BID 15 Days #30 tablet 08/02/21 Unknown Rx Ondansetron (Nf) [Zofran TAB] 8 mg PO Q8HR PRN 3 Days #12 tablet 08/02/21 Unknown Rx ED Physical Exam - General Limitations: No Limitations General appearance: alert, in no apparent distress - Head Head exam: Present: atraumatic, normocephalic - Eye Eye exam: Present: normal appearance - ENT ENT exam: Present: mucous membranes moist - Neck Neck exam: Present: normal inspection - Respiratory Respiratory exam: Present: normal lung sounds bilaterally. Absent: respiratory distress - Cardiovascular Cardiovascular Exam: Present: regular rate, normal rhythm. Absent: systolic murmur, diastolic murmur, rubs, gallop - GI/Abdominal GI/Abdominal exam: Present: soft, normal bowel sounds - Rectal Rectal exam: Present: deferred - Extremities Exam Extremities exam: Present: normal inspection - Back Exam Back exam: Present: normal inspection - Neurological Exam Neurological exam: Present: alert, oriented X3 - Psychiatric Psychiatric exam: Present: normal affect, normal mood - Skin Skin exam: Present: warm, dry, intact, normal color. Absent: rash ED Course Vital Signs 08/02/21 01:56 Temperature 98.6 F Pulse Rate 74 Respiratory 18 Rate Blood Pressure 111/71 O2 Sat by Pulse 96 Oximetry ED Medical Decision Making - Lab Data Result diagrams: 08/02/21 09:59 08/02/21 09:59 - Radiology Data [facility] [address] [place] [address] XRay Report Signed Patient: RIYA VALLADARES III MR #: [id number] : 1985 Acct:[id number] Age/Sex: 36 / M ADM Date: 08/02/21 Loc: ED Attending Dr: Ordering Physician: JERICHO BLACKMAN Date of Service: 08/02/21 Procedure(s): XR chest routine 2V Accession Number(s): [id number] cc: JERICHO BLACKMAN Fluoro Time In Minutes: CHEST 2 VIEWS INDICATION / CLINICAL INFORMATION: chest pain. COMPARISON: 05/03/2021 FINDINGS: SUPPORT DEVICES: None. HEART / MEDIASTINUM: No significant abnormality. LUNGS / PLEURA: No significant pulmonary or pleural abnormality. No pneumothorax. ADDITIONAL FINDINGS: No significant additional findings. IMPRESSION: 1. No acute findings. Signer Name: Michael Chapman Jr, MD Signed: 08/02/2021 9:59 AM Workstation Name: [id number] Transcribed By: TTR Dictated By: MICHAEL CHAPMAN JR, MD Electronically Authenticated By: MICHAEL CHAPMAN JR, MD Signed Date/Time: 08/02/21958 DD/ 7 TD/TT: Print Cancel - Medical Decision Making 36-year-old male presents to the ED complaining chest pain x1 day, headache with nausea, heel pain x1 week. Patient has been seen prior for chest pain. States that he was at work yesterday when he started to have some chest pain. States chest pain has resolved at present time. Patient at present time is complaining of a headache with nausea. States that headache is a current 5 out of 10. Patient states that he has a history of migraine headache. Patient states that he works for [employer] and is constant lifting and do not know if this was contributing to some of his pain. Patient denies any fever chills or shortness of breath at present time. Patient is alert and oriented x3. No acute distress noted. No ill appearance noted . Physical examination unremarkable. Patient was in ED room for approximately 6-hour resting with eyes closed as awaiting lab results and x-ray results medication. Patient declined any pain medication during the course of her ED stay. At time of discharge patient had no complaints. Rechecked the patient is resting quietly quietly and comfortable and feeling better. I discussed the results of diagnostic study, my clinical impression and the plan for further treatment with the patient. Patient agrees with plan and discharge at this present time. All question addressed. I have given the patient instruction regarding a diagnosis ,expectation ,follow- up and return precaution. I explained to the patient that emergent condition may arise and to return to the ED for new worsen and any new persisting condition. I have explained the importance of following up with the primary care physician or referral physician listed below has instructed. The patient verbalized understanding of discharge instruction. Abnormal Lab Results 08/02/21 08/02/21 08/02/21 09:59 09:59 09:59 WBC 3.8 L RBC 5.56 H Hgb 14.1 Hct 44.3 MCV 80 L MCH 25 L MCHC 32 RDW 13.9 Plt Count 150 APTT 32.3 Sodium 142 Potassium 3.8 Chloride 105.5 Carbon Dioxide 27 Anion Gap 13 BUN 8 L Glucose 87 Calcium 8.7 Total Bilirubin 0.40 AST 16 ALT 20 Alkaline Phosphatase 70 Troponin T < 0.010 Total Protein 6.8 Albumin 4.1 Albumin/Globulin Ratio 1.5 Critical care attestation.: If time is entered above; I have spent that time in minutes in the direct care of this critically ill patient, excluding procedure time. ED Disposition Clinical Impression: Migraine headache Qualifiers: Migraine type: unspecified Status migrainosus presence: without status migrainosus Intractability: not intractable Qualified Code(s): G43.909 - Migraine, unspecified, not intractable, without status migrainosus Disposition: HOME / SELF CARE / HOMELESS Is pt being admited?: No Does the pt Need Aspirin: No Condition: Stable Instructions: Migraine Headache, [id number] Additional Instructions: Take medication as prescribed Return to ED for any worsening symptoms Prescriptions: Naproxen [Naprosyn] 500 mg PO BID 15 Days #30 tablet Ondansetron (Nf) [Zofran TAB] 8 mg PO Q8HR PRN 3 Days #12 tablet PRN Reason: Nausea Referrals: PRIMARY CARE, [Primary Care Provider] - 3-5 Days [facility] [Provider Group] - 3-5 Days Forms: Work/School Release Form(ED) Time of Disposition: 13:23
--- NOTE | 2021-08-02 10:03 | XRay Report ---
CHEST 2 VIEWS INDICATION / CLINICAL INFORMATION: chest pain. COMPARISON: 05/03/2021 FINDINGS: SUPPORT DEVICES: None. HEART / MEDIASTINUM: No significant abnormality. LUNGS / PLEURA: No significant pulmonary or pleural abnormality. No pneumothorax. ADDITIONAL FINDINGS: No significant additional findings. IMPRESSION: 1. No acute findings. Signer Name: Michael Wolff Jr, MD Signed: 08/02/2021 9:59 AM Workstation Name: [id number]
[2021-08-02 11:40] LABS: Hematocrit 44.3 % (35.5-45.6); Hemoglobin 14.1 gm/dl (11.8-15.2); Mean Corpuscular HGB Conc 32 % (32-34); Mean Corpuscular Volume 80 fl (84-94); Platelet Count 150 K/mm3 (140-440); Red Blood Count 5.56 M/mm3 (3.65-5.03); Red Cell Distribution Width 13.9 % (13.2-15.2)
[2021-08-02 13:14] LABS: Alanine Aminotransferase 20 units/L (7-56); Albumin 4.1 g/dL (3.9-5); Blood Urea Nitrogen 8 mg/dL (9-20); Calcium 8.7 mg/dL (8.4-10.2); Hemolysis Index 8
[2021-08-02 13:23] LABS: BUN/Creatinine Ratio 13
--- NOTE | 2021-08-02 13:34 | Electrocardiograph Report ---
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
--- NOTE | 2021-08-02 13:35 | Electrocardiograph Report ---
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
[2021-08-02 13:42] VITALS: BP 110/70
== END 2021-08-02 13:40 | disposition home or self-care (01) ==
LOC: ED 01:26
DX: G43.909 Migraine, unspecified, not intractable, without status migrainosus (principal)
CPT/HCPCS: 36415; 71046; 80053; 84484; 85027; 85730; 93005; 99284